=== PATIENT | female | born 1940 | race Caucasian/White ===

== ENCOUNTER → 2020-02-07 11:57 | Outpatient (CLI) | payer MEDICARE, OTHER, SELFPAY ==
--- NOTE | ~2020-02-07 | DEXA_ITS ---
Bone Density Report Name: Stephanie Diop Age: 79 Sex: Female Ethnicity: White Date of : 1940 Indication: postmenopausal; screening for osteoporosis; parental hip fracture; height loss; hysterectomy; Referring Provider: Janelle, Missy Study: Bone densitometry was performed. Exam Date: February 07, 2020 Accession number: [id number] There is hypertrophic degenerative change of the lumbar spine, which results in higher than expected spine bone mineral density measurements. These spine BMD and T score and Z score measurements are not reflective of the patient's true general bone mineral density. Bone Density: Region BMD T-score Z-score Classification AP Spine (L1-L4) 1.154 1.0 3.7 Normal Femoral Neck (Left) 0.797 -0.5 1.9 Normal Total Hip (Left) 0.837 -0.9 1.2 Normal Femoral Neck (Right) 0.763 -0.8 1.6 Normal Total Hip (Right) 0.819 -1.0 1.1 Normal Total Hip Mean 0.828 -1.0 1.2 Normal World Health Organization criteria for BMD impression classify patients as: Normal (T-score at or above -1.0), Osteopenia (T-score between -1.0 and -2.5), or Osteoporosis (T-score at or below -2.5). 10-year Fracture Risk: FRAX not reported because: All T-scores for Spine Total, Hip Total, Femoral Neck at or above -1.0 Clinical Information Provided by Patient: Parent has had a hip fracture Has used the following medications: Vitamin D, Calcium Has the following medical conditions: Hysterectomy, Levothyroxin Patient maximum height was 65.5 Menopause Age: 30 No regular weight bearing exercise Drinks caffeinated beverages Onset of menses at age 14 Number of children 4 Impression: The patient has normal bone mass. The patient has risk factors, including: parental hip fracture. There is hypertrophic degenerative change of the lumbar spine, which results in higher than expected spine bone mineral density measurements. These spine BMD and T score and Z score measurements are not reflective of the patient's true general bone mineral density. Discussion: BONE DENSITY IS ABOVE THE MINIMUM DESIRABLE LEVEL AT ALL SKELETAL SITES TESTED. This patient?s bone mineral density is above the minimum desirable level (T-score -1.0 or better) at all sites measured. The patient should follow a healthful lifestyle (good nutrition with adequate calcium and vitamin D, and appropriate weight-bearing exercise). Follow-Up: Consider repeating this study in 5 years or sooner if there is some new clinical indication. Reported by: MAYA on 02/07/2020 3:24:00 PM. Reviewed, dictated and finalized at location Demetrice ALBA
--- NOTE | ~2020-02-07 | MM_ITS ---
EXAMINATION: MM screening marisa BI w antoni HISTORY: Screening mammogram TECHNIQUE: Craniocaudal and mediolateral oblique 3-D tomosynthesis images were obtained and synthetic 2-D images were generated. CAD analysis was submitted and interpreted. COMPARISON: 12/16/2018, 11/30/2017, 10/30/2016 bilateral digital screening mammogram examinations BREAST PARENCHYMAL COMPOSITION: FINDINGS: There is some asymmetry on the left; diagnostic left mammogram is recommended, with ultraso und if required. Otherwise no suspicious mass or architectural distortion or malignant calcification, skin thickening or retraction is detected. There are bilateral occasional benign calcifications. IMPRESSION: 1. Left mammographic asymmetry 2. Diagnostic left mammogram is recommended, with ultrasound if required BI-RADS Category 0: Incomplete: Needs additional imaging evaluation. Reviewed, dictated and finalized at location A.
== END ==
PROVIDERS: PCP Internal Medicine; Visit Provider Internal Medicine
DX: Z12.31 Encounter for screening mammogram for malignant neoplasm of breast (principal); Z78.0 Asymptomatic menopausal state; R92.8 Other abnormal and inconclusive findings on diagnostic imaging of breast
CPT/HCPCS: 77063; 77067; 77080

== ENCOUNTER → 2020-02-28 09:45 | Outpatient (CLI) | payer MEDICARE, OTHER, SELFPAY ==
--- NOTE | ~2020-02-28 | MMUS_ITS ---
EXAMINATION: MM diagnostic mammo unilat LT, US breast LT limited HISTORY: Left breast asymmetries on screening mammogram TECHNIQUE: Additional 3-D tomosynthesis images of the left breast were performed and synthetic 2-D im ages were generated. CAD analysis was submitted and interpreted. High resolution limited left breast ultrasound was performed. COMPARISON: 02/07/2020, 12/16/2018, 11/30/2017, 10/30/2016 FINDINGS: MAMMOGRAPHIC FINDINGS: There is a return to baseline fibroglandular appearance with spot compression of the left breast. No persistent mass is identified. There is no suspicious calcification or architectural distortion. ULTRASOUND: There is no evidence of focal abnormal solid or cystic lesion in the vicinity of the mammographic fin ding in question. IMPRESSION: 1. No mammographic or sonographic evidence of malignancy. 2. Recommend annual screening mammography while the patient remains in good health. BI-RADS Category 1: Negative Reviewed, dictated and finalized at location A. UE CARVER IMPRESSION: 1. No mammographic or sonographic evidence of malignancy. 2. Recommend annual screening mammography while the patient remains in good hea lth. BI-RADS Category 1: Negative
== END ==
PROVIDERS: PCP Internal Medicine; Visit Provider Internal Medicine
DX: R92.8 Other abnormal and inconclusive findings on diagnostic imaging of breast (principal)
CPT/HCPCS: 76642; 77065

== ENCOUNTER → 2021-02-11 12:56 | Outpatient (CLI) | payer MEDICARE, SELFPAY ==
--- NOTE | ~2021-02-11 | MM_ITS ---
EXAMINATION: MM screening marisa BI w antoni HISTORY: Screening mammogram TECHNIQUE: Craniocaudal and mediolateral oblique 3-D tomosynthesis images were obtained and synthetic 2-D images were generated. CAD analysis was submitted and interpreted. COMPARISON: Serial mammogram examinations dating back to 06/2015 and 02/28/2020 limited left breast u ltrasound examination BREAST PARENCHYMAL COMPOSITION: There are scattered areas of fibroglandular density. FINDINGS: Stable fibroglandular asymmetry since 06/2015, without evidence of significant new or devel oping density. Scattered bilateral benign calcifications. There is no evidence of suspicious mass, ca lcification, or architectural distortion to suggest malignancy in either breast. There has been no zepeda spicious interval change. IMPRESSION: 1. No mammographic evidence of malignancy. 2. Recommend routine screening mammography in one year. BI-RADS Category 2: Benign finding(s). Reviewed, dictated and finalized at location A.
== END ==
PROVIDERS: PCP Internal Medicine; Visit Provider Obstetrics & Gynecology
DX: Z12.31 Encounter for screening mammogram for malignant neoplasm of breast (principal)
CPT/HCPCS: 77063; 77067

== ENCOUNTER 2021-06-02 12:22 | Outpatient (CLI) | payer MEDICARE, SELFPAY ==
--- NOTE | ~2021-06-02 | US_ITS ---
EXAMINATION: US thyroid DATE: 06/02/2021 13:17 INDICATION: Nontoxic single thyroid nodule. TECHNIQUE: Multiple ultrasound images of the thyroid were obtained. COMPARISON: None. FINDINGS: The right thyroid lobe measures 3.1 x 1.4 x 1.3 cm. The left thyroid lobe measures 2.6 x 1.3 x 0.8 c m. In the right thyroid lobe, there is a 9 mm solid, hypoechoic, jtjfy-fcll-wwbj nodule with macroca lcifications and ill-defined margin (TI-RADS TR4). In the right thyroid lobe, there is a 9 mm solid, hypoechoic, ykopr-zujn-ozdr nodule with punctate echogenic foci (TI-RADS TR5). In the left thyroid lo be, there is a 6 mm solid, hypoechoic, oliab-luxq-ergx nodule with punctate echogenic focus (TR5). IMPRESSION: 1. Small thyroid nodules. Thyroid ultrasound is recommended in one year. Reviewed, dictated and finalized at location A. L WRITING PROFESSOR
== END 2021-06-02 12:23 | disposition home or self-care (01) ==
LOC: ANHIMG 12:29
PROVIDERS: PCP Internal Medicine; Visit Provider Otolaryngology
DX: E04.1 Nontoxic single thyroid nodule (principal)
CPT/HCPCS: 76536

== ENCOUNTER 2022-01-31 23:10 | Inpatient (IN) | payer MEDICARE, SELFPAY ==
--- NOTE | ~2022-01-31 | XR_ITS ---
EXAMINATION: XR chest 1V portable DATE: 02/01/2022 00:55 INDICATION: COVID TECHNIQUE: frontal view of the chest was obtained. COMPARISON: Chest radiograph dated 12/01/2013 FINDINGS: The lungs remain clear with no focal airspace opacities, pulmonary edema, pleural effusion or pneumot horax. Heart size is normal. 50 degrees thoracic dextroscoliosis and 40 degrees cervicothoracic levos coliosis with moderate to severe spondylosis. IMPRESSION: 1. No acute cardiopulmonary disease. 2. Scoliosis. Reviewed, dictated and finalized at location A.
[2022-01-31 23:14] VITALS: BP 177/83; PULSE 69; RESP 17; TEMP 36.6; O2SAT 100
--- NOTE | 2022-01-31 23:55 | ED.HA ---
HPI - Headache General Chief Complaint: Headache Stated Complaint: COVID+, headache, high BP Time Seen by Provider: 01/31/22 23:37 History of Present Illness HPI Narrative: Patient is an 81-year-old female with a history of hypertension, hypothyroidism presenting with a headache. Patient states that she was diagnosed with COVID approximately 6 days ago. Her PCP placed her on antivirals which she has been taking all week. She states that she has had intermittent headache since Wednesday. States that today she developed a headache in the back of her head and it radiates to the top of her head. She took Tylenol which did not help. She checked her blood pressure and found it to be 200 systolic so she called her PCP who recommended she come to the ER. Patient states that she then took an Advil around 9 PM and currently her headache is much improved. She denies numbness or weakness, neck pain, fevers, vision changes, ataxia, speech changes. She denies chest pain, shortness of breath, cough, abdominal pain, vomiting, diarrhea, dysuria, leg swelling. States that she has been intermittently nauseated. Related Data Home Medications Medication Instructions Recorded Confirmed acetaminophen 500 mg tablet 650 mg PO Q6H PRN Pain (Scale 08/25/21 02/01/22 (Acetaminophen Extra Strength) Score 1-3) aspirin 81 mg tablet 81 mg PO DAILY 08/25/21 02/01/22 atorvastatin 20 mg tablet 20 mg PO QHS 08/25/21 02/01/22 levothyroxine 50 mcg capsule 50 mcg PO DAILY 08/25/21 02/01/22 lisinopril 10 mg tablet 10 mg PO DAILY 08/25/21 02/01/22 melatonin 3 mg capsule 3 mg PO QHS PRN Insomnia 08/25/21 02/01/22 polyethylene glycol 3350 17 17 g PO DAILY PRN Constipation 08/25/21 02/01/22 gram/dose oral powder (Miralax) Allergies Allergy/AdvReac Type Severity Reaction Status Date / Time MUSCLE RELAXANT Allergy Severe DIFFICULTY Uncoded 05/30/21 15:00 SWALLOWING Review of Systems Review of Systems: All systems reviewed & are unremarkable except as noted in HPI and below PMFSH Past Medical History Medical History Cancer of skin Cervical migraine syndrome GI bleed Heartburn High cholesterol Hyperlipidemia Hypertension Hypothyroidism Scoliosis of cervical spine Stomach ulcer Surgical History Surgical History H/O meniscectomy of right knee H/O vaginal hysterectomy S/P right rotator cuff repair Status post surgical removal of malignant neoplasm of skin Family History Family History (Updated 02/01/22 @ 07:05 by LARRY Bird) Sibling Diabetes mellitus Cancer Family hx-arthritis Heart disease Mother Family hx-arthritis Sibling Family hx-arthritis Cancer Grandparent Cancer Family hx-arthritis Grandparent Family history of malignant neoplasm of breast Father Heart disease Cardiovascular sclerosis with arteriosclerosis Social History Social History (Updated 02/01/22 @ 07:06 by LARRY Bird) Social History: Patient currently lives by herself. She had 4 children 1 of them is at this time. She denies having any pets and wishes to be a full code. Her daughter Elizabeth is her surrogate. Patient also stated she has living will. Smoking status: Never smoker Alcohol intake: never Alcohol use details: Had a Ziebel on [place] Substance use: never Living arrangements: alone Occupation/Education: retired Additional occupation/education comments: [employer] Gender identity (if verbalized by the patient): Female Sexual Orientation (if Verbalized by the Patient): Straight or Heterosexual Spiritual care concerns: No Agree to blood products: Yes Exam Narrative: GENERAL: Well-appearing, well-nourished, and in no acute distress. HEAD: Normocephalic, atraumatic. EYES: PERRLA and EOMI. ENT: Nares clear, no rhinorrhea or epistaxis. Mucous membranes moist. NECK:
[2022-02-01] VITALS (24 sets, daily range): BP systolic 123–192; BP diastolic 52–75; PULSE 51–68; RESP 16–28; TEMP 36.3–36.9; O2SAT 95–100; BMI 25.8
[2022-02-01] MEDS: ONDANSETRON INJ 4 MG/2 ML VIAL IV PUSH ×2 (00:02→12:49)
[2022-02-01 00:10] LABS: Eosinophils Percent Auto 0.6 % (0-4.4); Hematocrit 38.4 % (37.0-47.0); Hemoglobin 13.1 g/dL (12.0-15.0); Immature Granulocyte Absolute 0.01 K/mm3 (0.00-0.031); Immature Granulocyte Percent A 0.2 % (0-0.5); Lymphocytes Absolute Auto 1.61 K/mm3 (0.9-3.2); Mean Corpuscular HGB Conc 34.1 g/dl (32-36); Mean Corpuscular Hemoglobin 30.6 pg (26-34); Mean Corpuscular Volume 89.7 fl (80-100); Mean Platelet Volume 9.8 fl (7.4-10.4); Monocytes Absolute Auto 0.7 K/mm3 (0.1-0.6); Monocytes Percent Auto 12.7 % (2.6-8.5); Neutrophils Absolute Auto 2.9 K/mm3 (1.3-6.7); Neutrophils Percent Auto 55.5 % (45.5-73.1); Platelet Count Result 204 k/mm3 (150-375); Red Blood Count 4.28 M/mm3 (4.2-5.4); Red Cell Distribution Width 13.1 % (11.5-14.5); White Blood Count 5.2 K/mm3 (4.5-10.0)
[2022-02-01 00:19] LABS: Alanine Aminotransferase 30 U/L (6-35); Albumin Level 4.4 g/dL (3.5-5.1); Alkaline Phosphatase 91 U/L (38-126); Anion Gap 8 mmol/L (8-16); Aspartate Amino Transferase 36 U/L (14-36); Bilirubin,Total 0.6 mg/dL (0.2-1.3); Blood Urea Nitrogen 9 mg/dL (7-17); Calcium 8.9 mg/dL (8.4-10.2); Carbon Dioxide 26 mmol/L (22-30); Chloride 88 mmol/L (98-107); Estimated CRCL calculation 44 ml/min; Estimated Glomerular Filt Rate > 60; Glucose 129 mg/dL (65-110); Potassium 4.1 mmol/L (3.4-5.0); Sodium 122 mmol/L (137-145)
--- NOTE | 2022-02-01 00:59 | PC.NURSE ---
Called patients son Abilio upon patient request to inform him that she will be admitted to the hospital.
[2022-02-01 01:04] LABS: Add Urine Microscopic? YES; Appearance Urine Cloudy (Clear); Bacteria Urine Trace /hpf; Bilirubin Urine Negative (Negative); Blood Urine 2+ (Negative); Color Urine Yellow (Yellow); Glucose Urine UA Negative (Negative); Ketones Urine Negative (Negative); Leukocyte Esterase Ur 2+ LEU/UL (Negative); Mucus Urine Rare /lpf; Nitrate Urine Positive (Negative); Protein Urine Negative (Negative); Specific Grav Ur 1.006 (1.001-1.035); Squamous Epithelial Cell Urine Rare /hpf (Few); Urobilinogen Urine Negative mg/dL (<2.0); WBC Urine 51-75 /hpf
--- NOTE | 2022-02-01 01:16 | ECG_ITS ---
Measurements Intervals [place] Rate: 51 P: 65 AR: 219 QRS: -27 QRSD: 91 T: 69 QT: 458 QTc: 425 Interpretive Statements SINUS BRADYCARDIA WITH FIRST DEGREE AV BLOCK BORDERLINE ECG NO PREVIOUS ECG AVAILABLE FOR COMPARISON Electronically Signed On 02-01-2022 15:41:51 CDT by Conrad Vieira M.D.
[2022-02-01 01:32] LABS: Creatinine Urine 38.6 mg/dL
[2022-02-01] MEDS: hydrALAZINE HCL 20 MG/ML VIAL 10 MG IV PUSH (01:33)
[2022-02-01 02:09] LABS: Sodium Urine Random 23 meq/L
--- NOTE | 2022-02-01 06:03 | ADMGEN ---
This patient, Stephanie Diop, was admitted to [facility] Surg Room 327-01. Patient/family oriented to hospital policies and general routines including ID bracelet, bed and alarms, visiting hours, pain management, procedures, bathroom and other care routines, personal items, smoking policy, room service/diet, and visiting hours. Information on how to activate the Rapid Response Team has been discussed. Patient/Family are encouraged to report perceived risks to care and to ask questions if they do not understand what they are told or what they should do.
[2022-02-01 06:30] LABS: Hematocrit 37.4 % (37.0-47.0); Mean Corpuscular HGB Conc 34.8 g/dl (32-36); Mean Corpuscular Hemoglobin 30.7 pg (26-34); Mean Corpuscular Volume 88.2 fl (80-100); Mean Platelet Volume 9.6 fl (7.4-10.4); Platelet Count Result 202 k/mm3 (150-375); Red Blood Count 4.24 M/mm3 (4.2-5.4); Red Cell Distribution Width 12.9 % (11.5-14.5); White Blood Count 6.3 K/mm3 (4.5-10.0)
--- NOTE | 2022-02-01 06:30 | PM.IMHP ---
H&P: HPI History of Present Illness Date/Time: 02/01/22 06:30 Chief Complaint: Headache, elevated blood pressure Narrative: patient is an 81-year-old female with past medical history of hyperlipidemia, hypertension, GI bleed due to stomach ulcer, skin carcinoma who presented to the ED with complaints elevated blood pressure. Patient stated that last Wednesday she did in home test for COVID x3 which all came back positive. She called her physician on Wednesday and he prescribed her antivirals. Patient started her antivirals on Wednesday. She stated that her symptoms were noted to be weakness, feeling off, headache. Patient stated that she never really had a cough and that her temperature did get any higher than 99.3. She also stated that she was having some bouts of diarrhea that Wednesday or Wednesday. She also stated that since she started antiviral medications she has been lightheaded along with some nausea. The 1st couple days she was having sneezing fits however have resolved. Patient stated that she was doing okay however last night she was noted to have a systolic blood pressure of greater than 200. She she called her physician who told her to come to the ED. patient stated that time she started getting a pretty significant headache that started the back of her head and went all the way to the front. She stated that her headache got so severe that she felt like her head was going to pop off. Patient also stated that she does have a history of headaches and does go to a chiropractor weekly. Patient stated that most the time her headaches are resolved with a chiropractor due to the scoliosis of her neck. Patient also stated that when she got here and through the car ride she got nauseous and started vomiting. Her appetite has been lagging and she also stated that when she is lightheaded she does get short of breath as well. She denies any visual changes or hearing changes. She also denies any dizziness, chest pain, constipation. She does state when she gets short of breath that she just that she really has a hard time taking a deep breath. She also stated that as she came to the ED in her blood pressure was high she did get very lightheaded whenever her blood pressure came down after getting medications for her blood pressure. She denies any congestion, dizziness, wheezes, palpitations, abnormal swelling in her legs. Upon arrival to the ED it was noted that her sodium was 122. Patient did state that she has been drinking a lot a water and feels like she got very dehydrated. Currently her sodium was 124. Patient did state that she was also weaker than normal however she was able to walk back from the bathroom herself. Patient is being admitted to the hospitalist service under observation. Review of Systems Review of Systems: All systems reviewed & are unremarkable except as noted in HPI and below PMFSH Past Medical History Medical History Cancer of skin Cervical migraine syndrome GI bleed Heartburn High cholesterol Hyperlipidemia Hypertension Hypothyroidism Scoliosis of cervical spine Stomach ulcer Surgical History Surgical History H/O meniscectomy of right knee H/O vaginal hysterectomy S/P right rotator cuff repair Status post surgical removal of malignant neoplasm of skin Family History Family History (Updated 02/01/22 @ 07:05 by LARRY Bird) Sibling Diabetes mellitus Cancer Family hx-arthritis Heart disease Mother Family hx-arthritis Sibling Family hx-arthritis Cancer Grandparent Cancer Family hx-arthritis Grandparent Family history of malignant neoplasm of breast Father Heart disease Cardiovascular sclerosis with arteriosclerosis Social History Social History (Updated 02/01/22 @ 07:06 by LARRY Bird) Social History: Patient currently lives by herself. She
[2022-02-01] MEDS: LEVOTHYROXINE SODIUM 50 MCG TABLET PO (06:41)
[2022-02-01 06:44] LABS: Anion Gap 10 mmol/L (8-16); Blood Urea Nitrogen 8 mg/dL (7-17); Carbon Dioxide 24 mmol/L (22-30); Chloride 90 mmol/L (98-107); Estimated CRCL calculation 51 ml/min; Estimated Glomerular Filt Rate > 60; Glucose 116 mg/dL (65-110); Potassium 3.9 mmol/L (3.4-5.0); Sodium 124 mmol/L (137-145)
[2022-02-01] MEDS: SODIUM CHLORIDE 0.9% IV 1,000 ML 100 ML IV CONT ×2 (07:52→18:26)
[2022-02-01] MEDS: ACETAMINOPHEN 500 MG TABLET 1000 MG PO ×2 (07:53→21:16)
[2022-02-01] MEDS: ENOXAPARIN 40 MG/0.4 ML SYRINGE SUB-Q (07:59)
[2022-02-01] MEDS: lisinopriL 10 MG TABLET PO (07:59)
[2022-02-01] MEDS: ASPIRIN 81 MG ENTERIC TABLET PO (07:59)
[2022-02-01] MEDS: HYDROcodone/acetaminophen (*CRX) 5-325 MG TABLET 1 TAB PO (11:10)
[2022-02-01] MEDS: ATORVASTATIN 20 MG TABLET PO (21:05)
[2022-02-02] VITALS (9 sets, daily range): BP systolic 131–150; BP diastolic 51–68; PULSE 44–78; RESP 14–24; TEMP 36.6–36.8; O2SAT 97–100
[2022-02-02] MEDS: SODIUM CHLORIDE 0.9% IV 1,000 ML 100 ML IV CONT ×2 (03:15→08:33)
[2022-02-02 03:51] LABS: SARS-CoV-2 RNA PCR Negative
[2022-02-02] MEDS: LEVOTHYROXINE SODIUM 50 MCG TABLET PO (06:10)
[2022-02-02 06:41] LABS: Hematocrit 35.7 % (37.0-47.0); Hemoglobin 11.7 g/dL (12.0-15.0); Mean Corpuscular HGB Conc 32.8 g/dl (32-36); Mean Corpuscular Hemoglobin 30.7 pg (26-34); Mean Corpuscular Volume 93.7 fl (80-100); Platelet Count Result 199 k/mm3 (150-375); Red Blood Count 3.81 M/mm3 (4.2-5.4); Red Cell Distribution Width 13.4 % (11.5-14.5); White Blood Count 4.8 K/mm3 (4.5-10.0)
[2022-02-02 06:50] LABS: Alanine Aminotransferase 27 U/L (6-35); Albumin Level 3.5 g/dL (3.5-5.1); Alkaline Phosphatase 66 U/L (38-126); Anion Gap 6 mmol/L (8-16); Aspartate Amino Transferase 30 U/L (14-36); Bilirubin,Total 0.4 mg/dL (0.2-1.3); Blood Urea Nitrogen 7 mg/dL (7-17); CRP < 0.5 mg/dL (<1.0); Calcium 8.4 mg/dL (8.4-10.2); Carbon Dioxide 23 mmol/L (22-30); Chloride 104 mmol/L (98-107); Estimated CRCL calculation 44 ml/min; Estimated Glomerular Filt Rate > 60; Glucose 94 mg/dL (65-110); Lactate Dehydrogenase 117 U/L (120-246); Magnesium 1.9 mg/dL (1.6-2.3); Potassium 3.9 mmol/L (3.4-5.0); Sodium 133 mmol/L (137-145)
[2022-02-02] MEDS: ENOXAPARIN 40 MG/0.4 ML SYRINGE SUB-Q (08:33)
[2022-02-02] MEDS: lisinopriL 10 MG TABLET PO (08:34)
[2022-02-02] MEDS: ASPIRIN 81 MG ENTERIC TABLET PO (08:34)
--- NOTE | 2022-02-02 10:00 | P.PNIM_ITS ---
Progress Note: A&P Assessment and Plan (1) Hyponatremia: Code(s): E87.1 - Hypo-osmolality and hyponatremia Status: Acute Assessment and Plan: * ?sodium 122 upon arrival * ?current sodium 133, to high as it dipika 9 in 24 hours * Nephrology consulted * DDAVP and D5 ordered per nephrology * ?urine sodium 23, urine creatinine 38.6 * ?FENa score 0.3% indicating prerenal hypovolemia possible heart failure * ?patient did indicate that she has been drinking a lot a water * ?start normal saline at 100 mils per hour * ?trend sodium * ?consult nephrology if worsening * ?adjust therapy as indicated (2) Hypertension: Code(s): I10 - Essential (primary) hypertension Status: Acute Assessment and Plan: * ?blood pressure in the ED was noted to be 192/67 * ?10 mg IV hydralazine given 1 time in the ED * ?current blood pressure 135/68 * ?continue home? lisinopril 10 mg * ?trend blood pressure * ?adjust therapy as indicated (3) COVID-19: Code(s): U07.1 - COVID-19 Status: Acute Assessment and Plan: * patient tested positive on Wednesday * ?patient just finished a 5 day course of paxlovid * ?no notable shortness of breath, cough, COVID symptoms * ?stable at this time. * ?chest x-ray appears to be normal * ?Trend respiratory status * ?supplemental oxygen if indicated (4) Abnormal urinalysis: Code(s): R82.90 - Unspecified abnormal findings in urine Status: Acute Assessment and Plan: * ?UA indicates infection with positive nitrates, trace bacteria, elevated white blood cells * ?WBC 7.5 * ?no urinary complaints * ?hold on antibiotics for now * ?urine culture in process (5) Headache: Code(s): R51.9 - Headache, unspecified Status: Acute Assessment and Plan: * notable headache upon arrival * ?probably related to her hypertension * ?blood pressure was noted to be elevated upon arrival * ?Tylenol on board * ?continue Trend blood pressure * ?sodium was also low which could be contributing * ?trend labs * ?adjust therapy as indicated (6) Hyperlipidemia: Code(s): E78.5 - Hyperlipidemia, unspecified Status: Acute Assessment and Plan: * Continue home atorvastatin 20 mg p.o. at night (7) Hypothyroidism: Code(s): E03.9 - Hypothyroidism, unspecified Status: Acute Assessment and Plan: * ?continue home levothyroxine 50 mcg p.o. daily * ?check a TSH 1.110 Time Spent With Patient Time with patient: Greater than 35 minutes Subjective Date/time seen: 02/02/22 10:00 Interval history: 02/02/22 1000 Patient is doing ok today. She stated that the headache was gone. She also stated that she is feeling a lot better today. She did state that she wanted to take a shower, and see how she feels doing it on her own. Currently she denies any chest pain,shortness of breath, nausea, vomiting, diarrhea or constipation. 02/01/22? 06:30 ?patient is an 81-year-old female with past medical history of hyperlipidemia, hypertension, GI bleed due to stomach ulcer, skin carcinoma who presented to the ED with complaints elevated blood pressure.? Patient stated that last Wednesday she did in home test for COVID x3 which all came back positive.? She called her physician on Wednesday and he prescribed her antivirals.? Patient started her antivirals on
--- NOTE | 2022-02-02 10:00 | PM.IMPN ---
Progress Note: A&P Assessment and Plan (1) Hyponatremia: Code(s): E87.1 - Hypo-osmolality and hyponatremia Status: Acute Assessment and Plan: ?sodium 122 upon arrival ?current sodium 133, to high as it dipika 9 in 24 hours Nephrology consulted DDAVP and D5 ordered per nephrology ?urine sodium 23, urine creatinine 38.6 ?FENa score 0.3% indicating prerenal hypovolemia possible heart failure ?patient did indicate that she has been drinking a lot a water ?start normal saline at 100 mils per hour ?trend sodium ?consult nephrology if worsening ?adjust therapy as indicated (2) Hypertension: Code(s): I10 - Essential (primary) hypertension Status: Acute Assessment and Plan: ?blood pressure in the ED was noted to be 192/67 ?10 mg IV hydralazine given 1 time in the ED ?current blood pressure 135/68 ?continue home? lisinopril 10 mg ?trend blood pressure ?adjust therapy as indicated (3) COVID-19: Code(s): U07.1 - COVID-19 Status: Acute Assessment and Plan: patient tested positive on Wednesday ?patient just finished a 5 day course of paxlovid ?no notable shortness of breath, cough, COVID symptoms ?stable at this time. ?chest x-ray appears to be normal ?Trend respiratory status ?supplemental oxygen if indicated (4) Abnormal urinalysis: Code(s): R82.90 - Unspecified abnormal findings in urine Status: Acute Assessment and Plan: ?UA indicates infection with positive nitrates, trace bacteria, elevated white blood cells ?WBC 7.5 ?no urinary complaints ?hold on antibiotics for now ?urine culture in process (5) Headache: Code(s): R51.9 - Headache, unspecified Status: Acute Assessment and Plan: notable headache upon arrival ?probably related to her hypertension ?blood pressure was noted to be elevated upon arrival ?Tylenol on board ?continue Trend blood pressure ?sodium was also low which could be contributing ?trend labs ?adjust therapy as indicated (6) Hyperlipidemia: Code(s): E78.5 - Hyperlipidemia, unspecified Status: Acute Assessment and Plan: Continue home atorvastatin 20 mg p.o. at night (7) Hypothyroidism: Code(s): E03.9 - Hypothyroidism, unspecified Status: Acute Assessment and Plan: ?continue home levothyroxine 50 mcg p.o. daily ?check a TSH 1.110 Time Spent With Patient Time with patient: Greater than 35 minutes Subjective Date/time seen: 02/02/22 10:00 Interval history: 02/02/22 1000 Patient is doing ok today. She stated that the headache was gone. She also stated that she is feeling a lot better today. She did state that she wanted to take a shower, and see how she feels doing it on her own. Currently she denies any chest pain,shortness of breath, nausea, vomiting, diarrhea or constipation. 02/01/22? 06:30 ?patient is an 81-year-old female with past medical history of hyperlipidemia, hypertension, GI bleed due to stomach ulcer, skin carcinoma who presented to the ED with complaints elevated blood pressure.? Patient stated that last Wednesday she did in home test for COVID x3 which all came back positive.? She called her physician on Wednesday and he prescribed her antivirals.? Patient started her antivirals on Wednesday.? She stated that her symptoms were noted to be weakness, feeling off, headache.? Patient stated that she never really had a cough and that her temperature did get any higher than 99.3.? She also stated that she was having some bouts of diarrhea that Wednesday or Wednesday.? She also stated that since she started antiviral medications she has been lightheaded along with some nausea.? The 1st couple days she was having sneezing fits however have resolved.? Patient stated that she was doing okay however last night she was noted to have a? systolic blood pressure of g
--- NOTE | 2022-02-02 10:40 | PCPTNOTE ---
Per overnight caregiver, Eval no longer required. DC of PT order this date.
--- NOTE | 2022-02-02 11:42 | PM.CNNEP ---
Assessment and Plan Assessment and plan (1) Hyponatremia: Code(s): E87.1 - Hypo-osmolality and hyponatremia Status: Acute Assessment and Plan: The patient has low sodium. We have no labs available from the past to know whether on not this has a chronic component. She has never been told about this before. The patient had the COVID and was feeling poorly and not eating. Yet she was drinking lots of water. 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 The specific gravity of 1.006 And also the repidity with which she corrected her sodium is consistent with this. Other causes include cancer but there is no active disease right now. Pulmonary disease. There is no evidence of this. MANAGER STATISTICS issues. We should get a CT of the brain since she had a headache. Hypothyroidism and adrenal insufficiency as well as medications. because the sodium probably dropped gradually over the week I think we have to assume that this is chronic hyponatremia. So her sodium needs to be brought back down to about 130. So I will order D5W 3 mils per kg per hour for 2 hours and also Desmopressin 2 mcg IV. We will repeat the sodium an hour after the D5W is in and reassess. Will check a TSH, cortisol, serum and urine osmolality. (2) Hypertension: Code(s): I10 - Essential (primary) hypertension Status: Acute Assessment and Plan: Blood pressure is under good control. She is on lisinopril (3) Hypothyroidism: Code(s): E03.9 - Hypothyroidism, unspecified Status: Acute Assessment and Plan: we can check a TSH (4) Hyperlipidemia: Code(s): E78.5 - Hyperlipidemia, unspecified Status: Acute Assessment and Plan: she is on atorvastatin (5) Headache: Code(s): R51.9 - Headache, unspecified Status: Acute Assessment and Plan: will check a CT. Possibly this was due to the COVID (6) Abnormal urinalysis: Code(s): R82.90 - Unspecified abnormal findings in urine Status: Acute Assessment and Plan: she has pyuria. Culture shows gram-negative bacilli. Will add augmentin History of Present Illness Reason for Consult Consult date: 02/02/22 Chief Complaint Chief complaint: hyponatremia History of Present Illness Narrative: Stephanie is a very pleasant 81-year-old lady who lives at home. She started having upper respiratory symptoms last week and tested herself for COVID 1 week ago today. This was positive. She isolated in place. She did not have much of an appetite and so was hardly eating anything. However she was drinking lots of fluid. She developed a severe headache and so came to the emergency room yesterday.She was seen and evaluated. Because she had a positive home COVID test she was isolated. her sodium was only 122. The patient received some medication for her headaches and some IV fluids in the form of normal saline. Today her headache is gone and she feels better. Her sodium dipika to 133 this morning. Renal consultation was requested. The patient does not take diuretics, antidepressants, nonsteroidals, PPIs, or narcotics. The patient does not have a history of cancer. She has no pulmonary disease or symptomatic MANAGER STATISTICS disease. She was not eating very much this whole week and she was drinking a lot of fluid. Review of Systems Constitutional: Constitutional: Reports no additional constitutional complaints Eyes: Eyes: Reports no additional eye complaints ENT: Reports system reviewed and no additional complaints, except as documented Cardiovascular: Cardiovascular: Reports no additional cardiovascular complaints Respiratory: Respiratory: Reports no additional respiratory complaints Gastrointestinal: Gastrointestinal: Reports no additional gastrointestina
[2022-02-02] MEDS: DESMOPRESSIN ACETATE 4 MCG/ML AMP 2 MCG IV PUSH (13:23)
--- NOTE | 2022-02-02 13:33 | PM.DS ---
DS: Admitting Diagnosis Discharge Date 02/02/22 1000 DS: Summary Time Spent with Patient Time attestation: Total time spent providing and/or coordinating discharge services: DS: Data Data Completed and Pending Labs on day of discharge: Labs from last 24 hours 02/02/22 02/02/22 02/02/22 13:23 05:53 05:53 WBC RBC Hgb Hct MCV MCH MCHC RDW Plt Count MPV Sodium Pending 133 L Potassium 3.9 Chloride 104 Carbon Dioxide 23 Anion Gap 6 L BUN 7 Creatinine 0.70 Estim Creat Clear Calc 44 Estimated GFR > 60 Glucose 94 Calcium 8.4 Magnesium 1.9 Ferritin 80.50 Total Bilirubin 0.4 AST 30 ALT 27 Alkaline Phosphatase 66 Lactate Dehydrogenase 117 L C-Reactive Protein < 0.5 Total Protein 6.0 L Albumin 3.5 TSH (Reflex) 1.110 SARS-CoV-2 RNA (RT-PCR) 02/02/22 02/02/22 05:53 03:02 WBC 4.8 RBC 3.81 L Hgb 11.7 L Hct 35.7 L MCV 93.7 D MCH 30.7 MCHC 32.8 RDW 13.4 Plt Count 199 MPV 10.0 Sodium Potassium Chloride Carbon Dioxide Anion Gap BUN Creatinine Estim Creat Clear Calc Estimated GFR Glucose Calcium Magnesium Ferritin Total Bilirubin AST ALT Alkaline Phosphatase Lactate Dehydrogenase C-Reactive Protein Total Protein Albumin TSH (Reflex) SARS-CoV-2 RNA (RT-PCR) Negative Preliminary micro results at discharge 02/01/22 00:50 Urine Culture - Preliminary Urine Clean Catch Gram negative bacilli isolated Discharge Plan Discharge Patient Instructions: How to Stop Smoking (DC), Hyponatremia (GEN), COVID-19 (Coronavirus Disease 2019) (GEN) Discharge Medications: No Action lisinopril 10 mg tablet 10 mg PO DAILY atorvastatin 20 mg tablet 20 mg PO QHS levothyroxine 50 mcg capsule 50 mcg PO DAILY aspirin 81 mg tablet 81 mg PO DAILY acetaminophen [Acetaminophen Extra Strength] 500 mg tablet 650 mg PO Q6H PRN (Reason: Pain (Scale Score 1-3)) polyethylene glycol 3350 [Miralax] 17 gram/dose powder 17 g PO DAILY PRN (Reason: Constipation) melatonin 3 mg capsule 3 mg PO QHS PRN (Reason: Insomnia) Date of admission: 02/01/22 01:25 Primary Care Provider: Janelle,Missy Admitting Provider: Kirsten Patel Attending physician on admission: Kirsten Patel Condition: Stable
[2022-02-02 13:38] LABS: Sodium 132 mmol/L (137-145)
[2022-02-02] MEDS: AMOXICILLIN/CLAVULANATE K 250-125 MG TAB 1 TABLET PO ×2 (14:39→21:22)
[2022-02-02 16:58] LABS: Cortisol Random 6.47 ug/dL
[2022-02-02 18:23] LABS: Sodium 131 mmol/L (137-145)
--- NOTE | 2022-02-03 | ECHO_ITS ---
Patient Info Name: Stephanie Diop Age: 81 years : 1940 Gender: Female Ht: 63 in Wt: 145 lbs BSA: 1.72 m2 HR: 52 bpm BP: 161 / 58 mmHg Heart Rhythm: Bradycardia Technical Quality: Fair Exam Date: 02/03/2022 2:55 PM Exam Location: [facility] Patient Status: Inpatient Admit Date: 02/02/2022 Staff Ordering Physician: Bashir Vega Video Game Developer: Aye Germain RDCS Attending Provider: Kirsten Patel DO Referring Physician: Gary DONNELLY; Exam Type: CA echo doppler color flow Study Info Indications R00.1 - Bradycardia, unspecified Complete two-dimensional, color flow and Doppler transthoracic echocardiogram is performed. Summary 1. Complete two-dimensional, color flow and Doppler transthoracic echocardiogram is performed. 2. Left ventricular chamber dimension is normal. 3. Left ventricular systolic function is normal, estimated at 55-60%. 4. There is mildly increased left ventricular wall thickness. 5. The left ventricular diastolic function is grade I diastolic dysfunction. 6. Left atrial chamber dimension is mildly enlarged. 7. There is mild aortic valve regurgitation. 8. The mitral valve has thickened leaflets. 9. There is mild mitral valve regurgitation. 10. There is mild tricuspid valve regurgitation. 11. There is mild pulmonic regurgitation. Left Ventricle Left ventricular chamber dimension is normal. Left ventricular systolic function is normal, estimated at 55-60%. There is mildly increased left ventricular wall thickness. The left ventricular diastolic function is grade I diastolic dysfunction. Right Ventricle Right ventricular chamber dimension is normal. Right ventricular systolic function is normal. Left Atria Left atrial chamber dimension is mildly enlarged. Right Atria Right atrial chamber dimension is normal. Atrial Septum Intact interatrial septum visualized by color flow imaging. Aortic Valve The aortic valve is trileaflet. There is mild aortic valve sclerosis. There is no aortic valve stenosis. There is mild aortic valve regurgitation. Pulmonic Valve The pulmonic valve is normal. There is no pulmonic valve stenosis. There is mild pulmonic regurgitation. Mitral Valve The mitral valve has thickened leaflets. There is no mitral valve stenosis. There is mild mitral valve regurgitation. Tricuspid Valve The tricuspid valve leaflets are normal. There is no significant tricuspid valve stenosis. There is mild tricuspid valve regurgitation. No pulmonary hypertension, estimated pulmonary arterial systolic pressure is 32 mmHg. Pericardium/Pleural The pericardium appears normal. There is no pericardial effusion. Inferior Vena Cava Normal inferior vena cava with >50% collapse upon inspiration consistent with normal right atrial pressure, 5 mmHg. Aorta The aortic root size at the sinus of Valsalva is normal. Left Ventricular Outflow Tract Name Value Normal LVOT 2D LVOT Diameter 2.0 cm LVOT Doppler LVOT Peak Gradient 5 mmHg LVOT Mean Gradient 2 mmHg LVOT
[2022-02-03 03:00] VITALS: BP 162/55; PULSE 49; RESP 20; TEMP 36.3; O2SAT 98
[2022-02-03] MEDS: LEVOTHYROXINE SODIUM 50 MCG TABLET PO (05:33)
[2022-02-03] MEDS: AMOXICILLIN/CLAVULANATE K 250-125 MG TAB 1 TABLET PO ×3 (05:33→21:38)
[2022-02-03 06:23] LABS: Basophils Percent Auto 0.4 % (0.2-1.2); Eosinophils Absolute Auto 0.1 K/mm3 (0-0.3); Eosinophils Percent Auto 2.1 % (0-4.4); Hematocrit 33.8 % (37.0-47.0); Hemoglobin 11.3 g/dL (12.0-15.0); Immature Granulocyte Absolute 0.01 K/mm3 (0.00-0.031); Immature Granulocyte Percent A 0.2 % (0-0.5); Lymphocytes Absolute Auto 1.87 K/mm3 (0.9-3.2); Lymphocytes Percent Auto 39.4 % (18.3-44.2); Mean Corpuscular HGB Conc 33.4 g/dl (32-36); Mean Corpuscular Hemoglobin 31.1 pg (26-34); Mean Corpuscular Volume 93.1 fl (80-100); Mean Platelet Volume 9.9 fl (7.4-10.4); Monocytes Absolute Auto 0.6 K/mm3 (0.1-0.6); Monocytes Percent Auto 12.4 % (2.6-8.5); Neutrophils Absolute Auto 2.2 K/mm3 (1.3-6.7); Neutrophils Percent Auto 45.5 % (45.5-73.1); Platelet Count Result 188 k/mm3 (150-375); Red Blood Count 3.63 M/mm3 (4.2-5.4); Red Cell Distribution Width 13.1 % (11.5-14.5); White Blood Count 4.8 K/mm3 (4.5-10.0)
[2022-02-03 06:38] LABS: Alanine Aminotransferase 32 U/L (6-35); Albumin Level 3.5 g/dL (3.5-5.1); Alkaline Phosphatase 63 U/L (38-126); Anion Gap 5 mmol/L (8-16); Aspartate Amino Transferase 36 U/L (14-36); Bilirubin,Total 0.4 mg/dL (0.2-1.3); Blood Urea Nitrogen 12 mg/dL (7-17); Calcium 8.4 mg/dL (8.4-10.2); Carbon Dioxide 26 mmol/L (22-30); Chloride 96 mmol/L (98-107); Estimated CRCL calculation 44 ml/min; Estimated Glomerular Filt Rate > 60; Glucose 95 mg/dL (65-110); Magnesium 1.8 mg/dL (1.6-2.3); Phosphorus 2.6 mg/dL (2.5-4.5); Potassium 4.1 mmol/L (3.4-5.0); Sodium 127 mmol/L (137-145)
[2022-02-03 08:00] VITALS: BP 151/60; PULSE 50; RESP 16; TEMP 36.8; O2SAT 97
[2022-02-03] MEDS: lisinopriL 10 MG TABLET PO (08:20)
[2022-02-03] MEDS: ENOXAPARIN 40 MG/0.4 ML SYRINGE SUB-Q (08:20)
[2022-02-03] MEDS: ASPIRIN 81 MG ENTERIC TABLET PO (08:20)
--- NOTE | 2022-02-03 09:15 | P.PNIM_ITS ---
Progress Note: A&P Assessment and Plan (1) Hyponatremia: Code(s): E87.1 - Hypo-osmolality and hyponatremia Status: Acute Assessment and Plan: * ?sodium 122 upon arrival * ?current sodium 127 * Nephrology consulted thank you for your help * DDAVP and D5 ordered per nephrology * ?urine sodium 23, urine creatinine 38.6 * ?FENa score 0.3% indicating prerenal hypovolemia possible heart failure * ?patient did indicate that she has been drinking a lot a water * ?Nephrology to manage * Increase by 4-6 per 24 hour period * ?trend sodium * ?adjust therapy as indicated (2) UTI (urinary tract infection): Code(s): N39.0 - Urinary tract infection, site not specified Status: Acute Assessment and Plan: * UA indicates infection with positive nitrates, trace bacteria, elevated white blood cells * ?WBC 4.8 * ?no urinary complaints * Continue amoxicillin * ?urine culture gram negative bacilli * Asjut antibiotics to sensitivities (3) Hypertension: Code(s): I10 - Essential (primary) hypertension Status: Acute Assessment and Plan: * ?blood pressure in the ED was noted to be 192/67 * ?10 mg IV hydralazine given 1 time in the ED * ?current blood pressure 162/55 * ?continue home? lisinopril 10 mg * ?trend blood pressure * ?adjust therapy as indicated (4) COVID-19: Code(s): U07.1 - COVID-19 Status: Acute Assessment and Plan: * patient tested positive on Wednesday * ?patient just finished a 5 day course of paxlovid * ?no notable shortness of breath, cough, COVID symptoms * ?stable at this time. * ?chest x-ray appears to be normal * ?Trend respiratory status * ?supplemental oxygen if indicated (5) Headache: Code(s): R51.9 - Headache, unspecified Status: Acute Assessment and Plan: * notable headache upon arrival * ?probably related to her hypertension * ?blood pressure was noted to be elevated upon arrival * ?Tylenol on board * ?continue Trend blood pressure * ?sodium was also low which could be contributing * ?trend labs * ?adjust therapy as indicated (6) Hyperlipidemia: Code(s): E78.5 - Hyperlipidemia, unspecified Status: Acute Assessment and Plan: * Continue home atorvastatin 20 mg p.o. at night (7) Hypothyroidism: Code(s): E03.9 - Hypothyroidism, unspecified Status: Acute Assessment and Plan: * ?continue home levothyroxine 50 mcg p.o. daily * ?check a TSH 1.110 (8) Bradycardia: Code(s): R00.1 - Bradycardia, unspecified Status: Acute Assessment and Plan: * Heart rate gets into the 40s * echo ordered * EKG seems to be unchanged since 2019 * Does not complain of any chest pain, shortness of breath, or any other cardiac symptoms * Trend heart rate * Could be her baseline * Apnea-link tonight, to ensure she does not have RUTHY Time Spent With Patient Time with patient: Greater than 35 minutes Subjective Date/time seen: 02/03/22 09:15 Interval history: 02/03/22914 Patient seems to be doing well today. She stated that she did not have any headache. She also stated that she was able to get up and move around on the room. She denies any chest pain, shortness of breath, weakness, fatigue, nausea, vomiting. She also s
--- NOTE | 2022-02-03 09:15 | PM.IMPN ---
Progress Note: A&P Assessment and Plan (1) Hyponatremia: Code(s): E87.1 - Hypo-osmolality and hyponatremia Status: Acute Assessment and Plan: ?sodium 122 upon arrival ?current sodium 127 Nephrology consulted thank you for your help DDAVP and D5 ordered per nephrology ?urine sodium 23, urine creatinine 38.6 ?FENa score 0.3% indicating prerenal hypovolemia possible heart failure ?patient did indicate that she has been drinking a lot a water ?Nephrology to manage Increase by 4-6 per 24 hour period ?trend sodium ?adjust therapy as indicated (2) UTI (urinary tract infection): Code(s): N39.0 - Urinary tract infection, site not specified Status: Acute Assessment and Plan: UA indicates infection with positive nitrates, trace bacteria, elevated white blood cells ?WBC 4.8 ?no urinary complaints Continue amoxicillin ?urine culture gram negative bacilli Asjut antibiotics to sensitivities (3) Hypertension: Code(s): I10 - Essential (primary) hypertension Status: Acute Assessment and Plan: ?blood pressure in the ED was noted to be 192/67 ?10 mg IV hydralazine given 1 time in the ED ?current blood pressure 162/55 ?continue home? lisinopril 10 mg ?trend blood pressure ?adjust therapy as indicated (4) COVID-19: Code(s): U07.1 - COVID-19 Status: Acute Assessment and Plan: patient tested positive on Wednesday ?patient just finished a 5 day course of paxlovid ?no notable shortness of breath, cough, COVID symptoms ?stable at this time. ?chest x-ray appears to be normal ?Trend respiratory status ?supplemental oxygen if indicated (5) Headache: Code(s): R51.9 - Headache, unspecified Status: Acute Assessment and Plan: notable headache upon arrival ?probably related to her hypertension ?blood pressure was noted to be elevated upon arrival ?Tylenol on board ?continue Trend blood pressure ?sodium was also low which could be contributing ?trend labs ?adjust therapy as indicated (6) Hyperlipidemia: Code(s): E78.5 - Hyperlipidemia, unspecified Status: Acute Assessment and Plan: Continue home atorvastatin 20 mg p.o. at night (7) Hypothyroidism: Code(s): E03.9 - Hypothyroidism, unspecified Status: Acute Assessment and Plan: ?continue home levothyroxine 50 mcg p.o. daily ?check a TSH 1.110 (8) Bradycardia: Code(s): R00.1 - Bradycardia, unspecified Status: Acute Assessment and Plan: Heart rate gets into the 40s echo ordered EKG seems to be unchanged since 2019 Does not complain of any chest pain, shortness of breath, or any other cardiac symptoms Trend heart rate Could be her baseline Apnea-link tonight, to ensure she does not have RUTHY Time Spent With Patient Time with patient: Greater than 35 minutes Subjective Date/time seen: 02/03/22 09:15 Interval history: 02/03/2215 Patient seems to be doing well today. She stated that she did not have any headache. She also stated that she was able to get up and move around on the room. She denies any chest pain, shortness of breath, weakness, fatigue, nausea, vomiting. She also stated that she is usually in the 50s with her heart rate, but stated that she is not usually in the 40s. However, I think this is mostly when she sleeps she would be unaware. Stable at this point. 02/02/22 1000 Patient is doing ok today. She stated that the headache was gone. She also stated that she is feeling a lot better today. She did state that she wanted to take a shower, and see how she feels doing it on her own. Currently she denies any chest pain,shortness of breath, nausea, vomiting, diarrhea or constipation. 02/01/22? 06:30 ?patient is an 81-year-old female with past medical history of hyperlipidemia, hy
[2022-02-03] MEDS: MAGNESIUM SULF 2 GM/WATER 50ML 2 GM/50 ML BAG IVPB (09:30)
[2022-02-03 12:00] VITALS: BP 161/58; PULSE 52; RESP 16; TEMP 36.6; O2SAT 96
[2022-02-03 16:00] VITALS: BP 148/77; PULSE 63; RESP 16; TEMP 36.8; O2SAT 99
[2022-02-03 21:45] VITALS: BP 181/67; PULSE 54; RESP 21; TEMP 36.4; O2SAT 96
[2022-02-03 22:30] VITALS: BP 150/58
[2022-02-04] VITALS: BP 165/50; PULSE 49; RESP 21; TEMP 36.4; O2SAT 97
[2022-02-04 04:00] VITALS: BP 177/76; PULSE 53; RESP 20; TEMP 36.5; O2SAT 98
[2022-02-04] MEDS: AMOXICILLIN/CLAVULANATE K 250-125 MG TAB 1 TABLET PO ×2 (05:57→13:01)
[2022-02-04] MEDS: LEVOTHYROXINE SODIUM 50 MCG TABLET PO (05:57)
[2022-02-04 06:40] LABS: Basophils Percent Auto 0.3 % (0.2-1.2); Eosinophils Absolute Auto 0.1 K/mm3 (0-0.3); Eosinophils Percent Auto 1.9 % (0-4.4); Hematocrit 37.9 % (37.0-47.0); Hemoglobin 12.8 g/dL (12.0-15.0); Immature Granulocyte Absolute 0.02 K/mm3 (0.00-0.031); Immature Granulocyte Percent A 0.3 % (0-0.5); Lymphocytes Absolute Auto 1.86 K/mm3 (0.9-3.2); Lymphocytes Percent Auto 31.8 % (18.3-44.2); Mean Corpuscular HGB Conc 33.8 g/dl (32-36); Mean Corpuscular Hemoglobin 31.2 pg (26-34); Mean Corpuscular Volume 92.4 fl (80-100); Mean Platelet Volume 9.8 fl (7.4-10.4); Monocytes Absolute Auto 0.7 K/mm3 (0.1-0.6); Monocytes Percent Auto 11.8 % (2.6-8.5); Neutrophils Absolute Auto 3.2 K/mm3 (1.3-6.7); Neutrophils Percent Auto 53.9 % (45.5-73.1); Platelet Count Result 215 k/mm3 (150-375); White Blood Count 5.9 K/mm3 (4.5-10.0)
[2022-02-04 06:49] LABS: Alanine Aminotransferase 47 U/L (6-35); Alkaline Phosphatase 73 U/L (38-126); Anion Gap 8 mmol/L (8-16); Aspartate Amino Transferase 57 U/L (14-36); Bilirubin,Total 0.5 mg/dL (0.2-1.3); Blood Urea Nitrogen 12 mg/dL (7-17); Calcium 8.8 mg/dL (8.4-10.2); Carbon Dioxide 27 mmol/L (22-30); Chloride 97 mmol/L (98-107); Estimated CRCL calculation 44 ml/min; Estimated Glomerular Filt Rate > 60; Glucose 104 mg/dL (65-110); Magnesium 2.1 mg/dL (1.6-2.3); Potassium 4.2 mmol/L (3.4-5.0); Sodium 132 mmol/L (137-145)
--- NOTE | 2022-02-04 06:56 | PM.PNNEP ---
Progress Note: A&P Assessment and Plan (1) Hyponatremia: Code(s): E87.1 - Hypo-osmolality and hyponatremia Status: Acute Assessment and Plan: The patient has low sodium. We have no labs available from the past to know whether on not this has a chronic component. She has never been told about this before. UA showed specific gravity 1.006. Urine electrolytes are non pre renal. Osmolality are pending. TSH is okay. Cortisol was 6.47. She auto corrected rapidly and so she was slow down with D5W and desmopressin. This successfully brought the sodium down to an appropriate level. Since then she is corrected more slowly. I think she is okay to go home. She should follow up in my office at some point. (2) Hypertension: Code(s): I10 - Essential (primary) hypertension Status: Acute Assessment and Plan: Blood pressure is under good control. She is on lisinopril (3) Hypothyroidism: Code(s): E03.9 - Hypothyroidism, unspecified Status: Acute Assessment and Plan: we can check a TSH (4) Hyperlipidemia: Code(s): E78.5 - Hyperlipidemia, unspecified Status: Acute Assessment and Plan: she is on atorvastatin (5) Headache: Code(s): R51.9 - Headache, unspecified Status: Acute Assessment and Plan: will check a CT. Possibly this was due to the COVID (6) Abnormal urinalysis: Code(s): R82.90 - Unspecified abnormal findings in urine Status: Acute Assessment and Plan: she has pyuria. Culture shows gram-negative bacilli. Will add augmentin Subjective Date/time seen: 02/04/22 06:56 Interval history: The patient was not on my list yesterday and so I thought she had been discharged. Stephanie is feeling better. No shortness of breath. No fevers or chills Review of Systems Cardiovascular: Cardiovascular: Reports no additional cardiovascular complaints Respiratory: Respiratory: Reports no additional respiratory complaints Gastrointestinal: Gastrointestinal: Reports no additional gastrointestinal complaints Genitourinary: Genitourinary: Reports no additional female genitourinary complaints Exam Narrative: WDWN in NAD skin no rash head ncat lungs clear cor reg no rub abd BS+ nontender and soft ext no edema. Objective Data Vital Signs Vital Signs: Vital Signs - 24 hr 02/03/22 08:00 02/03/22 08:20 02/03/22 12:00 Temperature 36.8 C 36.6 C Pulse Rate 50 L 52 L Respiratory Rate 16 16 Blood Pressure 151/60 H 161/58 H Pulse Oximetry 97 96 Oxygen Delivery Room Air 02/03/22 16:00 02/03/22 20:00 02/03/22 21:45 Temperature 36.8 C 36.4 C L Pulse Rate 63 54 L Respiratory Rate 16 21 H Blood Pressure 148/77 H 181/67 H Pulse Oximetry 99 96 Oxygen Delivery Room Air 02/03/22 22:30 02/04/22 00:00 02/04/22 04:00 Temperature 36.4 C L 36.5 C Pulse Rate 49 L 53 L Respiratory Rate 21 H 20 Blood Pressure 150/58 H 165/50 H 177/76 H Pulse Oximetry 97 98 Oxygen Delivery Intake/Output Intake/Output: Intake & Output 02/01/22 02/02/22 02/03/22 02/04/22 23:59 23:59 23:59 23:59 Intake Total 1720 5130 1010 250 Output Total 450 900 200 Balance 1270 4230 810 250 Meds/Results Medications: Active Medications Generic Name Dose Route Start Last Admin Trade Name Freq PRN Reason Stop Dose Admin Acetaminophen 1,000 mg 02/01/22 07:16 02/01/22 21:16 Acetaminophen 500 Mg Tablet PO 1,000 mg Q6H PRN Administration Pain (Scale Score 1-3) Hydrocodone Bitart/Acetaminophen 1 tab 02/01/22 07:14 02/01/22 11:10 Hydrocodone/Acetaminophen (*Crx) 5-325 Mg Tablet PO 1 tab Q4H PRN Administration Moderate Pain (4-10) Amoxicillin/Clavulanate Potassium 1 tablet 02/02/22 14:00 02/04/22 05:57 Amoxicillin/Clavulanate K 250-125 Mg Tab PO 1 tablet Q8HR MEDHAT Administration Aspirin 81 mg 02/01/22 09:00 02/03/22 08:20 Aspi
[2022-02-04 08:00] VITALS: BP 133/58; PULSE 58; RESP 20; TEMP 36.6; O2SAT 99
[2022-02-04] MEDS: ENOXAPARIN 40 MG/0.4 ML SYRINGE SUB-Q (08:21)
[2022-02-04] MEDS: ASPIRIN 81 MG ENTERIC TABLET PO (08:21)
[2022-02-04] MEDS: lisinopriL 10 MG TABLET PO (08:22)
--- NOTE | 2022-02-04 10:30 | P.DS_ITS ---
DS: Admitting Diagnosis Discharge Date 02/04/22 1030 Admitting Diagnosis COVID 19, uncontrolled hypertension, Hyponatremia DS: Discharge Diagnosis Discharge Diagnosis (1) Hyponatremia: Code(s): E87.1 - Hypo-osmolality and hyponatremia Status: Acute Assessment and Plan: * ?sodium 122 upon arrival * ?current sodium 132 * Nephrology consulted thank you for your help * DDAVP and D5 ordered per nephrology * ?urine sodium 23, urine creatinine 38.6 * ?FENa score 0.3% indicating prerenal hypovolemia possible heart failure * ?patient did indicate that she has been drinking a lot a water * ?Nephrology to manage * Increase by 4-6 per 24 hour period * ?trend sodium * ?adjust therapy as indicated (2) UTI (urinary tract infection): Code(s): N39.0 - Urinary tract infection, site not specified Status: Acute Assessment and Plan: * UA indicates infection with positive nitrates, trace bacteria, elevated white blood cells * ?WBC 5.9 * ?no urinary complaints * Continue amoxicillin * ?urine culture gram negative bacilli * Asjut antibiotics to sensitivities (3) Hypertension: Code(s): I10 - Essential (primary) hypertension Status: Acute Assessment and Plan: * ?blood pressure in the ED was noted to be 103/65 * ?10 mg IV hydralazine given 1 time in the ED * ?current blood pressure 162/55 * ?continue home? lisinopril 10 mg * ?trend blood pressure * ?adjust therapy as indicated (4) COVID-19: Code(s): U07.1 - COVID-19 Status: Acute Assessment and Plan: * patient tested positive on Wednesday * ?patient just finished a 5 day course of paxlovid * ?no notable shortness of breath, cough, COVID symptoms * ?stable at this time. * ?chest x-ray appears to be normal * ?Trend respiratory status * ?supplemental oxygen if indicated (5) Headache: Code(s): R51.9 - Headache, unspecified Status: Acute Assessment and Plan: * notable headache upon arrival * ?probably related to her hypertension * ?blood pressure was noted to be elevated upon arrival * ?Tylenol on board * ?continue Trend blood pressure * ?sodium was also low which could be contributing * ?trend labs * ?adjust therapy as indicated (6) Hyperlipidemia: Code(s): E78.5 - Hyperlipidemia, unspecified Status: Acute Assessment and Plan: * Continue home atorvastatin 20 mg p.o. at night (7) Hypothyroidism: Code(s): E03.9 - Hypothyroidism, unspecified Status: Acute Assessment and Plan: * ?continue home levothyroxine 50 mcg p.o. daily * ?check a TSH 1.110 (8) Bradycardia: Code(s): R00.1 - Bradycardia, unspecified Status: Acute Assessment and Plan: * Heart rate gets into the 40s * echo EF of 50-55% with grade 1 diastolic dysfunction no other changes noted * EKG seems to be unchanged since 2019 * Does not complain of any chest pain, shortness of breath, or any other cardiac symptoms * Trend heart rate * Could be her baseline * Apnea-link tonight, to ensure she does not have RUTHY DS: Summary Hospital Course Hospital Course: Patient is an 81-year-old female with a past medical history of hyperlipidemia, hypertension, GI bleed, skin carcinoma who presented the ED with complaints elevated blood
--- NOTE | 2022-02-04 10:30 | PM.DS ---
DS: Admitting Diagnosis Discharge Date 02/04/22 1030 Admitting Diagnosis COVID 19, uncontrolled hypertension, Hyponatremia DS: Discharge Diagnosis Discharge Diagnosis (1) Hyponatremia: Code(s): E87.1 - Hypo-osmolality and hyponatremia Status: Acute Assessment and Plan: ?sodium 122 upon arrival ?current sodium 132 Nephrology consulted thank you for your help DDAVP and D5 ordered per nephrology ?urine sodium 23, urine creatinine 38.6 ?FENa score 0.3% indicating prerenal hypovolemia possible heart failure ?patient did indicate that she has been drinking a lot a water ?Nephrology to manage Increase by 4-6 per 24 hour period ?trend sodium ?adjust therapy as indicated (2) UTI (urinary tract infection): Code(s): N39.0 - Urinary tract infection, site not specified Status: Acute Assessment and Plan: UA indicates infection with positive nitrates, trace bacteria, elevated white blood cells ?WBC 5.9 ?no urinary complaints Continue amoxicillin ?urine culture gram negative bacilli Asjut antibiotics to sensitivities (3) Hypertension: Code(s): I10 - Essential (primary) hypertension Status: Acute Assessment and Plan: ?blood pressure in the ED was noted to be 103/65 ?10 mg IV hydralazine given 1 time in the ED ?current blood pressure 162/55 ?continue home? lisinopril 10 mg ?trend blood pressure ?adjust therapy as indicated (4) COVID-19: Code(s): U07.1 - COVID-19 Status: Acute Assessment and Plan: patient tested positive on Wednesday ?patient just finished a 5 day course of paxlovid ?no notable shortness of breath, cough, COVID symptoms ?stable at this time. ?chest x-ray appears to be normal ?Trend respiratory status ?supplemental oxygen if indicated (5) Headache: Code(s): R51.9 - Headache, unspecified Status: Acute Assessment and Plan: notable headache upon arrival ?probably related to her hypertension ?blood pressure was noted to be elevated upon arrival ?Tylenol on board ?continue Trend blood pressure ?sodium was also low which could be contributing ?trend labs ?adjust therapy as indicated (6) Hyperlipidemia: Code(s): E78.5 - Hyperlipidemia, unspecified Status: Acute Assessment and Plan: Continue home atorvastatin 20 mg p.o. at night (7) Hypothyroidism: Code(s): E03.9 - Hypothyroidism, unspecified Status: Acute Assessment and Plan: ?continue home levothyroxine 50 mcg p.o. daily ?check a TSH 1.110 (8) Bradycardia: Code(s): R00.1 - Bradycardia, unspecified Status: Acute Assessment and Plan: Heart rate gets into the 40s echo EF of 50-55% with grade 1 diastolic dysfunction no other changes noted EKG seems to be unchanged since 2019 Does not complain of any chest pain, shortness of breath, or any other cardiac symptoms Trend heart rate Could be her baseline Apnea-link tonight, to ensure she does not have RUTHY DS: Summary Hospital Course Hospital Course: Patient is an 81-year-old female with a past medical history of hyperlipidemia, hypertension, GI bleed, skin carcinoma who presented the ED with complaints elevated blood pressure, patient stated that about a week ago for Wednesday she tested positive for COVID. Patient called her primary care office and had been started on Paxlovid which in turn has made her quite ill. Upon arrival patient was noted to have a fever, severe headache, and elevated blood pressure. Sodium was noted to be 122. Patient was given IV fluids. Sodium had came up to 133 which was too fast. Headache at that time had been resolved. Patient was also noted to be on tele and would have moments of heart rates in the 40s. Echo was performed which did show an EF of 50-55% with grade 1 diastolic dysfunction. Nephrology was co
[2022-02-04 12:00] VITALS: BP 103/65; PULSE 79; RESP 20; TEMP 36.6; O2SAT 98
[2022-02-05 17:06] LABS: Osmolality, Urine 510 mOsm/kg (50-1200)
== END 2022-02-04 17:00 | disposition home or self-care (01) | DRG 178 ==
LOC: ANHED 02-01 00:07 → ANH3MEDSUR 02-01 02:42
PROVIDERS: Internal Medicine Nephrology; Admitting Provider Internal Medicine; Emergency Provider Emergency Medicine; PCP Internal Medicine; Visit Provider Nurse Practitioner
DX: U07.1 COVID-19 (principal); E87.1 Hypo-osmolality and hyponatremia; N39.0 Urinary tract infection, site not specified; B96.89 Other specified bacterial agents as the cause of diseases classified elsewhere; I10 Essential (primary) hypertension; E78.5 Hyperlipidemia, unspecified; E03.9 Hypothyroidism, unspecified; G44.89 Other headache syndrome; R00.1 Bradycardia, unspecified; Z85.828 Personal history of other malignant neoplasm of skin; Z79.82 Long term (current) use of aspirin; Z90.710 Acquired absence of both cervix and uterus; Z28.21 Immunization not carried out because of patient refusal
CPT/HCPCS: 36415; 71045; 80048; 80053; 81001; 82533; 82570; 82728; 83615; 83735; 83930; 83935; 84100; 84295; 84300; 84443; 85025; 85027; 86140; 87077; 87086; 87186; 93005; 93306; 96361; 96365; 96367; 96372; 96375; 96376; 99285; A9270; C9803; G0378; J0131; J0360; J1650; J2405; J2597; J3475; J7030; J7060; U0003; U0005

== ENCOUNTER → 2022-05-29 12:38 | Outpatient (CLI) | payer MEDICARE, SELFPAY ==
--- NOTE | ~2022-05-29 | US_ITS ---
EXAMINATION: US thyroid DATE: 05/29/2022 12:58 INDICATION: Single thyroid nodule. TECHNIQUE: Multiple ultrasound images of the thyroid were obtained. COMPARISON: Ultrasound 06/02/2021 FINDINGS: The right thyroid lobe measures 3.3 x 1.6 x 1.5 cm. The left thyroid lobe measures 3.0 x 1.0 x 1.2 c m. In the right thyroid lobe, there is an 8 mm solid, hypoechoic, taller than wide nodule with macro calcification (TI-RADS TR5), stable from 06/02/21. In the right thyroid lobe, there is a 10 mm, solid, hypoechoic, wider than tall nodule with ill-defined margin without echogenic foci (TR4), stable from 06/02/21. In the left thyroid lobe, there is an 8 mm solid, hypoechoic, wider than tall nodule with s mooth margin and macrocalcification (TR4), increased from 6 mm. IMPRESSION: 1. Small thyroid nodules. Thyroid ultrasound is recommended in one year. Reviewed, dictated and finalized at location A. ILE KEEPER
== END ==
PROVIDERS: PCP Internal Medicine; Visit Provider Internal Medicine
DX: E04.2 Nontoxic multinodular goiter (principal)
CPT/HCPCS: 76536

== ENCOUNTER → 2022-06-05 12:18 | Outpatient (CLI) | payer MEDICARE, SELFPAY ==
--- NOTE | ~2022-06-05 | MM_ITS ---
EXAMINATION: MM screening marisa BI w antoni HISTORY: Screening mammogram TECHNIQUE: Craniocaudal and mediolateral oblique 3-D tomosynthesis images were obtained and synthetic 2-D images were generated. CAD analysis was submitted and interpreted. COMPARISON: 02/11/2021 bilateral screening mammogram 02/28/2020 diagnostic left mammogram and limited left breast ultrasound 02/07/2020, 12/16/2018 bilateral screening mammogram examinations BREAST PARENCHYMAL COMPOSITION: There are scattered areas of fibroglandular density. FINDINGS: Scattered bilateral benign calcifications. There is no evidence of suspicious mass, calcifi cation, or architectural distortion to suggest malignancy in either breast. There has been no suspici ous interval change. IMPRESSION: 1. No mammographic evidence of malignancy. 2. Recommend routine screening mammography in one year. BI-RADS Category 2: Benign finding(s). Reviewed, dictated and finalized at location A. 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
== END ==
PROVIDERS: PCP Internal Medicine; Visit Provider Obstetrics & Gynecology
DX: Z12.31 Encounter for screening mammogram for malignant neoplasm of breast (principal)
CPT/HCPCS: 77063; 77067

== ENCOUNTER → 2022-06-09 07:22 | Outpatient (CLI) | payer MEDICARE, SELFPAY ==
--- NOTE | ~2022-06-09 | MR_ITS ---
MRI of the right shoulder Technique: Axial proton-density fat-sat images, coronal proton density fat-sat and T2 fat-sat images, and sagittal T1-weighted and T2 fat-sat images were acquired. Clinical History: Pain Findings: Examination to sidhu by motion artifact on all pulse sequences. There is probable mild degen erative change at the AC joint. Ligaments about the AC joint are poorly evaluated due to motion artif act. Suspected full-thickness tear at the midportion of the supraspinatus tendon, with fluid-filled gap me asuring approximately 1.5 x 1.3 cm in extent. Subscapularis tendon is grossly intact. Integrity of th e proximal biceps tendon cannot be confirmed. Complete rupture with retraction may be present. No definite labral tear identified. Inferior glenohumeral ligament is intact. There is mild degenerative change of the glenohumeral joint . Small volume of joint effusion present with small amount of fluid passing through the probable rota tor cuff defect into the subacromial/subdeltoid bursa. No definite muscle atrophy or edema. Impression: Limited exam due to significant motion artifact. Suspected full-thickness tear of the midportion of the supraspinatus tendon, with fluid-filled gap me asuring 1.5 x 1.3 cm. Possible complete rupture of the proximal biceps tendon. Reviewed, dictated and finalized at location . 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 Suspected full-thickness tear of the midportion of the supraspinatus tendon, wi th fluid-filled gap measuring 1.5 x 1.3 cm. Possible complete rupture of the proximal biceps tendon.
--- NOTE | ~2022-06-09 | MR_ITS ---
MRI of the left shoulder Technique: Axial proton-density fat-sat images, coronal proton density fat-sat and T2 fat-sat images, and sagittal T1-weighted and T2 fat-sat images were acquired. Clinical History: Pain Findings: There is [id number] AC joint degenerative change, with small subacromial spur. Coraco clavicular, coracoacromial, and coracohumeral ligaments appear intact. There is full-thickness tear involving the majority of the supraspinatus tendon, possibly sparing the posterior most fibers. Fluid-filled gap measures approximately 3.1 x 2.7 cm in extent. Infraspinatus tendon is intact, without partial or full-thickness tear. There is moderate tendinosis of the distal supraspinatus tendon. Subscapularis tendon is intact. Tendon of the long head of the biceps appears to be intact. No definite labral tear identified. There is mild chondromalacia glenohumeral joint. Minimal glenohumeral joint effusion present. Inferio r glenohumeral ligament is intact. Questionable minimal loss of bulk of the supraspinatus muscle jacobson y. Impression: Full-thickness tear involving the majority of the supraspinatus tendon, as detailed above. [id number] AC joint degenerative change. No labral tear evident. Reviewed, dictated and finalized at [facility]. 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 Qfrb-ka-mikkgeaa AC joint degenerative change. No labral tear evident.
== END ==
PROVIDERS: PCP Internal Medicine; Visit Provider Orthopaedic Surgery
DX: S46.812A Strain of other muscles, fascia and tendons at shoulder and upper arm level, left arm, initial encounter (principal); S46.811A Strain of other muscles, fascia and tendons at shoulder and upper arm level, right arm, initial encounter; M25.512 Pain in left shoulder; M25.511 Pain in right shoulder
CPT/HCPCS: 73221

== ENCOUNTER 2022-10-06 00:12 | Day surgery (SDC) | payer MEDICARE, SELFPAY ==
[2022-09-23 15:25] VITALS: BMI 25.7
--- NOTE | 2022-09-23 15:51 | PC.NURSE ---
Report to the Outpatient Waiting Room, entrance under the green pavilion located off [facility], at time __6:00AM on date __10/06/22 . Planned Procedure Time: __7:30AM . Time changes happen often and if your time is changed the preop area will call you the afternoon before. - You and your visitor will be asked to self-screen and do not enter if you have any COVID symptoms. - A mask is optional within the hospital at this time. Patients may have clear liquids (water, carbonated beverages, clear teas, apple juice) until 3 hours prior to surgery with a maximum of 20 ounces. - No food from midnight until time of surgery Take the following medications with a SIP of water the morning of surgery: __LEVOTHYROXINE DO NOT STOP ANY OF YOUR OTHER PRESCRIPTION MEDICATIONS PRIOR TO SURGERY ?EXCEPT THE FOLLOWING Medications to discontinue per physician _HOLD ALL VITAMINS/SUPPLEMENTS 3 DAYS PRE-OP Date to take last dose___10/02/22 Please no make-up, nail st helenian, hairspray, perfume, deodorant, or body powder the day of surgery. No jewelry (including any body piercings) or valuables the day of surgery, leave them at home. Please take a shower or bath the night before, or the morning of, surgery with an antibacterial soap. Wear comfortable, loose fitting clothing. Children are encouraged to wear pajamas. - Jewelry must be removed prior to entering the operating room. Rings and piercings that are not removed may be cut off. - The hospital will not accept responsibility for valuables. - Please leave all valuables, including medications, at home the day of surgery. If you are going home after surgery, a licensed tow car driver must drive you home. - NO public transportation without another adult if you receive anesthesia. - We recommend that an adult stay with you for 24 hours following discharge. - We also recommend that you do not drive, make important decision, drink alcoholic beverages, or take any drugs that were not prescribed by your health care provider for at least 24 hours after your discharge time. Follow any additional instructions given to you from your surgeon. If you or anyone in your household have experienced Covid symptoms in the past week, please notify your surgeon or the nurse liaison at the phone number below for possible testing. Telephone instructions given to __PATIENT and asked if any additional questions and then verbalized understanding. Patient advised to call surgeon office or pre surgery nurse liaison [phone] if any additional questions.
--- NOTE | 2022-10-05 13:13 | WPDANESEPPF ---
Anes - Initial Pre Proc Eval Procedure: Operation Date: 10/06/22 07:30 Proposed Procedures p Right Shoulder Arthroscopy with Debridement - Maciej Peterson MD Date/Time: 10/05/22 13:13 Surgeon: Maciej Peterson MD Pre Op Diagnosis: right shoulder pain Patient Data Age: 82 Gender: F Height: 1.6 m Weight: 66 kg Allergies Allergy/AdvReac Type Severity Reaction Status Date / Time No Known Allergies Allergy Verified 10/06/22 06:27 Home Medications Medication Instructions Recorded Confirmed Type aspirin 81 mg tablet 81 mg PO DAILY 08/25/21 10/06/22 History atorvastatin 20 mg tablet 20 mg PO QHS 08/25/21 09/29/22 History levothyroxine 50 mcg capsule 50 mcg PO QAM 08/25/21 10/06/22 History lisinopril 10 mg tablet 10 mg PO QAM 08/25/21 09/29/22 History melatonin 3 mg capsule 3 mg PO QHS PRN Insomnia 08/25/21 09/29/22 History polyethylene glycol 3350 17 17 g PO DAILY PRN Constipation 08/25/21 09/29/22 History gram/dose oral powder (Miralax) calcium carbonate 600 mg calcium 600 mg PO DAILY 03/17/22 10/06/22 History (1,500 mg) tablet (Calcium) carboxymethylcellulose sodium 0.5 1 drp EACH EYE BID 03/17/22 09/29/22 History % eye drops (Refresh Tears) cholecalciferol (vitamin D3) 25 25 mcg PO DAILY 03/17/22 10/06/22 History mcg (1,000 unit) capsule simethicone 125 mg chewable tablet 125 mg PO TID PRN BLOATING 03/17/22 09/29/22 History (Mylanta Gas) vitamins A,C,B-dzqp-qievdo 4,296 1 cap PO BID 03/17/22 10/06/22 History mcg-226 mg-90 mg capsule (PreserVision AREDS) coenzyme Q10 75 mg capsule (Ultra 75 mg PO DAILY 06/11/22 10/06/22 History CoQ10) mecobalamin (vitamin B12) 1,000 1,000 mcg PO DAILY 06/11/22 10/06/22 History mcg chewable tablet acetaminophen 650 mg 650 mg PO Q12H PRN Pain 09/23/22 09/29/22 History tablet,extended release multivitamin,min-ferrous fumarate 1 tablet PO BID 09/23/22 10/06/22 History 3.3 mg-folic 25 mcg-herb tablet (Hair, Skin and Nails Advanced) Patient hx anesthesia problems: none Family hx anesthesia problems: none Results Review: All pre-operative results and documents have been reviewed as part of the pre-operative evaluation. 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 Scoliosis of cervical spine Stomach ulcer Surgical History Surgical History H/O meniscectomy of right knee 2011 H/O vaginal hysterectomy S/P right rotator cuff repair 2013 Status post surgical removal of malignant neoplasm of skin Family History Family History Sibling Diabetes mellitus Cancer Family hx-arthritis Heart disease Mother Family hx-arthritis Sibling Family hx-arthritis Cancer Grandparent Cancer Family hx-arthritis Grandparent Family history of malignant neoplasm of breast Father Heart disease Cardiovascular sclerosis with arteriosclerosis Social History Social History Social History: Patient currently lives by herself. She had 4 children 1 of them is at this time. She denies having any pets and wishes to be a full code. Her daughter Elizabeth is her surrogate. Patient also stated she has living will. Smoking status: Never smoker Alcohol intake: never Alcohol use details: [facility] Substance use: never Lack of Transportation: No Lack of Food: Never True Current Housing: I Have Housing Concerned About Future Housing: No Difficulty Paying Gas/Electric Bills: No Difficulty Paying for Meds: No Currently Unemployed: No Education: High School Diploma/GED Di
[2022-10-06] VITALS (16 sets, daily range): BP systolic 145–181; BP diastolic 55–79; PULSE 51–99; RESP 12–20; TEMP 36.3–36.8; O2SAT 92–100; BMI 25.7
[2022-10-06] MEDS: LACTATED RINGERS 1,000 ML 30 ML IV CONT ×2 (06:43→08:49)
[2022-10-06] MEDS: KETOROLAC 15 MG/ML VIAL (*BKC) IV PUSH (06:49)
[2022-10-06] MEDS: ACETAMINOPHEN 500 MG TABLET 1000 MG PO (06:49)
--- NOTE | 2022-10-06 07:12 | WPDHPUPDATE1 ---
History and Physical Update Update Date/Time: 10/06/22 07:12 History and Physical has been reviewed, including an updated exam of the patient. There are NO changes in the patient's condition. Risks, benefits, and alternatives have been discussed and questions answered. Patient agrees to proceed with procedure.
--- NOTE | 2022-10-06 07:18 | WPDANESPNB ---
Anes - Peripheral Nerve Block Date/Time: 10/06/22 07:18 I have discussed with the patient/family/POA the placement of a peripheral nerve block for post-operative pain management, including associated risks, benefits, complications, and side effects. Alternative methods of post-operative analgesia were detailed. Questions were solicited and answers provided to the satisfaction of the patient/family/POA. Time-Out: A pre-procedural Time-Out was completed immediately before starting the procedure and confirmed: Patient Identification, Site, Procedure, Patient Position and the Availability of Requisite Equipment. Clinical Indications: Acute post-operative pain management requested by the operative surgeon. Nerve Block Insertion Note Anes-nerve block: interscalene right Patient position: supine Skin prep: chlorhexidine Needle: 22 gauge, stimulating, insulated echogenic needle. Needle length: 50 mm Technique: ultrasound Injectate: bupivacaine 0.5% with epi 5 mcg/ml (30cc- no epi) Observations: tolerated well Complications: none Procedure start time:: 714 Procedure end time:: 717
[2022-10-06] MEDS: ceFAZolin 2 GM/D5W 50 ML 2 GM/50 ML BAG IVPB (07:27)
[2022-10-06] MEDS: BUPIVACAINE/EPINEPHRINE 0.5% 50 ML VIAL INFILTRATE (08:04)
[2022-10-06] MEDS: EPINEPHrine HCL INJ 1 MG/ML AMPUL IRRIGATION (08:04)
--- NOTE | 2022-10-06 08:50 | P.OP_ITS ---
Procedure Note - Detailed Date of Procedure 10/06/22 Pre-op Diagnosis right shoulder pain - chronic deficiency of the rotator cuff Post-op Diagnosis Same Procedure Performed right shoulder arthroscopy with debridement Surgeon Maciej Peterson MD Crusher Screen Repairer Cameron Baldwin Anesthesia General and Regional Description of Procedure The patient was identified and proper site identified. In the preop holding area the anesthesia team performed a right upper extremity block. She was then taken to the operating, transferred to the OR table and after general anesthetic induction and intubation placed into the semi beach chair position in the usual manner for a right shoulder procedure. Her head was secured taking care to neither rotate or extend the head neck. The right upper extremity was prepped and draped free in the usual sterile fashion. 30 cc of 1:100,000 epinephrine and saline solution was injected into the subacromial space. 10 cc of 0.25% Marcaine and epinephrine solution was injected in the area of the portals. Posterior portal was established and under direct visualization anterior outflow was created. there was quite a bit of degenerative change in the shoulder joint itself. The loose fibrillated tissue was debrided with the shaver. There was marked thinning of the rotator cuff without obvious tear the scope could be passed in the subacromial space. Scope and outflow were then placed into the subacromial space and a lateral working portal created. Extens sergio debridement was carried out in the subacromial space. Hemostasis was carried out with ArthroCare device. The entire surgical area was irrigated with saline solution and the equipment was removed. Portals were closed with three 0 nylon suture and sterile dressings applied. She tolerated the procedure well, was awakened, extubated and taken to recovery area in stable condition. There were no known intraoperative complications. Estimated blood loss was negligible. She received perioperative antibiotics. Estimated Blood Loss 5 Drains No Packing No Pathology None sent Complications No immediate complications Condition Stable Disposition PACU [facility] Billing Surgery - Charge Forward: Surgery Billing ([id number])
--- NOTE | 2022-10-06 11:06 | ADMGEN ---
This patient, Stephanie Diop, was admitted to [facility] Surg Room 327-01. Patient/family oriented to hospital policies and general routines including ID bracelet, bed and alarms, visiting hours, pain management, procedures, bathroom and other care routines, personal items, smoking policy, room service/diet, and visiting hours. Information on how to activate the Rapid Response Team has been discussed. Patient/Family are encouraged to report perceived risks to care and to ask questions if they do not understand what they are told or what they should do.
[2022-10-06] MEDS: SODIUM CHLORIDE 0.9% IV 1,000 ML 125 ML IV CONT (11:17)
[2022-10-06] MEDS: ASPIRIN 325 MG ENTERIC TABLET PO (11:37)
[2022-10-06] MEDS: lisinopriL 10 MG TABLET PO (11:37)
[2022-10-06] MEDS: ONDANSETRON INJ 4 MG/2 ML VIAL IV PUSH (12:03)
[2022-10-06] MEDS: ceFAZolin 1 GM/NS 50 ML 1 GM/50 ML BAG IVPB ×2 (14:09→22:31)
[2022-10-06] MEDS: MULTIVITAMINS /C LUTEIN (CENTRUM SILVER) TABLET *BKC 1 TAB PO (16:36)
[2022-10-06] MEDS: SENNA/DOCUSATE SODIUM TABLET 2 TAB PO (16:36)
[2022-10-06] MEDS: ACETAMINOPHEN 325 MG TABLET 650 MG PO (16:42)
[2022-10-06] MEDS: ATORVASTATIN 20 MG TABLET PO (20:51)
[2022-10-07 00:27] VITALS: BP 149/65; PULSE 54; RESP 18; TEMP 36.7; O2SAT 97
[2022-10-07 04:07] VITALS: BP 145/59; PULSE 55; RESP 18; TEMP 36.7; O2SAT 98
[2022-10-07] MEDS: LEVOTHYROXINE SODIUM 50 MCG TABLET PO (05:59)
[2022-10-07] MEDS: HYDROcodone/acetaminophen (*CRX) 5-325 MG TABLET 1 TAB PO (06:01)
[2022-10-07 08:27] VITALS: BP 181/56; PULSE 83; RESP 14; TEMP 36.7; O2SAT 98
[2022-10-07] MEDS: lisinopriL 10 MG TABLET PO (09:38)
[2022-10-07] MEDS: SENNA/DOCUSATE SODIUM TABLET 2 TAB PO (09:38)
[2022-10-07] MEDS: MULTIVITAMINS /C LUTEIN (CENTRUM SILVER) TABLET *BKC 1 TAB PO (09:38)
[2022-10-07] MEDS: ASPIRIN 325 MG ENTERIC TABLET PO (09:39)
--- NOTE | 2022-10-07 11:24 | PM.DS ---
DS: Admitting Diagnosis Discharge Date 10/07/22 Admitting Diagnosis Right shoulder pain -? chronic deficiency of the rotator cuff DS: Discharge Diagnosis Discharge Diagnosis (1) History of arthroscopy of right shoulder: Code(s): Z98.890 - Other specified postprocedural states Status: Chronic Plan 82 year old female POD 1 after right shoulder arthroscopy with debridement.Overall doing well. She was admitted for observation due to troubles with anesthesia in the past. She has been able to tolerate PO intake and has been ambulating without difficulty. She would like to be discharged home. Postoperative wound care was reviewed. She has f/u in our office scheduled in 2 weeks for wound check. DS: Summary Hospital Course Reason for hospitalization: Observation after outpatient procedure Hospital Course: 82 year old female admitted for observation after right shoulder arthroscopy with debridement due to troubles with waking from anesthesia in the past. She is doing very well during exam this morning and having no issues. Pain is well controlled with current pain medication. No lingering side effects to anesthesia. Status at Discharge Functional status at discharge: independent ambulation Overall status at discharge: patient is progressing back to baseline Time Spent with Patient Time attestation: Total time spent providing and/or coordinating discharge services: Time spent: Less than 30 minutes Exam Const: General: cooperative, comfortable and no acute distress; No confusion Orientation/consciousness: No confusion HENMT: Head: normal to inspection Ears: hearing grossly normal bilaterally Mouth: Yes moist mucous membranes Eyes: General: appearance normal, both eyes and all related structures Resp: Effort & Inspection: normal respiratory effort and able to speak in complete sentences GI: Inspection: normal to inspection Skin: General skin exam: normal color, no ecchymosis and no erythema Neuro: General: No confusion Cranial nerves: Yes Normal hearing present Speech: normal speech Sensory Exam: normal sensation Extrem: Other: Exam of the right shoulder shows that she is in a sling. Surgical dressing is clean and dry. Neurovascular status right upper extremity is intact. Psych: Mental Status: mental status grossly normal Discharge Plan Discharge Patient Disposition: Home, Self-Care Discharge Instructions: POST OPERATIVE DISCHARGE INSTRUCTIONS FOLLOWING SHOULDER ARTHROSCOPIC SURGERY Following your procedure, it is important that you read, understand, and carry out the following instructions. Ice the shoulder frequently for the first 3 days. The wounds should be kept clean and dry until they have sealed over. Two days following your surgery, you can remove the dressing and cover the wounds. Do not get the wounds wet. Change the dressings every day. Extremity/shoulder exercises as instructed per Physical Therapy. These include Active Assistive Range of Motion-hand, wrist, elbow and cane exercises twice a day. Diet as tolerated. Wear sling only when up and around. May remove at night. Discontinue when comfortable enough to do so. Continue home medications as prescribed. Take non-steroidal anti-inflammatory medication, such as Advil or Aleve, for the first month following surgery. Take according to label instructions. If the pain medicine does not provide adequate relief, please call the office. Do not drive until out of the sling and off the prescription pain medication Your follow-up appointment is in 2 weeks. Please call office to confirm. For problems during office hours call the above office number. When the office is closed, call the office and an emergency number will be given to you. While you are taking the narcotic pain medication, take Senokot S -two tablets twice daily, as well as use MiraLax d
== END 2022-10-07 13:10 | disposition home or self-care (01) ==
LOC: ANHSURGERY 08:49 → ANH3MEDSUR 10:59
PROVIDERS: PCP Internal Medicine; Visit Provider Orthopaedic Surgery
PROC: (CPT 29805; principal; 2022-10-06 07:30)
DX: M75.81 Other shoulder lesions, right shoulder (principal); M25.511 Pain in right shoulder; M19.011 Primary osteoarthritis, right shoulder; G89.18 Other acute postprocedural pain; Z79.82 Long term (current) use of aspirin; I10 Essential (primary) hypertension; E03.9 Hypothyroidism, unspecified; E78.00 Pure hypercholesterolemia, unspecified; I44.0 Atrioventricular block, first degree
CPT/HCPCS: 29822; 64415; A4565; A9270; J0171; J0330; J0690; J1100; J1885; J2250; J2405; J2704; J3010; J7030; J7120

== ENCOUNTER → 2023-06-01 13:04 | Outpatient (CLI) | payer MEDICARE, SELFPAY ==
--- NOTE | ~2023-06-01 | US_ITS ---
EXAMINATION: US thyroid DATE: 06/01/2023 13:23 INDICATION: Hypothyroidism, unspecified. TECHNIQUE: Multiple ultrasound images of the thyroid were obtained. COMPARISON: Thyroid ultrasound 05/29/2022, 06/02/2021 FINDINGS: The right thyroid lobe measures 3.4 x 1.2 x 1.2 cm. The left thyroid lobe measures 2.8 x 1.0 x 1.1 c m. In the left thyroid lobe, there is an 8 mm solid, hypoechoic, wider than tall nodule with lobulat ed margin and macrocalcification (TI-RADS TR5). In the right thyroid lobe, there is an 8 mm solid, hy poechoic, wider than tall nodule with lobulated margin and macrocalcifications (TR5). In the right th yroid lobe, there is a 9 mm, solid, hypoechoic, wider than tall nodule with irregular margin without echogenic foci (TR4). IMPRESSION: 1. Small thyroid nodules. Thyroid ultrasound is recommended in one year. Reviewed, dictated and finalized at location A. T MECHANIC
== END ==
PROVIDERS: PCP Otolaryngology; Visit Provider Internal Medicine
DX: E04.2 Nontoxic multinodular goiter (principal); E03.9 Hypothyroidism, unspecified
CPT/HCPCS: 76536

== ENCOUNTER → 2023-06-11 14:41 | Outpatient (CLI) | payer MEDICARE, SELFPAY ==
--- NOTE | ~2023-06-11 | MM_ITS ---
EXAMINATION: MM screening marisa BI w antoni HISTORY: Screening TECHNIQUE: Craniocaudal and mediolateral oblique 3-D tomosynthesis images were obtained and synthetic 2-D images were generated. CAD analysis was submitted and interpreted. COMPARISON: Comparison to multiple prior studies sequentially, with oldest reviewed study dated 11/30. BREAST PARENCHYMAL COMPOSITION: Not dense: There are scattered areas of fibroglandular density. FINDINGS: There is no evidence of suspicious mass, calcification, or architectural distortion to sugg est malignancy in either breast. There has been no suspicious interval change. IMPRESSION: 1. No mammographic evidence of malignancy. 2. Recommend routine screening mammography in one year. BI-RADS Category 1: Negative Reviewed, dictated and finalized at location A. STOCK FEEDER
== END ==
PROVIDERS: PCP Internal Medicine; Visit Provider Obstetrics & Gynecology
DX: Z12.31 Encounter for screening mammogram for malignant neoplasm of breast (principal)
CPT/HCPCS: 77063; 77067

== ENCOUNTER 2024-04-04 10:34 | Outpatient (CLI) | payer MEDICARE, SELFPAY ==
--- NOTE | ~2024-04-04 | US_ITS ---
US abdomen limited INDICATION: Elevated liver enzymes PROCEDURE: Realtime right upper abdominal ultrasound. COMPARISON: No prior studies for comparison. FINDINGS: The pancreas is normal without focal mass or pancreatic ductal dilation. Liver surface is nodular, compatible with cirrhosis. No discrete mass. There is normal directional flow in the portal vein. The gallbladder is normal without stones, gallbladder wall thickening or pericholecystic fluid. Comm on bile duct measures 4 mm. No sonographic Villalobos's sign. IMPRESSION: 1: Cirrhosis of the liver. Reviewed, dictated and finalized at location B. CLERK IMPRESSION: 1: Cirrhosis of the liver.
--- NOTE | ~2024-04-04 | MR_ITS ---
MRI of the brain Clinical History: Headache Technique: Axial and sagittal T1-weighted images were acquired. These were followed by axial T2-weigh emily, diffusion weighted, gradient, and FLAIR images. Findings: There is no acute infarct, intracranial hemorrhage or mass lesion. There is moderate chroni c microvascular seen change in the periventricular white matter bilaterally. Ventricles and subarachnoid spaces are unremarkable. Orbits are unremarkable. Paranasal sinuses and m astoid air cells are clear. Major intracranial flow voids are intact. Sagittal midline structures are intact. IMPRESSION: No acute infarct, intracranial hemorrhage, or mass lesion. Moderate chronic microvascular ischemic change. Reviewed, dictated and finalized at location . Y WORKER
== END 2024-04-04 10:35 | disposition home or self-care (01) ==
LOC: GOSHIMG 10:36
PROVIDERS: PCP Internal Medicine Cardiovascular Disease; Visit Provider Internal Medicine
DX: I99.8 Other disorder of circulatory system (principal); G89.29 Other chronic pain; R74.01 Elevation of levels of liver transaminase levels; R51.9 Headache, unspecified
CPT/HCPCS: 70551; 76705

== ENCOUNTER 2024-05-04 10:06 | Emergency (ER) | payer MEDICARE, SELFPAY ==
--- NOTE | ~2024-05-04 | CT_ITS ---
CT cervical spine wo con Ordering provider: Samara Lawson APRN History: . neck pain, radiates to head . Comparison: None. Technique: CT of the cervical spine was performed without contrast. Sagittal and coronal reformatted images were also obtained and reviewed. Automated exposure control and iterative reconstruction shawna hnique were employed. The dose-length product was 212.96 mGy-cm. FINDINGS: VERTEBRAE: No subluxation or acute fracture. The occipital condyles are intact. Kyphosis at the leve l of C4-C5. DISC SPACES: Narrowing of the disc C4-C5, C5-C6 and C6-C7. Multilevel facet joint disease. Multilevel uncovertebral joint osteoarthritic changes. Narrowing of the foramina at the level of C4-C5, and C6-C7. PARASPINOUS SOFT TISSUES: Bilateral carotid atherosclerotic changes. IMPRESSION: No acute osseous abnormality cervical spine. Multilevel degenerative disc disease. Multilevel intervertebral foraminal narrowing. Reviewed, dictated and finalized at location A. EY INTERVIEWER
--- NOTE | ~2024-05-04 | CT_ITS ---
CT brain wo con Ordering provider: Samara Lawson APRN History: 83 years Female with . headache . Comparison: None. Technique: CT of the head without contrast. Radiation reduction technique utilized. The dose-length product was 605.33 mGy-cm FINDINGS: BRAIN PARENCHYMA AND CSF SPACES: Mild leukoaraiosis and diffuse cortical atrophy. Mild atheromatous d isease. No midline shift, mass effect or hemorrhage. The brain parenchyma and CSF spaces are otherwi se normal. VISUALIZED PARANASAL SINUSES: Well aerated. MASTOIDS: Well aerated. BONES: The bones appear intact. SOFT TISSUES: Visualized nasopharynx is normal. Superficial soft tissues are normal. IMPRESSION: No acute intracranial findings. Reviewed, dictated and finalized at location A. EY DRIVER
[2024-05-04 10:14] VITALS: BP 219/95; PULSE 87; RESP 16; TEMP 36.9; O2SAT 100
--- NOTE | 2024-05-04 11:10 | ED_ITS ---
HPI - Headache General Chief Complaint: Recheck/Abnormal Lab/Rx Stated Complaint: HTN Time Seen by Provider: 05/04/24 10:16 History of Present Illness HPI Narrative: Patient is an 83-year-old female who presents to the ER with complaints of a headache and elevated blood pressure. She reports she has a history of high blood pressure and takes 50 mg of lisinopril every day. Patient reports she had an MRI of her brain within the last month and it showed constriction headaches. She reports she has had an intermittent headache since before . 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 She reports her headache starts in her neck and radiates up to the top of her head. Patient reports her headache was unbearable last night but has subsided a little at this time. 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 Patient reports in the last year she has had an echo, kidney ultrasound and liver ultrasound, all were within normal limits. Related Data Home Medications ?Medication ?Instructions ?Recorded ?Confirmed ?Last Taken ?Type aspirin 81 mg tablet 81 mg PO DAILY 08/25/21 05/04/24 05/04/24 History atorvastatin 20 mg tablet 20 mg PO QHS 08/25/21 05/04/24 05/03/24 History levothyroxine 50 mcg capsule 50 mcg PO QAM 08/25/21 05/04/24 10/06/22 05:00 History lisinopril 10 mg tablet 10 mg PO BID 08/25/21 05/04/24 05/04/24 History melatonin 3 mg capsule 3 mg PO QHS PRN Insomnia 08/25/21 05/04/24 Unknown History polyethylene glycol 3350 17 17 g PO DAILY PRN Constipation 08/25/21 05/04/24 Unknown History gram/dose oral powder (Miralax) calcium carbonate (Calcium 600) 600 mg PO DAILY 03/17/22 05/04/24 10/02/22 History carboxymethylcellulose sodium 0.5 1 drp EACH EYE BID 03/17/22 05/04/24 05/03/24 History % eye drops (Refresh Tears) cholecalciferol (vitamin D3) 25 25 mcg PO DAILY 03/17/22 05/04/24 10/02/22 History mcg (1,000 unit) capsule vitamins A,C,Z-isve-drpdvk 4,296 1 cap PO BID 03/17/22 05/04/24 10/02/22 History mcg-226 mg-90 mg capsule (PreserVision AREDS) coenzyme Q10 75 mg capsule (Ultra 100 mg PO DAILY 06/11/22 05/04/24 10/02/22 History CoQ10) acetaminophen 650 mg 650 mg PO Q12H PRN Pain 09/23/22 05/04/24 05/03/24 History tablet,extended release multivitamin,min-ferrous fumarate 1 tablet PO BID 09/23/22 05/04/24 10/02/22 History 3.3 mg-folic 25 mcg-herb tablet (Hair, Skin and Nails Advanced) byiqwuwm-kue-cjznx ac 400 1 tablet PO DAILY 12/16/22 05/04/24 Unknown History mcg-calcium carb 500 mg-vit K1 20 mcg tablet (Women's 50 Plus Multivitamin) Allergies Allergy/AdvReac Type Severity Reaction Status Date / Time No Known Allergies Allergy Verified 05/04/24 10:27 Review of Systems 2 Review of Systems: All systems reviewed & are unremarkable except as noted in HPI and below PMFSH Past Medical History Medical History First degree AV block 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 Hyperlipidemia Hypothyroidism Scoliosis of cervical spine GI bleed Cervical migraine syndrome Stomach ulcer High cholesterol Heartburn Hypertension Cancer of skin Surgical History Surgical History History of arthroscopy of right shoulder right shoulder scope debridement October 06, 2022 Status post surgical removal of malignant neoplasm of skin S/P right rotator cuff repair 2013 H/O meniscectomy of right knee 2011 H/O vaginal hysterectomy Family History Family History Sibling Diabetes mellitus Cancer Family hx-arthritis Heart disease Mother Family hx-arthritis Sibling Family hx-arthritis Cancer Grandparent Cancer Family hx-arthritis Grandparent Family history of malignant neoplasm of breast Father Heart disease Cardiovascular sclerosis with arteriosclerosis Social History Social History Social History: Patient currently lives by herself. She had 4 children 1 of them is at this time. She denies having any pets and wishes to be a full code. Her daughter Elizabeth is her surrogate. Patient also stated she has living will. 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 Gender identity (if verbalized by the patient): Female Sexual Orientation (if Verbalized by the Patient): Straight or Heterosexual Spiritual care concerns: No Agree to blood products: Yes Course Vital Signs Vital signs: Vital Signs Temperature 36.9 C 05/04/24 10:14 Pulse Rate 87 05/04/24 10:14 Respiratory Rate 16 05/04/24 10:14 Blood Pressure 219/95 H 05/04/24 10:14 Pulse Oximetry 100 05/04/24 10:14 Oxygen Delivery Room Air 05/04/24 10:14 Temperature 36.6 C 05/04/24 15:54 Pulse Rate 88 05/04/24 15:54 Respiratory Rate 18 05/04/24 15:54 Blood Pressure 120/71 05/04/24 15:54 Pulse Oximetry 96 05/04/24 15:54 Oxygen Delivery Room Air 05/04/24 10:14 MDM - Headache MDM Narrative Medical decision making narrative: Patient is an 83-year-old female who presents to the ER with complaints of a headache and elevated blood pressure. She reports she has a history of high blood pressure and takes 50 mg of lisinopril every day. Patient reports she had an MRI of her brain within the last month and it showed constriction headaches. She reports she has had an intermittent headache since before . 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 She reports her headache starts in her neck and radiates up to the top of her head. Patient reports her headache was unbearable last night but has subsided a little at this time. 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 Patient reports in the last year she has had an echo, kidney ultrasound and liver ultrasound, all were within normal limits. Labs Ordered: None necessary Imaging Ordered: CT head, CT cervical spine Results: Patient's head CT scan and cervical spine CT scan were both negative for any acute abnormalities. Diagnosis: Migraine headache, uncontrolled hypertension Consults: None necessary Patient Education/Shared MDM: 1315-results shared with patient. Patient reports mildly decreased symptoms but reports her headache is still present and is requesting more pain medication. Will provide patient with a dose of Toradol, now that her head CT scan is clear. Patient will also receive a small dose of morphine and another dose of hydralazine. 1500-patient reports her headache was relieved for the most part by morphine and Toradol. She reports she was unable to get into her primary care provider until May 15. Will try to call her primary care provider and see if he would like patient started on another blood pressure medication prior to her appointment. 1540-Spoke with patient's primary care provider who requested a CMP be drawn to check pt's kidney function and amlodipine be prescribed upon discharge. She should continue to take her lisinopril in addition to the amlodipine. Pt's PCP will follow up with patient as previously scheduled on May 15. Patient's primary care provider request she keep a blood pressure log until then. Disposition/Plan: 1630-Pt's kidney function was fine. Her CMP indicates she is mildly dehydrated, but pt was given 1L NC IV bolus. Patient endorses significant pain relief after 2nd dose of morphine. Education provided to patient regarding her new blood pressure medication. She verbalizes understanding and is in agreement with plan. All questions answered. Vital signs stable at time of discharge. Differential Diagnosis Differential diagnosis: Likely migraine, tension headache, subarachnoid hemorrhage and headache Lab Data 05/04/24 15:50 Labs: Lab Results 05/04/24 Range/Units 15:50 Sodium 134 L (137-145) mmol/L Potassium 3.9 (3.4-5.0) mmol/L Chloride 103 (98-107) mmol/L Carbon Dioxide 25 (22-30) mmol/L Anion Gap 6 (4-12) mmol/L BUN 13 (7-17) mg/dL Creatinine 0.46 L (0.7-1.0) mg/dL Estim Creat Clear Calc 62 ml/min Estimated GFR > 60 (59 - ) Glucose 134 H (65-110) mg/dL Calcium 9.2 (8.4-10.2) mg/dL Total Bilirubin 0.8 (0.2-1.3) mg/dL AST 28 (14-36) U/L ALT 23 (6-35) U/L Alkaline Phosphatase 109 (38-126) U/L Total Protein 7.0 (6.3-8.2) g/dL Albumin 4.1 (3.5-5.1) g/dL Discharge Plan Discharge Clinical Impression: Hypertension, uncontrolled, Headache Patient Disposition: Home, Self-Care Condition: Stable Instructions: Antibiotic Form, Chronic Hypertension (ED), General Headache (ED) Additional Instructions: Please return to the ER with an worsening symptoms. Follow-up with primary care provider in the next 2-3 days. Take all medications as prescribed. Patient Language: Macedonian Prescriptions: New amlodipine [Norvasc] 10 mg tablet 10 mg PO DAILY Qty: 30 0RF No Action carboxymethylcellulose sodium [Refresh Tears] 0.5 % drops 1 drp EACH EYE BID PreserVision AREDS 14,320-226-200 vjwc-he-gros capsule 1 cap PO BID cholecalciferol (vitamin D3) 25 mcg (1,000 unit) capsule 25 mcg PO DAILY calcium carbonate [Calcium 600] 600 mg calcium (1,500 mg) tablet 600 mg PO DAILY Ultra CoQ10 75 mg capsule 100 mg PO DAILY Women's 50 Plus Multivitamin 400 mcg-500 mg calcium-20 mcg tablet 1 tablet PO DAILY lisinopril 10 mg tablet 10 mg PO BID atorvastatin 20 mg tablet 20 mg PO QHS levothyroxine 50 mcg capsule 50 mcg PO QAM aspirin 81 mg tablet 81 mg PO DAILY polyethylene glycol 3350 [Miralax] 17 gram/dose powder 17 g PO DAILY PRN (Reason: Constipation) melatonin 3 mg capsule 3 mg PO QHS PRN (Reason: Insomnia) acetaminophen 650 mg Tablet Extended Release 650 mg PO Q12H PRN (Reason: Pain) Hair, Skin and Nails Advanced 3.3 mg iron-25 mcg Tablet 1 tablet PO BID Follow-up/Referrals: Eusebio Mendez MD [Primary Care Provider] -
[2024-05-04] MEDS: hydrALAZINE HCL 20 MG/ML VIAL 10 MG IV PUSH (11:14)
[2024-05-04] MEDS: dexAMETHasone SOD PHOS INJ 10 MG/ML 1 ML VIAL IV PUSH (11:16)
[2024-05-04] MEDS: diphenhydrAMINE HCl INJ 50 MG/ML VIAL 25 MG IV PUSH (11:16)
[2024-05-04] MEDS: METOCLOPRAMIDE HCL INJ 10 MG/2 ML VIAL IV PUSH (11:16)
[2024-05-04] MEDS: SODIUM CHLORIDE 0.9% IV 1,000 ML 999 ML IV CONT (11:16)
[2024-05-04] MEDS: KETOROLAC 15 MG/ML VIAL (*BKC) IV PUSH (14:35)
[2024-05-04] MEDS: MORPHINE SULFATE (*CRX) 2 MG/ML INJ IV PUSH ×2 (14:35→16:10)
[2024-05-04 15:54] VITALS: BP 120/71; PULSE 88; RESP 18; TEMP 36.6; O2SAT 96
[2024-05-04 16:08] LABS: Alanine Aminotransferase 23 U/L (6-35); Albumin Level 4.1 g/dL (3.5-5.1); Alkaline Phosphatase 109 U/L (38-126); Anion Gap 6 mmol/L (4-12); Aspartate Amino Transferase 28 U/L (14-36); Bilirubin,Total 0.8 mg/dL (0.2-1.3); Blood Urea Nitrogen 13 mg/dL (7-17); Calcium 9.2 mg/dL (8.4-10.2); Carbon Dioxide 25 mmol/L (22-30); Chloride 103 mmol/L (98-107); Estimated CRCL calculation 62 ml/min; Estimated Glomerular Filt Rate > 60; Glucose 134 mg/dL (65-110); Potassium 3.9 mmol/L (3.4-5.0); Sodium 134 mmol/L (137-145)
[2024-05-04 17:20] VITALS: BP 100/52; PULSE 86; RESP 16; TEMP 36.4; O2SAT 95
== END 2024-05-04 17:34 | disposition home or self-care (01) ==
PROVIDERS: Emergency Provider Registered Nurse; PCP Internal Medicine Cardiovascular Disease
DX: R51.9 Headache, unspecified (principal); I10 Essential (primary) hypertension; E03.9 Hypothyroidism, unspecified; E78.00 Pure hypercholesterolemia, unspecified; Z85.828 Personal history of other malignant neoplasm of skin; M19.011 Primary osteoarthritis, right shoulder; M41.9 Scoliosis, unspecified; Z90.710 Acquired absence of both cervix and uterus; Z79.82 Long term (current) use of aspirin; Z79.899 Other long term (current) drug therapy
CPT/HCPCS: 36415; 70450; 72125; 80053; 96361; 96374; 96375; 96376; 99284; J0360; J1100; J1200; J1885; J2270; J2765; J7030

== ENCOUNTER 2024-05-30 10:54 | Outpatient (CLI) | payer MEDICARE, SELFPAY ==
--- NOTE | ~2024-05-30 | US_ITS ---
EXAMINATION: US thyroid DATE: 05/30/2024 11:48 INDICATION: Hypothyroidism. TECHNIQUE: Multiple ultrasound images of the thyroid were obtained. COMPARISON: Ultrasound 06/01/2023, 06/02/2021 FINDINGS: The right thyroid lobe measures 3.5 x 1.7 x 1.9 cm. The left thyroid lobe measures 3.3 x 1.4 x 1.1 c m. In the right thyroid lobe, there is an 8 mm solid, hypoechoic, wider than tall nodule with lobula r margin and macrocalcifications (TI-RADS TR5). In the right thyroid lobe, there is a 4 mm nodule. In the left thyroid lobe, there is an 8 mm solid, very hypoechoic, wider than tall nodule with smooth m argin without echogenic foci (TR4). IMPRESSION: 1. Small thyroid nodules. Thyroid ultrasound is recommended in one year. Reviewed, dictated and finalized at location A. ER PACKER
== END 2024-05-30 10:55 | disposition home or self-care (01) ==
LOC: MICIMG 10:56
PROVIDERS: PCP Otolaryngology; Visit Provider Internal Medicine
DX: E04.2 Nontoxic multinodular goiter (principal); E03.9 Hypothyroidism, unspecified
CPT/HCPCS: 76536

== ENCOUNTER 2024-06-20 14:19 | Inpatient (IN) | payer MEDICARE, SELFPAY ==
[2024-06-20] VITALS (7 sets, daily range): BP systolic 130–148; BP diastolic 59–88; PULSE 67–92; RESP 13–20; TEMP 36.7–37; O2SAT 94–100; BMI 25.0
--- NOTE | ~2024-06-20 | XR_ITS ---
Exam: Abdomen 1V HISTORY: NG placement COMPARISON: Reference is made to a CT examination of the abdomen and pelvis, performed on the same da y. TECHNIQUE: Upright images of the lower chest and upper abdomen FINDINGS: Nasogastric tube extends into the left upper quadrant, presumably within the stomach. Redemonstration of a dilated air-fluid level within the left upper quadrant, immediately beneath the left hemidiaphragm, presumably within the lateralmost portion of the patient's dilated stomach. IMPRESSION: Nasogastric tube in good position and ready for immediate use. Reviewed, dictated and finalized at location A. ICAL LAB SPECIALIST
--- NOTE | ~2024-06-20 | CT_ITS ---
EXAMINATION: CT abdomen pelvis w con DATE: 06/20/2024 16:38 INDICATION: Nausea and vomiting. Epigastric abdominal pain. TECHNIQUE: Computed tomography (CT) of the abdomen and pelvis was performed with 100 mL Omnipaque 350 intravenous contrast. Automated exposure control and iterative reconstruction technique were employe d. The dose-length product was 425.46 mGy-cm. COMPARISON: None. FINDINGS: The visualized portions of lung bases demonstrate mild atelectasis. No pleural effusion. Th e heart size is normal. No pericardial effusion. There is a 5 mm cyst in the liver. The gallbladder a nd spleen are normal. There are 2 cystic lesions in the pancreas measuring up to 15 mm, likely benign . The adrenal glands are normal. There are cysts in the kidneys measuring up to 5 mm on the left. The re is diverticulosis of the colon without evidence of diverticulitis. The appendix is normal. There a re dilated loops of small bowel with transition point in the inferior peritoneum. The distal small [place] wel is decompressed. There are no pathologically enlarged lymph nodes. There is no free intraperitone al fluid. There is thoracolumbar levoscoliosis and severe spondylosis. IMPRESSION: 1. Small bowel obstruction with transition point in the inferior peritoneum. Reviewed, dictated and finalized at location A. RONMENTAL QUALITY ANALYST
--- NOTE | ~2024-06-20 | XR_ITS ---
EXAMINATION: XR abdomen/kub 1V DATE: 06/21/2024 13:57 INDICATION: Small bowel obstruction. TECHNIQUE: A supine view of the abdomen was obtained. COMPARISON: CT abdomen and pelvis 06/20/2024 FINDINGS: There are no dilated loops of bowel. The nasogastric tube tip is in the stomach. There is c ontrast in the bladder. IMPRESSION: 1. Nonobstructive bowel gas pattern. Reviewed, dictated and finalized at location A. TANKER TRUCK DRIVER
--- NOTE | ~2024-06-20 | XR_ITS ---
EXAMINATION: XR sm bowel follow through WS DATE: 06/22/2024 10:16 INDICATION: Small bowel obstruction TECHNIQUE: Food Service Helper radiograph(s) of the abdomen was/were obtained. Water-soluble oral contrast was admi nistered, and sequential radiographs of the abdomen were obtained until oral contrast was noted to be in the proximal colon. COMPARISON: CT dated 06/20/2024 FINDINGS: Nasogastric tube tip in proximal side port in the body the stomach on the answerer image. Transit time f rom the stomach to proximal colon was approximately 30 minutes. There is normal caliber and mucosal f old pattern throughout the small bowel. IMPRESSION: 1. Normal small bowel follow-through with resolution of prior obstruction. Reviewed, dictated and finalized at location L. J2EE SOFTWARE ENGINEER
[2024-06-20 14:37] LABS: Basophils Percent Auto 0.2 % (0.2-1.2); Eosinophils Percent Auto 0.3 % (0-4.4); Hematocrit 41.7 % (37.0-47.0); Hemoglobin 14.1 g/dL (12.0-15.0); Immature Granulocyte Absolute 0.04 K/mm3 (0.00-0.031); Immature Granulocyte Percent A 0.3 % (0-0.5); Lymphocytes Absolute Auto 1.34 K/mm3 (0.9-3.2); Lymphocytes Percent Auto 10.1 % (18.3-44.2); Mean Corpuscular HGB Conc 33.8 g/dl (32-36); Mean Corpuscular Hemoglobin 31.1 pg (26-34); Mean Corpuscular Volume 91.9 fl (80-100); Monocytes Absolute Auto 1.5 K/mm3 (0.1-0.6); Monocytes Percent Auto 11.1 % (2.6-8.5); Neutrophils Absolute Auto 10.4 K/mm3 (1.3-6.7); Platelet Count Result 240 k/mm3 (150-375); Red Blood Count 4.54 M/mm3 (4.2-5.4); Red Cell Distribution Width 13.1 % (11.5-14.5); White Blood Count 13.3 K/mm3 (4.5-10.0)
[2024-06-20 14:48] LABS: Alanine Aminotransferase 27 U/L (6-35); Albumin Level 4.8 g/dL (3.5-5.1); Alkaline Phosphatase 109 U/L (38-126); Anion Gap 12 mmol/L (4-12); Aspartate Amino Transferase 35 U/L (14-36); Bilirubin,Total 1.3 mg/dL (0.2-1.3); Blood Urea Nitrogen 20 mg/dL (7-17); Calcium 10.1 mg/dL (8.4-10.2); Carbon Dioxide 29 mmol/L (22-30); Chloride 92 mmol/L (98-107); Estimated CRCL calculation 42 ml/min; Estimated Glomerular Filt Rate > 60; Glucose 131 mg/dL (65-110); Lipase 97 U/L (23-300); Potassium 3.8 mmol/L (3.4-5.0); Sodium 133 mmol/L (137-145)
--- NOTE | 2024-06-20 15:04 | PC.NURSE ---
this RN wheeled pt to restroom and was unable to go
[2024-06-20] MEDS: ONDANSETRON INJ 4 MG/2 ML VIAL IV PUSH (15:08)
[2024-06-20] MEDS: PANTOPRAZOLE SODIUM IV 40 MG VIAL IV PUSH (15:08)
--- NOTE | 2024-06-20 15:39 | ECG_ITS ---
Test Date: 2024-06-20 15:51:39 Measurements Intervals Walker Rate: 59 P: 73 [place]: 217 QRS: -38 QRSD: 90 T: 82 QT: 429 QTc: 427 Interpretive Statements SINUS BRADYCARDIA WITH FIRST DEGREE AV BLOCK POSSIBLE LEFT ATRIAL ENLARGEMENT [-0.1mV P WAVE IN V1/V2] MARKED LEFT AXIS DEVIATION [QRS AXIS < -30] POSSIBLE RIGHT VENTRICULAR CONDUCTION DELAY [RSR (QR) IN V1/V2] NONSPECIFIC T-WAVE ABNORMALITY No previous ECG available for comparison Electronically Signed On 06-21-2024 13:09:35 INTERIOR DECORATOR by Guicho Florence M.D.
--- NOTE | 2024-06-20 16:04 | ED.NAVMDI ---
HPI - Nausea/Vomiting/Diarrhea General Chief complaint: Nausea/Vomiting/Diarrhea Stated complaint: abd pain, n/v Time Seen by Provider: 06/20/24 14:29 History of Present Illness HPI Narrative: Patient with nausea, vomiting, epigastric abdominal pain since last night, finally stopped throwing up this morning but still some nausea. Some of her vomit has looked dark. Related Data Home Medications ?Medication ?Instructions ?Recorded ?Confirmed ?Last Taken ?Type aspirin 81 mg tablet 81 mg PO DAILY 08/25/21 05/04/24 05/04/24 History atorvastatin 20 mg tablet 20 mg PO QHS 08/25/21 05/04/24 05/03/24 History levothyroxine 50 mcg capsule 50 mcg PO QAM 08/25/21 05/04/24 10/06/22 05:00 History lisinopril 10 mg tablet 10 mg PO BID 08/25/21 05/04/24 05/04/24 History melatonin 3 mg capsule 3 mg PO QHS PRN Insomnia 08/25/21 05/04/24 Unknown History polyethylene glycol 3350 17 17 g PO DAILY PRN Constipation 08/25/21 05/04/24 Unknown History gram/dose oral powder (Miralax) calcium carbonate (Calcium 600) 600 mg PO DAILY 03/17/22 05/04/24 10/02/22 History carboxymethylcellulose sodium 0.5 1 drp EACH EYE BID 03/17/22 05/04/24 05/03/24 History % eye drops (Refresh Tears) cholecalciferol (vitamin D3) 25 25 mcg PO DAILY 03/17/22 05/04/24 10/02/22 History mcg (1,000 unit) capsule vitamins A,C,N-eklt-ieumzv 4,296 1 cap PO BID 03/17/22 05/04/24 10/02/22 History mcg-226 mg-90 mg capsule (PreserVision AREDS) coenzyme Q10 75 mg capsule (Ultra 100 mg PO DAILY 06/11/22 05/04/24 10/02/22 History CoQ10) acetaminophen 650 mg 650 mg PO Q12H PRN Pain 09/23/22 05/04/24 05/03/24 History tablet,extended release multivitamin,min-ferrous fumarate 1 tablet PO BID 09/23/22 05/04/24 10/02/22 History 3.3 mg-folic 25 mcg-herb tablet (Hair, Skin and Nails Advanced) wbiqkbzm-pue-rlzji ac 400 1 tablet PO DAILY 12/16/22 05/04/24 Unknown History mcg-calcium carb 500 mg-vit K1 20 mcg tablet (Women's 50 Plus Multivitamin) Allergies Allergy/AdvReac Type Severity Reaction Status Date / Time No Known Allergies Allergy Verified 06/20/24 14:26 Review of Systems Review of Systems: All systems reviewed & are unremarkable except as noted in HPI and below [facility] Past Medical History Medical History First degree AV block 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 Hyperlipidemia Hypothyroidism Scoliosis of cervical spine GI bleed Cervical migraine syndrome Stomach ulcer High cholesterol Heartburn Hypertension Cancer of skin Surgical History Surgical History History of arthroscopy of right shoulder right shoulder scope debridement October 06, 2022 Status post surgical removal of malignant neoplasm of skin S/P right rotator cuff repair 2013 H/O meniscectomy of right knee 2011 H/O vaginal hysterectomy Family History Family History Sibling Diabetes mellitus Cancer Family hx-arthritis Heart disease Mother Family hx-arthritis Sibling Family hx-arthritis Cancer Grandparent Cancer Family hx-arthritis Grandparent Family history of malignant neoplasm of breast Father Heart disease Cardiovascular sclerosis with arteriosclerosis Social History Social History Social History: Patient currently lives by herself. She had 4 children 1 of them is at this time. She denies having any pets and wishes to be a full code. Her daughter Elizabeth is her surrogate. Patient also stated she has living will. Smoking status: Never smoker Alcohol intake: never Alcohol use details: [facility] Substance use: never Lack of Transportation: No Lack of Food: Never True Current Housing: I Have Housing Concerned About Future Housing: No Difficulty Paying Gas/Electric Bills: No Difficulty Paying for Meds: No Currently Unemployed: No Education: High School Diploma/GED Difficulty w/ Childcare or Family Care: No Living arrangements: alone Occupation/Education: retired Additional occupation/education comments: [employer] Gender identity (if verbalized by the patient): Female Sexual Orientation (if Verbalized by the Patient): Straight or Heterosexual Spiritual care concerns: No Agree to blood products: Yes Exam Narrative: EXAMINATION OF ORGAN SYSTEMS/BODY AREAS: Constitutional: Vital signs per nursing GENERAL:[No acute distress, non-toxic appearing.] HEAD: Normal with no signs of head trauma. EYES: EOMI, conjunctiva normal ENT: Hearing grossly intact LUNGS: Nonlabored breathing. HEART: [Regular rate and rhythm] ABD: [Soft], [nontender to palpation] EXT: Normal range of motion SKIN: [No rashes or lesions.] NEURO: [Alert and oriented x 3. No gross focal sensory or strength deficits.] PSYCH: Normal affect Course Vital Signs Vital signs: Vital Signs Temperature 98.1 F 06/20/24 14:27 Pulse Rate 80 06/20/24 14:27 Respiratory Rate 20 06/20/24 14:27 Blood Pressure 145/80 H 06/20/24 14:27 Pulse Oximetry 98 06/20/24 14:27 Oxygen Delivery Room Air 06/20/24 14:27 Temperature 98.1 F 06/20/24 14:27 Pulse Rate 77 06/20/24 16:48 Respiratory Rate 16 06/20/24 16:48 Blood Pressure 148/62 H 06/20/24 16:48 Pulse Oximetry 99 06/20/24 16:48 Oxygen Delivery Room Air 06/20/24 14:27 MDM - Nausea/Vomiting/Diarrhea MDM Narrative Medical decision making narrative: Electronic medical record was reviewed. Patient presented to the ED with complaint of [abdominal pain and vomiting]. Vitals [were within acceptable limits]. Physical exam revealed soft abdomen without much tenderness. Based on the patient's history and physical exam, my differential includes but is not limited to [gastritis, gastroenteritis, cholecystitis, pancreatitis, appendicitis, SBO, UGIB]. [IV access was established by nursing staff. Patient was given zofran, Protonix]. CBC, BMP, lipase, LFTs, bilirubin and alk phos were obtained. Labs were pertinent for with WBC, UA with leuks and wbc's and bacteria. [Decision was made to obtain a CT-abdomen to evaluate for acute abdominal process. CT-abdomen per radiology interpretation shows small bowel obstruction with transition point.] On reevaluation, the patient states that they are feeling much better. There were no witnessed episodes of vomiting in the emergency department. They are not complaining of any new abdominal pain. Repeat examination did not show any significant guarding or rebound. No new tenderness. Case discussed with the general surgeon who requested NG tube placement, and he will consult, this is ordered, case discussed with hospitalist for admission. Discussed with patient and family member at bedside were agreeable to this plan. Lab Data 06/20/24 14:32 06/20/24 14:32 Labs: Lab Results 06/20/24 06/20/24 Range/Units 14:32 17:07 WBC 13.3 H (4.5-10.0) K/mm3 RBC 4.54 (4.2-5.4) M/mm3 Hgb 14.1 (12.0-15.0) g/dL Hct 41.7 (37.0-47.0) % MCV 91.9 (80-100) fl MCH 31.1 (26-34) pg MCHC 33.8 (32-36) g/dl RDW 13.1 (11.5-14.5) % Plt Count 240 (150-375) k/mm3 MPV 10.0 (7.4-10.4) fl Immature Gran % (Auto) 0.3 (0-0.5) % Neut % (Auto) 78.0 H (45.5-73.1) % Lymph % (Auto) 10.1 L (18.3-44.2) % [place] % (Auto) 11.1 H (2.6-8.5) % Eos % (Auto) 0.3 (0-4.4) % Baso % (Auto) 0.2 (0.2-1.2) % Lymph # (Auto) 1.34 (0.9-3.2) K/mm3 [place] # (Auto) 1.5 H (0.1-0.6) K/mm3 Eos # (Auto) 0.0 (0-0.3) K/mm3 Baso # (Auto) 0.0 (0.0-0.1) K/mm3 Abs Immat Gran (auto) 0.04 H (0.00-0.031) K/mm3 Absolute Neuts (auto) 10.4 H (1.3-6.7) K/mm3 Absolute Nucleated RBC 0.000 (0.0-0.012) K/mm3 Nucleated RBC % 0.0 (0.0-0.2) % Sodium 133 L (137-145) mmol/L Potassium 3.8 (3.4-5.0) mmol/L Chloride 92 L (98-107) mmol/L Carbon Dioxide 29 (22-30) mmol/L Anion Gap 12 (4-12) mmol/L BUN 20 H (7-17) mg/dL Creatinine 0.71 (0.7-1.0) mg/dL Estim Creat Clear Calc 42 ml/min Estimated GFR > 60 (59 - ) Glucose 131 H (65-110) mg/dL Calcium 10.1 (8.4-10.2) mg/dL Total Bilirubin 1.3 (0.2-1.3) mg/dL AST 35 (14-36) U/L ALT 27 (6-35) U/L Alkaline Phosphatase 109 (38-126) U/L Total Protein 8.0 (6.3-8.2) g/dL Albumin 4.8 (3.5-5.1) g/dL Lipase 97 (23-300) U/L Urine Color Yellow (Yellow) Urine Appearance Cloudy H (Clear) Urine pH 7.0 (5.0-9.0) Ur Specific [place] 1.016 (1.001-1.035) Urine Protein Trace (Negative) mg/dL Urine Glucose (UA) Negative (Negative) mg/dL Urine Ketones Negative (Negative) mg/dL Ur Blood (Man) 1+ H (Negative) Urine Nitrate Negative (Negative) Urine Bilirubin Negative (Negative) Urine Urobilinogen 0.2 (<2.0) mg/dL Add Ur Microanalysis Reviewed Leukocyte Esterase Rfl 3+ H (Negative) MYRANDA/UL Urine RBC 0-2 (0-2) /hpf Urine WBC >100 H (0-3) /hpf Ur Squamous Epith Cells None seen (Few) /hpf Urine Bacteria 4+ H /hpf Urine Casts 0-2 Discharge Plan Discharge Clinical Impression: SBO (small bowel obstruction), Nausea and vomiting Patient Disposition: Still a Patient Condition: Stable Patient Language: Colombian Prescriptions: No Action carboxymethylcellulose sodium [Refresh Tears] 0.5 % drops 1 drp EACH EYE BID PreserVision AREDS 14,320-226-200 ldbo-hg-kqsn capsule 1 cap PO BID cholecalciferol (vitamin D3) 25 mcg (1,000 unit) capsule 25 mcg PO DAILY calcium carbonate [Calcium 600] 600 mg calcium (1,500 mg) tablet 600 mg PO DAILY Ultra CoQ10 75 mg capsule 100 mg PO DAILY Women's 50 Plus Multivitamin 400 mcg-500 mg calcium-20 mcg tablet 1 tablet PO DAILY lisinopril 10 mg tablet 10 mg PO BID atorvastatin 20 mg tablet 20 mg PO QHS levothyroxine 50 mcg capsule 50 mcg PO QAM aspirin 81 mg tablet 81 mg PO DAILY polyethylene glycol 3350 [Miralax] 17 gram/dose powder 17 g PO DAILY PRN (Reason: Constipation) melatonin 3 mg capsule 3 mg PO QHS PRN (Reason: Insomnia) acetaminophen 650 mg Tablet Extended Release 650 mg PO Q12H PRN (Reason: Pain) Hair, Skin and Nails Advanced 3.3 mg iron-25 mcg Tablet 1 tablet PO BID amlodipine [Norvasc] 10 mg tablet 10 mg PO DAILY Qty: 30 0RF Follow-up/Referrals: Janelle,MD Missy [Primary Care Provider] -
--- OUTSIDE RECORDS SUMMARY | 2024-06-20 16:35 | XMS_ITS | Encounter Summary ---
Author Organization [facility] Address [address] [place] [address] Care Team Providers Care Signal Fitter Name Role Phone Unavailable Primary Care Provider Unavailabl e Encounter Details Date Type Department Care Team (Late st Contact Info) Description 03/24/2023 Lab Requisition [facility] - DermPath Lab [address] [place] [phone] Rosendo Yu MD [address] [place] [address] Social History Tobacco Use Types Packs/Day Years Used Date Smoking Tobacco: Never Assessed Sex and Gender Information Value Date Recorded Sex Assigned at Not on file Gender Identity Not on file Sexual Orientation Not on file documented as of this encounter Plan of Treatment Not on file documented as of this encounter Procedures Procedure Name Priority Date/Time Associated Diagnosis Comments DERMATOPATHOLOGY Routine 03/23/2023 12:0 0 AM STATE DIRECTOR documented in this encounter Results * DERMATOPATHOLOGY (03/23/2023 12:00 AM STATE DIRECTOR) Case Report Dermatopathology Report Case: [id number] Authorizing Provider: Rosendo Yu MD Collected: 03/23/2023 12:00 AM Ordering Location: [facility] DermPath Lab Received: 03/24/2023 02:19 PM Pathologist: Nicole Campos MD Specimen: Skin, left of midline above tip of tongue 3 4:12 PM STATE DIRECTOR DERMATOPATHOLOGY LABORATORY Final Diagnosis Specimen A. 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 The specimen consists of a shave biopsy measuring 6x4x1 mm. Jar 0. 3 4:12 PM [facility] DERMATOPATHOLOGY LABORATORY Microscopic Description Specimen A. SKIN, left of midline above tip of tongue: There is hyperkeratosis, papillomatosis, and acanthosis of the mucosa which surrounds fibrovascular cores. The keratinocytes are mature. Additional deeper sections were obtained and reviewed. COMMENT: These findings are consistent with an oral squamous papilloma/verruca vulgaris. Clinicopathologic correlation is recommended if this represents a partial sampling of a larger lesion. 3 4:12 PM [facility] DERMATOPATHOLOGY LABORATORY Disclaimer An external and internal positive and negative controls are appropriate for the histochemical, immunohistochemical and immunofluorescence stain(s) in this case (if any), except where stated explicitly. The performance characteristics of the stain(s) cited in this report were developed and its performance characteristic determined by the Dermatopathology Laboratory at [facility], directed by Dr. Justyn Ryan. These tests need not be, and therefore are not, approved by the [place] Food and Drug Administration. The tests are used for clinical purposes. Billing Codes Specimen Charges Stain Charges 55997 1 3 4:12 PM [facility] DERMATOPATHOLOGY LABORATORY Embedded Images 3 4:12 PM [facility] DERMATOPATHOLOGY LABORATORY Pathology/Cytolog y TISSUE SPECIMEN FROM SKIN / Unknown 03/23/2023 03/24/2023 2:19 PM STATE DIRECTOR Rosendo Yu MD LAB - PATHOLOGY/CYTO LOGY ORDERABLES DERMATOPATHOLOGY LABORATORY [facility] - Department of Dermatology [address], [address] [phone] documented in this encounter Visit Diagnoses Not on filedocumented in this encounter
--- OUTSIDE RECORDS SUMMARY | 2024-06-20 16:35 | XMS_ITS | Continuity of Care Document ---
Author Organization [facility] Address [address] [place] [address] Phone Care Team Providers Care Watchmaker Apprentice Name Role Phone [facility] Unavailable [...] Diagnoses Date Provider Providers Copied on Encounter [facility], [address] [place] [address] [address], [place], [place], [id number], [place] tel:[phone] [facility] [place] [facility] [place] No Information 0-201 0 [facility] . [address], [address], [place], [place], [id number], [place]. tel:[phone] Referring Provider: Yves Price, [address], [place], [address]. tel:[phone] hernandez Provider: Sheila Corbett, [address] [facility], [place], [address]. tel:[phone] [facility], [address] [place] [address] [address], [place], [place], [id number], [place] tel:[phone] [facility] [place] [facility] [place] No Information Sep-2 4-201 0 Nia Marinelli. [address] [place] [address] , [address], [place], [place], [facility], . tel:[phone] [facility], [address] [place] [address] [address], [place], [place], [id number], [place] tel:[phone] [facility] [place] [facility] [place] No Information Oct-0 5-200 9 [facility] . [address], [place], [place], [address], [place]. tel:[phone] Referring Provider: Yves Price, [address] [place] [address] [address], [place], [place], [facility]. tel:[phone] hernandez Provider: Girish Mcfarlane, [address] [place] [address], [place], [place], [facility]. tel:[phone] [facility], [address] [place] [address] [address], [place], [place], [id number], [place] tel:[phone] [facility] [place] [facility] [place] No Information Sep-1 8-200 9 Nia Marinelli. [address] [place] [address] , [address], [place], [place], [facility], . tel:[phone] [facility], [address] [place] [address] [address], [place], [place], [id number], [place] tel:[phone] [facility] [place] [facility] [place] No Information Mamadou-3 0-200 7 Nia Marinelli. [address] [place] [address] , [address], [place], [place], [facility], . tel:[phone] Family History Family Member Type Diagnosis Age At Onset No Information Payers Payer name Insurance type Covered democrat ID Authoriza tion(s) No Information Social History [...]
--- OUTSIDE RECORDS SUMMARY | 2024-06-20 16:35 | XMS_ITS | Encounter Summary ---
Author Organization [facility] Address [address] [place] [address] Care Team Providers Care Supervisor Roller Printing Name Role Phone Unavailable Primary Care Provider Unavailabl e Encounter Details Date Type Department Care Team (Late st Contact Info) Description 05/12/2023 Lab Requisition [facility] - DermPath Lab [address] [place] [phone] Rosendo Yu MD [address] [place] [address] Social History Tobacco Use Types [...] Priority Date/Time Associated Diagnosis Comments DERMATOPATHOLOGY Routine 05/11/2023 12:0 0 AM TRUCK LOADER AND UNLOADER documented in this encounter Results * DERMATOPATHOLOGY (05/11/2023 12:00 AM TRUCK LOADER AND UNLOADER) Case Report Dermatopathology Report Case: [id number] Authorizing Provider: Rosendo Yu MD Collected: 05/11/2023 12:00 AM Ordering Location: [facility] DermPath Lab Received: 05/13/2023 06:26 AM Pathologist: Nicole Campos MD Specimen: Skin, right lower lateral leg 4 5:36 PM TRUCK LOADER AND UNLOADER DERMATOPATHOLOGY LABORATORY Final Diagnosis Specimen A. 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 The specimen consists of a shave biopsy measuring 9x6x1 mm. Jar 0. 4 5:36 PM [facility]MAT[facility] Microscopic Description Specimen A. SKIN, right lower lateral leg: Sections reveal parakeratosis, acanthosis and keratinocyte dysmaturation which is most prominent in the lower epidermis. Focal nests are present in the dermis, which also contains a sparse, perivascular lymphocytic infiltrate surrounding dilated, thick-walled vessels, which are increased in number. 4 5:36 PM [facility] Disclaimer An external and internal positive and negative controls are appropriate for the histochemical, immunohistochemical and immunofluorescence stain(s) in this case (if any), except where stated explicitly. The performance characteristics of the stain(s) cited in this report were developed and its performance characteristic determined by the Dermatopathology Laboratory at [facility], directed by Dr. Justyn Ryan. These tests need not be, and therefore are not, approved by the [place] Food and Drug Administration. The tests are used for clinical purposes. Billing Codes Specimen Charges Stain Charges 68043 1 4 5:36 PM [facility] Embedded Images 4 5:36 PM [facility] Pathology/Cytolog y TISSUE SPECIMEN FROM SKIN / Unknown 05/11/2023 05/13/2023 6:26 AM [facility] Rosendo Yu MD LAB - PATHOLOGY/CYTO LOGY ORDERABLES DERMATOPATHOLOGY LABORATORY [facility] - Department of Dermatology [address] [phone] documented in this encounter Visit Diagnoses Not on filedocumented in this encounter
--- OUTSIDE RECORDS SUMMARY | 2024-06-20 16:35 | XMS_ITS | Encounter Summary ---
Author Organization [facility] Address [address] [facility] [place] [address] Care Team Providers Care String Laster Name Role Phone Unavailable Primary Care Provider Unavailabl e Encounter Details Date Type Department Care Team (Late st Contact Info) Description 05/26/2023 Lab Requisition [facility] - DermPath Lab [address] [place] [phone] Rosendo Yu MD [address] [place] [address] Social History Tobacco Use Types [...] Priority Date/Time Associated Diagnosis Comments DERMATOPATHOLOGY Routine 05/25/2023 3:33 AM INVENTORY ASSISTANT documented in this encounter Results * DERMATOPATHOLOGY (05/25/2023 3:33 AM INVENTORY ASSISTANT) Case Report Dermatopathology Report Case: [id number] Authorizing Provider: Rosendo Yu MD Collected: 05/25/2023 03:33 AM Ordering Location: [facility] - Received: 05/26/2023 04:37 PM DermPath Lab Pathologist: Nicole Campos MD Specimen: Skin, right lower lat leg 4 5:08 PM CDT DERMATOPATHOLOGY LABORATORY Amended Report Correction of Gross Description from shave to curettage and desiccation 4 5:08 PM CDT DERMATOPATHOLOGY LABORATORY Final Diagnosis Specimen A. SKIN, right lower lat leg: BIOPSY SITE CHANGES RESIDUAL SQUAMOUS CELL CARCINOMA NOT IDENTIFIED (L90.5) 4 5:08 PM CDT DERMATOPATHOLOGY LABORATORY Amendment electronically signed by Nicole Campos MD on 06/28/2023 at 5:08 PM Clinical History 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 [id number]. 4 5:08 PM T DERMATOPATHOLOGY LABORATORY Gross Description Specimen A: Received is one formalin filled container labeled with the patient's name and designated right lower lat leg. The specimen consists of a curettage and desiccation biopsy measuring [id number]. Jar 0. 4 5:08 PM T DERMATOPATHOLOGY LABORATORY Microscopic Description Specimen A. SKIN, right lower lat leg: There is a zone of fibrosing granulation tissue due to a previous biopsy. The adjacent epidermis does not contain a residuum of the squamous cell carcinoma in situ seen in the prior specimen. 4 5:08 PM T DERMATOPATHOLOGY LABORATORY Disclaimer An external and internal positive and negative controls are appropriate for the histochemical, immunohistochemical and immunofluorescence stain(s) in this case (if any), except where stated explicitly. The performance characteristics of the stain(s) cited in this report were developed and its performance characteristic determined by the Dermatopathology Laboratory at [facility], directed by Dr. Justyn Ryan. These tests need not be, and therefore are not, approved by the [place] Food and Drug Administration. The tests are used for clinical purposes. Billing Codes Specimen Charges Stain Charges 26514 1 4 5:08 PM CDT DERMATOPATHOLOGY LABORATORY Embedded Images 4 5:08 PM T DERMATOPATHOLOGY LABORATORY Pathology/Cytolo gy TISSUE SPECIMEN FROM SKIN / Unknown 05/25/2023 3:33 AM INVENTORY ASSISTANT 05/26/2023 4:37 PM INVENTORY ASSISTANT Rosendo Yu MD LAB - PATHOLOGY/CYTO LOGY ORDERABLES DERMATOPATHOLOGY LABORATORY [facility] - Department of Dermatology [address] [phone] documented in this encounter Visit Diagnoses Not on filedocumented in this encounter
--- OUTSIDE RECORDS SUMMARY | 2024-06-20 16:35 | XMS_ITS | Patient Health Summary ---
Author Organization [facility] Address [address] [place] [address] Care Team Providers Care Auriculotherapist Name Role Phone Unavailable Primary Care Provider Unavailabl e Note from [facility],non-owned Affiliates and Associated Physician Practices is amultiple site organization consisting of ambulatory clinics and hospital sitesin [place], [place], [place]. This disclosure is being madepursuant to the Care Everywhere program and may not contain all information available regarding this patient. Last updated 18.[facility] Social History Tobacco Use Types Packs/Day Years Used Date Smoking Tobacco: Never Assessed Sex and Gender Information Value Date Recorded Sex Assigned at Not on file Gender Identity Not on file Sexual Orientation Not on file Procedures * DERMATOPATHOLOGY(Performed 09/22/2023) * DERMATOPATHOLOGY(Performed 05/25/2023) * DERMATOPATHOLOGY(Performed 05/11/2023) * DERMATOPATHOLOGY(Performed 03/23/2023) * DERMATOPATHOLOGY(Performed 05/04/2017) * DERMATOPATHOLOGY(Performed 01/19/2017) * DERMATOPATHOLOGY(Performed 01/12/2017) * DERMATOPATHOLOGY(Performed 04/26/2014) * DERMATOPATHOLOGY(Performed 04/05/2014) * DERMATOPATHOLOGY(Performed 10/04/2012) * DERMATOPATHOLOGY(Performed 08/18/2012) Results * DERMATOPATHOLOGY (09/22/2023 3:33 AM CDT) Only the most recent of11 resultswithin the time period is included. Case Report Dermatopathology Report Case: [id number] Authorizing Provider: Rosendo Yu MD Collected: 09/22/2023 03:33 AM Ordering Location: [facility] - Received: 09/27/2023 07:31 AM DermPath Lab Pathologist: Mary Cmapos MD Specimen: Skin, right superior pretibia 12:56 PM CDT DERMATOPATHOLOGY LABORATORY Final Diagnosis Specimen A. SKIN, right superior pretibia: HYPERPLASTIC (HYPERTROPHIC) ACTINIC KERATOSIS, LICHENOID (L57.0) (see microscopic description) 12:56 PM [facility] DERMATOPATHOLOGY LABORATORY Clinical History R/o ISK vs trauma vs AK vs BCC 12:56 PM T DERMATOPATHOLOGY LABORATORY Gross Description Specimen A: Received is one formalin filled container labeled with the patient's name and designated right superior pretibia. The specimen consists of a shave biopsy measuring [id number] mm. Jar 0. 12:56 PM [facility] DERMATOPATHOLOGY LABORATORY Microscopic Description Specimen A. SKIN, right superior pretibia: There is hyperkeratosis alternating with parakeratosis. There is epidermal hyperplasia with disorderly maturation of keratinocytes with nuclear pleomorphism confined to the lower half of the epidermis. The dermis shows a band-like, chronic inflammatory infiltrate with occasional apoptotic keratinocytes and some basal vacuolar alteration. 12:56 PM T DERMATOPATHOLOGY LABORATORY Disclaimer An external and internal positive and negative controls are appropriate for the histochemical, immunohistochemical and immunofluorescence stain(s) in this case (if any), except where stated explicitly. The performance characteristics of the stain(s) cited in this report were developed and its performance characteristic determined by the Dermatopathology Laboratory at [facility], directed by Dr. Justyn Ryan. These tests need not be, and therefore are not, approved by the [place] Food and Drug Administration. The tests are used for clinical purposes. Billing Codes Specimen Charges Stain Charges 50776 1 4 12:56 PM CDT DERMATOPATHOLOGY LABORATORY Embedded Images 12:56 PM CDT DERMATOPATHOLOGY LABORATORY Pathology/Cytolo gy TISSUE SPECIMEN FROM SKIN / Unknown 09/22/2023 3:33 AM CDT 09/27/2023 7:31 AM CDT Rosendo Yu MD LAB - PATHOLOGY/CYTO LOGY ORDERABLES DERMATOPATHOLOGY LABORATORY [facility] - Department of Dermatology [address] [place] [address], [facility] [phone]
--- OUTSIDE RECORDS SUMMARY | 2024-06-20 16:35 | XMS_ITS | Encounter Summary ---
Author Organization [facility] Address [address] [place] [address] Care Team Providers Care Print Production Coordinator Name Role Phone Unavailable Primary Care Provider Unavailabl e Encounter Details Date Type Department Care Team (Late st Contact Info) Description 09/24/2023 Lab Requisition [facility] - DermPath Lab [address] [place] [id number] Rosendo Yu MD [address] [place] [address] Social History Tobacco Use Types [...] Priority Date/Time Associated Diagnosis Comments DERMATOPATHOLOGY Routine 09/22/2023 3:33 AM CDT documented in this encounter Results * DERMATOPATHOLOGY (09/22/2023 3:33 AM CDT) Case Report Dermatopathology Report Case: [id number] Authorizing Provider: Rosendo Yu MD Collected: 09/22/2023 03:33 AM Ordering Location: [facility] - Received: 09/27/2023 07:31 AM DermPath Lab Pathologist: Mary Campos MD Specimen: Skin, right superior pretibia 12:56 PM CDT DERMATOPATHOLOGY LABORATORY Final Diagnosis Specimen A. SKIN, right superior pretibia: HYPERPLASTIC (HYPERTROPHIC) ACTINIC KERATOSIS, LICHENOID (L57.0) (see microscopic description) 12:56 PM CDT DERMATOPATHOLOGY LABORATORY Clinical History R/o ISK vs trauma vs AK vs BCC 4 12:56 PM CDT DERMATOPATHOLOGY LABORATORY Gross Description Specimen A: Received is one formalin filled container labeled with the patient's name and designated right superior pretibia. The specimen consists of a shave biopsy measuring [id number] mm. Jar 0. 4 12:56 PM CDT DERMATOPATHOLOGY LABORATORY Microscopic Description Specimen A. SKIN, right superior pretibia: There is hyperkeratosis alternating with parakeratosis. There is epidermal hyperplasia with disorderly maturation of keratinocytes with nuclear pleomorphism confined to the lower half of the epidermis. The dermis shows a band-like, chronic inflammatory infiltrate with occasional apoptotic keratinocytes and some basal vacuolar alteration. 4 12:56 PM CDT DERMATOPATHOLOGY LABORATORY Disclaimer An external and internal positive and negative controls are appropriate for the histochemical, immunohistochemical and immunofluorescence stain(s) in this case (if any), except where stated explicitly. The performance characteristics of the stain(s) cited in this report were developed and its performance characteristic determined by the Dermatopathology Laboratory at [facility], directed by Dr. Justyn Ryan. These tests need not be, and therefore are not, approved by the [place] Food and Drug Administration. The tests are used for clinical purposes. Billing Codes Specimen Charges Stain Charges 41253 1 4 12:56 PM CDT DERMATOPATHOLOGY LABORATORY Embedded Images 4 12:56 PM CDT DERMATOPATHOLOGY LABORATORY Pathology/Cytolo gy TISSUE SPECIMEN FROM SKIN / Unknown 09/22/2023 3:33 AM CDT 09/27/2023 7:31 AM CDT Rosendo Yu MD LAB - PATHOLOGY/CYTO LOGY ORDERABLES DERMATOPATHOLOGY LABORATORY [facility] - Department of Dermatology [address] [phone] documented in this encounter Visit Diagnoses Not on filedocumented in this encounter
--- OUTSIDE RECORDS SUMMARY | 2024-06-20 16:35 | XMS_ITS | Continuity of Care Document ---
Author Organization [facility] Address [address] [place] [address] Phone Care Team Providers Care Studio Producer Name Role Phone House Neris JAMIL Unavailable Unavailable Allergies, Adverse Reactions, Alerts Substance Reaction Status Criticality No Known Allergies Active No Inform ation Medications Medication Instructions Dosage Effective Dates (start - stop) Status Comments vitamin B12 500 mcg-folic acid 400 mcg tablet - Active Vitamin D3 10 mcg (400 unit) capsule - Active coenzyme Q10 (ubiquinol) 100 mg capsule - Active magnesium 250 mg tablet - Active Metamucil 3.4 gram/5.4 gram oral powder - Active lisinopril 2.5 mg tablet take 1 tablet by oral route 2 times every day 2.5 MG - Active atorvastatin 10 mg tablet take 1 tablet by oral route every day 10 MG - Active levothyroxine 25 mcg tablet take 1 tablet by oral route every day 25 MCG - Active Aspirin Low Dose 81 mg tablet,delayed release take 1 tablet by oral route every day 81 MG - Active PreserVision AREDS 14,320 unit-226 mg-200 unit capsule - Active multivitamin tablet - Active Calcium 500 500 mg calcium (1,250 mg) tablet - Active Refresh Tears 0.5 % eye drops - Active hydrocodone 5 mg-acetaminophen 325 mg tablet take 1-2 tablets by oral route every 6 hours as needed for pain - On Hold Surgery Celebrex 200 mg capsule take 1 capsule by oral route every day for 14 days (May substitute Meloxicam 15mg) - Mar-23-2025 On Hold hydroxyzine HCl 25 mg tablet take 1 tablet by oral route every 6 hours as needed for nausea, vomiting, itching and pain adjunct - On Hold oxycodone 5 mg tablet take 1 tablet by o ral route every 6 hours as needed for breakthrough pain staggered with/in addition to [place] - On Hold Surgery Procedures Procedure Date BMI Documented Above Normal Limit F/U Pl an Doc Office/outpatient visit,est, mod 2024 BMI Documented Above Normal Limit F/U Pl an Doc X-ray exam shoulder complete, minimum 2 views Office/outpatient visit,est, mod 2023 X-ray exam shoulder complete, minimum 2 views Depo Medrol Methylprednisolone 40 MG inj Asp/inject major joint or bursa w/o US g uidance Office/outpatient visit,[facility], [facility] [place] [place] Advance Directives Directive Yes / No Effective Date File Name No Information Encounters Encounter Description Practice Location Reason(s) For Visit Diagnoses Date Provider Providers Copied on Encounter [facility], [address] [place] [address], [id number], [place] tel:[phone] [facility] No Information 0 5 Brennon Neris . [address] [place] [address], [id number] , [place]. tel: [phone] [place] [facility] [place] [facility], [address] [place] [address], [id number], [place] tel:[phone] 10-20 Media right shoulder pain (chief complaint) Complete rotatr-cuff tear/ruptr of r shoulder, not traumaOther specified arthritis, right shoulderBicipital tendinitis, right shoulder 5 Loni Eisenberg. [address] [place] [address], [id number] , [place]. tel: [phone] [facility], [address], [id number], tel:[phone] [facility] Pain in right shoulder 4 Loni Eisenberg. [address] [address], [place], [place], [id number] , [place]. tel:[phone] Office/[place]pa [place]ient visit,[facility], [facility] [place] [facility], [address], [id number], tel:[phone] [facility] right shoulder pain (chief complaint) Pain in right shoulderComplete rotatr-cuff tear/ruptr of r shoulder, not traumaOther specified arthritis, right shoulder 4 Loni Eisenberg. [address] [address], [place], [place], [id number] , [place]. tel:[phone] Referring Provider: Elgin Lizarraga, [address] [place] [address], [place], [address] . tel:[phone] Office/outpa tient visit,[facility], [address], [id number], [place] tel:[phone] [facility] right shoulder pain (chief complaint) Pain in right shoulderComplete rotatr-cuff tear/ruptr of r shoulder, not traumaArthropathy , unspecified 3 Aime Bundy. [address] [place] [address], [id number] , [place]. tel:[phone] Referring Provider: Niharika Price, [address] [address], [place], [address] . tel:[phone] Family History Family Member Type Diagnosis Age At Onset Brother Problem (finding) Heart Disease Brother Problem (finding) Cancer, unknown Brother Problem (finding) Kidney Disease Sister Problem (finding) Diabetes Sister Problem (finding) Heart Disease Sister Problem (finding) Cancer, unknown Brother Problem (finding) Diabetes Sister Problem (finding) Osteoarthritis Brother Problem (finding) Osteoarthritis Sister Problem (finding) Hypertension Sister Problem (finding) Gout Immunizations Vaccine Date Status Comments influenza, injectable, quadr ivalent, (3 years or older) administered Source: Other Provid er Pneumo (2 yrs or older)(PPV) administered Source: Other Provider Payers Payer name Insurance type Covered constitution party ID Authoriza tion(s) [place] Part B MB [id number] A[employer] Senior Supplemental Insurance [place] [id number] Social History Type Description Quantity Date Captured Comments Sex Female Smoking Status No Information Chief Complaint And Reason For Visit No Information Reason For Referral Reason For Referral No Information Plan Of Treatment Date Type Action Status Referral Ordered: CT scan Upper Extrem W/o Contrast RT shoulder ordered Referral Ordered: X-ray exam shoulder complete, minimum 2 views RT shoulder ordered Referral Ordered: X-ray exam shoulder complete, minimum 2 views RT ordered Appointment Stephanie Diop BOOKED Medication hydrocodone 5 mg -acetaminophen 325 mg tablet:take 1-2 tablets by oral route every 6 hours as needed for pain On Hold Medication Celebrex 200 mg capsule:take 1 capsule by oral route every day for 14 days (May substitute Meloxicam 15mg) On Hold Medication hydroxyzine HCl 25 mg tablet:take 1 tablet by oral route every 6 hours as needed for nausea, vomiting, itching and pain adjunct On Hold Medication oxycodone 5 mg t ablet:take 1 tablet by oral route every 6 hours as needed for breakthrough pain staggered with/in addition to [place] On Hold History Of Present Illness Encounter Date Complaint History Of Prese nt Illness right shoulder pain Stephanie Diop is a 83 year old female. The patient has known glenohumeral osteoarthritis and returns now in anticipation of planned shoulder arthroplasty having failed all reasonable non-operative treatments. In addition to the history today I have reviewed lab tests including: CBC, CMP, PT/INR. These results are compatible with proceeding to shoulder arthroplasty. She presents with pain, weakness and decreased range of motion on the right side. She states that the symptoms have been chronic non-traumatic. The symptoms occur constantly with intermittent worsening. The problem is worse. Currently the patient states that the symptoms are incapacitating. The pain is described as aching and sharp. The symptoms are aggravated by daily activities, reaching or use of the arm, moving the arm suddenly and sleeping in any position. In addition to right shoulder pain the patient is also experiencing decreased mobility and nocturnal awakening. Pertinent negatives include fever, radicular symptoms, numbness and weakness. The patient has had a previous x-ray. Prior treatments have included icing, medications, rest/activity cessation, prior injections all without adequate resolution. The patient has now failed greater than 6 months of non-operative treatment, had symptoms for greater than one year, and has daily pain limiting ADLs including sleep, self care. They are indicated for shoulder arthroplasty. right shoulder pain Stephanie Diop is a 83 year old female. She presents with pain, weakness and decreased range of motion on the right side. She states that the symptoms have been chronic non-traumatic. The symptoms occur constantly with intermittent worsening. The problem is worse. Currently the patient states that the symptoms are incapacitating. The pain radiates to the upper arm on the right side. The symptoms are aggravated by daily activities, lifting away from the body, moving the arm suddenly, reaching behind, reaching overhead and sleeping in any position. In addition to right shoulder pain the patient is also experiencing nocturnal awakening. Pertinent negatives include tingling in the arms. The patient has had a previous x-ray and MRI. She has had rest, ice/heat, OTC meds, prior PT, prior injections, prior arthroscopic debridement. She reports her last injection was in December and provided little relief, nothing sustained. Has now failed reasonable nonoperative treatment, presents with daily symptoms and dysfunction which interfere with her desired activities, and is indicated for shoulder arthroplasty should she so choose. right shoulder pain Ms Diop is a 82 year old female who complains of right shoulder pain. She presents with pain, stiffness, decreased range of motion and weakness on the right side. She states that the symptoms have been chronic non-traumatic. The symptoms occur constantly. The problem is unchanged. Currently the patient states that the symptoms are moderate-severe. The pain is described as aching and sharp. The symptoms occur continuously. The patient is experiencing pain in the following locations: anterior shoulder and upper arm on the right side. She rates her current pain as 7/10. The pain radiates from the shoulder on the right side then to the upper arm on the right side. The symptoms are aggravated by lifting and pushing. Stephanie states that the symptoms are relieved by ice, otc medicines and stretching. In addition to right shoulder pain the patient is also experiencing decreased mobility, difficulty initiating sleep, joint tenderness, tingling in the arms and giving way, night pain, popping, stiffness. Prior pain medications include Tylenol. Patient has had previous therapy. She attended physical therapy. Patient has had arthroscopic surgery. She had a RCR about 10 years ago and shoulder arthroscopy with debridement on 10/06/[address] Peterson. This was followed by six weeks of PT and a cortisone injection in early November, all without benefit. There were previous episodes. She experienced no previous injury. Functional Status Date Functional Assessmen t No Information Instructions Date Instruction Additional Infor gloria The patient has been cleared for shoulder arthroplasty. The patient has elected to proceed with right reverse total shoulder arthroplasty and open tenodesis. We discussed possible conversion to reverse or hemiarthroplasty. Discussed risks, benefits, and alternatives, restrictions, rehabilitation, expected outcomes, and possible complications including but not limited to: , medical complication, DVT/PE, infection, loosening, instability, injury to nerves, blood vessels, and surrounding soft tissues, possible continued pain, perceived subjective failure, and possible need for future surgical intervention. The patient expressed understanding and would like to proceed. The patient plans to go home after discharge from the hospital. We discussed surgery will be at [facility] and the anticipated length of stay would likely be 1 night. We discussed the importance of post-operative physical therapy and home exercises in the rehabilitation process. Questions answered, verbalized understanding. Related to Bicipital tendinitis, right shoulder Given the patient's failure of a reasonable trial of non-operative treatment options and progression of symptoms to a level which preclude desired activities, we discussed they would be a candidate for right reverse total shoulder arthroplasty. We discussed in detail the risks, benefits, and alternatives of total shoulder arthroplasty, and the patient would like to proceed. We will make arrangements to have preoperative clearance obtained with assistance of the patient's primary care provider and any medical subspecialists as appropriate. We will coordinate appropriate dental clearance and pre-operative risk evaluation (appropriate BMI evaluation, diabetes control, skin preparation, etc) prior to surgery. I would like to see the patient back once this is all arranged to review in detail and make a final decision on operative intervention. We will obtain calibrated lateral, true AP views as well as pre-op 3D CT scan to template pre-operatively. Questions answered, verbalized understanding. Related to Other specified arthritis, right shoulder Assessments Type Assessment Date No Information Patient Care Teams Name Effective Dates (start - stop) Status Members No Information
--- OUTSIDE RECORDS SUMMARY | 2024-06-20 16:35 | XMS_ITS | Referral Summary ---
Author Organization [facility] Address [address] [place] [address] Care Team Providers Care Sports Commentator Name Role Phone Unavailable Primary Care Provider Unavailabl e Source Comments [facility],non-owned Affiliates and Associated Physician Practices is amultiple site organization consisting of ambulatory clinics and hospital sitesin [place], [place], [place] and [place]. This disclosure is being madepursuant to the Care Everywhere program and may not contain all information available regarding this patient. Last updated 18.[facility] Social History Tobacco Use Types Packs/Day Years Used Date Smoking Tobacco: Never Assessed Sex and Gender Information Value Date Recorded Sex Assigned at Not on file Gender Identity Not on file Sexual Orientation Not on file Plan of Treatment Not on file Stephanie Diop Personal/Family Self 1940 [address] [place] [address]
--- OUTSIDE RECORDS SUMMARY | 2024-06-20 16:35 | XMS_ITS | Clinical Summary ---
Author Organization [facility] Address [address] [place] [address] Care Team Providers Care Geomorphology Teacher Name Role Phone Unavailable Primary Care Provider Unavailabl e Source Comments [facility],non-owned Affiliates and Associated Physician Practices is amultiple site organization consisting of ambulatory clinics and hospital sitesin [place], [place], [place] and [place]. This disclosure is being madepursuant to the Care Everywhere program and may not contain all information available regarding this patient. Last updated 18.[facility] [place] Social History Tobacco Use Types Packs/Day Years Used Date Smoking Tobacco: Never Assessed Sex and Gender Information Value Date Recorded Sex Assigned at Not on file Gender Identity Not on file Sexual Orientation Not on file Plan of Treatment Health Maintenance Due Date Last Done Comments BONE DENSITY TESTING 1940 MEDICARE AWV 12 MONTHS 1940 DTAP/TDAP/TD VACCINES (1 - Tdap) 07/30/1958 PNEUMOCOCCAL VACCINE 50+ (1 of 1 - PCV) 07/30/1989 ZOSTER VACCINE (1 of 2) 07/30/1989 Respiratory Syncytial Virus (RSV) Vaccine Pt: or over 60 yrs (1 - 1-dose 75+ series) 07/30/2014 COVID-19 VACCINE ( season) 2023 08/13/2021, 02/20/2021 INFLUENZA VACCINE (#1) 2023 , 01/14/2019, 01/20/2018, Additional history exists DEPRESSION SCREENING 04/19/2024 HEPATITIS B VACCINE Aged Out No longe r eligible based on patient's age to complete this topic HIB VACCINE Aged Out No longer eligi ble based on patient's age to complete this topic HPV VACCINE Aged Out No longer eligi ble based on patient's age to complete this topic MENINGOCOCCAL (Group B) VACCINE Aged Out No longer eligible based on patient's age to complete this topic MENINGOCOCCAL VACCINE Aged Out No tito ruthy eligible based on patient's age to complete this topic Stephanie Diop Personal/Family Self 1940 [address] [place] [address]
--- OUTSIDE RECORDS SUMMARY | 2024-06-20 16:35 | XMS_ITS | Clinical Summary ---
Author Organization [facility] Address [address] [place] [phone] Care Team Providers Care Senior Sql Server Database Developer Name Role Phone Kerrie Luis MD Primary Care Provide r Eusebio Mendez MD Unavailable Allergies No known active allergies Medications atorvastatin (LIPITOR) 20 mg tablet Take 1 tablet (20 mg total) by mouth daily after lunch 3 9 Active lisinopril (PRINIVIL,ZESTR IL) 10 mg tablet Take 1 tablet (10 mg total) by mouth every morning 5 9 Active Unithroid 50 mcg tablet Take 1 tablet (50 mcg total) by mouth hatchery man before breakfast 4 Active amLODIPine (NORVASC) 10 mg tablet Take 1 tablet (10 mg total) by mouth every evening Active aspirin 81 mg enteric coated tablet Take 1 tablet (81 mg total) by mouth every morning Active acetaminophen ER (TYLENOL) 650 mg 8 hr tablet Take 1 tablet (650 mg total) by mouth every 8 (eight) hours as needed for pain Active acetaminophen-a spirin-caffeine (EXCEDRIN MIGRAINE) 250-250-65 mg per tablet Take 1 tablet by mouth every 6 (six) hours as needed Active polyvinyl alcohol-povidon e (REFRESH CLASSIC) 1.4-0.6 % dropperette Administer 2 drops into both eyes 2 (two) times a day Active vit A/vit C/vit E/zinc/copper (PRESERVISION AREDS ORAL) Take 1 tablet by mouth 2 (two) times a day Active calcium-magnesi um-zinc 333-133-5 mg tablet Take 1 tablet by mouth daily after lunch Active cholecalciferol 25 mcg (1,000 unit) tablet Take 1 tablet (1,000 Units total) by mouth daily after lunch Active cyanocobalamin (Vitamin B-12) 1,000 mcg tabletIndicatio ns:Prevention of Vitamin B12 Deficiency Take 1 tablet (1,000 mcg total) by mouth daily after lunch Active coenzyme Q10 100 mg capsule Take 1 capsule (100 mg total) by mouth every evening Active psyllium 0.52 gram capsule Take 1 capsule (0.52 g total) by mouth daily Active ergocalciferol (VITAMIN D) 50,000 unit capsule Take 1 capsule (50,000 Units total) by mouth once a week 0 9 06/08/19 25 Discontin ued(Error ) HYDROcodone-jf taminophen (NORCO) 5-325 mg per tablet Take 1-2 tablets by mouth every 6 (six) hours as needed 0 9 06/08/19 25 Discontin ued(Error ) naproxen-diphen hydramine 220-25 mg tablet Take by mouth 06/08/19 25 Discontin ued(Error ) Active Problems Problem Noted Date Diagnosed Date Nontraumatic complete tear of right rotator cuff 03/24/2024 Allergic arthritis of shoulder region, right 09/2023 Primary osteoarthritis of right shoulder 023 Encounters Date Type Department Care Team Description 06/14/2024 Orders Only [facility] Pre Anesthesia Testing [address] [place] [phone] Eusebio Mendez MD 06/13/2024 Telephone [facility] Pre Anesthesia Testing [address] [place] [phone] Rosanna Guido RN 06/08/2024 11:45 AM GRINDING WHEEL FACER Pre-Admission Testing [facility] Pre Anesthesia Testing [address] [place] [phone] Pre-op evaluation (Primary Dx) 05/29/2024 Telephone [facility] Pre Anesthesia Testing [address] [place] [address] Mandy Rodas 05/24/2024 Orders Only [facility] Gastroenterology at [facility] [address] [facility] [address] [place] [address] Provider, MD Taylor 05/08/2024 11:01 AM GRINDING WHEEL FACER - 05/08/2024 11:59 PM GRINDING WHEEL FACER Hospital Encounter [facility] - Imaging [address] [place] [address] Right shoulder pain, unspecified chronicity Discharge Disposition: Discharge to home or self care from Last 3 Months Medical History Medical History Date Comments Anxiety Arthritis Cancer (CMS/HCC) (HCC) Gastric reflux Heart murmur Hiatal hernia Hypercholesteremia Hypertension Headache Migraines Peptic ulceration Urinary tract infection Family History Medical History Relation Name Comments Arthritis Mother Relation Name Status Comments Mother Social History Tobacco Use Types Packs/Day Years Used Date Smoking Tobacco: Never Smokeless Tobacco: Never Alcohol Use Standard Drinks/Week Comments Yes 0 (1 standard drink = 0.6 oz pur e alcohol) AUDIT-C Answer Date Recorded Q1: How often do you have a drink containing alcohol? Never 06/08/2024 Q2: How many drinks containi ng alcohol do you have on a typical day when you are drinking? Patient does not drink Q3: How often do you have si x or more drinks on one occasion? Never 06/08/2024 Comments Unknown Sex and Gender Information Value Date Recorded Sex Assigned at Not on file Legal Sex Female 11:34 AM CDT Gender Identity Not on file Sexual Orientation Not on file Obstetrics History Last Filed Vital Signs Vital Sign Reading Time Taken Comments Blood Pressure 157/62 06/08/2024 11:47 AM GRINDING WHEEL FACER Pulse 75 06/08/2024 11:47 AM GRINDING WHEEL FACER Temperature - - Respiratory Rate - - Oxygen Saturation 99% 06/08/2024 11:47 AM GRINDING WHEEL FACER Inhaled Oxygen Concentration - - Weight 66.7 kg (147 lb) 06/08/2024 11:47 AM GRINDING WHEEL FACER Height 160 cm (5' 3 ) 06/08/2024 11:47 AM GRINDING WHEEL FACER Body Mass Index 26.04 06/08/2024 11:47 AM GRINDING WHEEL FACER Plan of Treatment Upcoming Encounters Date Type Department Care Team (Latest Contact Info) Description 06/26/2024 2:45 PM CDT Hospital Encounter [facility] Operating Room [address] [place] [phone] Elgin Ivey MD [address] [phone] 06/26/2024 2:45 PM CDT Anesthesia Event [facility] Operating Room [address] [place] [phone] Lisa Hicks [facility] [address] [place] [phone] 06/26/2024 2:45 PM CDT - 06/26/2024 5:30 PM CDT Surgery [facility] Operating Room [address] [place] [phone] Elgin Ivey MD [address] [phone] Right Reverse Total Shoulder Arthroplasty, Capsular Release, Tenodesis Scheduled Procedures Name Priority Associated Diagnoses Date/Ti me ARTHROPLASTY SHOULDER - REVERSE TOTAL 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, right 06/26/2024 2:45 PM CDT Health Maintenance Due Date Last Done Comments Depression Screening 1940 Osteoporosis Screening-Bone Density Scan 1940 Hepatitis B Screening 07/30/1958 Well Visit 65+ 07/30/2004 Covid-19 Vaccine (2023-2 5 season) 2024 05/24/2024, 02/19/2023, 05/04/2022, Additional history exists Fall Risk Assessment 06/08/2025 06/08/2024 DTaP/Tdap/Td Vaccine (3 - Td or Tdap) 05/12/2033 05/12/2023, 02/18/2012 Pneumococcal vaccine 65+ Completed 01/21/2015, 080 04/2011 Zoster Vaccine Completed 04/24/2022, 11/17, 01/18/2012 Influenza Vaccine Completed 02/14/2024, , 02/12/2023, Additional history exists Procedures Procedure Name Priority Date/Time Associated Diagnosis Comments EGFR Routine 06/08/2024 1:10 PM GRINDING WHEEL FACER Pre-op evaluation DIFFERENTIAL AUTO Routine 06/08/2024 1:1 0 PM GRINDING WHEEL FACER Pre-op evaluation COMPREHENSIVE METABOLIC PANEL Routine 06/08/2024 1:10 PM GRINDING WHEEL FACER Pre-op evaluation CBC WITH AUTO DIFFERENTIAL Routine 06/08/2024 1:10 PM GRINDING WHEEL FACER Pre-op evaluation HEMOGLOBIN A1C Routine 06/08/2024 1:10 PM GRINDING WHEEL FACER Pre-op evaluation ECG 12-LEAD Routine 05/22/2024 8:[address] SHOULDER RIGHT WO CONTRAST Schedule Routine, Read Routine (OP Routine) 05/08/2024 11:53 AM GRINDING WHEEL FACER Right shoulder pain, unspecified chronicity MISCELLANEOUS LAB TEST Routine 03/22/2024 8:07 AM GRINDING WHEEL FACER from Last 3 Months Results * eGFR (06/08/2024 1:10 PM GRINDING WHEEL FACER) eGFR 82 >=60 mL/min/1. 73 m2 Comment: Interpretive Data Reference Interval Normal >/= 90 mL/min/1.73m2 Mildly decreased* 60 - 89 mL/min/1.73m2 Mildly to moderately decreased 45 - 59 mL/min/1.73m2 Moderately to severely decreased 30 - 44 mL/min/1.73m2 Severely decreased 15 - 29 mL/min/1.73m2 Kidney Failure < 15 mL/min/1.73m2 *Relative to young adult level Estimated glomerular filtration rate is determined by the 2020 CKD-EPI equation recommended by the National Kidney Foundation (A Unifying Approach to GFR Estimation: Recommendations of the NKF-ASK Task Force on Reassessing the Inclusion of Race in Diagnosing Kidney Disease, CAMRON 2020). The CKD-EPI equation should not be used for patients with unstable renal function and has not been validated in children and those over 70. Current interpretive data was last reviewed 2021. Blood 06/08/2024 1:10 PM GRINDING WHEEL FACER 06/08/2024 1:10 PM GRINDING WHEEL FACER us Rasheeda ELIZABETH LAB BLOOD ORDERABLES Layne l Result [facility] [address] Department [place] [address] * (ABNORMAL) Differential, auto (06/08/2024 1:10 PM GRINDING WHEEL FACER) Neutrophil abs 6.7(H) 1.5 - 6.5 K/cumm Imm gran abs 0.0 0.0 - 0.1 K/cumm [facility] Lymphocyte abs 1.6 0.8 - 3.3 K/cumm [facility] Monocyte abs 1.2(H) 0.2 - 0.8 K/cumm [facility] Eosinophil abs 0.1 0.0 - 0.5 K/cumm [facility] Basophil abs 0.0 0.0 - 0.1 K/cumm [facility] Neutrophil pct 69.8 % [facility] Comment: Interpretive Data Percent cell count reference ranges are not reported, since discordance with absolute values may lead to misinterpretation of CBC data. Current Interpretive Data was last revised on 2017. Imm gran pct 0.2 % [facility] Comment: Interpretive Data Percent cell count reference ranges are not reported, since discordance with absolute values may lead to misinterpretation of CBC data. Current Interpretive Data was last revised on 2017. Lymphocyte pct 17.0 % [facility] Comment: Interpretive Data Percent cell count reference ranges are not reported, since discordance with absolute values may lead to misinterpretation of CBC data. Current Interpretive Data was last revised on 2017. Monocyte pct 12.1 % [facility] Comment: Interpretive Data Percent cell count reference ranges are not reported, since discordance with absolute values may lead to misinterpretation of CBC data. Current Interpretive Data was last revised on 2017. Eosinophil pct 0.6 % [facility] Comment: Interpretive Data Percent cell count reference ranges are not reported, since discordance with absolute values may lead to misinterpretation of CBC data. Current Interpretive Data was last revised on 2017. Basophil pct 0.3 % [facility] Comment: Interpretive Data Percent cell count reference ranges are not reported, since discordance with absolute values may lead to misinterpretation of CBC data. Current Interpretive Data was last revised on 2017. Blood 06/08/2024 1:10 PM GRINDING WHEEL FACER 06/08/2024 1:10 PM GRINDING WHEEL FACER us Rasheeda ELIZABETH LAB BLOOD ORDERABLES Layne olivera Result [facility] [address] Department [place] [address] * CBC with auto differential (06/08/2024 1:10 PM GRINDING WHEEL FACER) WBC 9.6 3.8 - 9.9 K/cumm Hgb 13.5 11.9 - 15.5 g/dL [facility] Hct 41.1 35.6 - 45.5 % [facility] Plt 222 150 - 400 K/cumm [facility] MPV 10.5 9.1 - 12.3 fL [facility] RBC 4.38 3.90 - 5.20 M/cumm [facility] MCV 93.8 81.3 - 96.4 fL [facility] MCH 30.8 27.1 - 33.3 pg [facility] MCHC 32.8 32.3 - 35.7 g/dL [facility] RDW CV 13.2 11.1 - 14.9 % [facility] RDW SD 45.4 35.7 - 48.1 fL [facility] NRBC abs 0.00 0.00 - 0.01 K/cumm [facility] Blood 06/08/2024 1:10 PM GRINDING WHEEL FACER 06/08/2024 1:10 PM GRINDING WHEEL FACER Rasheeda Rayo ID LAB BLOOD ORDERABLES Layne l Result Performing Organization Address [facility] de Phone Number [facility] [address] [facility] [place] [place] [address] * (ABNORMAL) Hemoglobin A1c (06/08/2024 1:10 PM GRINDING WHEEL FACER) Pathologist [facility] Hgb A1C 5.8(H) 4.0 - 5.6 % Estimated Average Glucose 120 mg/dL [facility] Comment: The ADA recommends reporting an estimated Average Glucose (eAG) with all Hemoglobin A1c results using the equation derived from a study of 507 normal and diabetic adults. Minority populations were underrepresented and children were not included. (Diabetes Care 31:7589-3469, 2008). The eAG is not equivalent to a fasting glucose. Blood 06/08/2024 1:10 PM GRINDING WHEEL FACER 06/08/2024 1:10 PM GRINDING WHEEL FACER Rasheeda Bairdpaul ID LAB BLOOD ORDERABLES Layne l Result Performing Organization Address [facility] de Phone Number [facility] [address] [facility] [place] [place] [address] * Comprehensive metabolic panel (06/08/2024 1:10 PM GRINDING WHEEL FACER) [facility] Sodium 139 135 - 145 mmol/L Potassium, pl 4.4 3.3 - 4.9 mmol/L [facility] Chloride 101 97 - 110 mmol/L [facility] CO2 26 22 - 32 mmol/L [facility] Anion gap 12 2 - 15 mmol/L [facility] BUN 19 6 - 25 mg/dL [facility] Creatinine 0.72 0.60 - 1.10 mg/dL [facility] Glucose 97 70 - 199 mg/dL [facility] Comment: Interpretive Data Fasting glucose >/= 126 mg/dl is diagnostic for diabetes. Fasting is defined as no caloric intake for at least 8 hours. Fasting glucose between 100 mg/dl to 125 mg/dl is diagnostic of prediabetes. In a patient with classic symptoms of hyperglycemia or hyperglycemic crisis, a random glucose >/= 200 mg/dl is diagnostic for diabetes. In the absence of unequivocal hyperglycemia, results should be confirmed by repeat testing. The classification and Diagnosis of Diabetes Diabetes Care 2021; 46: S19-S40. Current interpretive data was last revised 2022. Calcium 10.1 8.5 - 10.3 mg/dL [facility] Bilirubin, total 0.5 0.1 - 1.2 mg/dL [facility] Protein, pl 7.3 6.5 - 8.5 g/dL [facility] Albumin 4.6 3.5 - 5.0 g/dL [facility] Alk phos 111 40 - 130 Units/L [facility] ALT 30 7 - 45 Units/L [facility] AST 30 10 - 45 Units/L [facility] Blood 06/08/2024 1:10 PM GRINDING WHEEL FACER 06/08/2024 1:10 PM GRINDING WHEEL FACER Rasheeda ELIZABETH LAB BLOOD ORDERABLES Layne l Result [facility] [address] Department [place] [address] * ECG 12 lead (05/22/2024 8:27 AM GRINDING WHEEL FACER) Eusebio Mendez MD ECG ORDERABLES Final Result * CT Shoulder Right WO Contrast (05/08/2024 11:53 AM GRINDING WHEEL FACER) Anatomical Region Laterality Modality Upper Extremities Right Computed Tomog promise 05/08/2024 12:0 5 PM GRINDING WHEEL FACER Impressions 05/08/2024 12:05 PM GRINDING WHEEL FACER Degenerative changes as discussed above. Electronically signed by: Steve Saul M.D. Narrative 05/08/2024 12:05 PM GRINDING WHEEL FACER EXAM: CT SHOULDER RIGHT WO CONTRAST CLINICAL HISTORY: Right shoulder pain. TECHNIQUE: Standard CT imaging of the right shoulder was performed. Sagittal and coronal reconstructions were performed. COMPARISON: None available. FINDINGS: There is superior subluxation of the humeral head with relation to the glenoid. There is [id number] appearance of the acromiohumeral articulation with remodeling of the undersurface of the acromion. There is moderate to severe glenohumeral arthritic change. There is a 10 x 6 x 4 mm joint body lateral to the greater tuberosity. There is an 8 x 7 x 2 mm joint body over the anterior aspect of the glenohumeral joint. There is an adjacent tiny joint body. There is a full-thickness rotator cuff tear involving the supraspinatus tendon. There is mild atrophy of the subscapularis and supraspinatus. There is a small glenohumeral joint effusion with extension of fluid in the subacromial/subdeltoid bursa. Procedure Note Steve Saul MD - 05/08/2024 EXAM: CT SHOULDER RIGHT WO CONTRAST CLINICAL HISTORY: Right shoulder pain. TECHNIQUE: Standard CT imaging of the right shoulder was performed. Sagittal and coronal reconstructions were performed. COMPARISON: None available. FINDINGS: There is superior subluxation of the humeral head with relation to the glenoid. There is jtek-[id number]-foop appearance of the acromiohumeral articulation with remodeling of the undersurface of the acromion. There is moderate to severe glenohumeral arthritic change. There is a 10 x 6 x 4 mm joint body lateral to the greater tuberosity. There is an 8 x 7 x 2 mm joint body over the anterior aspect of the glenohumeral joint. There is an adjacent tiny joint body. There is a full-thickness rotator cuff tear involving the supraspinatus tendon. There is mild atrophy of the subscapularis and supraspinatus. There is a small glenohumeral joint effusion with extension of fluid in the subacromial/subdeltoid bursa. IMPRESSION: Degenerative changes as discussed above. Electronically signed by: Steve Saul M.D. Elgin Ivey MD IM CT PROCEDURES Final Res ult * - Miscellaneous Test (03/22/2024 8:07 AM GRINDING WHEEL FACER) Miscellaneous us Historical Provider LAB BLOOD ORDERABLES Layne l Result from Last 3 Months Insurance MEDICARE [facility] MEDICARE [employer] SENIOR SUPPLEMENT MEDICARE [employer] SENIOR SUPPLEMENT Care Teams Senior Sql Server Database Developer Relationship Specialty Start Date End Date Kerrie Luis MD PCP - General Internal Medicine 07/21/18 Eusebio Mendez MD [address] [place] [address] Consulting Physician Cardiology 06/13/24
--- OUTSIDE RECORDS SUMMARY | 2024-06-20 16:35 | XMS_ITS | Referral Summary ---
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 Name Role Phone Kerrie Luis MD Primary Care Provide r Eusebio Mendez MD Unavailable Encounters Date Type Department Care Team Description 06/14/2024 Orders Only [facility] Pre Anesthesia Testing [address] [place] [phone] Eusebio Mendez MD 06/13/2024 Telephone [facility] Pre Anesthesia Testing [address] [place] [phone] Rosanna Guido RN 06/08/2024 11:45 AM PONY EDGER Pre-Admission Testing [facility] Pre Anesthesia Testing [address] [place] [phone] Pre-op evaluation (Primary Dx) 05/29/2024 Telephone [facility] Pre Anesthesia Testing [address] [place] [phone] Mandy Rodas 05/24/2024 Orders Only [facility] Gastroenterology at [facility] [address] [facility] [address], [place] [address] ProviderTaylor MD 05/08/2024 11:01 AM PONY EDGER - 05/08/2024 11:59 PM PONY EDGER Hospital Encounter [facility] - Imaging [address] [place] [address] Right shoulder pain, unspecified chronicity Discharge Disposition: Discharge to home or self care from Last 3 Months Allergies No known active allergies Medications atorvastatin (LIPITOR) 20 mg tablet Take 1 tablet (20 mg total) by mouth daily after lunch 3 9 Active lisinopril (PRINIVIL,ZESTR IL) 10 mg tablet Take 1 tablet (10 mg total) by mouth every morning 5 9 Active Unithroid 50 mcg tablet Take 1 tablet (50 mcg total) by 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 before breakfast 4 Active amLODIPine (NORVASC) 10 [...] 09/2023 Primary osteoarthritis of right shoulder 023 Social History Tobacco Use Types Packs/Day Years [...] on file Sexual Orientation Not on file Last Filed Vital Signs Vital Sign Reading Time Taken Comments Blood Pressure 157/62 06/08/2024 11:47 AM PONY EDGER Pulse 75 06/08/2024 11:47 AM PONY EDGER Temperature - - Respiratory Rate - - Oxygen Saturation 99% 06/08/2024 11:47 AM PONY EDGER Inhaled Oxygen Concentration - - Weight 66.7 kg (147 lb) 06/08/2024 11:47 AM PONY EDGER Height 160 cm (5' 3 ) 06/08/2024 11:47 AM PONY EDGER Body Mass Index 26.04 06/08/2024 11:47 AM PONY EDGER Plan of Treatment Upcoming Encounters Date Type Department Care Team (Latest Contact Info) Description 06/26/2024 2:45 PM CDT Hospital Encounter [facility] Operating Room [address] [place] [phone] Elgin Ivey MD [address] [facility] [address] [place] [address] 06/26/2024 2:45 PM CDT Anesthesia Event [facility] Operating Room [address] [place] [phone] Lisa Hicks PA [facility] [address] [place] [phone] 06/26/2024 2:45 PM CDT - 06/26/2024 5:30 PM CDT Surgery [facility] Operating Room [address] [place] [phone] Elgin Ivey MD [address] [facility] [address] [place], [place] [phone] Right Reverse Total Shoulder Arthroplasty, Capsular Release, Tenodesis Scheduled Procedures Name Priority Associated Diagnoses Date/Ti me ARTHROPLASTY SHOULDER - REVERSE TOTAL 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, right 06/26/2024 2:45 PM CDT Procedures Procedure Name Priority Date/Time Associated Diagnosis Comments EGFR Routine 06/08/2024 1:10 PM PONY EDGER Pre-op evaluation DIFFERENTIAL AUTO Routine 06/08/2024 1:1 0 PM PONY EDGER Pre-op evaluation COMPREHENSIVE METABOLIC PANEL Routine 06/08/2024 1:10 PM PONY EDGER Pre-op evaluation CBC WITH AUTO DIFFERENTIAL Routine 06/08/2024 1:10 PM PONY EDGER Pre-op evaluation HEMOGLOBIN A1C Routine 06/08/2024 1:10 PM PONY EDGER Pre-op evaluation ECG 12-LEAD Routine 05/22/2024 8:[address] SHOULDER RIGHT WO CONTRAST Schedule Routine, Read Routine (OP Routine) 05/08/2024 11:53 AM PONY EDGER Right shoulder pain, unspecified chronicity MISCELLANEOUS LAB TEST Routine 03/22/2024 8:07 AM PONY EDGER from Last 3 Months Results * eGFR (06/08/2024 1:10 PM PONY EDGER) eGFR 82 >=60 mL/min/1. 73 m2 Comment: [...] Inclusion of Race in Diagnosing Kidney Disease, JASN 2020). The CKD-EPI equation should not be used for patients with unstable renal function and has not been validated in children and those over 70. Current interpretive data was last reviewed 2021. Blood 06/08/2024 1:10 PM PONY EDGER 06/08/2024 1:10 PM PONY EDGER us Rasheeda ELIZABETH LAB BLOOD ORDERABLES Layne l Result [facility] [address] Department [place] [address] * (ABNORMAL) Differential, auto (06/08/2024 1:10 PM PONY EDGER) Neutrophil abs 6.7(H) 1.5 - 6.5 K/cumm Imm gran abs 0.0 0.0 - 0.1 K/cumm [facility] Lymphocyte abs 1.6 0.8 - 3.3 K/cumm [facility] Monocyte abs 1.2(H) 0.2 - 0.8 K/cumm [facility] Eosinophil abs 0.1 0.0 - 0.5 K/cumm [facility] Basophil abs 0.0 0.0 - 0.1 K/cumm [facility] Neutrophil pct 69.8 % [facility] Comment: Interpretive Data Percent cell count reference ranges are not reported, since discordance with absolute values may lead to misinterpretation of CBC data. Current Interpretive Data was last revised on 2017. Imm gran pct 0.2 % [facility] Comment: Interpretive Data Percent cell count reference ranges are not reported, since discordance with absolute values may lead to misinterpretation of CBC data. Current Interpretive Data was last revised on 2017. Lymphocyte pct 17.0 % [facility] Comment: Interpretive Data Percent cell count reference ranges are not reported, since discordance with absolute values may lead to misinterpretation of CBC data. Current Interpretive Data was last revised on 2017. Monocyte pct 12.1 % [facility] Comment: Interpretive Data Percent cell count reference ranges are not reported, since discordance with absolute values may lead to misinterpretation of CBC data. Current Interpretive Data was last revised on 2017. Eosinophil pct 0.6 % [facility] Comment: Interpretive Data Percent cell count reference ranges are not reported, since discordance with absolute values may lead to misinterpretation of CBC data. Current Interpretive Data was last revised on 2017. Basophil pct 0.3 % [facility] Comment: Interpretive Data Percent cell count reference ranges are not reported, since discordance with absolute values may lead to misinterpretation of CBC data. Current Interpretive Data was last revised on 2017. Blood 06/08/2024 1:10 PM PONY EDGER 06/08/2024 1:10 PM PONY EDGER us Rasheeda ELIZABETH LAB BLOOD ORDERABLES Layne olivera Result [facility] [address] Department [place] [address] * CBC with auto differential (06/08/2024 1:10 PM PONY EDGER) WBC 9.6 3.8 - 9.9 K/cumm Hgb 13.5 11.9 - 15.5 g/dL [facility] Hct 41.1 35.6 - 45.5 % [facility] Plt 222 150 - 400 K/cumm [facility] MPV 10.5 9.1 - 12.3 fL [facility] RBC 4.38 3.90 - 5.20 M/cumm [facility] MCV 93.8 81.3 - 96.4 fL [facility] MCH 30.8 27.1 - 33.3 pg [facility] MCHC 32.8 32.3 - 35.7 g/dL [facility] RDW CV 13.2 11.1 - 14.9 % [facility] RDW SD 45.4 35.7 - 48.1 fL [facility] NRBC abs 0.00 0.00 - 0.01 K/cumm [facility] Blood 06/08/2024 1:10 PM PONY EDGER 06/08/2024 1:10 PM PONY EDGER Rasheeda ELIZABETH LAB BLOOD ORDERABLES Layne l Result Performing Organization Address City/[facility] [place] Phone Number [facility] [address] Department of Laboratories [place], [place] [phone] * (ABNORMAL) Hemoglobin A1c (06/08/2024 1:10 PM PONY EDGER) [facility] Hgb A1C 5.8(H) 4.0 - 5.6 % Estimated Average Glucose 120 mg/dL [facility] Comment: The ADA recommends reporting an estimated Average Glucose (eAG) with all Hemoglobin A1c results using the equation derived from a study of 507 normal and diabetic adults. Minority populations were underrepresented and children were not included. (Diabetes Care 31:1245-6421, 2008). The eAG is not equivalent to a fasting glucose. Blood 06/08/2024 1:10 PM PONY EDGER 06/08/2024 1:10 PM PONY EDGER Rasheeda ELIZABETH LAB BLOOD ORDERABLES Layne l Result Performing Organization Address City/State/[facility] Co de Phone Number [facility] [address] Department [place] [address] * Comprehensive metabolic panel (06/08/2024 1:10 PM PONY EDGER) Sodium 139 135 - 145 mmol/L Potassium, pl 4.4 3.3 - 4.9 mmol/L [facility] Chloride 101 97 - 110 mmol/L [facility] CO2 26 22 - 32 mmol/L [facility] Anion gap 12 2 - 15 mmol/L [facility] BUN 19 6 - 25 mg/dL [facility] Creatinine 0.72 0.60 - 1.10 mg/dL [facility] Glucose 97 70 - 199 mg/dL [facility] Comment: Interpretive Data Fasting glucose >/= 126 [...] classification and Diagnosis of Diabetes Diabetes Care 202; 46: S19-S40. Current interpretive data was last revised 2022. Calcium 10.1 8.5 - 10.3 mg/dL [facility] Bilirubin, total 0.5 0.1 - 1.2 mg/dL [facility] Protein, pl 7.3 6.5 - 8.5 g/dL [facility] Albumin 4.6 3.5 - 5.0 g/dL [facility] Alk phos 111 40 - 130 Units/L [facility] ALT 30 7 - 45 Units/L [facility] AST 30 10 - 45 Units/L [facility] Blood 06/08/2024 1:10 PM PONY EDGER 06/08/2024 1:10 PM PONY EDGER Rasheeda ELIZABETH LAB BLOOD ORDERABLES Layne olivera Result Performing Organization Address [facility]/ZIP Co de Phone Number [facility] [address] [place] [address] * ECG 12 lead (05/22/2024 8:27 AM PONY EDGER) Eusebio Mendez MD ECG ORDERABLES Final Result * CT Shoulder Right WO Contrast (05/08/2024 11:53 AM PONY EDGER) Anatomical Region Laterality Modality Upper Extremities Right Computed Tomog promise 05/08/2024 12:0 5 PM PONY EDGER Impressions 05/08/2024 12:05 PM PONY EDGER Degenerative changes as discussed above. Electronically signed by: Steve Saul M.D. Narrative 05/08/2024 12:05 PM PONY EDGER EXAM: CT SHOULDER RIGHT WO CONTRAST CLINICAL HISTORY: Right shoulder pain. TECHNIQUE: Standard CT imaging of the right shoulder was performed. Sagittal and coronal reconstructions were performed. COMPARISON: None available. FINDINGS: There is superior subluxation of the humeral head with relation to the glenoid. There is [id number] appearance of the acromiohumeral articulation with remodeling [...] with relation to the glenoid. There is ieel-gq-avab appearance of the acromiohumeral articulation with remodeling [...] by: Steve Saul M.D. Elgin Ivey MD IMG CT PROCEDURES Final Res ult * - Miscellaneous Test (03/22/2024 8:07 AM PONY EDGER) Miscellaneous Historical Provider LAB BLOOD ORDERABLES Layne l Result from Last 3 Months Insurance MEDICARE [facility] [place] [place] [address] MEDICARE T SENIOR SUPPLEMENT MEDICARE [employer] [place] [address] Care Teams Customs House Broker Relationship Specialty Start Date End Date Kerrie Luis MD PCP - General Internal Medicine 07/21/18 Eusebio Mendez MD [address] [place] [address] Consulting Physician Cardiology 06/13/24
--- OUTSIDE RECORDS SUMMARY | 2024-06-20 16:55 | XMS_ITS | Continuity of Care Document ---
Author Organization [facility] Address [address] [place] [address] Phone Care Team Providers Care Diabetes Trainer Name Role Phone House Neris JAMIL Unavailable [...] for breakthrough pain staggered with/in addition to Gamaliel - On Hold Surgery Procedures Procedure Date BMI Documented Above Normal Limit F/U Pl an Doc Office/outpatient visit,est, mod 2024 BMI Documented Above Normal Limit F/U Pl an Doc X-ray exam shoulder complete, minimum 2 views Office/outpatient visit,est, mod 2023 X-ray exam shoulder complete, minimum 2 views Depo Medrol Methylprednisolone 40 MG inj Asp/inject major joint or bursa w/o US g uidance Office/outpatient visit,[facility], [facility] [place] Advance Directives Directive Yes / No Effective Date File Name No Information Encounters Encounter Description Practice Location Reason(s) For Visit Diagnoses Date Provider Providers Copied on Encounter [facility], [address] [place] [address], [id number], [place] tel:[phone] [facility] No Information 0 5 Brennon Neris . [address] [place] [address], [id number] , [place]. tel: [phone] Office/outpa [place]ient visit,est, [facility], [address] [place] [address], [id number], [place] tel:[phone] [facility] right shoulder pain (chief complaint) Complete rotatr-cuff tear/ruptr of r shoulder, not traumaOther specified arthritis, right shoulderBicipital tendinitis, right shoulder 5 Loni Eisenberg. [address] [place] [address], [id number] , [place]. tel: [phone] [facility], [address], [id number], tel:[phone] [facility] Pain in right shoulder 4 Loni Eisenberg. [address] [address], [place], [place], [id number] , [place]. tel:[phone] Office/outpa tient visit,[facility], [facility], [address], [id number], tel:[phone] [facility] right shoulder pain (chief complaint) Pain in right shoulderComplete rotatr-cuff tear/ruptr of r shoulder, not traumaOther specified arthritis, right shoulder 4 Loni Eisenberg. [address] [address], [place], [place], [id number] , [place]. tel:[phone] Referring Provider: Elgin Lizarraga, [address] [place] [address], [place], [address] . tel:[phone] Office/outpa tient visit,[facility], [address], [id number], [place] tel:[phone] [facility] right shoulder pain (chief complaint) Pain in right shoulderComplete rotatr-cuff tear/ruptr of r shoulder, not traumaArthropathy , unspecified 3 Aime Bundy. [address] [place] [address], [id number] , [place]. tel:[phone] Referring Provider: Niharika Price, [address] [address], [place], [address] . tel:[phone] Family History Family Member Type Diagnosis Age [...] Provider Payers Payer name Insurance type Covered democrat ID Authoriza tion(s) [place] Part [place] [id number] [employer] Senior Supplemental Insurance [place] [id number] Social History Type Description Quantity Date Captured [...] for breakthrough pain staggered with/in addition to Gamaliel On Hold History Of Present Illness Encounter [...] hospital. We discussed surgery will be at [facility] and the anticipated length of stay would [...]
--- OUTSIDE RECORDS SUMMARY | 2024-06-20 16:55 | XMS_ITS | CONTINUITY OF CARE DOCUMENT ---
Author Name gina fuentes Address Unknown Organization [facility] Address [address] [address] [place] [address] Phone [phone] Care Team Providers Care Executive Sales Assistant Name Role Phone Eusebio Mendez MD Unavailable [phone] REINIER PINTO MD Unavailable REINIER PINTO MD Unavailable [phone] PROBLEMS Condition Status Date Provider Notes Hyperlipidemia active Byron Ferguson Leg pain, bilateral active Eusebio Mendez MD Cardiology examination active Timur Padgett ach Edema active Eusebio Mendez MD Varicose veins active Eusebio Mendez MD Preoperative cardiovascular examination active Byron Ferguson Hypertension active Byron Ferguson ENCOUNTERS Date Type Provider Location Encounter Diag nosis - In-person encounter Office Visit [facility] Cardiology examination - In-person encounter Office Visit Eusebio Mendez MD [facility] - In-person encounter Office Visit Eusebio Mendez MD [facility] Varicose veinsEdemaLeg pain, bilateral - In-person encounter Office Visit Eusebio Mendez MD [facility] - In-person encounter Office Visit Eusebio Mendez MD [facility] - In-person encounter Office Visit Eusebio Mendez MD [facility] HypertensionPreoperative cardiovascular examinationHyperlipidemia VITAL SIGNS Date Observation Value Provider Body Mass Index (Ratio) 25.86 kg/m2 Darius Venegas blood pressure, diastolic 56 mm[Hg] Janis nkLogic blood pressure, systolic 128 mm[Hg] April kLogic blood pressure, diastolic 56 mm[Hg] Br katrin Hall blood pressure, systolic 128 mm[Hg] Elza Hall blood pressure, cuff size regular Br katrin Hall pulse rate 75 /min Christiane Dang s oxygen saturation, oximetry 98 % Christiane Hall weight E&M 146 [lb_av] Christiane Dang s height E&M 63 [in_i] Christiane Sandovalhen s Body Mass Index (Ratio) 25.33 kg/m2 Darius cisco Theo blood pressure, cuff size regular [facility], diastolic 85 mm[Hg] Ka yla Ruple blood pressure, systolic 158 mm[Hg] Miracle la Ruple oxygen saturation, oximetry 97 % Deb Ruple pulse rate 85 /min Deb Ruple weight E&M 143 [lb_av] Deb Ruple height E&M 63 [in_i] Deb Ruple Body Mass Index (Ratio) 25.68 kg/m2 Darius cisco Jhenbach blood pressure, diastolic 83 mm[Hg] Ka yla Ruple blood pressure, systolic 154 mm[Hg] Miracle la Ruple blood pressure, cuff size regular Tray yla Ruple oxygen saturation, oximetry 91 % Deb Ruple pulse rate 98 /min Deb [facility] weight E&M 145 [lb_av] Deb [facility] height E&M 63 [in_i] Deb [facility] Body Mass Index (Ratio) 25.90 kg/m2 Carlitos hummel Nacht blood pressure, diastolic 84 mm[Hg] Am calixto Ventimiglia [facility] blood pressure, systolic 180 mm[Hg] Grove nda Ventimiglia [facility] pulse rate, standing 73 /min Nadya Ventimiglia [facility] oxygen saturation, oximetry 95 % Nadya Ventimiglia [facility] respiratory rate E&M 14 /min Nadya Ventimiglia [facility] weight E&M 146.2 [lb_av] Nadya Ventimi glia [facility] Body Mass Index (Ratio) 25.51 kg/m2 Darius Venegas blood pressure, cuff size regular Ta [facility] blood pressure, diastolic 88 mm[Hg] Ta [facility] blood pressure, systolic 128 mm[Hg] Tab [facility] pulse rate 45 /min [facility] saturation, oximetry 95 % [facility] respiratory rate E&M 12 /min [facility] weight E&M 144 [lb_av] [facility] height E&M 63 [in_i] [facility] Body Mass Index (Ratio) 25.68 kg/m2 Steven Ferguson blood pressure, cuff size regular [facility] blood pressure, diastolic 92 mm[Hg] [facility] blood pressure, systolic 176 mm[Hg] [facility] pulse rate 81 /min [facility] oxygen saturation, oximetry 98 % [facility] respiratory rate E&M 16 /min Tamar M iller weight E&M 145 [lb_av] Tamar Kaplan height E&M 63 [in_i] Tamar Kaplan HISTORY OF MEDICATION USE Medication Status Instructions Dates Provider Indications Com mentmireya amlodipine 10 mg tablet active Eusebio Mendez MD aspirin 81 mg tablet,delayed release (DR/EC) active TAKE ONE TABLET BY MOUTH DAILY Nadya Barksdalemiglia [employer] levothyroxine 50 mcg tablet active Tamar Kaplan lisinopril 10 mg tablet active TAKE 1 TABLET BY MOUTH TWICE DAILY Nadyacalixto Barksdalemiglia [employer] atorvastatin 20 mg tablet active Tamar Kaplan SOCIAL HISTORY Date Observation Value Provider personal history of marijuana use no Eusebio Mendez MD drug use no Eusebio Mendez MD alcohol use no Eusebio Mendez MD smoking status Never smoker Eusebio Pan personal history of marijuana use no Nadya Ventimiglia [employer] drug use no Nadya Ventimig tirso [employer] alcohol use no Nadya Ventimig tirso [employer] smoking status Never smoker Nadya Ventim iglia [employer] personal history of marijuana use no Eusebio Mendez MD drug use no Eusebio Mendez MD alcohol use no Eusebio Mendez MD smoking status Never smoker Eusebio Pan personal history of marijuana use no Nadya Ventimiglia [employer] drug use no Nadya Ventimig tirso [employer] alcohol use no Nadya Ventimig tirso [employer] smoking status Never smoker Nadya Ventim iglia [employer] smoking status Never smoker Eusebio Pan smoking status Never smoker Tamar Kalpan INSURANCE PROVIDERS Payer name Policy type / Coverage type [place] [employer] party ID [employer] MEDICARE SUPPLEMENT Commercial insurance c griffin [id number] [place] Medicare [id number] ADVANCE DIRECTIVES Name Date DISCUSSED - NO DECISION MADE TREATMENT PLAN Date Name Performer Cardiology: H er updated medication list for this problem includes: Atorvastatin 20 Mg Tablet (Atorvastatin) Eusebio Mendez MD Cardiology: S he is wearing support stockings Eusebio Mendez MD Cardiology: P t had recent hospitalization due to a random episode of BP in the 220s range. BP is stable today. Recommended she double her lisinopril dosage in the future if her BP increases like this again. B P today: 128/56 P rior BP: 158/85 (04/17/2024) Her updated medication list for this problem includes: Amlodipine 10 Mg Tablet (Amlodipine) Lisinopril 10 Mg Tablet (Lisinopril) ..... Take 1 tablet by mouth twice daily Aspirin 81 Mg Tablet,delayed Release (dr/ec) (Aspirin) ..... Take one tablet by mouth daily Eusebio Mendez MD Cardiology: S he is cleared for shoulder surgery from a cardiovascular standpoint Eusebio Mendez MD Cardiology: BP is st ill elevated in office. Review of her BP diary shows markedly elevated BP's peaking in 190s systolic. Advised to take lisinopril 10 bid instead of daily. Will start RPM B P today: 158/85 P rior BP: 154/83 (02/02/2024) Her updated medication list for this problem includes: Lisinopril 10 Mg Tablet (Lisinopril) ..... Take 1 tablet by mouth twice daily Aspirin 81 Mg Tablet,delayed Release (dr/ec) (Aspirin) ..... Take one tablet by mouth daily Timur Venegas Cardiology:reports f ewer leg cramps since last visit. some swelling in the right leg. Venous doppler revealed signficant venous insufficiency in the right GSV. Recommended to treat with support stockings. Timur Venegas Cardiology: H er updated medication list for this problem includes: Atorvastatin 20 Mg Tablet (Atorvastatin) This visit has been a part of the consistent, comprehensive, and ongoing management of the chronic medical condition(s) listed above for the patient. Timur Venegas Cardiology:arterial duplex 03-02-24 conclusions 1. Mild atherosclerosis with normal arterial flow noted in the lower extremities bilaterally above the level of the knee. 2 . 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 Timur Venegas Cardiology:c/o ankle swelling and cramping and varicose veins, worse on the left. We will obtain arterial and venous duplex. Eusebio Mendez MD Cardiology: H er updated medication list for this problem includes: Atorvastatin 20 Mg Tablet (Atorvastatin) This visit has been a part of the consistent, comprehensive, and ongoing management of the chronic medical condition(s) listed above for the patient. Eusebio Mendez MD Cardiology:We will o btain arterial/venous duplex. not currently on diuretic Eusebio Mendez MD Cardiology:BP is sti ll elevated up to 154 systolic in office today. RPM still shows 124/66 average. BP today: 154/83 P rior BP: 180/84 (01/03/2024) Her updated medication list for this problem includes: Aspirin 81 Mg Tablet,delayed Release (dr/ec) (Aspirin) ..... Take one tablet by mouth daily Lisinopril 10 Mg Tablet (Lisinopril) This visit has been a part of the consistent, comprehensive, and ongoing management of the chronic medical condition(s) listed above for the patient. Eusebio Mendez MD Cardiology:She had e cho that showed normal EF with mild MR and AR s he is an acceptable candidate for shoulder surgery H er updated medication list for this problem includes: Aspirin 81 Mg Tablet,delayed Release (dr/ec) (Aspirin) ..... Take one tablet by mouth daily Lisinopril 10 Mg Tablet (Lisinopril) Boyle Shamirmiglterry [facility] Cardiology: H er updated medication list for this problem includes: Atorvastatin 20 Mg Tablet (Atorvastatin) [facility] Cardiology:BP elevat ed in office, but well controlled on home RPM W ill continue present meds H er updated medication list for this problem includes: Aspirin 81 Mg Tablet,delayed Release (dr/ec) (Aspirin) ..... Take one tablet by mouth daily Lisinopril 10 Mg Tablet (Lisinopril) [facility] Cardiology: H er updated medication list for this problem includes: Atorvastatin 20 Mg Tablet (Atorvastatin) Timur Venegas Cardiology:Pt was se nt for further evaluation due to labile BP. She did not do any testing due to surgery of her skin cancer. Apparently BP is high up to 180, alternating with systolic down to 90. She has been on lisinopril 10 mg daily for a long period of time. In view of labile BP, we will not increase lisinopril dose, but we will obtain renal artery dupplex echo and RPM. Discussion of benefits for remote patient monitoring took place. Patient gives consent for remote monitoring of physiologic parameters including, but not limited to, weight, blood pressure, pulse oximetry, respiratory flow rate. Her updated medication list for this problem includes: Lisinopril 10 Mg Tablet (Lisinopril) Timur Venegas Cardiology: H er updated medication list for this problem includes: Atorvastatin 20 Mg Tablet (Atorvastatin) Byron Bazaninari Cardiology:start RPM B P today: 176/92 Her updated medication list for this problem includes: Lisinopril 10 Mg Tablet (Lisinopril) Byron Bazaninari Cardiology: The barbara ent comes in today for CAD EVALUATION. She denies chest pain at rest, chest pain with exertion, chest pain at night, shortness of breath at rest, dyspnea on exertion, palpitations, PND, orthopnea, edema, claudication, syncope, near-syncope, dizziness and fatigue . Evaluation to date includes echocardiogram. There is no prior history of cardiomyopathy, valvular heart disease, CHF, PR, PTCA, PTCA w/stent, angiographic proven CAD, CABG, CABG redo, positive stress test, pacemaker insertion, ICD insertion, Bi-V pacer insertion, ventricular tachycardia, cardiac arrest, aneurysm repair, AV replacement, MV replacement and MV repair. Significant associated history and risk factors include hypertension and hyperlipidemia. Pt cannot walk on treadmill due to knee pain Byron Hindsri Date Name RPM (remote patient monitoring) Venous Doppler Bilat eral LE - Reflux Arterial Duplex Bi-L ower EX Complete Echo RPM (remote patient monitoring) Renal Artery Duplex RPM (remote patient monitoring) Stress Regadenoson Complete Echo HISTORY OF PROCEDURES Procedure Date Procedure Name Provider Procedure Notes S tatus Complex e/m visit add on Eusebio Mendez MD completed EKG Eusebio Mendez MD completed Complex e/m visit add on Eusebio Mendez MD completed Complex e/m visit add on Eusebio Mendez MD completed
--- OUTSIDE RECORDS SUMMARY | 2024-06-20 16:55 | XMS_ITS | Continuity of Care Document ---
Author Organization [facility] [place] [address] [place] [address] Phone Care Team Providers Care Production Finisher Name Role Phone [facility] Unavailable [...] Diagnoses Date Provider Providers Copied on Encounter [facility], [address] [place] [address] [address], [place], [place], [id number], [place] tel:[phone] [facility] No Information 0-201 0 [facility] . [address], [address], [place], [place], [id number], [place]. tel:[phone] Referring Provider: Yves Price, [address], [place], [address]. tel:[phone] hernandez Provider: Sheila Corbett, [address], [place], [address]. tel:[phone] [facility], [address] [place] [address] [address], [place], [place], [id number], [place] tel:[phone] [facility] No Information Sep-2 4-201 0 Nia Marinelli. [address] [place] [address] , [address], [place], [place], [facility], . tel:[phone] [facility], [address] [place] [address] [address], [place], [place], [id number], [place] tel:[phone] [facility] No Information Oct-0 5-200 9 [facility] . [address], [address], [place], [place], [id number], [place]. tel:[phone] Referring Provider: Yves Price, [address] [place] [address] [address], [place], [place], [facility]. tel:[phone] hernandez Provider: Girish Mcfarlane, [address] [place] [address], [place], [place], [facility]. tel:[phone] 2144 [facility], [address] [place] [address] [address], [place], [place], [id number], [place] tel:[phone] [facility] No Information Sep-1 8-200 9 Nia Marinelli. [address] [place] [address] , [address], [place], [place], [facility], . tel:[phone] [facility], [address] [place] [address] [address], [place], [place], [id number], [place] tel:[phone] [facility] No Information Mamadou-3 0-200 7 Nia Marinelli. [address] [place] [address] , [address], [place], [place], [facility], . tel:[phone] Family History Family Member Type Diagnosis Age At Onset No Information Payers Payer name Insurance type Covered alliance party ID Authoriza tion(s) No Information Social [...]
[2024-06-20 17:29] LABS: Add Urine Microscopic? YES; Appearance Urine Cloudy (Clear); Bacteria Urine 4+ /hpf; Bilirubin Urine Negative (Negative); Blood Urine 1+ (Negative); Color Urine Yellow (Yellow); Glucose Urine UA Negative (Negative); Ketones Urine Negative (Negative); Leukocyte Esterase Ur 3+ LEU/UL (Negative); Need Manual Microscopic Reviewed; Nitrate Urine Negative (Negative); Non Pathogenic Casts 0-2; Protein Urine Trace mg/dL (Negative); RBC Urine 0-2 /hpf (0-2); Specific Grav Ur 1.016 (1.001-1.035); Squamous Epithelial Cell Urine None Seen /hpf (Few); Urobilinogen Urine 0.2 mg/dL (<2.0); WBC Urine >100 /hpf (0-3)
--- NOTE | 2024-06-20 18:00 | P.HP_ITS ---
H&P: HPI History of Present Illness Date/Time: 06/20/24 18:00 Chief Complaint: nausea and vomiting Narrative: This is an 83-year-old female with a significant past medical history of skin cancer, GERD, high cholesterol, stomach ulcer, scoliosis, hypothyroidism, hyperlipidemia who presented to the hospital for evaluation of nausea and vomiting and epigastric abdominal pain that started yesterday. patient states that she took some Metamucil earlier yesterday and then started having some abdominal pain afterwards. she struggles with constipation on a regular basis however Metamucil has been helping keep her more regular. This time she started in with some nausea and vomiting that persisted through the night. Since she was unable to keep anything down she presented for further evaluation. She reports that her last bowel movement was is yesterday morning which was small in size and consistency was hard. she states he only abdominal surgery that she has had was when she had her tubes tied and they went in through the umbilicus however that was years ago. She has never had a small-bowel obstruction in the past. She denies any fever, chills, diarrhea, chest pain, shortness a breath. Workup in the hospital included abdomen/pelvis CT which shown a small bowel obstruction with transition point in the inferior peritoneum. Initial labs showed a white blood cell count of 13.3, sodium 133, chloride 92, blood sugar 131. UA was obtained and showed cloudy urine appearance, 1+ urine blood, 3+ leukocyte, greater than 100 urine WBC, 4+ urine bacteria. Urine culture was obtained and pending. EKG showed sinus bradycardia with first-degree AV block, marked left axis deviation, rate of 59, QTC 427. Patient was given a dose of Protonix, Zofran, and started on Rocephin while in the ED. general surgery was consulted and ordered an NG tube to be placed to low intermittent suction. 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 Hyperlipidemia Hypothyroidism Scoliosis of cervical spine GI bleed Cervical migraine syndrome Stomach ulcer High cholesterol Heartburn Hypertension Cancer of skin Surgical History Surgical History History of arthroscopy of right shoulder right shoulder scope debridement October 06, 2022 Status post surgical removal of malignant neoplasm of skin S/P right rotator cuff repair 2013 H/O meniscectomy of right knee 2011 H/O vaginal hysterectomy Family History Family History Sibling Diabetes mellitus Cancer Family hx-arthritis Heart disease Mother Family hx-arthritis Sibling Family hx-arthritis Cancer Grandparent Cancer Family hx-arthritis Grandparent Family history of malignant neoplasm of breast Father Heart disease Cardiovascular sclerosis with arteriosclerosis Social History Social History Social History: Patient currently lives by herself. She had 4 children 1 of them is at this time. She denies having any pets and wishes to be a full code. Her daughter Elizabeth is her surrogate. Patient also stated she has living will. Smoking status: Never smoker Second hand tobacco smoke exposure: No Alcohol intake: never Alcohol use details: Had a [facility] on [place] Substance use: never Substance use type: does not use Do You Feel Safe in your Home?: Yes Lack of Transportation: No Lack of Food: Never True Current Housing: I Have Housing Concerned About Future Housing: No Difficulty Paying Gas/Electric Bills: No Difficulty Paying for Meds: No Currently Unemployed: No Education: High School Diploma/GED Difficulty w/ Childcare or Family Care: No Living arrangements: alone Occupation/Education: retired Additional occupation/education comments: [employer] Gender identity (if verbalized by the patient): Female Sexual Orientation (if Verbalized by the Patient): Straight or Heterosexual Spiritual care concerns: No Agree to blood products: Yes Meds Home Medications and Allergies Home Medications ?Medication ?Instructions ?Recorded ?Confirmed ?Type aspirin 81 mg tablet 81 mg PO DAILY 08/25/21 06/20/24 History atorvastatin 20 mg tablet 20 mg PO QHS 08/25/21 06/20/24 History levothyroxine 50 mcg capsule 50 mcg PO QAM 08/25/21 06/20/24 History lisinopril 10 mg tablet 10 mg PO BID 08/25/21 06/20/24 History melatonin 3 mg capsule 3 mg PO QHS PRN Insomnia 08/25/21 05/04/24 History polyethylene glycol 3350 17 17 g PO DAILY PRN Constipation 08/25/21 05/04/24 History gram/dose oral powder (Miralax) calcium carbonate (Calcium 600) 600 mg PO DAILY 03/17/22 05/04/24 History carboxymethylcellulose sodium 0.5 1 drp EACH EYE BID 03/17/22 06/20/24 History % eye drops (Refresh Tears) cholecalciferol (vitamin D3) 25 25 mcg PO DAILY 03/17/22 06/20/24 History mcg (1,000 unit) capsule vitamins A,C,I-xmgx-tlkjbq 4,296 1 cap PO BID 03/17/22 06/20/24 History mcg-226 mg-90 mg capsule (PreserVision AREDS) coenzyme Q10 75 mg capsule (Ultra 100 mg PO DAILY 06/11/22 06/20/24 History CoQ10) acetaminophen 650 mg 650 mg PO Q12H PRN Pain 09/23/22 06/20/24 History tablet,extended release multivitamin,min-ferrous fumarate 1 tablet PO BID 09/23/22 05/04/24 History 3.3 mg-folic 25 mcg-herb tablet (Hair, Skin and Nails Advanced) dvktenci-son-psxyl ac 400 1 tablet PO DAILY 12/16/22 06/20/24 History mcg-calcium carb 500 mg-vit K1 20 mcg tablet (Women's 50 Plus Multivitamin) amlodipine 10 mg tablet (Norvasc) 10 mg PO DAILY #30 tabs 05/04/24 06/20/24 Rx b12 1,000 mcg PO DAILY 06/20/24 06/20/24 History eylwtia-vhhkitfmy-bwjh 333 mg-133 1 tablet PO DAILY 06/20/24 06/20/24 History mg-5 mg tablet magnesium 250 mg tablet 250 mg PO BID 06/20/24 06/20/24 History psyllium husk 3.4 gram/5.4 gram 1 tbsp PO DAILY 06/20/24 06/20/24 History oral powder (Metamucil) Allergies Allergy/AdvReac Type Severity Reaction Status Date / Time No Known Allergies Allergy Verified 06/20/24 14:26 Vital Signs Vital Signs - 24 hr 06/20/24 14:27 06/20/24 14:27 06/20/24 16:48 Temperature 98.1 F Pulse Rate 80 92 77 Respiratory Rate 20 19 16 Blood Pressure 145/80 H 135/79 148/62 H Pulse Oximetry 98 97 99 Oxygen Delivery Room Air Exam Narrative: General: In no acute distress, well nourished Head: atraumatic, no encephalopathy Eyes: PERRLA, sclera clear ENT: moist mucous membranes, nasal passages clear Neck: supple, no JVD, no adenopathy, trachea midline Cardiac: Normal S1 and S2. No murmur, gallops or friction rubs, peripheral pulses intact. Respiratory: Lungs clear to auscultation, no adventitious lung sounds , currently on room air Gastrointestinal: soft, non-distended, non-tender, hypoactive bowel sounds. NG tube to low intermittent suction with bilious drainage, she is not passing gas rectally however is burping : voiding without difficulty. Extremities: moves all extremities well, no edema Skin: clean, dry, intact. No wounds or lesions. Neuro: Alert and oriented x4, cranial nerves intact, no neuro deficits. Psych: normal mood, normal affect, interactive H&P: Results Labs Labs: Short CBC 06/20/24 Range/Units 14:32 WBC 13.3 H (4.5-10.0) K/mm3 Hgb 14.1 (12.0-15.0) g/dL Hct 41.7 (37.0-47.0) % Plt Count 240 (150-375) k/mm3 BMP 06/20/24 14:32 Sodium 133 L Potassium 3.8 Chloride 92 L Carbon Dioxide 29 BUN 20 H Creatinine 0.71 Glucose 131 H Calcium 10.1 Liver Function 06/20/24 Range/Units 14:32 Total Bilirubin 1.3 (0.2-1.3) mg/dL AST 35 (14-36) U/L ALT 27 (6-35) U/L Alkaline Phosphatase 109 (38-126) U/L Albumin 4.8 (3.5-5.1) g/dL Urine 06/20/24 Range/Units 17:07 Urine Color Yellow (Yellow) Urine Appearance Cloudy H (Clear) Urine pH 7.0 (5.0-9.0) Ur Specific [place] 1.016 (1.001-1.035) Urine Protein Trace (Negative) mg/dL Urine Glucose (UA) Negative (Negative) mg/dL Imaging CT of the abdomen pelvis: Radiologist's impression: EXAMINATION: CT abdomen pelvis w con DATE: 06/20/2024 16:38 INDICATION: Nausea and vomiting. Epigastric abdominal pain. TECHNIQUE: Computed tomography (CT) of the abdomen and pelvis was performed with 100 mL Omnipaque 350 intravenous contrast. Automated exposure control and iterative reconstruction technique were employed. The dose-length product was 425.46 mGy-cm. COMPARISON: None. FINDINGS: The visualized portions of lung bases demonstrate mild atelectasis. No pleural effusion. The heart size is normal. No pericardial effusion. There is a 5 mm cyst in the liver. The gallbladder and spleen are normal. There are 2 cystic lesions in the pancreas measuring up to 15 mm, likely benign. The adrenal glands are normal. There are cysts in the kidneys measuring up to 5 mm on the left. There is diverticulosis of the colon without evidence of diverticulitis. The appendix is normal. There are dilated loops of small bowel with transition point in the inferior peritoneum. The distal small bowel is decompressed. There are no pathologically enlarged lymph nodes. There is no free intraperitoneal fluid. There is thoracolumbar levoscoliosis and severe spondylosis. IMPRESSION: 1. Small bowel obstruction with transition point in the inferior peritoneum. Reviewed, dictated and finalized at location A. ETO REPAIRER Assessment and Plan Assessment and plan (1) SBO (small bowel obstruction): Code(s): K56.609 - Unspecified intestinal obstruction, unspecified as to partial versus complete obstruction Status: Acute Assessment and Plan: * CT of the abdomen and pelvis shows small bowel obstruction with transition point in the inferior peritoneum, incidental finding a 5 mm cyst on the left kidney, two cystic lesions on the pancreas measuring to 15 mm * NG tube placed to low intermittent suction * general surgery consulted * NPO status, ice chips are okay * continue antiemetics as needed (2) Nausea and vomiting: Code(s): R11.2 - Nausea with vomiting, unspecified Status: Acute Assessment and Plan: secondary to small-bowel obstruction * continue antiemetics (3) UTI (urinary tract infection): Code(s): N39.0 - Urinary tract infection, site not specified Status: Acute Assessment and Plan: * UA showing cloudy urine appearance, 1+ urine blood, 3+ leukocyte, greater than 100 urine WBC, 4+ urine bacteria * urine culture obtained and pending * continue Rocephin (4) Hyponatremia: Code(s): E87.1 - Hypo-osmolality and hyponatremia Status: Acute Assessment and Plan: * sodium 133 * appears to be chronic (5) Hypertension: Code(s): I10 - Essential (primary) hypertension Status: Acute Assessment and Plan: * blood pressure ranging 100/52 to 145/80 * continue amlodipine and lisinopril (6) Hyperlipidemia: Code(s): E78.5 - Hyperlipidemia, unspecified Status: Acute Assessment and Plan: * continue atorvastatin and aspirin (7) Hypothyroidism: Code(s): E03.9 - Hypothyroidism, unspecified Status: Acute Assessment and Plan: * continue Synthroid Quality VTE Prophylaxis VTE prophylaxis: mechanical ordered Hospitalist MIPS Advance Care Plan I have confirmed that the patient's Advanced Care Plan is present, code status is documented, or surrogate decision maker is listed in patient medical record.: Yes Medication Reconciliation I have utilized all available resources to obtain, update and review the patients current medications (includes all prescriptions, OTC, herbals, cannabis, and nutritional supplements).: Yes
[2024-06-20] MEDS: BENZOCAINE/TETRACAINE SPRAY (*SP) 56 ML AEROSOL 1 SPRAY MUCOUS MEM (19:00)
--- NOTE | 2024-06-20 19:55 | ADMGEN ---
This patient, Stephanie Diop, was admitted to [address] [place] [address] Room 305-02. Patient/family oriented to hospital policies and general routines including ID bracelet, bed and alarms, visiting hours, pain management, procedures, bathroom and other care routines, personal items, smoking policy, room service/diet, and visiting hours. Information on how to activate the Rapid Response Team has been discussed. Patient/Family are encouraged to report perceived risks to care and to ask questions if they do not understand what they are told or what they should do.
[2024-06-21] MEDS: DEXTROSE 5%/0.9% SOD CHL 1,000 ML 100 ML IV CONT ×3 (03:44→20:21)
[2024-06-21 06:00] VITALS: BP 143/55; PULSE 73; RESP 12; TEMP 36.7; O2SAT 97
[2024-06-21 06:26] LABS: Basophils Percent Auto 0.2 % (0.2-1.2); Eosinophils Absolute Auto 0.1 K/mm3 (0-0.3); Eosinophils Percent Auto 0.7 % (0-4.4); Hematocrit 39.1 % (37.0-47.0); Hemoglobin 12.8 g/dL (12.0-15.0); Immature Granulocyte Absolute 0.02 K/mm3 (0.00-0.031); Immature Granulocyte Percent A 0.2 % (0-0.5); Lymphocytes Absolute Auto 1.28 K/mm3 (0.9-3.2); Lymphocytes Percent Auto 14.2 % (18.3-44.2); Mean Corpuscular HGB Conc 32.7 g/dl (32-36); Mean Corpuscular Hemoglobin 31.1 pg (26-34); Mean Corpuscular Volume 94.9 fl (80-100); Mean Platelet Volume 10.7 fl (7.4-10.4); Monocytes Absolute Auto 1.1 K/mm3 (0.1-0.6); Neutrophils Absolute Auto 6.5 K/mm3 (1.3-6.7); Neutrophils Percent Auto 72.7 % (45.5-73.1); Platelet Count Result 196 k/mm3 (150-375); Red Blood Count 4.12 M/mm3 (4.2-5.4); Red Cell Distribution Width 13.5 % (11.5-14.5)
[2024-06-21 06:37] LABS: Alanine Aminotransferase 22 U/L (6-35); Albumin Level 3.9 g/dL (3.5-5.1); Alkaline Phosphatase 97 U/L (38-126); Anion Gap 7 mmol/L (4-12); Aspartate Amino Transferase 30 U/L (14-36); Blood Urea Nitrogen 15 mg/dL (7-17); Calcium 9.3 mg/dL (8.4-10.2); Carbon Dioxide 29 mmol/L (22-30); Chloride 101 mmol/L (98-107); Estimated CRCL calculation 42 ml/min; Estimated Glomerular Filt Rate > 60; Glucose 132 mg/dL (65-110); Magnesium 1.9 mg/dL (1.6-2.3); Potassium 3.6 mmol/L (3.4-5.0); Sodium 137 mmol/L (137-145)
[2024-06-21] MEDS: PHENOL/SOD PHENO SPRAY CHERRY (*BKC) 1 SPRAY MUCOUS MEM (09:20)
--- NOTE | 2024-06-21 12:16 | PM.CNGS ---
Assessment and Plan Assessment and plan (1) SBO (small bowel obstruction): Code(s): K56.609 - Unspecified intestinal obstruction, unspecified as to partial versus complete obstruction Status: Acute Assessment and Plan: CT scan showed evidence of a small bowel obstruction. Her only previous abdominal surgery is a laparoscopic bilateral salpingo-oophorectomy years ago. Her abdominal pain and vomiting had actually resolved prior to coming into the ED. She is still not having any abdominal pain and her nausea has improved. No bowel function since admission. Her abdominal exam is benign. No indication for urgent surgical management. Will order a KUB for today. Continue NG tube decompression, bowel rest, and IV fluids. Will monitor with serial abdominal exams and imaging. Discussed with the patient that surgery is reserved for signs of perforation, peritonitis, or a high-grade obstruction that does not improve with conservative management. (2) UTI (urinary tract infection): Code(s): N39.0 - Urinary tract infection, site not specified Status: Acute Assessment and Plan: UA suggestive of UTI. IV Ceftriaxone given in ER. Management per Hospitalist. (3) Coffee ground emesis: Code(s): K92.0 - Hematemesis Status: Acute Assessment and Plan: Patient reports coffee-ground emesis x 1 day and has similar appearance of output coming from her NG tube. Her NG tube was on high suction, which was turned down to low intermittent. Will start IV Protonix. Hemoglobin is stable. May need GI evaluation if this persists. (4) Hypertension: Code(s): I10 - Essential (primary) hypertension Status: Acute Plan I have discussed the patient's case and plan of care with Dr. Garcia. History of Present Illness Consult details Consult date: 06/21/24 Reason for consult: other (Small bowel obstruction) Requesting physician: Elza Ward MD Narrative: This is an 83-year-old woman with PMH of HTN, hyperlipidemia, hypothyroidism, and history of stomach ulcer, who we have been asked to see the patient in surgical consultation for a small bowel obstruction. She reports an onset of upper abdominal pain about 2 hours after eating her breakfast and taking Metamucil. She is scheduled for shoulder surgery next Wednesday and started taking Metamucil to keep her bowels moving regularly. Her abdominal pain progressed as the day went on and she eventually developed nausea and vomiting in the afternoon. She reports large quantities of coffee-ground emesis. She has a history of a stomach ulcer years ago. She denies having any recent EGDs. Denies melena or hematochezia. She does report having a GI bleed from diverticulitis 3 years ago that required a hospitalization at an outlying facility. Her vomiting persisted into the next morning and she decided to call her PCP. Her abdominal pain actually had resolved before they called her back, but they instructed her to go to the ED for evaluation. She then presented to the ED and states she was no longer having any abdominal pain at that time and had not vomited since yesterday morning around 9:00 am. She denies recent diarrhea, and actually has been constipated recently. Her last BM was 2 days ago and was normal for her. In the ED, vital signs were stable. Workup showed CT evidence of a small bowel obstruction. Hemoglobin was normal. UA suggestive of UTI. She was given IV ceftriaxone. NG tube was placed and she was admitted. She denies any flatus this morning. Denies abdominal pain or nausea. Previous surgeries include a vaginal partial hysterectomy and then years later she underwent laparoscopic bilateral salpingo-oophorectomy. No previous bowel obstructions. 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 Hyperlipidemia Hypothyroidism Scoliosis of cervical spine GI bleed from diverticulitis around 2021 Cervical migraine syndrome Stomach ulcer High cholesterol Heartburn Hypertension Cancer of skin Surgical History Surgical History History of bilateral salpingo-oophorectomy Laparoscopic History of arthroscopy of right shoulder right shoulder scope debridement October 06, 2022 Status post surgical removal of malignant neoplasm of skin S/P right rotator cuff repair 2013 H/O meniscectomy of right knee 2011 H/O vaginal hysterectomy Family History Family History Sibling Diabetes mellitus Cancer Family hx-arthritis Heart disease Mother Family hx-arthritis Sibling Family hx-arthritis Cancer Grandparent Cancer Family hx-arthritis Grandparent Family history of malignant neoplasm of breast Father Heart disease Cardiovascular sclerosis with arteriosclerosis Social History Social History Social History: Patient currently lives by herself. She had 4 children 1 of them is at this time. She denies having any pets and wishes to be a full code. Her daughter Elizabeth is her surrogate. Patient also stated she has living will. Smoking status: Never smoker Second hand tobacco smoke exposure: No Alcohol intake: never Alcohol use details: Had a bourbon slushy on [place] Substance use: never Substance use type: does not use Do You Feel Safe in your Home?: Yes Lack of Transportation: No Lack of Food: Never True Current Housing: I Have Housing Concerned About Future Housing: No Difficulty Paying Gas/Electric Bills: No Difficulty Paying for Meds: No Currently Unemployed: No Education: High School Diploma/GED Difficulty w/ Childcare or Family Care: No Living arrangements: alone Occupation/Education: retired Additional occupation/education comments: [employer] Gender identity (if verbalized by the patient): Female Sexual Orientation (if Verbalized by the Patient): Straight or Heterosexual Spiritual care concerns: No Agree to blood products: Yes Meds Home Medications and Allergies Home Medications ?Medication ?Instructions ?Recorded ?Confirmed ?Type aspirin 81 mg tablet 81 mg PO DAILY 08/25/21 06/20/24 History atorvastatin 20 mg tablet 20 mg PO QHS 08/25/21 06/20/24 History levothyroxine 50 mcg capsule 50 mcg PO QAM 08/25/21 06/20/24 History lisinopril 10 mg tablet 10 mg PO BID 08/25/21 06/20/24 History melatonin 3 mg capsule 3 mg PO QHS PRN Insomnia 08/25/21 05/04/24 History polyethylene glycol 3350 17 17 g PO DAILY PRN Constipation 08/25/21 05/04/24 History gram/dose oral powder (Miralax) calcium carbonate (Calcium 600) 600 mg PO DAILY 03/17/22 05/04/24 History carboxymethylcellulose sodium 0.5 1 drp EACH EYE BID 03/17/22 06/20/24 History % eye drops (Refresh Tears) cholecalciferol (vitamin D3) 25 25 mcg PO DAILY 03/17/22 06/20/24 History mcg (1,000 unit) capsule vitamins A,C,L-dkav-guzjbv 4,296 1 cap PO BID 03/17/22 06/20/24 History mcg-226 mg-90 mg capsule (PreserVision AREDS) coenzyme Q10 75 mg capsule (Ultra 100 mg PO DAILY 06/11/22 06/20/24 History CoQ10) acetaminophen 650 mg 650 mg PO Q12H PRN Pain 09/23/22 06/20/24 History tablet,extended release multivitamin,min-ferrous fumarate 1 tablet PO BID 09/23/22 05/04/24 History 3.3 mg-folic 25 mcg-herb tablet (Hair, Skin and Nails Advanced) jrdrgleu-uql-bmnzl ac 400 1 tablet PO DAILY 12/16/22 06/20/24 History mcg-calcium carb 500 mg-vit K1 20 mcg tablet (Women's 50 Plus Multivitamin) amlodipine 10 mg tablet (Norvasc) 10 mg PO DAILY #30 tabs 05/04/24 06/20/24 Rx b12 1,000 mcg PO DAILY 06/20/24 06/20/24 History ebsmujl-xwajplqch-srqg 333 mg-133 1 tablet PO DAILY 06/20/24 06/20/24 History mg-5 mg tablet magnesium 250 mg tablet 250 mg PO BID 06/20/24 06/20/24 History psyllium husk 3.4 gram/5.4 gram 1 tbsp PO DAILY 06/20/24 06/20/24 History oral powder (Metamucil) Allergies Allergy/AdvReac Type Severity Reaction Status Date / Time No Known Allergies Allergy Verified 06/20/24 14:26 Vital Signs Vital Signs - 24 hr 06/20/24 14:27 06/20/24 14:27 06/20/24 16:48 Temperature 98.1 F Pulse Rate 80 92 77 Respiratory Rate 20 19 16 Blood Pressure 145/80 H 135/79 148/62 H Pulse Oximetry 98 97 99 Oxygen Delivery Room Air 06/20/24 17:16 06/20/24 18:01 06/20/24 18:31 Temperature Pulse Rate 84 70 67 Respiratory Rate 18 16 16 Blood Pressure 133/88 130/59 L 142/61 H Pulse Oximetry 100 95 94 Oxygen Delivery 06/20/24 19:39 06/20/24 21:55 06/21/24 06:00 Temperature 98.6 F 98.1 F Pulse Rate 67 82 73 Respiratory Rate 16 13 12 Blood Pressure 135/68 143/55 H Pulse Oximetry 94 97 97 Oxygen Delivery Room Air Exam Const: General: comfortable and no acute distress Nutritional Appearance: average body habitus Orientation/consciousness: patient oriented x3 HENMT: Head: normocephalic and atraumatic Ears: hearing grossly normal bilaterally Mouth: Yes moist mucous membranes Eyes: General: appearance normal, both eyes and all related structures Pupils: Equal, round and reactive pupils present Neck: Neck: normal visual inspection and full ROM Resp: Effort & Inspection: no respiratory distress Auscultation: clear to auscultation bilaterally Cardio: Rate: regular rate Rhythm: regular rhythm Peripheral pulses: Peripheral pulses 2+ throughout GI: Inspection: other (mildly distended) GI Palp: Yes Soft to palpation, No Tenderness to palpation present (GI), No Guarding due to palpation present (GI) and No Rebound tenderness present Auscultation: Hypoactive bowel sounds present Other: NG tube with dark brown/black output in the canister Skin: General skin exam: normal color Neuro: General: moves all extremities and no focal motor deficits Speech: normal speech Motor exam (neuro): 5/5 motor strength present throughout Extrem: General: normal to inspection and no edema Psych: Mental Status: mental status grossly normal Attitude: cooperative Insight: Good insight present (Psych) Judgement: Good judgement present (Psych) Results Labs 06/21/24 05:32 06/21/24 05:32 Labs: Abnormal lab results 06/20/24 06/20/24 06/21/24 Range/Units 14:32 17:07 05:32 WBC 13.3 H (4.5-10.0) K/mm3 RBC 4.12 L (4.2-5.4) M/mm3 MPV 10.7 H (7.4-10.4) fl Neut % (Auto) 78.0 H (45.5-73.1) % Lymph % (Auto) 10.1 L 14.2 L (18.3-44.2) % [place] % (Auto) 11.1 H 12.0 H (2.6-8.5) % [place] # (Auto) 1.5 H 1.1 H (0.1-0.6) K/mm3 Abs Immat Gran (auto) 0.04 H (0.00-0.031) K/mm3 Absolute Neuts (auto) 10.4 H (1.3-6.7) K/mm3 Sodium 133 L (137-145) mmol/L Chloride 92 L (98-107) mmol/L BUN 20 H (7-17) mg/dL Glucose 131 H 132 H (65-110) mg/dL Urine Appearance Cloudy H (Clear) Ur Blood (Man) 1+ H (Negative) Leukocyte Esterase Rfl 3+ H (Negative) MYRANDA/UL Urine WBC >100 H (0-3) /hpf Urine Bacteria 4+ H /hpf Diabetes panel 06/20/24 06/21/24 Range/Units 14:32 05:32 Sodium 133 L 137 (137-145) mmol/L Potassium 3.8 3.6 (3.4-5.0) mmol/L Chloride 92 L 101 (98-107) mmol/L Carbon Dioxide 29 29 (22-30) mmol/L BUN 20 H 15 D (7-17) mg/dL Creatinine 0.71 0.71 (0.7-1.0) mg/dL Glucose 131 H 132 H (65-110) mg/dL Calcium 10.1 9.3 (8.4-10.2) mg/dL AST 35 30 (14-36) U/L ALT 27 22 (6-35) U/L Alkaline Phosphatase 109 97 (38-126) U/L Total Protein 8.0 7.0 (6.3-8.2) g/dL Albumin 4.8 3.9 (3.5-5.1) g/dL Calcium panel 06/20/24 06/21/24 Range/Units 14:32 05:32 Calcium 10.1 9.3 (8.4-10.2) mg/dL Albumin 4.8 3.9 (3.5-5.1) g/dL Pituitary panel 06/20/24 06/21/24 Range/Units 14:32 05:32 Sodium 133 L 137 (137-145) mmol/L Potassium 3.8 3.6 (3.4-5.0) mmol/L Chloride 92 L 101 (98-107) mmol/L Carbon Dioxide 29 29 (22-30) mmol/L BUN 20 H 15 D (7-17) mg/dL Creatinine 0.71 0.71 (0.7-1.0) mg/dL Glucose 131 H 132 H (65-110) mg/dL Calcium 10.1 9.3 (8.4-10.2) mg/dL Adrenal panel 06/20/24 06/21/24 Range/Units 14:32 05:32 Sodium 133 L 137 (137-145) mmol/L Potassium 3.8 3.6 (3.4-5.0) mmol/L Chloride 92 L 101 (98-107) mmol/L Carbon Dioxide 29 29 (22-30) mmol/L BUN 20 H 15 D (7-17) mg/dL Creatinine 0.71 0.71 (0.7-1.0) mg/dL Glucose 131 H 132 H (65-110) mg/dL Calcium 10.1 9.3 (8.4-10.2) mg/dL Total Bilirubin 1.3 1.0 (0.2-1.3) mg/dL AST 35 30 (14-36) U/L ALT 27 22 (6-35) U/L Alkaline Phosphatase 109 97 (38-126) U/L Total Protein 8.0 7.0 (6.3-8.2) g/dL Albumin 4.8 3.9 (3.5-5.1) g/dL All other labs normal. Imaging Additional studies: ITS Impressions Abdomen/Pelvis CT 06/20/24 16:41 IMPRESSION: 1. Small bowel obstruction with transition point in the inferior peritoneum. Abdomen X-Ray 06/20/24 19:21 IMPRESSION: Nasogastric tube in good position and ready for immediate use.
--- NOTE | 2024-06-21 12:29 | P.PNIM_ITS ---
Progress Note: A&P Assessment and Plan (1) SBO (small bowel obstruction): Code(s): K56.609 - Unspecified intestinal obstruction, unspecified as to partial versus complete obstruction Status: Acute Assessment and Plan: * CT of the abdomen and pelvis shows small bowel obstruction with transition point in the inferior peritoneum, incidental finding a 5 mm cyst on the left kidney, two cystic lesions on the pancreas measuring to 15 mm * NG tube placed to low intermittent suction * general surgery consulted * NPO status, ice chips are okay * continue antiemetics as needed 3/5 * Continue NG tube to lower intermittent suction * Continue NPO status * Continue IV fluids (2) Nausea and vomiting: Code(s): R11.2 - Nausea with vomiting, unspecified Status: Acute Assessment and Plan: secondary to small-bowel obstruction * continue antiemetics 3/5 * No change to current treatment plan (3) UTI (urinary tract infection): Code(s): N39.0 - Urinary tract infection, site not specified Status: Acute Assessment and Plan: * UA showing cloudy urine appearance, 1+ urine blood, 3+ leukocyte, greater than 100 urine WBC, 4+ urine bacteria * urine culture obtained and pending * continue Rocephin 3/5 * Urine culture still pending * Continue Rocephin (4) Hyponatremia: Code(s): E87.1 - Hypo-osmolality and hyponatremia Status: Acute Assessment and Plan: * sodium 133 * appears to be chronic 3/5 * Sodium 137 today with just IV fluids * Continue to trend (5) Hypertension: Code(s): I10 - Essential (primary) hypertension Status: Acute Assessment and Plan: * blood pressure ranging 100/52 to 145/80 * continue amlodipine and lisinopril 3/5 * No change to current treatment plan (6) Hyperlipidemia: Code(s): E78.5 - Hyperlipidemia, unspecified Status: Acute Assessment and Plan: * continue atorvastatin and aspirin 3/5 * No change to current treatment plan (7) Hypothyroidism: Code(s): E03.9 - Hypothyroidism, unspecified Status: Acute Assessment and Plan: * continue Synthroid 3/5 * No change to current treatment plan Time Spent With Patient Time with patient: 25 - 35 minutes Subjective Date/time seen: 06/21/24 12:29 Interval history: Interval History: This is an 83-year-old female with a significant past medical history of skin cancer, GERD, high cholesterol, stomach ulcer, scoliosis, hypothyroidism, hyperlipidemia who presented to the hospital for evaluation of nausea and vomiting and epigastric abdominal pain that started yesterday. patient states that she took some Metamucil earlier yesterday and then started having some abdominal pain afterwards. she struggles with constipation on a regular basis however Metamucil has been helping keep her more regular. This time she started in with some nausea and vomiting that persisted through the night. Since she was unable to keep anything down she presented for further evaluation. She reports that her last bowel movement was is yesterday morning which was small in size and consistency was hard. she states he only abdominal surgery that she has had was when she had her tubes tied and they went in through the umbilicus however that was years ago. She has never had a small-bowel obstruction in the past. She denies any fever, chills, diarrhea, chest pain, shortness a breath. Workup in the hospital included abdomen/pelvis CT which shown a small bowel obstruction with transition point in the inferior peritoneum. Initial labs showed a white blood cell count of 13.3, sodium 133, chloride 92, blood sugar 131. UA was obtained and showed cloudy urine appearance, 1+ urine blood, 3+ leukocyte, greater than 100 urine WBC, 4+ urine bacteria. Urine culture was obtained and pending. EKG showed sinus bradycardia with first-degree AV block, marked left axis deviation, rate of 59, QTC 427. Patient was given a dose of Protonix, Zofran, and started on Rocephin while in the ED. general surgery was consulted and ordered an NG tube to be placed to low intermittent suction. Subjective: Patient denies any nausea, vomiting, abdominal pain. She is passing some gas today. She still has NG tube in place to LIS. General surgery following Review of Systems Review of Systems: All systems reviewed & are unremarkable except as noted in HPI and below Exam Narrative: General: In no acute distress, well nourished Cardiac: Normal S1 and S2. No murmur, gallops or friction rubs, peripheral pulses intact. Respiratory: Lungs clear to auscultation, no adventitious lung sounds , currently on room air Gastrointestinal: soft, non-distended, non-tender, hypoactive bowel sounds. NG tube to low intermittent suction with bilious drainage, she passed gas once today, more burping than anything : voiding without difficulty. Neuro: Alert and oriented x4 Objective Data Vital Signs Vital Signs: Vital Signs - 24 hr 06/20/24 14:27 06/20/24 14:27 06/20/24 16:48 Temperature 98.1 F Pulse Rate 80 92 77 Respiratory Rate 20 19 16 Blood Pressure 145/80 H 135/79 148/62 H Pulse Oximetry 98 97 99 Oxygen Delivery Room Air 06/20/24 17:16 06/20/24 18:01 06/20/24 18:31 Temperature Pulse Rate 84 70 67 Respiratory Rate 18 16 16 Blood Pressure 133/88 130/59 L 142/61 H Pulse Oximetry 100 95 94 Oxygen Delivery 06/20/24 19:39 06/20/24 21:55 06/21/24 06:00 Temperature 98.6 F 98.1 F Pulse Rate 67 82 73 Respiratory Rate 16 13 12 Blood Pressure 135/68 143/55 H Pulse Oximetry 94 97 97 Oxygen Delivery Room Air Intake/Output Intake/Output: Intake & Output 06/18/24 06/19/24 06/20/24 06/21/24 23:59 23:59 23:59 23:59 Intake Total 50 0 Output Total 1200 Balance 50 -1200 Meds/Results Medications: Active Medications Generic Name Dose Route Start Last Admin Trade Name Freq PRN Reason Stop Dose Admin Dextrose/Sodium Chloride 1,000 mls @ 100 mls/hr 06/20/24 23:45 06/21/24 03:44 Dextrose 5% Sodium Chloride 0.9% IV CONT 100 mls/hr .Q10H MEDHAT Administration Ondansetron HCl 4 mg 06/20/24 23:57 Ondansetron Inj 4 Mg/2 Ml Vial IV PUSH Q6H PRN Nausea And Vomiting Pantoprazole Sodium 40 mg 06/21/24 12:20 Pantoprazole Sodium Iv 40 Mg Vial IV PUSH Q12HR MEDHAT Phenol 1 spray 06/20/24 22:09 06/21/24 09:20 Phenol/Sod Pheno [place] (*Bkc) MUCOUS MEM 1 spray PRN PRN Administration Sore Throat Radiology Results: ITS Impressions Abdomen/Pelvis CT 06/20/24 16:41 IMPRESSION: 1. Small bowel obstruction with transition point in the inferior peritoneum. Abdomen X-Ray 06/20/24 19:21 IMPRESSION: Nasogastric tube in good position and ready for immediate use. Labs Labs: Laboratory Results - last 24 hr 06/20/24 06/20/24 06/21/24 14:32 17:07 05:32 WBC 13.3 H 9.0 RBC 4.54 4.12 L Hgb 14.1 12.8 Hct 41.7 39.1 MCV 91.9 94.9 MCH 31.1 31.1 MCHC 33.8 32.7 RDW 13.1 13.5 Plt Count 240 196 MPV 10.0 10.7 H Immature Gran % (Auto) 0.3 0.2 Neut % (Auto) 78.0 H 72.7 Lymph % (Auto) 10.1 L 14.2 L [place] % (Auto) 11.1 H 12.0 H Eos % (Auto) 0.3 0.7 Baso % (Auto) 0.2 0.2 Lymph # (Auto) 1.34 1.28 [place] # (Auto) 1.5 H 1.1 H Eos # (Auto) 0.0 0.1 Baso # (Auto) 0.0 0.0 Abs Immat Gran (auto) 0.04 H 0.02 Absolute Neuts (auto) 10.4 H 6.5 Absolute Nucleated RBC 0.000 0.000 Nucleated RBC % 0.0 0.0 Sodium 133 L 137 Potassium 3.8 3.6 Chloride 92 L 101 Carbon Dioxide 29 29 Anion Gap 12 7 BUN 20 H 15 D Creatinine 0.71 0.71 Estim Creat Clear Calc 42 42 Estimated GFR > 60 > 60 Glucose 131 H 132 H Calcium 10.1 9.3 Magnesium 1.9 Total Bilirubin 1.3 1.0 AST 35 30 ALT 27 22 Alkaline Phosphatase 109 97 Total Protein 8.0 7.0 Albumin 4.8 3.9 Lipase 97 Urine Color Yellow Urine Appearance Cloudy H Urine pH 7.0 Ur Specific [place] 1.016 Urine Protein Trace Urine Glucose (UA) Negative Urine Ketones Negative Ur Blood (Man) 1+ H Urine Nitrate Negative Urine Bilirubin Negative Urine Urobilinogen 0.2 Add Ur Microanalysis Reviewed Leukocyte Esterase Rfl 3+ H Urine RBC 0-2 Urine WBC >100 H Ur Squamous Epith Cells None seen Urine Bacteria 4+ H Urine Casts 0-2 Quality VTE Prophylaxis VTE prophylaxis: mechanical ordered
[2024-06-21] MEDS: PANTOPRAZOLE SODIUM IV 40 MG VIAL IV PUSH ×2 (13:43→21:40)
[2024-06-21 14:00] VITALS: BP 151/71; PULSE 78; RESP 16; TEMP 36.7; O2SAT 95
[2024-06-21 21:31] VITALS: BP 169/57; PULSE 66; RESP 16; TEMP 36.9; O2SAT 97
[2024-06-21] MEDS: hydrALAZINE HCL 20 MG/ML VIAL 10 MG IV PUSH (21:47)
[2024-06-21 22:52] LABS: Glucose Point of Care 145 mg/dl (65-105)
[2024-06-21 23:00] VITALS: BP 138/55; PULSE 80; RESP 13; TEMP 36.7; O2SAT 99
[2024-06-22] MEDS: DEXTROSE 5%/0.9% SOD CHL 1,000 ML 100 ML IV CONT (05:47)
[2024-06-22 06:00] VITALS: BP 160/59; PULSE 71; RESP 12; TEMP 36.6; O2SAT 97
[2024-06-22 06:43] LABS: Basophils Percent Auto 0.2 % (0.2-1.2); Eosinophils Absolute Auto 0.1 K/mm3 (0-0.3); Eosinophils Percent Auto 0.9 % (0-4.4); Hematocrit 36.3 % (37.0-47.0); Hemoglobin 11.8 g/dL (12.0-15.0); Immature Granulocyte Absolute 0.02 K/mm3 (0.00-0.031); Immature Granulocyte Percent A 0.2 % (0-0.5); Lymphocytes Absolute Auto 1.02 K/mm3 (0.9-3.2); Lymphocytes Percent Auto 12.7 % (18.3-44.2); Mean Corpuscular HGB Conc 32.5 g/dl (32-36); Mean Corpuscular Hemoglobin 30.5 pg (26-34); Mean Corpuscular Volume 93.8 fl (80-100); Mean Platelet Volume 10.5 fl (7.4-10.4); Monocytes Absolute Auto 1.1 K/mm3 (0.1-0.6); Monocytes Percent Auto 13.9 % (2.6-8.5); Neutrophils Absolute Auto 5.8 K/mm3 (1.3-6.7); Neutrophils Percent Auto 72.1 % (45.5-73.1); Platelet Count Result 184 k/mm3 (150-375); Red Blood Count 3.87 M/mm3 (4.2-5.4); Red Cell Distribution Width 13.3 % (11.5-14.5); White Blood Count 8.1 K/mm3 (4.5-10.0)
[2024-06-22 06:48] LABS: Alanine Aminotransferase 19 U/L (6-35); Albumin Level 3.5 g/dL (3.5-5.1); Alkaline Phosphatase 81 U/L (38-126); Anion Gap 5 mmol/L (4-12); Aspartate Amino Transferase 26 U/L (14-36); Bilirubin,Total 0.7 mg/dL (0.2-1.3); Blood Urea Nitrogen 11 mg/dL (7-17); Calcium 8.7 mg/dL (8.4-10.2); Carbon Dioxide 29 mmol/L (22-30); Chloride 107 mmol/L (98-107); Estimated CRCL calculation 52 ml/min; Estimated Glomerular Filt Rate > 60; Glucose 132 mg/dL (65-110); Potassium 3.2 mmol/L (3.4-5.0); Sodium 141 mmol/L (137-145)
--- NOTE | 2024-06-22 11:28 | P.PNGS_ITS ---
Progress Note: A&P Assessment and Plan (1) SBO (small bowel obstruction): Code(s): K56.609 - Unspecified intestinal obstruction, unspecified as to partial versus complete obstruction Status: Acute Assessment and Plan: * Resolved. SBFT today normal. * Will remove NG tube and start full liquid diet Plan I have discussed the patient's case and plan of care with Dr. Garcia. Subjective Subjective Date/Time Seen: 06/22/24 11:28 Patient reports: no new complaints, feels better, flatus and bowel movement Interval history: Patient seen this morning after SBS. She is feeling much better today. No abdominal pain or nausea. She has had one BM since the contrast study. Exam Const: General: comfortable and no acute distress Orientation/consciousness: patient oriented x3 GI: Inspection: non-distended GI Palp: Yes Soft to palpation, No Tenderness to palpation present (GI), No Guarding due to palpation present (GI) and No Rebound tenderness present Auscultation: normal bowel sounds Objective Data Vital Signs Vital Signs: Vital Signs - 24 hr 06/21/24 14:00 06/21/24 21:31 06/21/24 23:00 Temperature 98.1 F 98.4 F 98.1 F Pulse Rate 78 66 80 Respiratory Rate 16 16 13 Blood Pressure 151/71 H 169/57 H 138/55 L Pulse Oximetry 95 97 99 06/22/24 06:00 Temperature 97.9 F Pulse Rate 71 Respiratory Rate 12 Blood Pressure 160/59 H Pulse Oximetry 97 Intake/Output Intake/Output: Intake & Output 06/19/24 06/20/24 06/21/24 06/22/24 23:59 23:59 23:59 23:59 Intake Total 50 1303.3 943.3 Output Total 1750 Balance 50 -446.7 943.3 Meds/Results Medications: Active Medications Generic Name Dose Route Start Last Admin Trade Name Freq PRN Reason Stop Dose Admin Hydralazine HCl 10 mg 06/21/24 21:38 06/21/24 21:47 Hydralazine Hcl 20 Mg/Ml Vial IV PUSH 10 mg Q8H PRN Administration BP greater than 180/90 Dextrose/Sodium Chloride 1,000 mls @ 100 mls/hr 06/20/24 23:45 06/22/24 05:47 Dextrose 5% Sodium Chloride 0.9% IV CONT 100 mls/hr .Q10H MEDHAT Administration Ceftriaxone Sodium 1 gm in 50 mls @ 100 mls/hr 06/21/24 17:00 06/21/24 18:16 Rocephin 1 Gm/Ns 50 Ml IVPB Infused Q24H MEDHAT Infusion Ondansetron HCl 4 mg 06/20/24 23:57 Ondansetron Inj 4 Mg/2 Ml Vial IV PUSH Q6H PRN Nausea And Vomiting Pantoprazole Sodium 40 mg 06/21/24 12:20 06/21/24 21:40 Pantoprazole Sodium Iv 40 Mg Vial IV PUSH 40 mg Q12HR MEDHAT Administration Phenol 1 spray 06/20/24 22:09 06/21/24 09:20 Phenol/Sod Pheno [place] (*Bkc) MUCOUS MEM 1 spray PRN PRN Administration Sore Throat Radiology Results: ITS Impressions Abdomen/Pelvis CT 06/20/24 16:41 IMPRESSION: 1. Small bowel obstruction with transition point in the inferior peritoneum. Abdomen X-Ray 06/21/24 14:02 IMPRESSION: 1. Nonobstructive bowel gas pattern. Small Bowel X-Ray 06/22/24 10:41 IMPRESSION: 1. Normal small bowel follow-through with resolution of prior obstruction. Labs Labs: Laboratory Results - last 24 hr 06/21/24 06/22/24 22:49 06:20 WBC 8.1 RBC 3.87 L Hgb 11.8 L Hct 36.3 L MCV 93.8 MCH 30.5 MCHC 32.5 RDW 13.3 Plt Count 184 MPV 10.5 H Immature Gran % (Auto) 0.2 Neut % (Auto) 72.1 Lymph % (Auto) 12.7 L [place] % (Auto) 13.9 H Eos % (Auto) 0.9 Baso % (Auto) 0.2 Lymph # (Auto) 1.02 [place] # (Auto) 1.1 H Eos # (Auto) 0.1 Baso # (Auto) 0.0 Abs Immat Gran (auto) 0.02 Absolute Neuts (auto) 5.8 Absolute Nucleated RBC 0.000 Nucleated RBC % 0.0 Sodium 141 Potassium 3.2 L Chloride 107 Carbon Dioxide 29 Anion Gap 5 BUN 11 Creatinine 0.56 L Estim Creat Clear Calc 52 Estimated GFR > 60 Glucose 132 H POC Capillary Glucose 145 H Calcium 8.7 Total Bilirubin 0.7 AST 26 ALT 19 Alkaline Phosphatase 81 Total Protein 6.0 L Albumin 3.5
--- NOTE | 2024-06-22 11:28 | P.PNIM_ITS ---
Progress Note: A&P Assessment and Plan (1) SBO (small bowel obstruction): Code(s): K56.609 - Unspecified intestinal obstruction, unspecified as to partial versus complete obstruction Status: Acute Assessment and Plan: * CT of the abdomen and pelvis shows small bowel obstruction with transition point in the inferior peritoneum, incidental finding a 5 mm cyst on the left kidney, two cystic lesions on the pancreas measuring to 15 mm * NG tube placed to low intermittent suction * general surgery consulted * NPO status, ice chips are okay * continue antiemetics as needed 3/5 * Continue NG tube to lower intermittent suction * Continue NPO status * Continue IV fluids 3/6 * DC NG tube * Start Full liquid diet * General surgery following * Will restart home medications (2) UTI (urinary tract infection): Code(s): N39.0 - Urinary tract infection, site not specified Status: Acute Assessment and Plan: * UA showing cloudy urine appearance, 1+ urine blood, 3+ leukocyte, greater than 100 urine WBC, 4+ urine bacteria * urine culture obtained and pending * continue Rocephin 3/ * Urine culture still pending * Continue Rocephin 3/ * Urine culture showing Morganella Morganii on final read * Change Rocephin to Levofloxacin (3) Hypertension: Code(s): I10 - Essential (primary) hypertension Status: Acute Assessment and Plan: * blood pressure ranging 100/52 to 145/80 * continue amlodipine and lisinopril 3/ * No change to current treatment plan / * Blood pressure ranging 138/55-160/59 * Restart amlodipine and lisinopril (4) Hyperlipidemia: Code(s): E78.5 - Hyperlipidemia, unspecified Status: Acute Assessment and Plan: * continue atorvastatin and aspirin when able 3/5 * No change to current treatment plan (5) Hypothyroidism: Code(s): E03.9 - Hypothyroidism, unspecified Status: Acute Assessment and Plan: * continue Synthroid when able 3/ * No change to current treatment plan Time Spent With Patient Time with patient: 25 - 35 minutes Subjective Date/time seen: 06/22/24 11:28 Interval history: Interval History: This is an 83-year-old female with a significant past medical history of skin cancer, GERD, high cholesterol, stomach ulcer, scoliosis, hypothyroidism, hyperlipidemia who presented to the hospital for evaluation of nausea and vomiting and epigastric abdominal pain that started yesterday. patient states that she took some Metamucil earlier yesterday and then started having some abdominal pain afterwards. she struggles with constipation on a regular basis however Metamucil has been helping keep her more regular. This time she started in with some nausea and vomiting that persisted through the night. Since she was unable to keep anything down she presented for further evaluation. She reports that her last bowel movement was is yesterday morning which was small in size and consistency was hard. she states he only abdominal surgery that she has had was when she had her tubes tied and they went in through the umbilicus however that was years ago. She has never had a small-bowel obstruction in the past. She denies any fever, chills, diarrhea, chest pain, shortness a breath. Workup in the hospital included abdomen/pelvis CT which shown a small bowel obstruction with transition point in the inferior peritoneum. Initial labs showed a white blood cell count of 13.3, sodium 133, chloride 92, blood sugar 131. UA was obtained and showed cloudy urine appearance, 1+ urine blood, 3+ leukocyte, greater than 100 urine WBC, 4+ urine bacteria. Urine culture was obtained and pending. EKG showed sinus bradycardia with first-degree AV block, marked left axis deviation, rate of 59, QTC 427. Patient was given a dose of Protonix, Zofran, and started on Rocephin while in the ED. general surgery was consulted and ordered an NG tube to be placed to low intermittent suction. Subjective: Patient denies any new complaints today. Labs reviewed. Review of Systems Review of Systems: All systems reviewed & are unremarkable except as noted in HPI and below Exam Narrative: General: In no acute distress, well nourished Cardiac: Normal S1 and S2. No murmur, gallops or friction rubs, peripheral pulses intact. Respiratory: Lungs clear to auscultation, no adventitious lung sounds , currently on room air Gastrointestinal: soft, non-distended, non-tender, hypoactive bowel sounds. NG tube clamped, she passed gas and has had multiple bowel movements\ : voiding without difficulty. Neuro: Alert and oriented x4 Objective Data Vital Signs Vital Signs: Vital Signs - 24 hr 06/21/24 14:00 06/21/24 21:31 06/21/24 23:00 Temperature 98.1 F 98.4 F 98.1 F Pulse Rate 78 66 80 Respiratory Rate 16 16 13 Blood Pressure 151/71 H 169/57 H 138/55 L Pulse Oximetry 95 97 99 06/22/24 06:00 Temperature 97.9 F Pulse Rate 71 Respiratory Rate 12 Blood Pressure 160/59 H Pulse Oximetry 97 Intake/Output Intake/Output: Intake & Output 06/19/24 06/20/24 06/21/24 06/22/24 23:59 23:59 23:59 23:59 Intake Total 50 1303.3 943.3 Output Total 1750 Balance 50 -446.7 943.3 Meds/Results Medications: Active Medications Generic Name Dose Route Start Last Admin Trade Name Freq PRN Reason Stop Dose Admin Hydralazine HCl 10 mg 06/21/24 21:38 06/21/24 21:47 Hydralazine Hcl 20 Mg/Ml Vial IV PUSH 10 mg Q8H PRN Administration BP greater than 180/90 Dextrose/Sodium Chloride 1,000 mls @ 100 mls/hr 06/20/24 23:45 06/22/24 05:47 Dextrose 5% Sodium Chloride 0.9% IV CONT 100 mls/hr .Q10H MEDHAT Administration Ceftriaxone Sodium 1 gm in 50 mls @ 100 mls/hr 06/21/24 17:00 06/21/24 18:16 Rocephin 1 Gm/Ns 50 Ml IVPB Infused Q24H MEDHAT Infusion Ondansetron HCl 4 mg 06/20/24 23:57 Ondansetron Inj 4 Mg/2 Ml Vial IV PUSH Q6H PRN Nausea And Vomiting Pantoprazole Sodium 40 mg 06/21/24 12:20 06/21/24 21:40 Pantoprazole Sodium Iv 40 Mg Vial IV PUSH 40 mg Q12HR MEDHAT Administration Phenol 1 spray 06/20/24 22:09 06/21/24 09:20 Phenol/Sod Pheno Nelson Martinez (*Bkc) MUCOUS MEM 1 spray PRN PRN Administration Sore Throat Radiology Results: ITS Impressions Abdomen/Pelvis CT 06/20/24 16:41 IMPRESSION: 1. Small bowel obstruction with transition point in the inferior peritoneum. Abdomen X-Ray 06/21/24 14:02 IMPRESSION: 1. Nonobstructive bowel gas pattern. Small Bowel X-Ray 06/22/24 10:41 IMPRESSION: 1. Normal small bowel follow-through with resolution of prior obstruction. Labs Labs: Laboratory Results - last 24 hr 06/21/24 06/22/24 22:49 06:20 WBC 8.1 RBC 3.87 L Hgb 11.8 L Hct 36.3 L MCV 93.8 MCH 30.5 MCHC 32.5 RDW 13.3 Plt Count 184 MPV 10.5 H Immature Gran % (Auto) 0.2 Neut % (Auto) 72.1 Lymph % (Auto) 12.7 L Isabella % (Auto) 13.9 H Eos % (Auto) 0.9 Baso % (Auto) 0.2 Lymph # (Auto) 1.02 Isabella # (Auto) 1.1 H Eos # (Auto) 0.1 Baso # (Auto) 0.0 Abs Immat Gran (auto) 0.02 Absolute Neuts (auto) 5.8 Absolute Nucleated RBC 0.000 Nucleated RBC % 0.0 Sodium 141 Potassium 3.2 L Chloride 107 Carbon Dioxide 29 Anion Gap 5 BUN 11 Creatinine 0.56 L Estim Creat Clear Calc 52 Estimated GFR > 60 Glucose 132 H POC Capillary Glucose 145 H Calcium 8.7 Total Bilirubin 0.7 AST 26 ALT 19 Alkaline Phosphatase 81 Total Protein 6.0 L Albumin 3.5 Quality VTE Prophylaxis VTE prophylaxis: mechanical ordered
[2024-06-22] MEDS: PANTOPRAZOLE SODIUM IV 40 MG VIAL IV PUSH ×2 (13:36→22:14)
[2024-06-22] MEDS: levoFLOXacin 750 MG/D5W 150 ML 750 MG/150 ML BAG 100 MG IVPB (13:36)
[2024-06-22 14:00] VITALS: BP 149/60; PULSE 77; RESP 18; TEMP 36.6; O2SAT 99
[2024-06-22] MEDS: lisinopriL 10 MG TABLET PO (17:14)
[2024-06-22] MEDS: amLODIPine BESYLATE 10 MG TABLET PO (17:14)
[2024-06-22 21:22] VITALS: O2SAT 97
[2024-06-22 21:25] VITALS: BP 135/59; PULSE 67; RESP 18; TEMP 36.7; O2SAT 97
[2024-06-22] MEDS: ATORVASTATIN 20 MG TABLET PO (22:13)
[2024-06-22] MEDS: ACETAMINOPHEN 325 MG TABLET 650 MG PO (22:15)
[2024-06-23 06:00] VITALS: BP 141/50; PULSE 58; RESP 16; TEMP 36.6; O2SAT 97
[2024-06-23 06:23] LABS: Basophils Percent Auto 0.4 % (0.2-1.2); Eosinophils Absolute Auto 0.1 K/mm3 (0-0.3); Hematocrit 34.1 % (37.0-47.0); Hemoglobin 11.2 g/dL (12.0-15.0); Immature Granulocyte Absolute 0.03 K/mm3 (0.00-0.031); Immature Granulocyte Percent A 0.4 % (0-0.5); Lymphocytes Absolute Auto 1.35 K/mm3 (0.9-3.2); Lymphocytes Percent Auto 18.9 % (18.3-44.2); Mean Corpuscular HGB Conc 32.8 g/dl (32-36); Mean Corpuscular Hemoglobin 31.1 pg (26-34); Mean Corpuscular Volume 94.7 fl (80-100); Mean Platelet Volume 10.6 fl (7.4-10.4); Monocytes Absolute Auto 0.9 K/mm3 (0.1-0.6); Neutrophils Absolute Auto 4.7 K/mm3 (1.3-6.7); Neutrophils Percent Auto 65.3 % (45.5-73.1); Platelet Count Result 162 k/mm3 (150-375); Red Cell Distribution Width 13.3 % (11.5-14.5); White Blood Count 7.1 K/mm3 (4.5-10.0)
[2024-06-23 06:35] LABS: Alanine Aminotransferase 18 U/L (6-35); Albumin Level 3.5 g/dL (3.5-5.1); Alkaline Phosphatase 73 U/L (38-126); Anion Gap 7 mmol/L (4-12); Aspartate Amino Transferase 26 U/L (14-36); Bilirubin,Total 1.3 mg/dL (0.2-1.3); Blood Urea Nitrogen 14 mg/dL (7-17); Carbon Dioxide 28 mmol/L (22-30); Chloride 106 mmol/L (98-107); Estimated CRCL calculation 45 ml/min; Estimated Glomerular Filt Rate > 60; Glucose 105 mg/dL (65-110); Potassium 3.2 mmol/L (3.4-5.0); Sodium 141 mmol/L (137-145)
[2024-06-23] MEDS: LEVOTHYROXINE SODIUM 50 MCG TABLET PO (06:39)
[2024-06-23] MEDS: PANTOPRAZOLE SODIUM IV 40 MG VIAL IV PUSH (09:26)
[2024-06-23] MEDS: lisinopriL 10 MG TABLET PO (09:26)
[2024-06-23] MEDS: levoFLOXacin 750 MG TABLET PO (09:26)
[2024-06-23] MEDS: ASPIRIN 81 MG CHEWABLE TABLET PO (09:26)
--- NOTE | 2024-06-23 11:43 | P.DS_ITS ---
DS: Admitting Diagnosis Discharge Date 06/23/24 Admitting Diagnosis small-bowel obstruction nausea and vomiting UTI hyponatremia hypertension hyperlipidemia hypothyroidism DS: Discharge Diagnosis Discharge Diagnosis (1) SBO (small bowel obstruction): Code(s): K56.609 - Unspecified intestinal obstruction, unspecified as to partial versus complete obstruction Status: Acute (2) UTI (urinary tract infection): Code(s): N39.0 - Urinary tract infection, site not specified Status: Acute (3) Hypertension: Code(s): I10 - Essential (primary) hypertension Status: Acute (4) Hyperlipidemia: Code(s): E78.5 - Hyperlipidemia, unspecified Status: Acute (5) Hypothyroidism: Code(s): E03.9 - Hypothyroidism, unspecified Status: Acute DS: Summary Hospital Course Reason for hospitalization: small-bowel obstruction nausea and vomiting UTI hyponatremia hypertension hyperlipidemia hypothyroidism Hospital Course: This is an 83-year-old female with a significant past medical history of skin cancer, GERD, high cholesterol, stomach ulcer, scoliosis, hypothyroidism, h yperlipidemia who presented to the hospital for evaluation of nausea and vomiting and epigastric abdominal pain that started yesterday. patient states that she took some Metamucil earlier yesterday and then started having some abdominal pain afterwards. she struggles with constipation on a regular basis however Metamucil has been helping keep her more regular. This time she started in with some nausea and vomiting that persisted through the night. Since she was unable to keep anything down she presented for further evaluation. She reports that her last bowel movement was is yesterday morning which was small in size and consistency was hard. she states he only abdominal surgery that she has had was when she had her tubes tied and they went in through the umbilicus however that was years ago. She has never had a small-bowel obstruction in the past. She denies any fever, chills, diarrhea, chest pain, shortness a breath. Workup in the hospital included abdomen/pelvis CT which shown a small bowel obstruction with transition point in the inferior peritoneum. Initial labs showed a white blood cell count of 13.3, sodium 133, chloride 92, blood sugar 131. UA was obtained and showed cloudy urine appearance, 1+ urine blood, 3+ leukocyte, greater than 100 urine WBC, 4+ urine bacteria. Urine culture was obtained and pending. EKG showed sinus bradycardia with first-degree AV block, marked left axis deviation, rate of 59, QTC 427. Patient was given a dose of Protonix, Zofran, and started on Rocephin while in the ED. general surgery was consulted and ordered an NG tube to be placed to low intermittent suction. Patient transitioned to Levaquin for her UTI. Urine culture showing Morganelli Morganii on final read. She is eating and drinking without difficulty. She denies any nausea, vomiting, or diarrhea. She is passing gas and having bowel movements. She is stable for discharge at this time. She will need to follow up with her primary care doctor in 1 week after finishing antibiotics. final diagnosis: acute UTI, small bowel obstruction Status at Discharge Cognitive/behavioral status at discharge: alert oriented x3 Functional status at discharge: independent ambulation Overall status at discharge: patient is progressing back to baseline Time Spent with Patient Time attestation: Total time spent providing and/or coordinating discharge services: Time spent: Greater than 30 minutes Exam Narrative: General: In no acute distress, well nourished Cardiac: Normal S1 and S2. No murmur, gallops or friction rubs, peripheral pulses intact. Respiratory: Lungs clear to auscultation, no adventitious lung sounds , currently on room air Gastrointestinal: soft, non-distended, non-tender, hypoactive bowel sounds. NG tube clamped, she passed gas and has had multiple bowel movements\ : voiding without difficulty. Neuro: Alert and oriented x4 DS: Data Data Completed and Pending Completed studies during hospitalization: small bowel x-ray abdomen x-ray x2 abdomen pelvis CT Pending studies at discharge: none Labs on day of discharge: Labs from last 24 hours 06/23/24 05:47 WBC 7.1 RBC 3.60 L Hgb 11.2 L Hct 34.1 L MCV 94.7 MCH 31.1 MCHC 32.8 RDW 13.3 Plt Count 162 MPV 10.6 H Immature Gran % (Auto) 0.4 Neut % (Auto) 65.3 Lymph % (Auto) 18.9 [place] % (Auto) 13.0 H Eos % (Auto) 2.0 Baso % (Auto) 0.4 Lymph # (Auto) 1.35 [place] # (Auto) 0.9 H Eos # (Auto) 0.1 Baso # (Auto) 0.0 Abs Immat Gran (auto) 0.03 Absolute Neuts (auto) 4.7 Absolute Nucleated RBC 0.000 Nucleated RBC % 0.0 Sodium 141 Potassium 3.2 L Chloride 106 Carbon Dioxide 28 Anion Gap 7 BUN 14 Creatinine 0.66 L Estim Creat Clear Calc 45 Estimated GFR > 60 Glucose 105 Calcium 9.0 Total Bilirubin 1.3 AST 26 ALT 18 Alkaline Phosphatase 73 Total Protein 6.0 L Albumin 3.5 Procedures/Treatments: none Discharge Plan Discharge Attending physician on discharge: Sander Bhatia Consulting providers: Mark Garcia Discharging Clinician: Liliane Morales Anticipated Discharge Date/Time: 06/23/24 11:39 Patient Disposition: Home, Self-Care Activity: as tolerated Diet: as tolerated and regular Discharge Instructions: * continue to advance diet as tolerated * finish all of antibiotic even if your feeling better. Take antibiotic with food. * follow-up with your primary care doctor in 1 week Patient Instructions: Antibiotic Form Patient Language: Thai Stand Alone Forms: General Discharge Information Follow-up/Referrals: Janelle,MD Missy [Primary Care Provider] - 1 Week Discharge Medications: New levofloxacin 750 mg tablet 750 mg PO DAILY Qty: 5 0RF amlodipine 10 mg Tablet 10 mg PO DAILY Qty: 30 0RF Continued carboxymethylcellulose sodium [Refresh Tears] 0.5 % drops 1 drp EACH EYE BID PreserVision AREDS [id number] valu-lb-ltmu capsule 1 cap PO BID cholecalciferol (vitamin D3) 25 mcg (1,000 unit) capsule 25 mcg PO DAILY calcium carbonate [Calcium 600] 600 mg calcium (1,500 mg) tablet 600 mg PO DAILY Ultra CoQ10 75 mg capsule 100 mg PO DAILY Women's 50 Plus Multivitamin 400 mcg-500 mg calcium-20 mcg tablet 1 tablet PO DAILY lisinopril 10 mg tablet 10 mg PO DAILY atorvastatin 20 mg tablet 20 mg PO QHS levothyroxine 50 mcg capsule 50 mcg PO QAM aspirin 81 mg tablet 81 mg PO DAILY melatonin 3 mg capsule 3 mg PO QHS PRN (Reason: Insomnia) acetaminophen 650 mg Tablet Extended Release 650 mg PO Q12H PRN (Reason: Pain) Hair, Skin and Nails Advanced 3.3 mg iron-25 mcg Tablet 1 tablet PO BID [id number] 333-133-5 mg tablet 1 tablet PO DAILY b12 1,000 mcg PO DAILY magnesium 250 mg tablet 250 mg PO BID Metamucil 3.4 gram/5.4 gram powder 1 tbsp PO DAILY Rx Instructions: mix into at least 8 oz of water or juice before administering amlodipine [Norvasc] 10 mg tablet 10 mg PO HS Date of admission: 06/20/24 18:10 Primary Care Provider: JanelleMissy Admitting Provider: Uziel Chaves Attending physician on admission: Uziel Chaves Condition: Improved Quality VTE Prophylaxis VTE prophylaxis: mechanical ordered Hospitalist MIPS Heart Failure (Exclusion) Patient has history of Heart Transplant or Left Ventricular Assistive Device?: No IF YES, STOP HERE Heart Failure (Qualifier) Patient has current or prior documentation of LVEF less than or equal to 40%, or mod/servere depressed LVSF?: No IF NO, STOP HERE
[2024-06-23 14:00] VITALS: BP 110/58; PULSE 64; RESP 20; TEMP 36.7; O2SAT 100
--- NOTE | 2024-06-23 15:18 | P.PNGS_ITS ---
Progress Note: A&P Assessment and Plan (1) SBO (small bowel obstruction): Code(s): K56.609 - Unspecified intestinal obstruction, unspecified as to partial versus complete obstruction Status: Acute Assessment and Plan: * OK to discharge from surgical standpoint. Return to ED for recurrent symptoms. Subjective Subjective Date/Time Seen: 06/23/24 15:18 Interval history: bowels moving and tolerating regular diet. no nausea/vomiting. Exam GI: Inspection: non-distended GI Palp: Yes Soft to palpation, No Tenderness to palpation present (GI) and No Guarding due to palpation present (GI) Percussion: Yes normal to percussion Auscultation: normal bowel sounds Objective Data Vital Signs Vital Signs: Vital Signs - 24 hr 06/22/24 21:22 06/22/24 21:25 06/23/24 06:00 Temperature 98.1 F 97.8 F Pulse Rate 67 58 L Respiratory Rate 18 16 Blood Pressure 135/59 L 141/50 H Pulse Oximetry 97 97 97 Oxygen Delivery Room Air Intake/Output Intake/Output: Intake & Output 06/20/24 06/21/24 06/22/24 06/23/24 23:59 23:59 23:59 23:59 Intake Total 50 1303.3 1179.3 990 Output Total 1750 Balance 50 -446.7 1179.3 990 Meds/Results Medications: Active Medications Generic Name Dose Route Start Last Admin Trade Name Freq PRN Reason Stop Dose Admin Acetaminophen 650 mg 06/22/24 22:00 06/22/24 22:15 Acetaminophen 325 Mg Tablet PO 650 mg Q4H PRN Administration Headache Amlodipine Besylate 10 mg 06/22/24 13:35 06/23/24 14:53 Amlodipine Besylate 10 Mg Tablet PO Not Given DAILY MEDHAT Aspirin 81 mg 06/23/24 08:00 06/23/24 09:26 Aspirin 81 Mg Chewable Tablet PO 81 mg DAILY@0800 [facility] Administration Atorvastatin Calcium 20 mg 06/22/24 21:00 06/22/24 22:13 Atorvastatin 20 Mg Tablet PO 20 mg QHS MEDHAT Administration Cyanocobalamin 1,000 mcg 06/23/24 09:00 06/23/24 14:53 Cyanocobalamin 1,000 Mcg Tablet PO Not Given QAM [facility] Hydralazine HCl 10 mg 06/21/24 21:38 06/21/24 21:47 Hydralazine Hcl 20 Mg/Ml Vial IV PUSH 10 mg Q8H PRN Administration BP greater than 180/90 Levofloxacin 750 mg 06/23/24 09:00 06/23/24 09:26 Levofloxacin 750 Mg Tablet PO 750 mg DAILY MEDHAT Administration Levothyroxine Sodium 50 mcg 06/23/24 06:30 06/23/24 06:39 Levothyroxine Sodium 50 Mcg Tablet PO 50 mcg DAILY@0630 MEDHAT Administration Lisinopril 10 mg 06/22/24 17:00 06/23/24 09:26 Lisinopril 10 Mg Tablet PO 10 mg BID MEDHAT Administration Melatonin 3 mg 06/22/24 13:32 Melatonin 3 Mg Tablet PO QHS PRN Insomnia Multivitamins/Minerals 1 tab 06/23/24 09:00 06/23/24 14:54 Multivitamins /C Lutein (Centrum Silver) Tablet *Bkc PO Not Given DAILY MEDHAT Ondansetron HCl 4 mg 06/20/24 23:57 Ondansetron Inj 4 Mg/2 Ml Vial IV PUSH Q6H PRN Nausea And Vomiting Pantoprazole Sodium 40 mg 06/21/24 12:20 06/23/24 09:26 Pantoprazole Sodium Iv 40 Mg Vial IV PUSH 40 mg Q12HR MEDHAT Administration Phenol 1 spray 06/20/24 22:09 06/21/24 09:20 Phenol/Sod Pheno Austin Martinez (*Bkc) MUCOUS MEM 1 spray PRN PRN Administration Sore Throat Vitamin D 1,000 units 06/23/24 09:00 06/23/24 14:53 Cholecalciferol 1,000 Units Tablet PO Not Given DAILY [facility] Witch Marta 1 pad 06/22/24 21:59 Witch Marta 40 Pads TOPICAL PRN PRN Perineal Discomfort Radiology Results: ITS Impressions Abdomen/Pelvis CT 06/20/24 16:41 IMPRESSION: 1. Small bowel obstruction with transition point in the inferior peritoneum. Abdomen X-Ray 06/21/24 14:02 IMPRESSION: 1. Nonobstructive bowel gas pattern. Small Bowel X-Ray 06/22/24 10:41 IMPRESSION: 1. Normal small bowel follow-through with resolution of prior obstruction. Labs Labs: Laboratory Results - last 24 hr 06/23/24 05:47 WBC 7.1 RBC 3.60 L Hgb 11.2 L Hct 34.1 L MCV 94.7 MCH 31.1 MCHC 32.8 RDW 13.3 Plt Count 162 MPV 10.6 H Immature Gran % (Auto) 0.4 Neut % (Auto) 65.3 Lymph % (Auto) 18.9 [place] % (Auto) 13.0 H Eos % (Auto) 2.0 Baso % (Auto) 0.4 Lymph # (Auto) 1.35 [place] # (Auto) 0.9 H Eos # (Auto) 0.1 Baso # (Auto) 0.0 Abs Immat Gran (auto) 0.03 Absolute Neuts (auto) 4.7 Absolute Nucleated RBC 0.000 Nucleated RBC % 0.0 Sodium 141 Potassium 3.2 L Chloride 106 Carbon Dioxide 28 Anion Gap 7 BUN 14 Creatinine 0.66 L Estim Creat Clear Calc 45 Estimated GFR > 60 Glucose 105 Calcium 9.0 Total Bilirubin 1.3 AST 26 ALT 18 Alkaline Phosphatase 73 Total Protein 6.0 L Albumin 3.5
== END 2024-06-23 17:30 | disposition home or self-care (01) | DRG 389 ==
LOC: ANHED 18:01 → ANH3MEDSUR 06-21 14:03
PROVIDERS: Emergency Medicine; Admitting Provider Internal Medicine; Emergency Provider Emergency Medicine; PCP Internal Medicine; Visit Provider Nurse Practitioner Acute Care
DX: K56.609 Unspecified intestinal obstruction, unspecified as to partial versus complete obstruction (principal); E87.1 Hypo-osmolality and hyponatremia; N39.0 Urinary tract infection, site not specified; K92.0 Hematemesis; K86.2 Cyst of pancreas; B96.89 Other specified bacterial agents as the cause of diseases classified elsewhere; I10 Essential (primary) hypertension; E78.5 Hyperlipidemia, unspecified; E03.9 Hypothyroidism, unspecified; M41.9 Scoliosis, unspecified; K21.9 Gastro-esophageal reflux disease without esophagitis; Z85.828 Personal history of other malignant neoplasm of skin; N28.1 Cyst of kidney, acquired
CPT/HCPCS: 36415; 74018; 74177; 74250; 80053; 81001; 82948; 83690; 83735; 85025; 87086; 87186; 93005; A9270; J0360; J0696; J1956; J2405; J2470; J7042; Q9967

== ENCOUNTER 2024-08-23 11:23 | Outpatient (CLI) | payer MEDICARE, SELFPAY ==
--- NOTE | ~2024-08-23 | MM_ITS ---
EXAMINATION: MM screening [facility] BI w [place]i HISTORY: Screening TECHNIQUE: Craniocaudal and mediolateral oblique 3-D tomosynthesis images were obtained and synthetic 2-D images were generated. CAD analysis was submitted and interpreted. COMPARISON: Comparison to multiple prior studies sequentially, with oldest reviewed study dated 12/16. BREAST PARENCHYMAL COMPOSITION: Not dense: There are scattered areas of fibroglandular density. FINDINGS: There is no evidence of suspicious mass, calcification, or architectural distortion to sugg est malignancy in either breast. There has been no suspicious interval change. IMPRESSION: 1. No mammographic evidence of malignancy. 2. Recommend routine screening mammography in one year. BI-RADS Category 1: Negative Reviewed, dictated and finalized at location A.
== END 2024-08-23 11:24 | disposition home or self-care (01) ==
LOC: MICIMG 11:24
PROVIDERS: PCP Obstetrics & Gynecology; Visit Provider Internal Medicine
DX: Z12.31 Encounter for screening mammogram for malignant neoplasm of breast (principal)
CPT/HCPCS: 77063; 77067

== ENCOUNTER 2025-02-12 14:49 | Outpatient (CLI) | payer MEDICARE, SELFPAY ==
--- NOTE | ~2025-02-12 | DEXA_ITS ---
Bone Density Report Name: CAILIN CALIX Age: 84 Sex: Female Ethnicity: White Date of : 1940 Indication: postmenopausal; screening for osteoporosis; parental hip fracture; height loss; hysterectomy; Referring Provider: Janelle, Missy Study: Bone densitometry was performed. Exam Date: February 12, 2025 Accession number: [id number] Bone Density: Region BMD T-score Z-score Classification AP Spine(L1, L2, L3) 1.012 -0.1 2.7 Normal Femoral Neck (Left) 0.699 -1.3 1.2 Osteopenia Total Hip (Left) 0.701 -2.0 0.4 Osteopenia Femoral Neck (Right) 0.641 -1.9 0.7 Osteopenia Total Hip (Right) 0.691 -2.1 0.3 Osteopenia Total Hip Mean 0.696 -2.1 0.4 Osteopenia World Health Organization criteria for BMD impression classify patients as: Normal (T-score at or above -1.0), Osteopenia (T-score between -1.0 and -2.5), or Osteoporosis (T-score at or below -2.5). 10-year Fracture Risk(1): Major Osteoporotic Fracture 28% Hip Fracture 18% Reported Risk Factors: [place] (), Neck BMD=0.641, BMI=24.7, parental fracture (1) FRAX(R) Version 3.08. Fracture probability calculated for an untreated patient. Fracture probability may be lower if the patient has received treatment. Previous Exams: -- Region Exam Age BMD T-score BMD Change BMD Change Date g/cm2 vs Baseline vs Previous -- AP Spine (L1-L3) 02/12/2025 84 1.012 -0.1 -10.2%* -10.2%* 02/07/2020 79 1.127 1.0 Total Hip(Left) 02/12/2025 84 0.701 -2.0 -16.3%* -16.3%* 02/07/2020 79 0.837 -0.9 Total Hip(Right) 02/12/2025 84 0.691 -2.1 -15.6%* -15.6%* 02/07/2020 79 0.819 -1.0 -- *Denotes significance at 95% confidence level, LSC for AP Spine = 0.022 g/cm2, LSC for Total Hip = 0.027 g/cm2 Clinical Information Provided by Patient: Parent has had a hip fracture Has used the following medications: Vitamin D, Calcium, CoQ10 Has the following medical conditions: Hysterectomy Patient maximum height was 65 Menopause Age: 30 No regular weight bearing exercise Drinks caffeinated beverages Onset of menses at age 14 Number of children 4 Impression: The patient has low bone mass, based on the Right Total Hip T-score. The patient has an estimated ten-year risk of hip fracture of 18% and an estimated ten-year risk of major fracture of 28%, based on the WHO FRAX algorithm. The patient has risk factors, including: parental hip fracture. The BMD for the AP Spine (L1-L3) decreased, changing by -10.2% since the last DXA exam. The BMD for the Total Hip(Left) decreased, changing by -16.3% since the last DXA exam. The BMD for the Total Hip(Right) decreased, changing by -15.6% since the last DXA exam. Discussion: BONE DENSITY IS LOW AT ONE OR MORE SKELETAL SITES. THE PATIENT'S BMD AND CLINICAL RISK FACTORS CONTRIBUTE TO THIS PATIENT'S HIGH RISK OF FRACTURE. This patient's lowest T-score is low at one or more skeletal sites. It meets the World Health Organization's (WHO) criteria for ?low bone mass? (T-score between -1.0 and -2.5). The patient's 10-year risk of hip fracture and 10 year risk of a major osteoporotic fracture as calculated by FRAX exceeds the threshold where pharmacological therapy is recommended by the National Osteoporosis Foundation (NOF). However, all treatment decisions require clinical judgment and consideration of individual patient factors, including patient preferences, comorbidities, previous drug use, risk factors not captured in the FRAX model (e.g., frailty, falls, vitamin D deficiency, increased bone turnover, interval significant decline in bone density) and possible under or overestimation of fracture risk by FRAX. The patient should follow a healthful lifestyle (good nutrition with adequate calcium and vitamin D, and appropriate weight-bearing exercise). Follow-Up: Consider a repeat BMD and Vertebral Fracture Assessment (VFA) exam in 2 years or sooner if medically necessary, to reassess this patient's status. Reported by: CINDY on 02/12/2025 3:12:00 PM. Reviewed, dictated and finalized at location A.
== END 2025-02-12 14:50 | disposition home or self-care (01) ==
LOC: MICIMG 14:50
PROVIDERS: PCP Obstetrics & Gynecology; Visit Provider Internal Medicine
DX: Z78.0 Asymptomatic menopausal state (principal); M85.89 Other specified disorders of bone density and structure, multiple sites
CPT/HCPCS: 77080

== ENCOUNTER 2025-02-26 00:19 | Day surgery (SDC) | payer MEDICARE, SELFPAY ==
--- OUTSIDE RECORDS SUMMARY | 2010-01-15 18:00 | XMS_ITS | Continuity of Care Document ---
Author Organization [facility] [place] Address [address] [place] [address] Phone Care Team Providers Care Administrative Judge Name Role Phone [facility] Unavailable Unavail able Sheila Corbett Unavailable Unavailable Procedures Procedure Date Vision Svcs Frames Purchases Progressive Lens, Hi Index Lens-Index 1.54-1.79 Glass Eye Exam & Treatment Refraction Progressive Lens, Plastic Tax - Medical Eye Exam & Treatment Refraction Eye Exam & Treatment Visual Functional Status Assessed Refraction Advance Directives Directive Yes / No Effective Date File Name No Information Encounters Encounter Description Practice Location Reason(s) For Visit Diagnoses Date Provider Providers Copied on Encounter [facility], [address] [place] [address] [address], [place], [place], [id number], [place] tel:[phone] [facility] No Information 0-201 0 [facility] . [address], [address], [place], [place], [id number], [place]. tel:[phone] Referring Provider: Yves Price, [address], [place], [address]. tel:[phone] hernandez Provider: Sheila Corbett, [address] [facility], [place], [address]. tel:[phone] [facility], [address] [place] [address] [address], [place], [place], [id number], [place] tel:[phone] [facility] No Information Sep-2 4-201 0 Nia Marinelli. [address] [place] [address] , [address], [place], [place], [facility], . tel:[phone] [facility], [address] [place] [address] [address], [place], [place], [id number], [place] tel:[phone] [facility] No Information Oct-0 5-200 9 [facility] . [address], [address], [place], [place], [id number], [place]. tel:[phone] Referring Provider: Yves Price, [address] [place] [address] [address], [place], [place], [facility]. tel:[phone] hernandez Provider: Girish Mcfarlane, [address] [place] [address], [place], [facility]. tel:[phone] 4919 [facility], [address] [place] [address] [address], [place], [place], [id number], [place] tel:[phone] [facility] No Information Sep-1 8-200 9 Nia Marinelli. [address] [place] [address] , [address], [place], [place], [facility], . tel:[phone] [facility], [address] [place] [address] [address], [place], [place], [id number], [place] tel:[phone] [facility] No Information Mamadou-3 0-200 7 Nia Marinelli. [address] [place] [address] , [address], [place], [place], [facility], . tel:[phone] Family History Family Member Type Diagnosis Age At Onset No Information Payers Payer name Insurance type Covered green party ID Authoriza tion(s) No Information Social History Type Description Quantity Date Captured Comments Sex Female Smoking Status No Information Chief Complaint And Reason For Visit No Information Reason For Referral Reason For Referral No Information History Of Present Illness Encounter Date Complaint History Of Prese nt Illness No Information Functional Status Date Functional Assessmen t No Information Instructions Date Instruction Additional Infor mation No Information Assessments Type Assessment Date No Information Patient Care Teams Name Effective Dates (start - stop) Status Members No Information
--- OUTSIDE RECORDS SUMMARY | 2025-02-10 17:59 | XMS_ITS | Continuity of Care Document ---
Author Organization [facility] Address [address] [place] [address] Phone Care Team Providers Care Hand Shaker Name Role Phone Vanessa PARKER, SHITAL, FSCAI, Eusebio Unavailable Unava ilable Vanessa PARKER, SHITAL, FSCAI, Eusebio Unavailable Unava ilable Allergies, Adverse Reactions, Alerts Substance Reaction Status Criticality No Known Allergies Active No Inform ation Medications Medication Instructions Dosage Effective Dates (start - stop) Status Comments Unithroid 50 mcg tablet - Ac tive ondansetron HCl 4 mg tablet - Active atorvastatin 20 mg tablet - Active lisinopril 10 mg tablet - Ac tive ciprofloxacin 500 mg tablet - Active celecoxib 200 mg capsule - A ctive levofloxacin 750 mg tablet - Active Procedures Procedure Date REM MNTR PHYSIOL RYAN DEV REM PHYSIOL MNTR 20 MIN MO REM MNTR PHYSIOL RYAN DEV REM PHYSIOL MNTR 20 MIN MO Complex e/m visit add on OFFICE/OUTPATIENT VISIT, EST REM MNTR PHYSIOL RYAN DEV REM PHYSIOL MNTR 20 MIN MO REM MNTR PHYSIOL RYAN DEV REM PHYSIOL MNTR 20 MIN MO REM MNTR PHYSIOL RYAN DEV REM PHYSIOL MNTR 20 MIN MO REMOTE 30 DAY ECG TECH SUPP REMOTE 30 DAY ECG REV/REPORT Advance Directives Directive Yes / No Effective Date File Name No Information Encounters Encounter Description Practice Location Reason(s) For Visit Diagnoses Date Provider Providers Copied on Encounter [facility], [address] [place] [address], [address] [place] [address] , tel: [phone] No Information 5 Vanessa Kaplan. [address] [facility], [address] [place] [address], [id number] , . tel: [phone] Referring Provider: Eusebio Girard, [address] [place] [address] [place] [address], [id number] . tel:[phone] sulting Provider: Eusebio Girard, [address] [place] [address] [place] [address], [address] . tel:[phone] REM MNTR PHYSIOL RYAN DEV [facility], [address] [place] [address], [id number] , tel: [phone] [facility] (primary) hypertension 5 Vanessa Kaplan. [id number] [place] [address], [address] [place] [address], [id number] , . tel: [phone] Referring Provider: Eusebio Girard, [address] [place] [address] [place] [address], [address] . tel:[phone] sulting Provider: Eusebio Girard, [id number] [place] [address] [place] [address], [address] . tel:[phone] REM MNTR PHYSIOL RYAN DEV [facility], [address] [place] [address], [id number] , tel: [phone] [facility] (primary) hypertension 5 Vanessa Kaplan. [address] [facility], [address] [place] [address], [id number] , . tel:[phone] Referring Provider: Eusebio Girard, [id number] [place] [address] [place] [address], [id number] . tel:[phone] sulting Provider: Eusebio Girard, [address] [facility] [address] [place] [address], [address] . tel:[phone] OFFICE/OUTPA TIENT VISIT, [facility], [address] [place] [address], [id number] , tel: [phone] [facility] Raymond PATIENT IS HERE FOR F/UP (chief complaint) Asymptomatic varicose veins of unspecified lower extremityHyperlipidem ia, unspecifiedHTNSinus bradycardia 5 Vanessa Kaplan. [address] [facility], [address] [place] [address], [id number] , [place]. tel: [phone] Referring Provider: Eusebio Girard, [address] [facility] [address] [place] [address], [address] . tel:[phone] [facility] , [address] [place] [address], [id number] , [place] tel: [phone] [facility] Raymond No Information 5 Vanessa Kaplan. [address] [facility], [address] [place] [address], [id number] , [place]. tel: [phone] REM MNTR PHYSIOL RYAN DEV [facility], [address] [place] [address], [id number] , [place] tel: [phone] [facility] (primary) hypertension 5 Vanessa Kaplan. [address] [facility], [address] [place] [address], [id number] , [place]. tel: [phone] Referring Provider: Eusebio Girard, [address] [facility] [address] [place] [address], [address] . tel:[phone] sulting Provider: Eusebio Girard, [address] [facility] [address] [place] [address], [address] . tel:[phone] REM MNTR PHYSIOL RYAN DEV [facility], [address] [place] [address], [id number] , tel: [phone] [facility] (primary) hypertension 5 Vanessa Kaplan. [address] [facility], [address] [place] [address], [id number] , . tel: [phone] Referring Provider: Eusebio Girard, [address] [place] [address], [address] . tel: [phone] sulting Provider: Eusebio Girard, [address] [facility] [address] [place] [address], [address] . tel:[phone] REM MNTR PHYSIOL RYAN DEV [facility], [address] [place] [address], [id number] , tel: [phone] [facility] (primary) hypertension 5 Vanessa Kaplan. [address] [facility], [address] [place] [address], [id number] , . tel: [phone] Referring Provider: Eusebio Girard, [id number] [place] [address] [place] [address], [address] . tel: [phone] sulting Provider: Eusebio Girard, [address] [facility] [address] [place] [address], [address] . tel:[phone] [facility], [address] [place] [address], [id number] , tel: [phone] [facility] [place] No Information 5 Vanessa Kaplan. [address] [facility], [address] [place] [address], [id number] , . tel: [phone] Referring Provider: Eusebio Girard, [address] [facility] [address] [place] [address], [address] . tel:[phone] [facility], [address] [place] [address], [id number] , tel: [phone] [facility] [place] Asymptomatic varicose veins of unspecified lower extremityHyperlipidem ia, unspecifiedEncounter for preprocedural cardiovascular examination 5 Vanessa Kaplan. [address] [facility], [address] [place] [address], [id number] , . tel: [phone] Family History Family Member Type Diagnosis Age At Onset No Information Payers Payer name Insurance type Covered green party ID Authoriza tielena(s) [place] [id number] [employer] [facility] CI [id number] Social History Type Description Quantity Date Captured Comments Sex Female Smoking Status No Information Chief Complaint And Reason For Visit No Information Reason For Referral Reason For Referral No Information History Of Present Illness Encounter Date Complaint History Of Prese nt Illness PATIENT IS HERE FOR F/UP Functional Status Date Functional Assessmen t No Information Instructions Date Instruction Additional Infor mation No Information Assessments Type Assessment Date No Information Patient Care Teams Name Effective Dates (start - stop) Status Members No Information
[2025-02-12 13:26] VITALS: BMI 24.2
--- OUTSIDE RECORDS SUMMARY | 2025-02-22 13:14 | XMS_ITS | Continuity of Care Document ---
Author Organization [facility] Address [address] [place] [address] Phone Care Team Providers Care Glue Spreader Name Role Phone No Information Unavailable Unavailable Allergies, Adverse Reactions, Alerts Substance Reaction Status Criticality No Known Allergies Active No Inform ation Medications Medication Instructions Dosage Effective Dates (start - stop) Status Comments amlodipine 2.5 mg tablet take 1 tablet by oral route every day 2.5 MG - Active Unithroid 25 mcg tablet take 1 tablet by oral route every day 25 MCG - Active vitamin B12 500 mcg-folic acid 400 mcg [...] route every day 10 MG - Active Aspirin Low Dose 81 mg tablet,delayed release take 1 tablet by oral route every day 81 MG - Active PreserVision AREDS 14,320 unit-226 mg-200 unit capsule - Active multivitamin tablet - Active Calcium 500 500 mg calcium (1,250 mg) tablet - Active Refresh Tears 0.5 % eye drops - Active Procedures Procedure Date X-ray exam shoulder complete, minimum 2 views Global/Postop followup visit Kenalog 10mg/mL Asp/Injection, Major Joint W/ Ultrasound X-ray exam shoulder complete, minimum 2 views Global/Postop followup visit Arc 2 0 Sling [place] Arm Sling X-ray exam shoulder complete, minimum 2 views Global/Postop followup visit Total Shoulder Replcmt Biceps Tenodesis Release shoulder joint Asp/Injection, Major Joint W/ Ultrasound Office/outpatient visit,est, mod 2024 Kenalog 40mg/mL X-ray exam shoulder complete, minimum 2 views Office/outpatient visit,est, mod 2024 BMI Documented Above Normal Limit F/U Pl an Doc BMI Documented Above Normal Limit F/U Pl an Doc X-ray exam shoulder complete, minimum 2 views Office/outpatient visit,est, mod 2023 X-ray exam shoulder complete, minimum 2 views Depo Medrol Methylprednisolone 40 MG inj Asp/inject major joint or bursa w/o US g uidance Office/outpatient visit,new, mod 2022 Advance Directives Directive Yes / No Effective Date File Name No Information Encounters Encounter Description Practice Location Reason(s) For Visit Diagnoses Date Provider Providers Copied on Encounter [facility], [address], [id number], [place] tel:[phone] No Information 5 No Information [facility], [address], [id number], [place] tel:[phone] [facility] right shoulder pain (chief complaint) left shoulder pain (chief complaint) Presence of right artificial shoulder jointComplete rotatr-cuff tear/ruptr of left shoulder, not traumaArthropa thy, unspecified Sep-1 5 Brennon Cordon. [address] [facility], [place], [place], [id number], [place]. tel:[phone] Referring Provider: Neris MITCHELLP E, [address] [facility] [address], [place], [address] . tel:[phone] [facility], [address] [facility] [address], [place], [place], [id number], [place] tel:[phone] [facility] shoulder (chief complaint) Presence of right artificial shoulder joint 5 House HR SPECIALIST Neris. [address] [facility], [address], [place], [place], [id number], [place]. tel:[phone] Referring Provider: Neris MITCHELLP E, [address] [facility] [address] [facility], [place], [address] . tel:[phone] [facility], [address] [address], [place], [place], [id number], [place] tel:[phone] [facility] Pain in right shoulder 5 Loni Eisenberg. [address] [facility], [facility] [address], [place], [place], [id number], [place]. tel:[phone] Referring Provider: Elgin Lizarraga, [address] [facility] [address], [place], [address] . tel:[phone] [facility], [address] [facility] [address], [place], [place], [id number], [place] tel:[phone] [facility] shoulder (chief complaint) Presence of right artificial shoulder joint 5 [place] [employer] SPECIALIST Neris. [address] [facility], [address], [place], [place], [id number], [place]. tel:[phone] Referring Provider: Nerisumm JAMIL E, [address] [facility] [address], [place], [address] . tel:[phone] [facility], [address] [facility] [address], [place], [place], [id number], [place] tel:[phone] [facility] No Information 5 Loni Eisenberg. [address] [facility], [address] [address], [place], [place], [id number], [place]. tel:[phone] Referring Provider: Elgin Ivey MD T, [address] [place] [address], [place], [address] . tel:[phone] Office/outpa tient visit,est, mod [facility], [address] [place] [address], [id number], [place] tel:[phone] [facility] right shoulder pain (chief complaint) left shoulder pain (chief complaint) Pain in left shoulderComple te rotatr-cuff tear/ruptr of left shoulder, not traumaComplete rotatr-cuff tear/ruptr of r shoulder, not traumaOther specified arthritis, right shoulderBicipi ronny tendinitis, right shoulder 5 Loni Eisenberg. [address], [id number], [place]. tel:[phone] Referring Provider: Elgin Lizarraga, [facility] [address], [place], [address] . tel:[phone] [facility], [address] [place] [address], [id number], [place] tel:[phone] [facility] Pain in right shoulder Jun-2 5 Loni Eisenberg. [address] [address], [place], [place], [id number], [place]. tel:[phone] Office/outpa tient visit,est, mod [facility], [address], [id number], [place] tel:[phone] [facility] right shoulder pain (chief complaint) Complete rotatr-cuff tear/ruptr of r shoulder, not traumaOther specified arthritis, right shoulderBicipi ronny tendinitis, right shoulder Feb- 5 Loni Eisenberg. [address] [facility], [address], [id number], [place]. tel:[phone] Referring Provider: Elgin Lizarraga, [address] [address], [place], [address] . tel:[phone] [facility], [address] [place] [address], [id number], [place] tel:[phone] [facility] Pain in right shoulder Mar- 4 Loni Eisenberg. [address] [place] [address], [place], [place], [id number], [place]. tel:[phone] Office/outpa tient visit,[facility], [facility], [address] [place] [address], [id number], [place] tel:[phone] [facility] right shoulder pain (chief complaint) Pain in right shoulderComple te rotatr-cuff tear/ruptr of r shoulder, not traumaOther specified arthritis, right shoulder Mar- 4 Loni Eisenberg. [address] [place] [address], [place], [place], [id number], [place]. tel:[phone] Referring Provider: Elgin Lizarraga, [address] [place] [address], [place], [address] . tel:[phone] Office/outpa tient visit,[facility], [facility], [address] [place] [address], [id number], [place] tel:[phone] [facility] right shoulder pain (chief complaint) Pain in right shoulderComple te rotatr-cuff tear/ruptr of r shoulder, not traumaArthropa thy, unspecified 3 Aime Bundy. [address] [place] [address], [place], [place], [id number], [place]. tel:[phone] Referring Provider: Niharika Price, [address] [place] [address], [place], [address] . tel:[phone] Family History Family Member Type Diagnosis Age [...] Provider Payers Payer name Insurance type Covered republican ID Authoriza tion(s) [place] Part [place] [id number] [employer] Senior Supplemental Insurance [place] [id number] Social History Type Description Quantity Date Captured Comments Sex Female Smoking Status No Information Gender Identity Female Chief Complaint And Reason For Visit No Information Reason For Referral Reason For Referral No Information Plan Of Treatment Date Type Action Status Referral Ordered: CT scan Upper Extrem W/o Contrast RT shoulder ordered Referral Ordered: X-ray exam shoulder complete, minimum 2 views LT shoulder ordered Referral Ordered: X-ray exam shoulder complete, minimum 2 views RT shoulder ordered Referral Ordered: X-ray exam shoulder complete, minimum 2 views RT ordered History Of Present Illness Encounter Date Complaint History Of Prese nt Illness right shoulder pain She presents with pain and rTSA on the right side. The patient returns 3 months from the above stated procedure. The patient has done well in the interim and notes no wound or skin problems, wound drainage, new neurological complaints. They have been compliant with the prescribed weight bearing status per the patient's report. They have progressed well with prescribed physical therapy and are overall happy with their progress. They have good gains in ROM and feel ready to proceed to the final phase of strengthening. No other complaints. 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 They report significant relief from their last injection but the pain has returned. The patient would like to repeat another injection and continue PT/home exercises. She presents with pain on the left side. shoulder The patient retu rns 6 weeks from the above procedure. The patient has done well in the interim and notes no wound/skin problems, wound drainage, new neurological complaints, or abnormal swelling/calf pain. The patient notes they have been compliant with physical therapy and sling use. They are progressing well. No other complaints noted. shoulder The patient retu rns 2 weeks from the above procedure. They note no fevers, chills, night sweats, abnormal swelling or calf pain. They have been compliant with physical therapy guided rehabilitation per their report. They note appropriate use of the sling as instructed. No other immediate post operative issues are noted. right shoulder pain Stephanie Diop is a 84 year old female. The patient has known glenohumeral osteoarthritis and returns now in anticipation of planned shoulder arthroplasty having failed all reasonable non-operative treatments. In addition to the history today I have reviewed lab tests dated including: CBC, CMP, PT/INR, A1C. These results are compatible with proceeding to shoulder arthroplasty. She presents with pain, crepitus and decreased range of motion on the [...] care. They are indicated for shoulder arthroplasty. left shoulder pain Ms Diop is a 84 year old female who complains of left shoulder pain. She presents with pain on the left side. She states that the symptoms have been chronic non-traumatic. The symptoms occur occasionally. The problem is unchanged. Currently the patient states that the symptoms are moderate. The pain is described as aching, stabbing and throbbing. The symptoms occur with activity. The symptoms are aggravated by daily activities, lifting away from the body, reaching behind, reaching overhead and sleeping in any position. Stephanie states that the symptoms are relieved by ice, otc medicines and rest. In addition to left shoulder pain the patient is also experiencing nocturnal awakening. Pertinent negatives include fever, joint instability and tingling in the arms. right shoulder pain Stephanie Diop is a [...] Information Instructions Date Instruction Additional Infor gloria Injection performed today as documented. Continue non-operative treatments as outlined previously. Follow up prn if symptoms return or worsen. Questions answered, verbalized understanding. 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 The will follow up at one year from surgery with repeat films. They will continue their home exercise plan for maintenance and gradual functional improvement. We discussed the role of joint prophylaxis with oral antibiotics prior to any dental or surgical procedures and to call at any time with questions, concerns, or other issues. Questions answered, verbalized understanding. Related to Presence of right artificial shoulder joint The details of the p rocedure performed and imaging studies were discussed in detail with the patient. The patient will progress to partial weightbearing (no lifting more than 2 pounds), and may progress out of the sling. The will follow up at 3 months from surgery with repeat films and will continue PT per protocol. We discussed the role of joint prophylaxis with oral antibiotics prior to any dental or surgical procedures and to call at any time with questions, concerns, or other issues. Questions answered, verbalized understanding. Related to Presence of right artificial shoulder joint The details of the p rocedure performed and appropriate arthroscopic photos and any intraoperative imaging were discussed in detail with the patient. The patient will continue to be non-weightbearing in the sling. They will continue PT guided rehab per protocol. They will continue to ice, use over the counter and/or prescription meds as appropriate. Follow up in 4 weeks for repeat evaluation, ROM check, and likely progression out of the sling and into the next phase of PT guided rehabilitation. Questions answered, verbalized understanding. Related to Presence of right artificial shoulder joint After discussing the risks, benefits, and alternatives to a minor procedure the patient would like to proceed with a subacromial injection and we will make arrangements for this with my UPFITTER Lyssa Willett who does these injections. We also discussed the need for an icing program, activity modifications, and a home strengthening program. We discussed the need for side effect monitoring and a prescription for an oral/topical NSAID was given/they declined and will utilize OTC medications with PCP approval.We discussed we could repeat an injection again in 12 weeks or more vs. more likely obtaining an MRI if not improved/symptoms return. The patient will follow up on an as needed basis and was instructed to call with any issues or concerns. Questions answered, verbalized understanding. 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 The patient has elected to proceed with right reverse total shoulder arthroplasty, capsular release to address motion deficits, and open tenodesis to address biceps pathology. We discussed possible conversion to reverse or [...] hospital. We discussed surgery will be at [facility] and the anticipated length of stay would likely be 1 night. We discussed the importance of post-operative physical therapy and home exercises in the rehabilitation process. We discussed the need for a first aid director and my nurse practitioner's role in the post op period. Questions answered, verbalized understanding. Related to Bicipital tendinitis, right shoulder The patient has been cleared for shoulder [...] hospital. We discussed surgery will be at [facility] and the anticipated length of stay would [...]
--- OUTSIDE RECORDS SUMMARY | 2025-02-26 00:22 | XMS_ITS | Encounter Summary ---
Author Organization [facility] Address [address] [place] [address] Care Team Providers Care Metaphysics Teacher Name Role Phone Unavailable Primary Care Provider Unavailabl e Encounter Details Date Type Department Care Team (Late st Contact Info) Description 05/26/2023 Lab Requisition [facility] Physician [facility] - DermPath Lab [address] [place] [id number] Rosendo Yu MD [address] [place] [address] Social History Tobacco Use Types Packs/Day Years Used Date Smoking Tobacco: Never Assessed Comments Unknown Sex and Gender Information Value Date Recorded Sex Assigned at Not on file Legal Sex Female 5:26 PM INTEGRATION LEAD Gender Identity Not on file Sexual Orientation Not on file documented as of this encounter Plan of Treatment Not on file documented as of this encounter Procedures Procedure Name Priority Date/Time Associated Diagnosis Comments DERMATOPATHOLOGY Routine 05/25/2023 3:33 AM INTEGRATION LEAD documented in this encounter Results * DERMATOPATHOLOGY (05/25/2023 3:33 AM INTEGRATION LEAD) Case Report Dermatopathology Report Case: [id number] Authorizing Provider: Rosendo Yu MD Collected: 05/25/2023 03:33 AM Ordering Location: [facility] Physician [facility] - Received: 05/26/2023 04:37 PM DermPath Lab [...] by Nicole Campos MD on 06/28/2023 at 1708 CDT at 1637 INTEGRATION LEAD Clinical History 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 [id number]. 4 5:08 PM CDT DERMATOPATHOLOGY LABORATORY Gross Description Specimen A: Received is one formalin filled container labeled with the patient's name and designated right lower lat leg. The specimen consists of a curettage and desiccation biopsy measuring [id number]. Jar 0. 4 5:08 PM CDT DERMATOPATHOLOGY LABORATORY Microscopic Description Specimen A. SKIN, right lower lat leg: There is a zone of fibrosing granulation tissue due to a previous biopsy. The adjacent epidermis does not contain a residuum of the squamous cell carcinoma in situ seen in the prior specimen. 4 5:08 PM CDT DERMATOPATHOLOGY LABORATORY Disclaimer An external and internal positive and negative controls are appropriate for the histochemical, immunohistochemical and immunofluorescence stain(s) in this case (if any), except where stated explicitly. The performance characteristics of the stain(s) cited in this report were developed and its performance characteristic determined by the Dermatopathology Laboratory at [facility], directed by Dr. Justyn Ryan. These tests need not be, and therefore are not, approved by the [place] Food and Drug Administration. The tests are used for clinical purposes. Billing Codes Specimen Charges Stain Charges 42409 1 4 5:08 PM CDT DERMATOPATHOLOGY LABORATORY Embedded Images 4 5:08 PM CDT DERMATOPATHOLOGY LABORATORY Pathology/Cytolo gy TISSUE SPECIMEN FROM SKIN / Unknown 05/25/2023 3:33 AM INTEGRATION LEAD 05/26/2023 4:37 PM INTEGRATION LEAD Rosendo Yu MD LAB - PATHOLOGY/CYTOLOGY ORD ERABLES Edited Result - Final DERMATOPATHOLOGY LABORATORY [facility] - Department of Dermatology [address], [address] [phone] documented in this encounter Visit Diagnoses Not on filedocumented in this encounter
--- OUTSIDE RECORDS SUMMARY | 2025-02-26 00:22 | XMS_ITS | Clinical Summary ---
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 Heater Operator Name Role Phone Kerrie Luis MD Primary Care Provide r Eusebio Mendez MD Unavailable Allergies Active Allergy Reactions Criticality Noted Date Comments Cfiqkonq-Vfnkjcllhr-Acpcmmsxl Unknown 2024 Bacitracin-Polymyxin B Unknown 09/15/2024 Medications atorvastatin (LIPITOR) 20 mg tablet Take 1 tablet (20 mg total) by mouth daily after lunch 3 9 Active lisinopril (PRINIVIL,ZESTRI L) 10 mg tablet Take 1 tablet (10 mg total) by mouth every morning 5 9 Active Unithroid 50 mcg tablet Take 1 tablet (50 mcg total) 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 before 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 4 Active aspirin 81 mg enteric coated tablet Take 1 tablet (81 mg total) by mouth every morning Active acetaminophen-as pirin-caffeine (EXCEDRIN MIGRAINE) 250-250-65 mg per tablet Take 1 tablet by mouth every 6 (six) hours as needed Active polyvinyl alcohol-povidone (REFRESH CLASSIC) 1.4-0.6 % dropperette Administer 2 drops into both eyes 2 (two) times a day Active vit A/vit C/vit E/zinc/copper (PRESERVISION AREDS ORAL) Take 1 tablet by mouth 2 (two) times a day Active calcium-magnesiu m-zinc 333-133-5 mg tablet Take 1 tablet by mouth daily after lunch Active cholecalciferol 25 mcg (1,000 unit) tablet Take 1 tablet (1,000 Units total) by mouth daily after lunch Active cyanocobalamin (Vitamin B-12) 1,000 mcg tablet Take 1 tablet (1,000 mcg total) by mouth daily after lunch Active coenzyme Q10 100 mg capsule Take 1 capsule (100 mg total) by mouth every evening Active celecoxib (CeleBREX) 200 mg capsuleIndicatio ns:Postoperative Acute Pain,Pain Take 1 capsule (200 mg total) by mouth daily for 14 days 5 Active HYDROcodone-acet aminophen (NORCO) 5-325 mg per tabletIndication s:Pain Take 1-2 tablets by mouth every 6 (six) hours as needed for pain 5 Active oxyCODONE (ROXICODONE) 5 mg immediate release tabletIndication s:Pain Take 1 tablet (5 mg total) by mouth every 6 (six) hours as needed for pain (Breakthrough pain only if needed in addition to/staggered with hydrocodone) 5 Active hydrOXYzine (VISTARIL) 25 mg capsule Take 1 capsule (25 mg total) by mouth every 6 (six) hours as needed for itching (nausea, vomiting,) 5 Active Active Problems Problem Noted Date Diagnosed Date S/P reverse total shoulder arthroplasty, right 0 09/25/2024 Bicipital tendinitis of right shoulder 5 Nontraumatic complete tear of right rotator cuff 03/24/2024 Allergic arthritis of shoulder region, right 09/2023 Primary osteoarthritis of right shoulder 023 Medical History Medical History Date Comments Anxiety Arthritis Cancer (HCC) Gastric reflux Heart murmur Hiatal hernia Hypercholesteremia Hypertension Headache Migraines Peptic ulceration Urinary tract infection Nontraumatic complete tear of right rotator cuff PONV (postoperative nausea and vomiting) Family History Medical History Relation Name Comments Arthritis Mother Relation Name Status Comments Mother Social History Tobacco Use Types Packs/Day Years Used Date Smoking Tobacco: Never Smokeless Tobacco: Never Alcohol Use Standard Drinks/Week Comments Yes 0 (1 standard drink = 0.6 oz pur e alcohol) AUDIT-C Answer Date Recorded Q1: How often do you have a drink containing alcohol? Never 09/15/2024 Q2: How many drinks containi ng alcohol do you have on a typical day when you are drinking? Patient does not drink Q3: How often do you have si x or more drinks on one occasion? Never 09/15/2024 Personal Safety Answer Date Recorded Have you ever been in or are you currently in a harmful physical or emotional relationship or is someone making you feel afraid or unsafe? Denies 09/25/2024 Comments No Sex and Gender Information Value Date Recorded Sex Assigned at Not on file Legal Sex Female 11:34 AM CDT Gender Identity Not on file Sexual Orientation Not on file Last Filed Vital Signs Vital Sign Reading Time Taken Comments Blood Pressure 143/56 09/27/2024 3:58 PM CDT Pulse 57 09/27/2024 3:58 PM CDT Temperature 37.1 C (98.7 F) 09/27/2024 3:58 PM CDT Respiratory Rate 18 09/27/2024 3:58 PM CDT Oxygen Saturation 95% 09/27/2024 3:58 PM CDT Inhaled Oxygen Concentration - - Weight 64 kg (141 lb) 09/25/2024 11:35 AM CDT Height 160 cm (5' 3) 09/25/2024 11:35 AM CDT Body Mass Index 24.98 09/25/2024 11:35 AM CDT Plan of Treatment Health Maintenance Due Date Last Done Comments Depression Screening 1940 Osteoporosis Screening-Bone Density Scan 1940 Hepatitis B Screening 07[birth year]30/1958 Well Visit 65+ 07/30/2004 Covid-19 Vaccine (2024-2 6 season) 2024 05/24/2024, 02/19/2023, 05/04/2022, Additional history exists Influenza Vaccine (#1) 2024 , 01/27/2024, 02/12/2023, Additional history exists Fall Risk Assessment 09/27/2025 09/27/2024 DTaP/Tdap/Td Vaccine (3 - Td or Tdap) 05/12/2033 05/12/2023, 02/18/2012 Pneumococcal vaccine 65+ Completed 01/21/2015, 0804/2011 Zoster Vaccine Completed 04/24/2022, 11/17, 01/18/2012 Medical Devices Implanted Type Area Manufacturer'S Service Representative Device Identifier Shelf Expiration Date Model / Serial / Lot [employer] Implant Pin Kit Glenoid Ar-9607s - [id number] Implanted:Qty: 1 on 09/25/2024 by Elgin Ivey MD at [facility] Right: Shoulder [employer] 11/16/2028 AR-9607S / / [id number] [employer] Insert Humeral Reverse Extra Small Univers Revers +3x33mm Poly [id number] - [id number] Implanted:Qty: 1 on 09/25/2024 by Elgin Ivey MD at [facility] Right: Shoulder [employer] 06/16/2028 AR-9503XS- 06 / / [id number] [employer] Univers Revers Arthrex 5mm Stem Humeral Sterile Ar-9501-05p - [id number] Implanted:Qty: 1 on 09/25/2024 by Elgin Ivey MD at [facility] Right: Shoulder [employer] 01/16/2029 AR-9501-05 P / / [id number] [employer] Arthrex 20mm Central Modular Screw Bone Sterile Ar-9561-20s - [id number] Implanted:Qty: 1 on 09/25/2024 by Elgin Ivey MD at [facility] Right: Shoulder [employer] 10/17/2027 AR-9561-20 S / / [id number] [employer] Arthrex 24mm Modular Shoulder +4mm Baseplate Glenoid Sterile [id number] - [id number] Implanted:Qty: 1 on 09/25/2024 by Elgin Ivey MD at [facility] Right: Shoulder [employer] 07/17/2029 AR-9560-24 -4 / / [id number] [employer] Component Glenosphere 24mm Baseplate Taper Univers Revers 33/24mm [id number] - [id number] Implanted:Qty: 1 on 09/25/2024 by Elgin Ivey MD at [facility] Right: Shoulder [employer] 04/18/2029 AR-9564-24 33 / / [id number] [employer] 5.5mm 16mm Lock Peripheral Screw Bone Sterile Ar-9563-16 - [id number] Implanted:Qty: 1 on 09/25/2024 by Elgin Ivey MD at [facility] Right: Shoulder [employer] 04/18/2029 AR-9563-16 / / [id number] [employer] Screw Glenoid Locking Reverse Univers Revers 5.5x20mm Titanium Ar-9563-20 - [id number] Implanted:Qty: 1 on 09/25/2024 by Elgin Ivey MD at [facility] Right: Shoulder [employer] 02/16/2029 AR-9563-20 / / [id number] [employer] Univers Revers 4.5mm 20mm Modular Glenoid Peripheral Screw Bone [id number] - [id number] Implanted:Qty: 1 on 09/25/2024 by Elgin Ivey MD at [facility] Right: Shoulder [employer] 02/16/2029 AR-9562-20 NL / / [id number] [employer] 4.5mm 28mm Peripheral Screw Bone Sterile [id number] - [id number] Implanted:Qty: 1 on 09/25/2024 by Elgin Ivey MD at [facility] Right: Shoulder [employer] 10/17/2027 AR-9562-28 NL / / [id number] [employer] Implant Suture Cup Humeral Reverse Neutral Univers Revers +0x33mm Titanium [id number] - [id number] Implanted:Qty: 1 on 09/25/2024 by Elgin Ivey MD at [facility] Right: Shoulder [employer] 05/19/2029 AR-9502F-3 3CPC / / [id number] Insurance MEDICARE [facility] MEDICARE [employer] SENIOR SUPPLEMENT MEDICARE [employer] SENIOR SUPPLEMENT Advance Directives For more information, please contact: [phone] Documents on File Type Date Recorded Patient Microfiche Camera Operator Expl anation ADVANCE DIRECTIVE 09/28/2024 10:40 PM WYATT R OF STICK PULLER-MEDICAL ADVANCE DIRECTIVE 09/25/2024 1:08 PM Power of Scallop Dredger-Medical * Full Code (Latest Code Status on File) Date Activated Date Inactivated Comments 09/25/2024 11:40 AM 09/27/2024 10:50 PM Care Teams Billet Heater Operator Relationship Specialty Start Date End Date Kerrie Luis MD PCP - General Internal Medicine 07/21/18 Eusebio Mendez MD [address] [place] [address] Consulting Physician Cardiology 06/13/24
--- OUTSIDE RECORDS SUMMARY | 2025-02-26 00:22 | XMS_ITS | Data Portability ---
Author Organization [facility], Main Office Address [address] [place] [address] Care Team Providers Care Wool Broker Name Role Phone REINIER LUIS Primary Care Provider REINIER LUIS Referring Provider [phone] JACOB HOYT Mixer And Scaler EUSEBIO MENDEZ Manager Customer EUSEBIO MENDEZ Vascular Surgeon Assessment Encounter Date Assessment Date Assessment LastModified by Organization Details LastModified Time 07/04/2024 07/04/2024 10/23/2022: A1C 5.6 Gluc 105 04/20/2023: TSH 0.328L, FT4 1.42 Gluc 106 08/17/2023: Gluc 103, AST 42 10/23/2022: A1C 5.6 Gluc 105 04/20/2023: TSH 0.328L, FT4 1.42 Gluc 106 08/17/2023: Gluc 103, AST 42 11/24/2023: A1C 5.6 TSH 0.458L, FT4: 1.82 Gluc 108 03/22/2024: A1C 5.6 Na 132, Gluc 108, BUN 23, AST 44 Urine micro alb 19.3 06/16/2024: A1C 6.0 Urine micro alb 19.6 Heri ER 06/20/2024: WBC 13.3 BUN 20 Gluc 131 [email or web address] Not available 07/04/2024 14:20:12 08/31/2024 08/31/2024 10/23/2022: A1C 5.6 Gluc 105 04/20/2023: TSH 0.328L, FT4 1.42 Gluc 106 08/17/2023: Gluc 103, AST 42 10/23/2022: A1C 5.6 Gluc 105 04/20/2023: TSH 0.328L, FT4 1.42 Gluc 106 08/17/2023: Gluc 103, AST 42 11/24/2023: A1C 5.6 TSH 0.458L, FT4: 1.82 Gluc 108 03/22/2024: A1C 5.6 Na 132, Gluc 108, BUN 23, AST 44 Urine micro alb 19.3 06/16/2024: A1C 6.0 Urine micro alb 19.6 Heri ER 06/20/2024: WBC 13.3 BUN 20 Gluc 131 08/02/2024: Urine micro alb 21.5 Na 133, Gluc 104 08/10/2024: Dr Lesia Whittington Na 132, Gluc 107, Alb 4.5, TP WNL [email or web address] Not available 08/31/2024 16:46:32 01/04/2025 01/04/2025 10/23/2022: A1C 5.6 Gluc 105 04/20/2023: TSH 0.328L, FT4 1.42 Gluc 106 08/17/2023: Gluc 103, AST 42 10/23/2022: A1C 5.6 Gluc 105 04/20/2023: TSH 0.328L, FT4 1.42 Gluc 106 08/17/2023: Gluc 103, AST 42 11/24/2023: A1C 5.6 TSH 0.458L, FT4: 1.82 Gluc 108 03/22/2024: A1C 5.6 Na 132, Gluc 108, BUN 23, AST 44 Urine micro alb 19.3 06/16/2024: A1C 6.0 Urine micro alb 19.6 Heri ER 06/20/2024: WBC 13.3 BUN 20 Gluc 131 08/02/2024: Urine micro alb 21.5 Na 133, Gluc 104 08/10/2024: Dr Lesia Whittington Na 132, Gluc 107, Alb 4.5, TP WNL 12/20/2024: A1C 5.7 HGB 12.8 CMP: Dr Pastor [email or web address] Not available 01/04/2025 14:06:50 Plan of Treatment Reminders Order Date Submit Date Provider Last Modified By Organization Details Last Modified Time Details Appointments Medicare Wellness 15 2025 01:30P Shaji jiménez MD Not available Not available Not available Follow Up 15 2025 01:15P Shaji Whittington MD Not available Not available Not available Lab glycohemo globin, total, blood 2024 025 [email or web address] [facility] (Lab), [address] [place], [address], 01/04/2025 15:01:25 microalbu min, urine 2024 025 [email or web address] [facility] (Lab), [address] [place], [address], 01/04/2025 15:01:25 lipid panel, serum 2024 025 [email or web address] [facility] (Lab), [address] [place], [address], 01/04/2025 15:01:24 CBC w/ auto diff 2024 025 [facility] (Lab), [address] [place], [address], 01/04/2025 15:01:24 CMP, serum or plasma 2024 025 [email or web address] [facility] (Lab), [address] [place], [address], 01/04/2025 15:01:24 TSH, serum or plasma 2024 025 [facility] (Lab), [address] [place], [address], 01/04/2025 15:01:25 CBC w/ auto diff 2024 025 [email or web address] [facility] (Lab), [address] [place], [address], 12/28/2024 14:33:26 CMP, serum or plasma 2024 025 [facility] (Lab), [address] [place], [address], 12/28/2024 14:33:26 prothromb in time [address] (Lab), [address] [place], [address], 01/25/2025 08:02:42 hepatitis A Ab, total, serum [address] (Lab), [address] [place], [address], 01/25/2025 08:02:42 hepatitis B surface Ab, qualitati ve, serum [address] (Lab), [address] [place], [address], 01/25/2025 08:02:42 afp (alpha-fe toprotein ) tumor marker, serum or plasma [address] (Lab), [address] [place], [address], 01/25/2025 08:02:42 glycohemo globin, total, blood 2024 025 [facility] (Lab), [address] [place], [address], 12/20/2024 20:06:42 microalbu min, urine 2024 025 [facility] (Lab), [address] [place], [address], 08/31/2024 16:56:54 lipid panel, serum 2024 025 [facility] (Lab), [address] [place], [address], 12/20/2024 17:48:27 CBC w/ auto diff 2024 025 [facility] (Lab), [address] [place], [address], 12/20/2024 17:58:51 CMP, serum or plasma 2024 025 [facility] (Lab), [address] [place], [address], 12/21/2024 07:54:31 TSH, serum or plasma 2024 025 [facility] (Lab), [address] [place], [address], 12/20/2024 18:18:05 CMP, serum or plasma [address] (Lab), [address] [place], [address], 08/14/2024 09:27:14 CBC w/ auto diff [address] (Lab), [address] [place], [address], 08/14/2024 09:27:02 THANH (antinucl ear antibodie s) screen, serum [address] (Lab), [address] [place], [address], 08/14/2024 09:28:22 smooth muscle Ab, serum [address] (Lab), [address] [place], [address], 08/14/2024 09:28:31 iron + TIBC + ferritin, serum [address] (Lab), [address] [place], [address], 08/14/2024 09:27:46 cerulopla smin, serum [address] (Lab), [address] [place], [address], 08/14/2024 09:28:37 liver fibrosis biomarker panel, serum [address] (Lab), [address] [place], [address], 08/15/2024 08:17:36 hepatitis panel (A+B+C), acute, serum [address] (Lab), [address] [place], [address], 08/14/2024 09:28:12 afp (alpha-fe toprotein ) tumor marker, serum or plasma [address] (Lab), [address] [place], [address], 08/14/2024 09:28:47 glycohemo globin, total, blood 2024 025 [facility] (Lab), [address] [place], [address], 08/02/2024 20:00:14 microalbu min, urine 2024 025 [facility] (Lab), [address] [place], [address], 08/02/2024 16:08:18 lipid panel, serum 2024 025 [facility] (Lab), [address] [place], [address], 08/02/2024 12:42:45 CBC w/ auto diff 2024 025 [facility] (Lab), [address] [place], [address], 08/02/2024 12:37:07 CMP, serum or plasma 2024 025 [facility] (Lab), [address] [facility] [place], [address], 08/02/2024 12:42:50 TSH, serum or plasma 2024 025 [facility] (Lab), [address] [place], [address], 08/02/2024 13:02:47 Referral vascular surgeon referral - Please call patient to schedule an appointme nt. Thank you. 2024 025 [place], [id number] Artur Brewer, [address], [address], 11/30/2024 08:42:35 vascular surgeon referral - Please call patient to schedule an appointme nt. Thank you. 2024 025 [place], [id number] Artur Brewer, [facility] [address], [place], [address], 10/02/2024 10:11:38 cardiolog ist referral - Please call patient to schedule an appointme nt. Thank you. 2024 025 [place], [id number] Artur Brewer, [facility] [address], [place], [address], 10/02/2024 10:11:37 gastroent erologist referral - Please call patient to schedule an appointme nt. Thank you. 2024 025 [email or web address] Wood Light MD, [address] [facility], [address], [place], [address], 10/02/2024 10:11:39 Procedures upper endoscopy procedure (EGD) (PROC) - Please call patient to schedule an appointme nt. Thank you. 2024 025 JENNIFER ferrell MD, [address], [address], [place], [address], 01/08/2025 14:20:38 Surgeries None recorded. Imaging DEXA, axial skeleton - Please call patient to schedule. 2024 025 [email or web address] [facility], [address], [address], [place], [address], 02/12/2025 14:37:42 Medication Orders None recorded. Patient TargetsNo targets recorded. Patient Instructions Encounter Date Encounter Id Patient Instructions Last Modified By Organization Details Last Modified Time 07/04/2024 [id number] diabetic eye exam* [email or web address] Not available 01/01/2025 08:19:48 08/10/2024 [id number] Overall patient is doing well from the GI perspective possibility of fatty liver disease leading to cirrhosis of the liver has been discussed with the patient patient does not appear to have signs of portal hypertension as patient's spleen is normal in size on the CT scan. I advised the patient that we will do the liver workup lab orders have been given to the patient I also discussed with her that we will schedule her for an upper endoscopy at this point patient wants to get the shoulder surgery 1st and then she will decide about the upper endoscopy. 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 At this point patient agrees to get the lab workup and we will follow up with after the shoulder surgery [email or web address] Not available 08/10/2024 16:03:44 12/28/2024 [id number] overall patient is clinically doing well without any active GI symptoms I advised the patient that we will proceed with the upper endoscopy to rule out any portal hypertension patient agrees for it I will also advise patient to follow up with us in 6 months 1 month before the visit she needs to do some basic blood work. Fatty liver/ cirrhosis have been discussed with the patient. Regarding the pancreatic cyst patient can do imaging CT in a year which will be next time we can schedule it for evaluation. Patient reports as to print out all the lab so that she can do it 1 month before coming [email or web address] Not available 12/28/2024 14:32:15 Reason for Referral Manager Customer Referral for Es sential hypertension Please call patient to schedule an appointment. Thank you. Referring Physician: Reinier Luis, Internal Medicine, Encounter Date: 07/04/2024 Vascular Surgeon Referral fo r Varicose veins of lower extremity Please call patient to schedule an appointment. Thank you. Referring Physician: Reinier Luis, Internal Medicine, Encounter Date: 07/04/2024 Metal Hanging Supervisor Referral for Liver enzymes level above reference range Please call patient to schedule an appointment. Thank you. Referring Physician: Reinier Luis, Internal Medicine, Encounter Date: 07/04/2024 Vascular Surgeon Referral fo r Varicose veins of lower extremity Please call patient to schedule an appointment. Thank you. Referring Physician: Reinier Luis, Internal Medicine, Encounter Date: 08/31/2024 Results Created Date Observation Date Name Description Value Unit Range Abnormal Flag Note LastModifiedBy Organization Detail LastModifiedTime 06/16/1906/16/2024 CBC/C OMPLE TE BLD COUNT W/DIF F white blood cells 6.6 x10'3 /uL 4.2-10 .8 Not Available [facility] (Lab) [address] [place], [address], 06/16/2024 14:38:02 06/16/19 25 06/16/2024 CBC/C OMPLE TE BLD COUNT W/DIF F red blood cells 4.19 x10'6 /uL 3.80-5 .20 Not Available [facility] (Lab) [address] [place], [address], 06/16/2024 14:38:02 06/16/19 25 06/16/2024 CBC/C OMPLE TE BLD COUNT W/DIF F hemoglobin 13.0 g/dL 12.0-1 5.6 Not Available [facility] (Lab) [address] [place], [address], 06/16/2024 14:38:02 06/16/19 25 06/16/2024 CBC/C OMPLE TE BLD COUNT W/DIF F hematocrit 40.0 % 35.7-4 5.7 Not Available [facility] (Lab) [address] [place], [address], 06/16/2024 14:38:02 06/16/19 25 06/16/2024 CBC/C OMPLE TE BLD COUNT W/DIF F mean red cell volume 95.5 fL 82.0-9 9.0 Not Available [facility] (Lab) [address] [place], [address], 06/16/2024 14:38:02 06/16/19 25 06/16/2024 CBC/C OMPLE TE BLD COUNT W/DIF F mean red cell hemoglobin 31.0 pg 27.0-3 3.0 Not Available [facility] (Lab) [address] [place], [address], 06/16/2024 14:38:02 06/16/19 25 06/16/2024 CBC/C OMPLE TE BLD COUNT W/DIF F mean RBC HGB concentratio n 32.5 g/dL 31.0-3 6.0 Not Available [facility] (Lab) [address] [place], [address], 06/16/2024 14:38:02 06/16/19 25 06/16/2024 CBC/C OMPLE TE BLD COUNT W/DIF F red cell distribution width 13.3 % 11.8-1 5.5 Not Available [facility] (Lab) [address] [place], [address], 06/16/2024 14:38:02 06/16/19 25 06/16/2024 CBC/C OMPLE TE BLD COUNT W/DIF F platelets 214 x10'3 /uL 150-40 0 Not Available [facility] (Lab) [address] [place], [address], 06/16/2024 14:38:02 06/16/19 25 06/16/2024 CBC/C OMPLE TE BLD COUNT W/DIF F mean platelet volume 11.5 fL 9.0-12 .4 Not Available [facility] (Lab) [address] [place], [address], 06/16/2024 14:38:02 06/16/19 25 06/16/2024 CBC/C OMPLE TE BLD COUNT W/DIF F neutrophils 62.6 % 39.0-7 2.0 Not Available [facility] (Lab) [address] [place], [address], 06/16/2024 14:38:02 06/16/19 25 06/16/2024 CBC/C OMPLE TE BLD COUNT W/DIF F lymphocytes 22.1 % 16.0-4 7.0 Not Available [facility] (Lab) [address] [place], [address], 06/16/2024 14:38:02 06/16/19 25 06/16/2024 CBC/C OMPLE TE BLD COUNT W/DIF F monocytes 12.8 % 5.0-12 .0 high Not Available [facility] (Lab) [address] [place], [address], 06/16/2024 14:38:02 06/16/19 25 06/16/2024 CBC/C OMPLE TE BLD COUNT W/DIF F eosinophils 1.4 % 1.0-7. 0 Not Available [facility] (Lab) [address] [place], [address], 06/16/2024 14:38:02 06/16/19 25 06/16/2024 CBC/C OMPLE TE BLD COUNT W/DIF F basophils 0.5 % 0.0-2. 0 Not Available [facility] (Lab) [address] [place], [address], 06/16/2024 14:38:02 06/16/19 25 06/16/2024 CBC/C OMPLE TE BLD COUNT W/DIF F immature granulocytes 0.6 % 0.00-0 .50 high Not Available [facility] (Lab) [address] [place], [address], 06/16/2024 14:38:02 06/16/19 25 06/16/2024 CBC/C OMPLE TE BLD COUNT W/DIF F neutrophils, absolute count 4.15 x10'3 /uL 1.5-8. 0 Not Available [facility] (Lab) [address] [place], [address], 06/16/2024 14:38:02 06/16/19 25 06/16/2024 CBC/C OMPLE TE BLD COUNT W/DIF F lymphocytes, absolute count 1.46 x10'3 /uL 1.07-3 .43 Not Available [facility] (Lab) [address] [place], [address], 06/16/2024 14:38:02 06/16/19 25 06/16/2024 CBC/C OMPLE TE BLD COUNT W/DIF F monocytes, absolute count 0.85 x10'3 /uL 0.29-0 .99 Not Available [facility] (Lab) [address] [place], [address], 06/16/2024 14:38:02 06/16/19 25 06/16/2024 CBC/C OMPLE TE BLD COUNT W/DIF F eosinophils, absolute count 0.09 x10'3 /uL 0.02-0 .53 Not Available [facility] (Lab) [address] [place], [address], 06/16/2024 14:38:02 06/16/19 25 06/16/2024 CBC/C OMPLE TE BLD COUNT W/DIF F basophils, absolute count 0.03 x10'3 /uL 0.01-0 .08 Not Available [facility] (Lab) [address] [place], [address], 06/16/2024 14:38:02 06/16/19 25 06/16/2024 CBC/C OMPLE TE BLD COUNT W/DIF F immature granulocytes ,absolute 0.04 x10'3 /uL 0.00-0 .05 Not Available [facility] (Lab) [address] [place], [address], 06/16/2024 14:38:02 06/16/19 25 06/16/2024 CBC/C OMPLE TE BLD COUNT W/DIF F nucleated red blood cells 0.0 % -0 Not Available [facility] (Lab) [address] [place], [address], 06/16/2024 14:38:02 06/16/19 25 06/16/2024 CBC/C OMPLE TE BLD COUNT W/DIF F NRBC# 0.00 x10'3 /uL Not Available [facility] (Lab) [address] [place], [address], 06/16/2024 14:38:02 06/16/19 25 06/16/2024 HEMOG LOBIN A1C HA1C 6.0 % 4.0-6. 0 Diabe elpidio Scree james Crite kaylen: <5.7% Consi stent with absen ce of diabe elpidio 5.7-6 .4% Consi stent with incre ased risk for diabe elpidio (pred iabet es) >OR=6 .5% Consi stent with diabe elpidio REFER ENCE: Diabe elpidio Care 2016, 39(Guardado ppl.1 ):s13 -s22 Not Available [facility] (Lab) [address] [place], [address], 06/16/2024 15:24:48 06/16/19 25 06/16/2024 LIPID PANEL cholesterol 154 mg/dL 140-19 9 NIH STEPHANIE NSUS RECOM MENDA TION FOR KINDRA STERO L: ADULT CHILD LOW RISK: <200 <170 BORDE RLINE : <200- 239 ----- HIGH RISK: >240 >200 Not Available [facility] (Lab) [address] [place], [address], 06/16/2024 17:20:11 06/16/19 25 06/16/2024 LIPID PANEL triglyceride s 117 mg/dL 0-150 NIH STEPHANIE NSUS REPOR T RECOM MENDA TION FOR TRIGL YCERI ALLAN: ADULT CHILD LOW RISK: <150 ----- BODER LINE: 150-1 99 ----- HIGH RISK: >200 ----- Not Available [facility] (Lab) [address] [place], [address], 06/16/2024 17:20:11 06/16/19 25 06/16/2024 LIPID PANEL HDL cholesterol 75 mg/dL 40- Not Available [facility] (Lab) [address] [place], [address], 06/16/2024 17:20:11 06/16/19 25 06/16/2024 LIPID PANEL LDL cholesterol, calculated 56 mg/dL 0-130 NIH STEPHANIE NSUS REPOR T RECOM MENDA TIONS FOR LDL: ADULT CHILD LOW RISK <130 <110 (OPTI MAL LDL) <100 ----- BORDE RLINE : 130-1 59 ----- HIGH RISK: >160 >130 A TRIGL YCERI DE RESUL T >400 INVAL IDATE S THE CALCU LATIO N FOR LDL FRACT IONAT ION - THE LDL RESUL T WILL NOT BE REPOR EMILY. Not Available [facility] (Lab) [address] [place], [address], 06/16/2024 17:20:11 06/16/19 25 06/16/2024 COMPR EHENS DIVINE METAB OLIC PANEL sodium 135 mmol/ L 137-14 5 low Not Available [facility] (Lab) [address] [place], [address], 06/16/2024 17:20:13 06/16/19 25 06/16/2024 COMPR EHENS DIVINE METAB OLIC PANEL potassium 4.2 mmol/ L 3.5-5. 1 Not Available [facility] (Lab) [address] [place], [address], 06/16/2024 17:20:13 06/16/19 25 06/16/2024 COMPR EHENS DIVINE METAB OLIC PANEL chloride 103 mmol/ L 98-107 Not Available [facility] (Lab) [address] [place], [address], 06/16/2024 17:20:13 06/16/19 25 06/16/2024 COMPR EHENS DIVINE METAB OLIC PANEL carbon dioxide 27 mmol/ L 22-30 Not Available [facility] (Lab) [address] [place], [address], 06/16/2024 17:20:13 06/16/19 25 06/16/2024 COMPR EHENS DIVINE METAB OLIC PANEL anion gap 9.2 mmol/ L 14-22 low Not Available [facility] (Lab) [address] [place], [address], 06/16/2024 17:20:13 06/16/19 25 06/16/2024 COMPR EHENS DIVINE METAB OLIC PANEL glucose 102 mg/dL 70-99 high Not Available [facility] (Lab) [address] [place], [address], 06/16/2024 17:20:13 06/16/19 25 06/16/2024 COMPR EHENS DIVINE METAB OLIC PANEL BUN 21 mg/dL 8-19 high Not Available [facility] (Lab) [address] [place], [address], 06/16/2024 17:20:13 06/16/19 25 06/16/2024 COMPR EHENS DIVINE METAB OLIC PANEL creatinine 0.68 mg/dL 0.66-1 .25 Not Available [facility] (Lab) [address] [place], [address], 06/16/2024 17:20:13 06/16/19 25 06/16/2024 COMPR EHENS DIVINE METAB OLIC PANEL GFR >60 Refer ence Range : [place] ge GFR Healt hy Adult : >60 mL/mi n/1.7 3 m2 Chron ic Kidne y Disea se: 15-60 mL/mi n/1.7 3 m2 Kidne y Failu re: <15/m L/min /1.73 m2 www.n iddk. nih.g ov The MDRD study equat ion has not been valid ated in child chris <18 years of age; pregn ant women ; the elder ly >85 years of age; or in some racia l or ethni c subgr oups, such as ia nics. Outsi de the valid ated nirali eters , estim ated GFR is less accur ate, requi ring clini shelby judgm ent on a case- by-ca se basis . Clini shelby inter preta tion for other races and ages must be made by the clini veronique. The MDRD study equat ion has not been valid ated for the evalu ation of serum creat inine relat ed to nutri marshall l statu s or medic ation usage . For perso ns <18 years of age, a pedia tric GFR calcu lator is avail able on the F websi te: https ://nestor w.mary rincon.o rg/pr ofess ional s/kdo qi/gf r_cal culat or Not Available [facility] (Lab) [address] [facility] [place], [address], 06/16/2024 17:20:13 06/16/19 25 06/16/2024 COMPR EHENS DIVINE METAB OLIC PANEL alkaline phosphatase 112 U/L 38-126 Not Available [facility] (Lab) [address] [place], [address], 06/16/2024 17:20:13 06/16/19 25 06/16/2024 COMPR EHENS DIVINE METAB OLIC PANEL alanine aminotransfe rase 27 U/L 0-35 Not Available [facility] (Lab) [address] [place], [address], 06/16/2024 17:20:13 06/16/19 25 06/16/2024 COMPR EHENS DIVINE METAB OLIC PANEL aspartate aminotransfe rase 34 U/L 15-37 Not Available [facility] (Lab) [address] [place], [address], 06/16/2024 17:20:13 06/16/19 25 06/16/2024 COMPR EHENS DIVINE METAB OLIC PANEL bilirubin, total 1.00 mg/dL 0.20-1 .30 Not Available [facility] (Lab) [address] [place], [address], 06/16/2024 17:20:13 06/16/19 25 06/16/2024 COMPR EHENS DIVINE METAB OLIC PANEL calcium 10.0 mg/dL 8.4-10 .2 Not Available [facility] (Lab) [address] [place], [address], 06/16/2024 17:20:13 06/16/19 25 06/16/2024 COMPR EHENS DIVINE METAB OLIC PANEL total protein 7.1 g/dL 6.3-8. 2 Not Available [facility] (Lab) [address] [place], [address], 06/16/2024 17:20:13 06/16/19 25 06/16/2024 COMPR EHENS DIVINE METAB OLIC PANEL albumin 4.6 g/dL 3.0-4. 4 high Not Available [facility] (Lab) [address] [place], [address], 06/16/2024 17:20:13 06/16/19 25 06/16/2024 COMPR EHENS DIVINE METAB OLIC PANEL globulin 2.5 g/dL 2.6-4. 2 low Not Available [facility] (Lab) [address] [place], [address], 06/16/2024 17:20:13 06/16/19 25 06/16/2024 COMPR EHENS DIVINE METAB OLIC PANEL A/G ratio 1.8 ratio 1.0-2. 0 Not Available [facility] (Lab) [address] [place], [address], 06/16/2024 17:20:13 06/16/19 25 06/16/2024 GGT/G -GLUT AMYL TRANS FERAS E gamma-glutam yl transferase 15 U/L 12-43 Not Available [facility] (Lab) [address] [place], [address], 06/16/2024 17:20:16 06/16/19 25 06/16/2024 MICRO ALBUM IN RANDO M URINE microalbumin , urine 19.6 mg/L 0.0-16 .6 high Not Available [facility] (Lab) [address] [place], [address], 06/16/2024 17:36:38 06/16/19 25 06/16/2024 TSH W/REF JOSE DAVID FT4 TSH with reflex free T4 0.578 uIU/m L 0.465- 4.680 Not Available [facility] (Lab) [address] [place], [address], 06/16/2024 17:57:14 06/16/19 25 06/16/2024 HEPAT ITIS ACUTE PANEL hepatitis A IgM antibody NON-RE ACTIVE non-re active For sampl es vilma emily as Borde rline React divine for HAV IgM, it is recom jigar d a new speci men be obtai naomi in 2 weeks and retluiz diaz. Not Available [facility] (Lab) [address] [place], [address], 06/16/2024 18:26:08 06/16/19 25 06/16/2024 HEPAT ITIS ACUTE PANEL hepatitis A virus signal/cutof 0.03 0.00-0 .79 Not Available [facility] (Lab) [address] [place], [address], 06/16/2024 18:26:08 06/16/19 25 06/16/2024 HEPAT ITIS ACUTE PANEL hepatitis B core IgM antibody NON-RE ACTIVE non-re active Not Available [facility] (Lab) [address] [place], [address], 06/16/2024 18:26:08 06/16/19 25 06/16/2024 HEPAT ITIS ACUTE PANEL HBV core IgM signal/cutof f 0.07 0.00-1 .10 Not Available [facility] (Lab) [address] [place], [address], 06/16/2024 18:26:08 06/16/19 25 06/16/2024 HEPAT ITIS ACUTE PANEL hepatitis B surface antigen NON-RE ACTIVE non-re active All speci mens react divine for Hepat itis B Surfa ce Antig en will refle x to refer [facility] confi rmato ry testi ng. Not Available [facility] (Lab) [address] [place], [address], 06/16/2024 18:26:08 06/16/19 25 06/16/2024 HEPAT ITIS ACUTE PANEL HBV surf.antigen signal/cutof f 0.12 0.00-0 .99 Not Available [facility] (Lab) [address] [place], [address], 06/16/2024 18:26:08 06/16/19 25 06/16/2024 HEPAT ITIS ACUTE PANEL hepatitis C antibody NON-RE ACTIVE non-re active All speci mens react divine for Hepat itis C Virus antib argenis will refle x to PCR confi rmato ry testi ng. Pleas e allow 48-72 hours for resul ts. Not Available [facility] (Lab) [address] [place], [address], 06/16/2024 18:26:08 06/16/19 25 06/16/2024 HEPAT ITIS ACUTE PANEL hepatitis C virus signal/cutof 0.01 0.00-0 .99 Not Available [facility] (Lab) [address] [place], [address], 06/16/2024 18:26:08 08/03/19 25 08/02/2024 MICRO ALBUM IN RANDO M URINE microalbumin , urine 21.5 mg/L 0.0-16 .6 high Not Available [facility] (Lab) [address] [place], [address], 08/02/2024 16:08:18 06/21/19 25 06/20/2024 CT, abdom en + pelvi s, w/ contr ast No observ ation record ed. [address], [address], 2024 12:18:11 06/21/19 25 06/20/2024 XR, abdom en No observ ation record ed. [address], [address], 2024 12:18:24 06/22/19 25 06/21/2024 XR, abdom en No observ ation record ed. [address], [address], 2024 12:20:13 06/23/19 25 06/22/2024 imagi ng/di agnos tic resul t No observ ation record ed. [address], [place], [address], 2024 12:21:34 08/24/19 25 08/23/2024 MAMMO , scree james, digit al, bilat eral No observ ation record ed. [facility] [facility] [address], [place], [address], 08/23/2024 14:15:59 02/14/20 25 02/12/2025 DEXA, axial skele ton No observ ation record ed. [facility] [address], [place], [address], 02/13/2025 14:24:46 Result Notes None recorded. Problems Name Problem SNOMED Code Status Onset Date Resolution Date Notes Provider Name and Address Organization Details Recorded Time Abdominal pain 93279180 Completed Not Available [facility] 3 02:53:19 Proteinur ia 02598453 Completed Reinier bland MD [address] [facility], [facility] [address], [place], [address] , [facility] 4 11:33:59 Osteoarth ritis 173958756 Active Not Available [employer] 3 02:53:20 Bradycard ia 68996303 Active Not Available [employer] 3 02:53:20 Essential hypertens ion 12201724 Active Not Available [facility] 3 02:53:20 Diverticu litis 238025547 Active 2016 Not Available [employer] 3 02:53:19 Multiple gastric ulcers 997000695 Active 2016 Not Available [employer] 3 02:53:20 Dysuria 35739508 Active 2016 Not Available [employer] 3 02:53:20 Disorder of thyroid gland 32192615 Active 2017 Not Available [facility] 3 02:53:19 Pain of right shoulder joint 95776647630 476293 Active 2017 Not Available [facility] 3 02:53:19 Hyperlipi demia 26989449 Active 2017 Not Available [facility] 3 02:53:20 Thyroid nodule 192150110 Active 2021 Not Available [facility] 3 02:53:19 COVID-19 681908909 Active 2021 Not Available [facility] 3 02:53:20 Gastroeso phageal reflux disease without esophagit is 307153219 Active 2022 Reinier bland MD [address], [place], [address] , [employer] 3 10:30:46 Urinary incontine nce 559617351 Active 2022 Reinier bland MD [address], [address], [place], [address] , [employer] 3 10:30:54 Hypothyro idism 06021540 Active 2022 Reinier bland MD [address], [address], [place], [address] , [employer] 3 10:35:24 Prediabet es 387975217 Active 2022 Reinier bland MD [address], [address], [place], [address] , [employer] 3 10:35:30 Low back pain 666148879 Active 2022 Reinier bland MD [address], [place], [address] , [employer] 3 10:35:35 Skin lesion 08373325 Active 2023 Reinier bland MD [address], [place], [address] , [facility] 4 14:26:10 Vitamin D deficienc y 99314352 Active 2023 Reinier bland MD [address], [place], [address] , [facility] 4 12:41:45 Hyperglyc emia 99181881 Active 2023 Reinier bland MD [address], [place], [address] , [facility] 4 15:13:55 Varicose veins of lower extremity 04374984 Active 2023 Reinier bland MD [address], [place], [address] , [facility] 4 11:09:03 Proteinur ia 62310197 Active 2023 Reinier bland MD [address], [place], [address] , [facility] 4 11:33:58 Liver enzymes level above reference range 521223857 Active 2023 Reinier bland MD [address], [place], [address] , [facility] 4 11:34:12 Headache 30770737 Active 2023 Reinier bland MD [address], [place], [address] , [facility] 4 15:45:27 Claustrop hobia 56135965 Active 2023 Reinier bland MD [address], [place], [address] , [facility] 4 19:06:48 Cirrhosis of liver 52466552 Active 2023 SIDNEY Hanson, [facility] 4 12:58:44 Small bowel obstructi on 256396011 Active 2024 Reinier bland MD [address] [facility], [place], [address] , [facility] 5 14:20:04 Disease of liver 108913992 Active 2024 Casimiro Whittington MD [address] [facility], [place], [address] , [facility] 5 16:01:03 Cyst of pancreas 54152845 Active 2024 Casimiro Whittington MD [address] [facility], [facility] [address], [place], [address] , [facility] 5 16:03:50 Acute urinary tract infection 351095346 Active 2024 AMINATA Bragg, [facility] 5 14:13:51 Nausea 313561834 Active 2024 AMINATA Bragg, [facility] 5 14:54:47 Cirrhosis - non-alcoh olic 523045391 Active 2024 Casimiro Whittington MD [address] [facility], [place], [address] , [facility] 5 14:32:55 Problem Notes None recorded. Procedures Surgical History Date Name Laterality Status Provider Name and Address Organization Details Recorded Time 024 Medicare Wellness CPT Code, subsequent completed Zach Betancourt LPN [facility] 08/24/2023 17:02:00 024 Date of Last Mammogram completed Mandy Rich MA [facility] 12/07/2023 15:13:51 023 [facility] 01/04/2025 14:40:57 022 Most Recent Bone Density [facility] 12/07/2023 15:14:17 020 viscosupplementation completed Not Available [facility] 06/17/2022 02:47:42 019 CUSHION SEWER Surgery completed Not Available [facility] 06/17/2022 02:47:42 017 Orthopedic Surgery completed Not Available [facility] 06/17/2022 02:47:42 017 Colonoscopy completed Not Available [facility] 06/17/2022 02:47:42 017 Endoscopy completed Not Available [facility] 06/17/2022 02:47:42 017 Date of Last Colonoscopy completed Mandy Rich MA [facility] 12/07/2023 15:14:48 014 Orthopedic Surgery completed Not Available [facility] 06/17/2022 02:47:42 CUSHION SEWER Surgery completed Not Available [facility] 06/17/2022 02:47:42 Breast Surgery completed Not Available [facility] 06/17/2022 02:47:42 viscosupplementation completed Not Available [facility] 06/17/2022 02:47:42 Orthopedic Surgery completed Not Available [facility] 06/17/2022 02:47:42 Orthopedic Surgery completed Not Available [facility] 06/17/2022 02:47:42 Breast Surgery completed Not Available [facility] 06/17/2022 02:47:42 other completed Not Available [facility] 06/17/2022 02:47:42 Cataract Surgery completed Not Available [facility] 06/17/2022 02:47:42 hysterectomy completed Mandy Rich MA [facility] 08/31/2024 16:27:31 Imaging Results None recorded. Procedure Notes None recorded. Medical Equipment None Reported. Allergies No known drug allergies Medications Name Sig Start Date Stop Date Status Note LastModified by Organization Details LastModified Time losartan 50 mg tablet TAKE 1 TABLET BY MOUTH EVERY DAY active Not Available Not Available No t Available carisoprodo l 350 mg tablet TAKE 1 TABLET AT BEDTIME active Not Available Not Available No t Available atorvastati n 20 mg tablet TAKE 1 TABLET BY MOUTH EVERY DAY active Not Available Not Available No t Available azithromyci n 250 mg tablet TAKE 2 TABLETS BY MOUTH TODAY, THEN TAKE 1 TABLET DAILY FOR 4 DAYS DIRECTED 08/23 completed Not Available Not Available Not Available ofloxacin 0.3 % eye drops INSTILL 1 DROP THREE TIMES A DAY INTO SURGICAL EYE BEGINNING 2 DAYS PRIOR TO SURGERY 02/26 completed Not Available Not Available Not Available tizanidine 4 mg tablet 11/26 completed Not Available Not Available Not Available metoprolol succinate ER 50 mg tablet,exte nded release 24 hr 1 od 11/30 completed Not Available Not Available Not Available valacyclovi r 1 gram tablet 07/06 completed Not Available Not Available Not Available hydrocodone 5 mg-acetamin ophen 325 mg tablet 05/17 completed Not Available Not Available Not Available ondansetron HCl 4 mg tablet TAKE 1 TABLET BY MOUTH TWICE A DAY NEEDED active Not Available Not Available No t Available Refresh Plus 0.5 % eye drops in a dropperette 1 drop in each eye as needed 2017 active Not Available Not Available Not Avai lable metronidazo le 500 mg tablet 07/08 completed Not Available Not Available Not Available melatonin 3 mg tablet Take 1 tablet by oral route as needed. 12/06 completed 3-5mg tab Not Available Not Available Not Available ciprofloxac in 500 mg tablet Take 1 tablet twice a day by oral route for 7 days. 12/11 completed Not Available Not Available Not Available tramadol 50 mg tablet active Not Available Not Available No t Available triamcinolo ne acetonide 0.1 % topical cream 11/22 completed Not Available Not Available Not Available ketorolac 0.5 % eye drops INSTILL 1 DROP THREE TIMES A DAY INTO SURGICAL EYE BEGINNING 2 DAYS PRIOR TO SURGERY 02/26 completed Not Available Not Available Not Available meloxicam 7.5 mg tablet take one tablet twice a day as needed with food active Not Available Not Available No t Available oxycodone-a cetaminophe n 5 mg-325 mg tablet active Not Available Not Available No t Available alprazolam 0.5 mg tablet Take 1 tablet by oral route as needed for 1 day. 05/15 completed Not Available Not Available Not Available hydrocortis one valerate 0.2 % topical ointment 04/02 completed Not Available Not Available Not Available dicyclomine 20 mg tablet 05/17 completed Not Available Not Available Not Available ciprofloxac in 0.3 % eye drops 04/02 completed Not Available Not Available Not Available amlodipine 10 mg tablet Take 1 tablet every day by oral route for 90 days. 08/31 completed Not Available Not Available Not Available hydrocodone 7.5 mg-acetamin ophen 325 mg tablet TAKE 1 TABLET BY MOUTH EVERY 6 HOURS NEEDED FOR PAIN 04/27 completed Not Available Not Available Not Available pantoprazol e 40 mg tablet,sil yed release TAKE 1 TABLET BY MOUTH EVERY DAY NEEDED 03/05 completed Not Available Not Available Not Available Unithroid 50 mcg tablet TAKE 1 TABLET BY MOUTH EVERY DAY active Not Available Not Available No t Available ranitidine 150 mg tablet Take 1 tablet every day by oral route for 90 days. 2012 active Not Available Not Available Not Avai lable lisinopril 10 mg tablet TAKE 1 TABLET BY MOUTH EVERY DAY active Not Available Not Available No t Available mupirocin 2 % topical ointment APPLY TWICE DAILY TO WOUND AFTER CLEANING AND DRYING AREA 03/28 completed Not Available Not Available Not Available metoprolol succinate ER 25 mg tablet,exte nded release 24 hr take 1 po qd active Not Available Not Available No t Available ergocalcife rol (vitamin D2) 1,250 mcg (50,000 unit) capsule TAKE 1 CAPSULE BY MOUTH ONE TIME PER WEEK 10/30 completed Not Available Not Available Not Available levofloxaci n 500 mg tablet 07/06 completed Not Available Not Available Not Available levofloxaci n 750 mg tablet TAKE 1 TABLET BY MOUTH EVERY DAY 07/04 completed Not Available Not Available Not Available Cipro 250 mg tablet Take 1 tablet every 12 hours by oral route for 5 days. 02/03 completed Not Available Not Available Not Available mometasone 0.1 % topical cream active Not Available Not Available Not Available amoxicillin 875 mg-potassiu m clavulanate 125 mg tablet 02/26 completed Not Available Not Available Not Available Tylenol Extra Strength 500 mg tablet Take 1 tablet every 6 hours by oral route as needed. 2017 active Not Available Not Available Not Avai lable Tylenol 650 mg tablet,exte nded release Take 1 tablet as needed by oral route. 07/09 completed Not Available Not Available Not Available Bactrim DS 800 mg-160 mg tablet Take 1 tablet every 12 hours by oral route. 12/12 completed Not Available Not Available Not Available Metamucil (sugar) oral powder Take 1 tbsp every day by oral route. 08/31 completed Not Available Not Available Not Available Benicar 20 mg tablet active Not Available Not Available No t Available Restasis 0.05 % eye drops in a dropperette 04/02 completed Not Available Not Available Not Available Oxytrol 3.9 mg/24 hr transdermal patch Apply 1 patch twice a week by transderm al route. 11/22 completed Not Available Not Available Not Available Melatonin (with B6) 5 mg-1 mg tablet Take by oral route. 03/05 completed Not Available Not Available Not Available nitrofurant oin monohydrate /macrocryst als 100 mg capsule TAKE 1 CAPSULE BY MOUTH TWICE A DAY FOR 5 DAYS 02/03 completed Not Available Not Available Not Available tizanidine 4 mg capsule Take 1 capsule every day by oral route at bedtime for 30 days. active Not Available Not Available No t Available Calcium 600 + D(3) 600 mg-5 mcg (200 unit) tablet Take by oral route. 08/20 completed Not Available Not Available Not Available magnesium QD 02/03 completed Not Available Not Available Not Available melatonin 5mg prn 08/31 completed Not Available Not Available Not Available Vitamin C 500mg daily 05/20 completed Not Available Not Available Not Available Aleve as needed 11/26 completed Not Available Not Available Not Available B Complex-Vit pablo B12 1,000mcg daily 06/28 completed Not Available Not Available Not Available biotin 1,000mcg 1T PO QD 05/29 completed Not Available Not Available Not Available Vitamin D3 active Not Available Not Av ailable Not Available Ocuvite 1 daily 2012 active Not Available Not Available Not Avai lable Mylanta PRN 08/31 completed Not Available Not Available Not Available Tylenol PM PRN active Not Available Not Av ailable Not Available Calcium 600 + D(3) 20mcg daily 11/28 completed Not Available Not Available Not Available PreserVisio n AREDS 1 tablet 2 times daily 2018 active Not Available Not Available Not Avai lable Fish Oil 1,000 mg capsule once daily 2012 active Not Available Not Available Not Avai lable CoQ-10 active Not Available Not Availa ble Not Available Flector 1.3 % transdermal 12 hour patch Apply 1 patch every day by transderm al route. active Not Available Not Available No t Available biotin (bulk) 5000mcg daily 06/28 completed Not Available Not Available Not Available Systane Balance daily 02/03 completed Not Available Not Available Not Available Bella Allergy 180 mg tablet Take 1 tablet every day by oral route for 6 days. 03/18 completed Not Available Not Available Not Available Vitamin D3 100 mcg (4,000 unit) capsule Take 1 capsule every day by oral route. 08/31 completed Not Available Not Available Not Available Oxytrol For Women 3.9 mg/24 hour transdermal patch APPLY 1 PATCH ONTO THE SKIN ONCE EVERY 7 DAYS 02/26 completed Not Available Not Available Not Available calcium 167 mg-magnesiu m 65 mg-chondr 50 mg-brom-her bal-mineral tablet Take 1 tablet every day by oral route. 11/22 completed Not Available Not Available Not Available Vitamin B12 1,000mcg daily 03/05 completed Not Available Not Available Not Available magnesium 400 mg (as magnesium aspartate,c itrate,oxid e) capsule Take 1 capsule every day by oral route. 08/31 completed Not Available Not Available Not Available Fluzone High-Dose 8392-9908 (PF) 180 mcg/0.5 mL intramuscul ar syringe TO BE ADMINISTE RED BY PHARMACIS T FOR IMMUNIZAT ION 02/03 completed Not Available Not Available Not Available Fluzone High-Dose 2019-20 (PF) 180 mcg/0.5 mL intramuscul ar syringe TO BE ADMINISTE RED BY PHARMACIS T FOR IMMUNIZAT ION 03/28 completed Not Available Not Available Not Available Fluad Quad 5561-8346(6 5yr up)(PF) 60 mcg (15 mcg x 4)/0.5mL IM syringe PHARMACY ADMINISTE RED 03/05 completed Not Available Not Available Not Available QuickVue At-Home COVID-19 Test kit REFER TO MANUFACTU RER INSTRUCTI ONS INCLUDED IN PACKAGING 02/26 completed Not Available Not Available Not Available aspirin 81 mg capsule Take 1 capsule every day by oral route. 2022 active Not Available Not Available Not Avai lable Paxlovid 300 mg (150 mg x 2)-100 mg tablets in a dose pack TAKE 2 NIRMATREL VIR AND 1 RITONAVIR TABLETS BY MOUTH TOGETHER TWICE DAILY FOR 5 DAYS 04/27 completed Not Available Not Available Not Available Vitals Date Recorded Body height Body mass index (BMI) Body weight Body temperature Heart rate Systolic And Diastolic Provider Name and Address Organization Details Last Updated DateTime 5 160.02 cm 25.3 kg/m2 97333.7 1 g 97.6 [degF] 78 /min 118/64 mm[Hg] AMINATA Bragg Greetz [facility] [employer] 5 14:17:30 Date Recorded Body height Body mass index (BMI) Body weight Heart rate Oxygen saturation Oxygen saturation in Arterial blood by Pulse oximetry Systolic And Diastolic Provider Name and Address Organization Details Last Updated DateTime 5 160.02 cm 25.3 kg/m2 94423.7 1 g 80 /min 99 % 99 % 120/62 mm[Hg] Jose Basilio Albert Greetz [facility] [employer] 5 15:20:02 Date Recorded Body height Body mass index (BMI) Body weight Body temperature Heart rate Oxygen saturation Oxygen saturation in Arterial blood by Pulse oximetry Pain severity - 0-10 verbal numeric rating [Score] - Reported Systolic And Diastolic Provider Name and Address Organization Details Last Updated DateTime 5 160.02 cm 25.5 kg/m2 10330.3 g 97.6 [degF] 75 /min 99 % 99 % 6 154/72 mm[Hg] Mandy Rich MA [employer] 5 16:28:50 Date Recorded Body height Body mass index (BMI) Body weight Heart rate Oxygen saturation Oxygen saturation in Arterial blood by Pulse oximetry Systolic And Diastolic Provider Name and Address Organization Details Last Updated DateTime 5 160.02 cm 24.4 kg/m2 92626.7 5 g 77 /min 96 % 96 % 146/80 mm[Hg] AMINATA Briseno [place] [employer] [facility] [employer] [facility] [employer] 5 13:54:35 Date Recorded Body height Body mass index (BMI) Body weight Body temperature Heart rate Oxygen saturation Oxygen saturation in Arterial blood by Pulse oximetry Pain severity - 0-10 verbal numeric rating [Score] - Reported Systolic And Diastolic Provider Name and Address Organization Details Last Updated DateTime 5 160.02 cm 23.9 kg/m2 16844.9 7 g 96.7 [degF] 57 /min 99 % 99 % 1 138/74 mm[Hg] Mandy Rich [place] [employer] [facility] [employer] [facility] [employer] 5 14:38:33 Social History Question Answer Notes LastModified by Organizat ion Details LastModified Time Tobacco Smoking Status Never Smoker Not Available [facility] 06/17/2022 02:39:58 Do You Have An Advance Directive? Yes MIGRATION. Information not available 06/17/2022 Are You Blind Or Do You Have Difficulty Seeing? No [id number] Information not available 06/17/2022 What Is Your Level Of Caffeine Consumption? Moderate MIGRATION. Information not available 06/17/2022 How Much Tobacco Do You Chew? None [id number] Information not available 06/17/2022 In The 14 Days Before Symptom Onset, Have You Had Close Contact With A Laboratory-confir med COVID-19 While That Case Was Ill? No [id number].[id number] [id number] Information not available 06/17/2022 In The 14 Days Before Symptom Onset, Have You Had Close Contact With A Person Who Is Under Investigation For COVID-19 While That Person Was Ill? No [id number].[id number] Information not available 06/17/2022 Are You Deaf Or Do You Have Serious Difficulty Hearing? No MIGRATION.[id number] Information not available 06/17/2022 What Type Of Diet Are You Following? REGULAR [id number].26240 [id number] Information not available 06/17/2022 Which Illicit Or Recreational Drugs Have You Used? None MIGRATION.04949 [id number] Information not available 06/17/2022 What Is The Highest Grade Or Level Of School You Have Completed Or The Highest Degree You Have Received? BO07028-1 MIGRATION.20246 [id number] Information not available 06/17/2022 Have There Been Any Changes To Your Family Or Social Situation? No [email or web address] Information no t available 08/24/2023 What Is The Fluoride Status Of Your Home? Unknown MIGRATION.06600 [id number] Information not available 06/17/2022 Are There Any Guns Present In Your Home? Yes MIGRATION.59279 [id number] Information not available 06/17/2022 Do You Use Insect Repellent Routinely? No Information not available 08/24/2023 Where Do You Live? SingleLevelHouse MIGRATION.67582 12737 Information not available 06/17/2022 Presence Of Domestic Violence No Information no t available 08/24/2023 Guns Present In The Home? No [email or web address] Information not available 08/24/2023 Are You Able To Care For Yourself? Yes [email or web address] Information not available 08/24/2023 Are You Blind Or Do Yo Have Difficulty Seeing? No Information not available 08/24/2023 Are You Deaf Or Do You Have Serious Difficulty Hearing? No [email or web address] Information not available 08/24/2023 General Stress Level? Moderate [email or web address] Information not available 08/24/2023 Live Alone Of With Others? Alone [email or web address] Information not available 08/24/2023 Do You Have A Medical Power Of Wash Tank Tender? Yes [id number].41283 13860 Information not available 06/17/2022 What Was The Date Of Your Most Recent Tobacco Screening? 01/04/2025 [email or web address] Information not available 01/04/2025 Do You Have Any Pets? No MIGRATION.39113 [id number] Information not available 06/17/2022 What Is Your Relationship Status? MIGRATION.61823 11365 Information not available 06/17/2022 Do You Use Your Seat Belt Or Car Seat Routinely? Yes MIGRATION.74539 19085 Information not available 06/17/2022 Do You Have Smoke And Carbon Monoxide Detectors In Your Home? Yes MIGRATION.38508 34802 Information not available 06/17/2022 Are You Passively Exposed To Smoke? No MIGRATION.20936 [id number] Information not available 06/17/2022 Are There Any Smokers In Your House? No MIGRATION.82951 40324 Information not available 06/17/2022 How Much Tobacco Do You Smoke? No MIGRATION.85629 76167 Information not available 06/17/2022 Do You Use Sunscreen Routinely? Yes MIGRATION.01105 26652 Information not available 06/17/2022 Has Tobacco Cessation Counseling Been Provided? No N/a Information not available 08/24/2023 How Many Years Have You Smoked Tobacco? 0 MIGRATION.47485 65977 Information not available 06/17/2022 Have You Recently Traveled Abroad? No MIGRATION.68555 34606 Information not available 06/17/2022 Do You Have Difficulty Walking Or Climbing Stairs? No MIGRATION.30894 14117 Information not available 06/17/2022 Do You Have Any Dietary Restrictions? No MIGRATION.14770 97108 Information not available 06/17/2022 Sex: Female Functional Status Question Answer Note LastModified by [employer] ion Details LastModified Time Do you or have you ever used smokeless tobacco? Never used smokeless tobacco MIGRATION.[id number] Information not available 06/17/2022 Are you currently employed? No [email or web address] Information not available 08/24/2023 Do you have transportation difficulties? No MIGRATION.188862 7468 Information not available 06/17/2022 Are you able to care for yourself independently? Yes MIGRATION.900729 8171 Information not available 06/17/2022 Do you have difficulty dressing, bathing, grooming, or toileting? No MIGRATION.229197 9477 Information not available 06/17/2022 Do you or have you ever used e-cigarettes or vape? Never used electronic cigarettes MIGRATION.260324 4073 Information not available 06/17/2022 What is your exercise level? Occasional MIGRATION.546230 4681 Information not available 06/17/2022 Do you use any illicit or recreational drugs? No MIGRATION.191440 2780 Information not available 06/17/2022 Do you or have you ever used any other forms of tobacco or nicotine? No MIGRATION.337002 6618 Information not available 06/17/2022 What is your level of alcohol consumption? None [id number] Information not available 06/17/2022 Are you able to walk independently without assistance or assistive devices? YESWOREST [id number] Information not available 06/17/2022 Do you have difficulty doing errands alone? No [id number] Information not available 06/17/2022 What is your occupation? retired [id number] Information not available 06/17/2022 Mental Status Question Answer Note LastModified by Organizat ion Details LastModified Time Do you feel stressed (tense, restless, nervous, or anxious, or unable to sleep at night)? [id number] Information not available 06/17/2022 Do you have difficulty concentrating, remembering or making decisions? No [id number] Information not available 06/17/2022 Family History Relationship Description Onset Age of this Age Resolved Age Notes LastModified by Organization Details LastModified Time Father Heart disease [id number] Not available 06/17/2022 02:47:45 Maternal Grandmother Malignant neoplasm of breast rmacios Not available 2024 15:11:05 Brother Malignant neoplasm of colon rmacios Not available 2024 15:11:05 Brother Diabetes mellitus [id number] Not available 06/17/2022 02:47:45 Sister Malignant neoplasm of thyroid gland rmacios Not available 2024 15:11:05 Medical History Condition Response ULCERS Y NO SIGNIFICANT PAST MEDICAL HISTORY N AIDS/HIV N DIABETES, TYPE Y ALLERGIES/HAYFEVER N HEARTBURN / REFLUX Y HYPERTENSION Y HIGH CHOLESTEROL / HYPERLIPIDEMIA Y Deficiency Y CANCER: SPECIFY Y BLOOD DISEASES N BLOOD TRANSFUSION N GERD/NAUSEA Y ANEMIA/BLOOD DISORDER N ANESTHESIA COMPLICATIONS N HISTORY WITH COMPLICATIONS WITH ANESTHES IA ? Y ANEURYSM N HYPOTHYROIDISM Y CATARACTS Y URINARY/BLADDER/KIDNEY PROBLEMS Y HAVE YOU BEEN HOSPITALIZED OR SEEN IN [facility] IN THE PAST YEAR ? N Gynecological History Statement/Question Response How many live births 4 Date of Last Mammogram 12/16/2018 Date of Last Colonoscopy 05/20/2016 Date of Last Mammogram 06/11/2023 Most Recent Bone Density 02/20/2022 Date of LMP Date of Last Pap Current Control Method Hysterectom y Obstetrics History GPAL:G 4 P 4 0 0 4 Type Value Multiple Births 0 Full Term 4 Induced 0 Spontaneous 0 Premature 0 Living 4 Ectopics 0 Total 4 Immunizations Vaccine Type Date Status Note Provider Nam e and Address Organization Details Recorded Time COVID-19, mRNA, LNP-S, PF, 30 mcg/0.3 mL dose 2 completed Jessica Bridges RMA null, [facility] 01/27/2024 10:44:07 COVID-19, mRNA, LNP-S, PF, 30 mcg/0.3 mL dose 1 completed Jessica Bridges RMA null, [facility] 01/27/2024 10:44:07 Influenza, high-dose, quadrivalent, PF 1 completed Jessica Bridges RMA null, [facility] 01/27/2024 10:44:07 SARS-COV-2 (COVID-19) vaccine, UNSPECIFIED 1 completed Jessica Bridges RMA null, [facility] 01/27/2024 10:44:07 SARS-COV-2 (COVID-19) vaccine, UNSPECIFIED 1 completed Jessica Bridges RMA null, [facility] 01/27/2024 10:44:07 Influenza, high-dose, trivalent, PF 9 completed Not Available [facility] 06/17/2022 03:00:04 Influenza, split virus, quadrivalent, preservative 7 completed Jessica Bridges RMA null, [facility] 01/27/2024 10:44:07 zoster, unspecified formulation 2 completed Not Available [facility] 06/17/2022 03:00:04 COVID-19, mRNA, LNP-S, bivalent, PF, 30 mcg/0.3 mL dose 3 completed Jessica Bridges RMA null, [facility] 01/27/2024 10:44:07 Influenza, high-dose, quadrivalent, PF 2 completed Not Available [facility] 06/17/2022 03:00:05 zoster recombinant 2 completed BENNY BraggA carlos, [facility] 01/27/2024 10:44:07 Influenza, high-dose, trivalent, PF 0 completed Not Available [facility] 06/17/2022 03:00:05 influenza, unspecified formulation 8 completed Not Available [facility] 06/17/2022 03:00:05 Pneumococcal conjugate PCV 13 5 completed BENNY BraggA carlos, [facility] 07/04/2024 14:14:19 Tdap 2 completed Not Available [facility] 06/17/2022 03:00:05 pneumococcal polysaccharide PPV23 2 completed Not Available [facility] 06/17/2022 03:00:05 zoster recombinant 3 completed Jessica Bridges RMA carlos, [facility] 01/27/2024 10:44:07 Influenza, high-dose, quadrivalent, PF 3 completed AMINATA Bragg, [facility] 03/28/2024 14:44:39 COVID-19, mRNA, LNP-S, PF, 30 mcg/0.3 mL dose, pooja-sucrose 3 completed Jessica Bridges RMA carlos, [facility] 03/28/2024 14:44:39 RSV, recombinant, protein subunit RSVpreF, adjuvant reconstituted, 0.5 mL, PF 4 completed Jessica Bridges RMA null, [facility] 03/28/2024 14:44:39 Influenza, high-dose, quadrivalent, PF 2 completed Jessica Bridges RMA null, [facility] 01/27/2024 10:44:07 COVID-19, mRNA, LNP-S, PF, 100 mcg/0.5mL dose or 50 mcg/0.25mL dose 1 completed Jessica Bridges RMA null, [facility] 01/27/2024 10:44:07 COVID-19, mRNA, LNP-S, PF, 100 mcg/0.5mL dose or 50 mcg/0.25mL dose 1 completed Jessica Bridges RMA null, [facility] 01/27/2024 10:44:07 COVID-19, mRNA, LNP-S, PF, 100 mcg/0.5mL dose or 50 mcg/0.25mL dose 2 completed Jessica Bridges RMA null, [facility] 01/27/2024 10:44:07 Influenza, high-dose, trivalent, PF 7 completed Jessica Bridges RMA null, [facility] 01/27/2024 10:44:07 Influenza, high-dose, trivalent, PF 6 completed Jessica Bridges RMA null, [facility] 01/27/2024 10:44:07 Influenza, high-dose, trivalent, PF 5 completed Jessica Bridges RMA null, [facility] 01/27/2024 10:44:07 Influenza, split virus, trivalent, preservative 3 completed Jessica Bridges RMA null, [facility] 01/27/2024 10:44:07 Hep A, adult 3 completed Jessica Bridges RMA null, [facility] 01/27/2024 10:44:07 COVID-19, mRNA, LNP-S, PF, pooja-sucrose, 30 mcg/0.3 mL 3 completed Jessica Bridges RMA null, [facility] 03/28/2024 14:44:39 COVID-19, mRNA, LNP-S, PF, pooja-sucrose, 30 mcg/0.3 mL 5 completed Jessica Bridges RMA null, [facility] 07/04/2024 14:14:19 Tdap 4 completed Jessica Bridges RMA null, [facility] 07/04/2024 14:14:19 Pneumococcal conjugate PCV 13 5 completed Jessica Bridges RMA null, [facility] 07/04/2024 14:14:19 Influenza, high-dose, trivalent, PF 4 completed Jessica Bridges RMAlbert null, [facility] 02/14/2024 14:29:28 Past Encounters Encounter ID Performer Location Encounter Start Date Encounter Closed Date Diagnosis/Indication Diagnosis SNOMED-CT Code Diagnosis ICD10 Code Diagnosis IMO Codes Diagnosis Note [id number] MD HANNAH Billingsley_[facility] Internal Med [facility] [address] [facility] [address] [place] [address] 07/16/2020 00:00:00 07/16/2020 15:35:27 [id number] Reinier bland MD S_[facility] Internal Med [place] [address] [facility] [address] [place] [address] 11/28/2020 00:00:00 11/28/2020 16:36:19 [id number] MD RICCARDO BillingsleyS_[facility] Internal Med [facility] [address] [facility] [address] [place] [address] 05/20/2021 00:00:00 05/20/2021 16:25:49 [id number] MD HANNAH Garcia_[facility] ENT [place] [address] [place] [address] 06/26/2021 00:00:00 06/26/2021 15:25:23 [id number] MD HANNAH Billingsley_[facility] Internal Med [facility] [address] [facility] [address] [place] [address] 12/04/2021 00:00:00 12/04/2021 11:18:05 [id number] MD HANNAH Billingsley_[facility] Internal Med [facility] [address] [facility] [address] [place] [address] 02/26/2022 00:00:00 02/26/2022 15:46:26 [id number] Reinier bland MD [facility] Internal Med [facility] [address] [facility] [address] [place] [address] 06/04/2022 00:00:00 06/04/2022 12:42:46 [id number] Reinier bland MD [facility] Internal Med [facility] [address] [facility] [address] [place] [address] 10/27/2022 11:56:18 10/27/2022 12:41:59 Screening - NAD [id number] Z13.9 C-scope: Dr Jaime 09/30/10, next in 5 years06/15: Dr Payne 03/04/18 Mammogram: 12/04, was negative, at [place] Xuupnev4602/2020: [id number]: Neg06/05/2022: Neg PAP: Did see Dr Onofre. s/p ovary removal, d/t the cyst, was in the [place] [facility] [place] 10/31/2019 DEXA: Dr Adolfo Cummins 12/24/17DE XA: 02/07/2020 : Normal, but hypertroph ic bone, recommend calcium and vitamin dDEXA: 02/20/2022 : Osteopenic , do calcium and vit d UTD on flu shotUTD on tdapUTD zosterUTD #13 and #23UTD COVID 19 vaccine last 07/10/2020 RTC in 6 monthsDo labsER if worseShe did verbalize her understand ing of the above Essential hypertension 64531026 I10 On lisinopril 10mg daily Does wellGet labs Hyperlipidemia 39919199 E78.5 On atorvastat in 20mg dailyGet labs Gastroesop hageal reflux disease without esophagitis 179829816 K21.[address] Jaime 03/04/18: Hiatal hernia with gastritis Not on any medsDoes well Can do TUMS Urinary incontinence 165 131339 R32 Not on oxytrol Keep apt with her OB Dr Onofre Hypothyroidism 26020632 E03.9 US thyroid, s/p biopsy 05/27/2020 , ordered 05/20/2021 On levothyrox ine 50mcgs daily Does wellUS thyroid 05/29/2022 : Neg next in one year Prediabetes 499138484 R7 3.03 Declines meds againDiet as she has been eating sweets Get labs Low back pain 891268614 M54.50 Xray L spine/hips : DJD 03/25/2021 Does well nowStates that she is seeing a chiropract or Pain of ri ght shoulder joint [id number] 9660587 M25.511 Dr Peterson 10/21/2022 : S/p arthroscop e done, does well now [id number] Reinier bland MD [facility] [place] [address] [facility], [place] [address] [place] [address] 04/27/2023 13:55:40 04/27/2023 14:34:04 Screening - NAD [id number] Z13.9 C-scope: Dr Jaime 09/30/10, next in 5 years06/15: Dr Payne 03/04/18 Mammogram: 12/04, was negative, at [place] Uoiehbr6702/2020: [id number]: Neg 023: Neg PAP: Did see Dr Onofre. s/p ovary removal, d/t the cyst, was in the hospital at [facility] [place], [place] 10/31/2019 DEXA: Dr Adolfo Cummins 12/24/17DE XA: 02/07/2020 : Normal, but hypertroph ic bone, recommend calcium and vitamin dDEXA: 02/20/2022 : Osteopenic , do calcium and vit d UTD on flu shotUTD on tdapUTD zosterUTD #13 and #23UTD COVID 19 vaccine last 07/10/2020 Can do RSV vaccine RTC in 6 monthsDo labsER if worseShe did verbalize her understand ing of the above Essential hypertension 79892672 I10 On lisinopril 10mg daily Does wellGet labsGet a referral to cardiology Hyperlipidemia 50877992 E78.5 On atorvastat in 20mg dailyGet labs Gastroesop hageal reflux disease without esophagitis 503919658 K21.[address] Jaime 03/04/18: Hiatal hernia with gastritis Not on any medsDoes well Can do TUMS Urinary incontinence 165 129568 R32 Not on oxytrol Keep apt with her OB Dr Onofre Hypothyroidism 26431749 E03.9 US thyroid, s/p biopsy 05/27/2020 , ordered 05/20/2021 On levothyrox ine 50mcgs daily Does wellUS thyroid 05/29/2022 : Neg next in one year Prediabetes 608333206 R7 3.03 Declines meds againDiet as she has been eating sweets Get labs Low back pain 406058200 M54.50 Xray L spine/hips : DJD 03/25/2021 Does well nowStates that she is seeing a chiropract or Pain of ri ght shoulder joint 1116636978 3624723 M25.511 Dr Peterson 10/21/2022 : S/p arthroscop e done, does well now OV 04/27/2023 : Is now to get R shoulder surgery with Dr Rodriguez in [facility] cardiac clearance Addendum: 05/04/2023 :Dr Rodriguez, 02/03/2023 , scheduled for surgery on 06/14/2023 Screening mammography 24 651848 Z12.31 Skin lesion 25750379 L98 .9 Flat red circular lesion noted on the R lower leg, referred to dermatolog y [id number] Reinier bland MD [facility] [place] [address] [facility], [place] [address] [place] [address] 08/24/2023 14:39:50 08/24/2023 15:50:02 Screening - NAD [id number] Z13.9 C-scope: Dr Jaime 09/30/10, next in 5 years06/15: Dr Payne 03/04/18 Mammogram: 12/04, was negative, at [facility]02/2020: [id number]: Neg 023: Neg 024: Neg PAP: Did see Dr Onofre. s/p ovary removal, d/t the cyst, was in the hospital at [facility] [place], [place] 10/31/2019 DEXA: Dr Adolfo Cummins 12/24/17DE XA: 02/07/2020 : Normal, but hypertroph ic bone, recommend calcium and vitamin dDEXA: 02/20/2022 : Osteopenic , do calcium and vit d UTD on flu shotUTD on tdapUTD zosterUTD #13 and #23UTD COVID 19 vaccine last 07/10/2020 Can do RSV vaccine RTC in 6 monthsDo labsER if worseShe did verbalize her understand ing of the above Essential hypertension 32661643 I10 On lisinopril 10mg daily Does wellGet labsGet a referral to cardiology 05/17/2023 : Dr Eusebio Mendez Skin lesion 47075516 L98 .9 Flat red circular lesion noted on the R lower leg, referred to dermatolog y Hyperlipidemia 60888552 E78.5 On atorvastat in 20mg dailyGet labs Gastroesop hageal reflux disease without esophagitis 022048830 K21.[address] Jaime 03/04/18: Hiatal hernia with gastritis Not on any medsDoes well Can do TUMS Urinary incontinence 165 587981 R32 Not on oxytrol Keep apt with her OB Dr Onofre Hypothyroidism 67148901 E03.9 US thyroid, s/p biopsy 05/27/2020 , ordered 05/20/2021 On levothyrox ine 50mcgs daily Does wellUS thyroid 05/29/2022 : Neg next in one year Prediabetes 660729780 R7 3.03 Declines meds againDiet as she has been eating sweets Get labs Low back pain 660915131 M54.50 Xray L spine/hips : DJD 03/25/2021 Does well nowStates that she is seeing a chiropract or Pain of ri t shoulder joint 7839731387 9095985 M25.511 Dr Peterson 10/21/2022 : S/p arthroscop e done, does well now OV 04/27/2023 : Is now to get R shoulder surgery with Dr Rodriguez in [facility] need cardiac clearance Addendum: 05/04/2023 :Dr Rodriguez, 02/03/2023 , scheduled for surgery on 06/14/2023 Screening mammography 24 781793 Z12.31 Hyperglycemia 29189571 R 73.9 Get labs Adult heal th examination 220226126 Z00.00 Screening for disorder 604564583 Z13.9 [id number] Reinier bland MD [facility] Internal Med [facility] [address] [facility], [facility] [address] [place] [address] 12/07/2023 14:54:44 12/07/2023 15:54:38 Screening - NAD [id number] Z13.9 C-scope: Dr Jaime 09/30/10, next in 5 years06/15: Dr Payne 03/04/18 Mammogram: 12/04, was negative, at [place] Kivewwf0502/2020: Kkrjjtlo55: Neg02/ 023: Neg 024: Neg PAP: Did see Dr Onofre. s/p ovary removal, d/t the cyst, was in the hospital at [facility] [place], [place] 10/31/2019 DEXA: Dr Adolfo Cummins 12/24/17DE XA: 02/07/2020 : Normal, but hypertroph ic bone, recommend calcium and vitamin dDEXA: 02/20/2022 : Osteopenic , do calcium and vit d UTD on flu shotUTD on tdapUTD zosterUTD #13 and #23UTD COVID 19 vaccine last 07/10/2020 Can do RSV vaccine RTC in 6 monthsDo labsER if worseShe did verbalize her understand ing of the above Essential hypertension 53360597 I10 ECHO 11/24/2023 : [facility] On lisinopril 10mg daily Does wellGet labsGet a referral to cardiology 05/17/2023 : Dr Eusebio Mendez Skin lesion 71425799 L98 .9 Flat red circular lesion noted on the R lower leg, referred to dermatolog y Hyperlipidemia 07676473 E78.5 On atorvastat in 20mg dailyGet labs Gastroesop hageal reflux disease without esophagitis 741951418 K21.[address] Jaime 03/04/18: Hiatal hernia with gastritis Not on any medsDoes well Can do TUMS Urinary incontinence 165 915436 R32 Not on oxytrol Keep apt with her OB Dr Onofre Hypothyroidism 38934003 E03.9 US thyroid, s/p biopsy 05/27/2020 , ordered 05/20/2021 On levothyrox ine 50mcgs daily Does wellUS thyroid 05/29/2022 : Neg next in one year Prediabetes 531736098 R7 3.03 Declines meds againDiet as she has been eating sweets Get labs Low back pain 979996103 M54.50 Xray L spine/hips : DJD 03/25/2021 Does well nowStates that she is seeing a chiropract or Pain of ri ght shoulder joint 7803471551 3673629 M25.511 Dr Peterson 10/21/2022 : S/p arthroscop e done, does well now OV 04/27/2023 : Is now to get R shoulder surgery with Dr Rodriguez in [facility] cardiac clearance Addendum: 05/04/2023 :Dr Rodriguez, 02/03/2023 , scheduled for surgery on 06/14/2023 OV 12/07/2023 : Get a referral to Dr Rodriguez Screening mammography 24 506226 Z12.31 Hyperglycemia 22915250 R 73.9 Get labs [id number] Reinier bland MD [facility] [place] [address] [facility], [place] [address] [place] [address] 01/27/2024 10:34:43 01/27/2024 11:16:04 Screening - NAD [id number] Z13.9 C-scope: Dr Jaime 09/30/10, next in 5 years06/15: Dr Payne 03/04/18 Mammogram: 12/04, was negative, at [place] Bbewijc6802/2020: [id number]: Neg 023: Neg 024: Neg PAP: Did see Dr Onofre. s/p ovary removal, d/t the cyst, was in the hospital at [facility] [place], [place] 10/31/2019 DEXA: Dr Adolfo Cummins 12/24/17DE XA: 02/07/2020 : Normal, but hypertroph ic bone, recommend calcium and vitamin dDEXA: 02/20/2022 : Osteopenic , do calcium and vit d UTD on flu shotUTD on tdapUTD zosterUTD #13 and #23UTD COVID 19 vaccine last 07/10/2020 Can do RSV vaccine RTC in 3 monthsDo labsER if worseShe did verbalize her understand ing of the above Essential hypertension 64463881 I10 ECHO 11/24/2023 : [facility] On lisinopril 10mg daily Does wellGet labsGet a referral to cardiology 05/17/2023 : Dr Eusebio Mendez Skin lesion 05795174 L98 .9 Flat red circular lesion noted on the R lower leg, referred to dermatolog y Hyperlipidemia 76096600 E78.5 On atorvastat in 20mg dailyGet labs Gastroesop hageal reflux disease without esophagitis 159724893 K21.[address] Jaime 03/04/18: Hiatal hernia with gastritis Not on any medsDoes well Can do TUMS Urinary incontinence 165 954192 R32 Not on oxytrol Keep apt with her OB Dr Onofre Hypothyroidism 25311896 E03.9 US thyroid, s/p biopsy 05/27/2020 , ordered 05/20/2021 On levothyrox ine 50mcgs daily, renewed 01/27/2024 Does wellUS thyroid 05/29/2022 : Neg next in one yearUS thyroid 06/01/2203 , next in one year Prediabetes 921661135 R7 3.03 Declines meds againDiet as she has been eating sweets Get labs Low back pain 817761120 M54.50 Xray L spine/hips : DJD 03/25/2021 Does well nowStates that she is seeing a chiropract or Pain of ri ght shoulder joint 8889561022 8522147 M25.511 Dr Peterson 10/21/2022 : S/p arthroscop e done, does well now OV 04/27/2023 : Is now to get R shoulder surgery with Dr Rodriguez in [facility] need cardiac clearance Addendum: 05/04/2023 :Dr Rodriguez, 02/03/2023 , scheduled for surgery on 06/14/2023 OV 12/07/2023 : Get a referral to Dr Rodriguez Hyperglycemia 98748306 R 73.9 Get labs Varicose v eins of lower extremity 82474526 I83.891 Venous stasis changes noted in the roberto feetNormal DPs bilaterall yLikely varicose venous changes, will refer to Dr Mendez, who will see next week on Wednesday at 10.00am Administra tion of influenza vaccine 07289378 Z23 [id number] Reinier bland MD S[facility] Internal Med [facility] [address] [facility], [place] [address] [place] [address] 03/28/2024 14:32:55 03/28/2024 15:57:39 Screening - NAD [id number] Z13.9 C-scope: Dr Jaime 09/30/10, next in 5 years06/15: Dr Panye 03/04/18 Mammogram: 12/04, was negative, at [place] Ghiezuw9302/2020: [id number]: Neg 023: Neg 024: Neg PAP: Did see Dr Onofre. s/p ovary removal, d/t the cyst, was in the hospital at [facility] [place], [place] 10/31/2019 DEXA: Dr Adolfo Cummins 12/24/17DE XA: 02/07/2020 : Normal, but hypertroph ic bone, recommend calcium and vitamin dDEXA: 02/20/2022 : Osteopenic , do calcium and vit d UTD on flu shotUTD on tdapUTD zosterUTD #13 and #23UTD COVID 19 vaccine last 07/10/2020 Can do RSV vaccine RTC in 3 monthsDo labsER if worseShe did verbalize her understand ing of the above Essential hypertension 79833247 I10 ECHO 11/24/2023 : [facility] On lisinopril 10mg daily Does wellGet labsGet a referral to cardiology 05/17/2023 : Dr Eusebio Mendez Skin lesion 30883807 L98 .9 Flat red circular lesion noted on the R lower leg, referred to dermatolog y OV 03/28/2024 : Sees dermatolog y, does well now Hyperlipidemia 84699786 E78.5 On atorvastat in 20mg dailyGet labs Gastroesop hageal reflux disease without esophagitis 425297768 K21.[address] Jaime 03/04/18: Hiatal hernia with gastritis Not on any medsDoes well Can do TUMS Urinary incontinence 165 604065 R32 Not on oxytrol Keep apt with her OB Dr Onofre Hypothyroidism 74171794 E03.9 US thyroid, s/p biopsy 05/27/2020 , ordered 05/20/2021 On levothyrox ine 50mcgs daily, renewed 01/27/2024 Does wellUS thyroid 05/29/2022 : Neg next in one yearUS thyroid 06/01/2203 , next in one year Prediabetes 439142162 R7 3.03 Declines meds againDiet as she has been eating sweets Get labs Low back pain 991237529 M54.50 Xray L spine/hips : DJD 03/25/2021 Does well nowStates that she is seeing a chiropract or Pain of located [facility] shoulder joint 8365920609 0495402 M25.511 Dr Peterson 10/21/2022 : S/p arthroscop e done, does well now OV 04/27/2023 : Is now to get R shoulder surgery with Dr Rodriguez in [facility] cardiac clearance Addendum: 05/04/2023 :Dr Rodriguez, 02/03/2023 , scheduled for surgery on 06/14/2023 OV 12/07/2023 : Get a referral to Dr Rodriguez Hyperglycemia 84662520 R 73.9 Get labs Varicose v eins of lower extremity 37964359 I83.891 Venous stasis changes noted in the roberto feetNormal DPs bilaterall yLikely varicose venous changes, will refer to Dr Mendez, who will see next week on Wednesday at 10.00am US roberto LE venous/art erial 03/02/[address] Mendez Proteinuria 41916708 R80 .9 Needs to see nephrology , she has declined 03/28/2024 Liver enzy mes level above reference range 441987567 R74.01 Get US liver and hep panel and GGT done Headache 15611965 R51.9 Get MRI brainMay need to see neurolgy [id number] Reinier bland MD [facility] [address] [facility] [address] [place] [address] 05/15/2024 14:59:59 05/15/2024 16:09:56 Screening - NAD 140301640 Z13.9 C-scope: Dr Jaime 09/30/10, next in 5 years06/15: Dr Payne 03/04/18 Mammogram: 12/04, was negative, at [place] Htfdxkb0202/2020: [id number]: Neg 023: Neg 024: Neg PAP: Did see Dr Onofre. s/p ovary removal, d/t the cyst, was in the hospital at [facility] [place], [place] 10/31/2019 DEXA: Dr Adolfo Cummins 12/24/17DE XA: 02/07/2020 : Normal, but hypertroph ic bone, recommend calcium and vitamin dDEXA: 02/20/2022 : Osteopenic , do calcium and vit d UTD on flu shotUTD on tdapUTD zosterUTD #13 and #23UTD COVID 19 vaccine last 07/10/2020 Can do RSV vaccine RTC in 2 monthsDo labsER if worseShe did verbalize her understand ing of the above Essential hypertension 96972585 I10 ECHO 11/24/2023 : [facility] On lisinopril 10mg dailyNow on amlodipine 10mg daily Does wellGet labsGet a referral to cardiology 05/17/2023 : Dr Eusebio Mendez Skin lesion 89701928 L98 .9 Flat red circular lesion noted on the R lower leg, referred to dermatolog y OV 03/28/2024 : Sees dermatolog y, does well now Hyperlipidemia 40675825 E78.5 On ASAOn atorvastat in 20mg dailyGet labs Gastroesop hageal reflux disease without esophagitis 555870661 K21.[address] Jaime 03/04/18: Hiatal hernia with gastritis Not on any medsDoes well Can do TUMS Urinary incontinence 165 032974 R32 Not on oxytrol Keep apt with her OB Dr Onofre Hypothyroidism 70552412 E03.9 US thyroid, s/p biopsy 05/27/2020 , ordered 05/20/2021 On levothyrox ine 50mcgs daily, renewed 01/27/2024 Does wellUS thyroid 05/29/2022 : Neg next in one yearUS thyroid 06/01/2203 , next in one year Low back pain 454542035 M54.50 Xray L spine/hips : DJD 03/25/2021 Does well nowStates that she is seeing a chiropract or Pain of ri t shoulder joint [id number] M25.511 Dr Peterson 10/21/2022 : S/p arthroscop e done, does well now OV 04/27/2023 : Is now to get R shoulder surgery with Dr Rodriguez in [facility] need cardiac clearance Addendum: 05/04/2023 :Dr Rodriguez, 02/03/2023 , scheduled for surgery on 06/14/2023 OV 12/07/2023 : Get a referral to Dr Rodriguez OV 05/15/2024 : Is now to get shoulder surgery, will see Dr Mendez for cardiac clearance Hyperglycemia 97324171 R 73.9 Declines meds againDiet as she has been eating sweetsGet labs Varicose v eins of lower extremity 51848971 I83.891 Venous stasis changes noted in the roberto feetNormal DPs bilaterall yLikely varicose venous changes, will refer to Dr Mendez, who will see next week on Wednesday at 10.00am US roberot LE venous/art erial 03/02/[address] Mendez Proteinuria 22509959 R80 .9 Needs to see nephrology , she has declined 03/28/2024 Liver enzy mes level above reference range 147312635 R74.01 US liver: 04/04/2024 : Cirrhosis of liverGet labs andReferre d to GI 04/13/2024 Headache 50393782 R51.9 MRI brain: 04/04/2024 Referred to neurology 04/13/2024 [id number] Reinier bland MD [facility] [address] [facility] [address] [place] [address] 05/29/2024 15:25:35 05/29/2024 15:57:23 [id number] Reinier bland MD [facility] [address] [facility] [place] [address] 07/04/2024 14:06:44 07/04/2024 14:40:14 Screening - NAD [id number] Z13.9 C-scope: Dr Jaime 09/30/10, next in 5 years06/15: Dr Payne 03/04/18 Mammogram: 12/04, was negative, at [place] Yklmkui8702/2020: Smckezon18: Neg 023: Neg 024: Neg PAP: Did see Dr Onofre. s/p ovary removal, d/t the cyst, was in the hospital at [facility] [place], [place] her self 10/31/2019 DEXA: Dr Adolfo Cummins 12/24/17DE XA: 02/07/2020 : Normal, but hypertroph ic bone, recommend calcium and vitamin dDEXA: 02/20/2022 : Osteopenic , do calcium and vit d UTD on flu shotUTD on tdapUTD zosterUTD #13 and #23UTD COVID 19 vaccine last 07/10/2020 Can do RSV vaccine RTC in 2 monthsDo labsER if worseShe did verbalize her understand ing of the above 45 minutes spent in the clinic with patient, her d/c note reviewed in detail, labs updated from the ER, referrals provided Essential hypertension 09887507 I10 ECHO 11/24/2023 : [facility] On lisinopril 10mg dailyOn amlodipine 10mg daily, d/c this d/t LE edema, RTC in 2 weeks from today 07/04/2024 for repeat BP check Does wellGet labsGet a referral to cardiology 05/17/2023 : Dr Eusebio Mendez Skin lesion 19685316 L98 .9 Flat red circular lesion noted on the R lower leg, referred to dermatolog y OV 03/28/2024 : Sees dermatolog y, does well now Hyperlipidemia 53266894 E78.5 On ASAOn atorvastat in 20mg dailyGet labs Gastroesop hageal reflux disease without esophagitis 543163393 K21.[address] Jaime 03/04/18: Hiatal hernia with gastritis Not on any medsDoes well Can do TUMS Urinary incontinence 165 331493 R32 Not on oxytrol Keep apt with her OB Dr Onofre Hypothyroidism 17753758 E03.9 US thyroid, s/p biopsy 05/27/2020 , ordered 05/20/2021 On levothyrox ine 50mcgs daily, renewed 01/27/2024 Does wellUS thyroid 05/29/2022 : Neg next in one yearUS thyroid 06/01/2203 , next in one yearUS thyroid 06/05/2024 : Next in one year Low back pain 406466909 M54.50 Xray L spine/hips : DJD 03/25/2021 Does well nowStates that she is seeing a chiropract or [facility] [id number] M25.511 Dr Peterson 10/21/2022 : S/p arthroscop e done, does well now OV 04/27/2023 : Is now to get R shoulder surgery with Dr Rodriguez in [facility] need cardiac clearance Addendum: 05/04/2023 :Dr Rodriguez, 02/03/2023 , scheduled for surgery on 06/14/2023 OV 12/07/2023 : Get a referral to Dr Rodriguez OV 05/15/2024 : Is now to get shoulder surgery, will see Dr Mendez for cardiac clearance OV 07/04/2024 : Cleared for surgery by Dr Mendez, she will remain a moderate risk Hyperglycemia 88952388 R 73.9 Declines meds againDiet as she has been eating sweetsGet labs Varicose v eins of lower extremity 15683345 I83.891 Venous stasis changes noted in the roberto feetNormal DPs bilaterall yLikely varicose venous changes, will refer to Dr Mendez, who will see next week on Wednesday at 10.00am US roberto LE venous/art erial 03/02/[address] Vanessa Mendez 05/22/2024 , cleared for shoulder surgery Proteinuria 54855457 R80 .9 Needs to see nephrology , she has declined 03/28/2024 Liver enzy mes level above reference range 541504389 R74.01 US liver: 04/04/2024 : Cirrhosis of liverHepat itis panel: NegReferrquita d to GI 04/13/2024 , 07/04/[address] Danielle as she does not want to drive to [place], [place] for Dr Lange Headache 18181478 R51.9 MRI brain: 04/04/2024 Referred to neurology 04/13/2024 Small eliana l obstruction 935435173 K56.609 S/p d/c from [facility] es well now [id number] Casimiro Whittington MD [facility] General Surgery [address] [place] [address] 08/10/2024 15:10:58 08/10/2024 16:06:59 Cirrhosis of liver 61865274 K74.60 Cyst of pancreas 7668768 0 K86.2 [id number] Reinier bland MD [facility] Internal Med [place] [address] [place] [address] 08/31/2024 16:18:37 08/31/2024 17:16:51 Screening - NAD [id number] Z13.9 C-scope: Dr Jaime 09/30/10, next in 5 years06/15: Dr Payne 03/04/18 Mammogram: 12/04, was negative, at [place] Hjnsxyy1402/2020: Pyhlxggk66: Neg02/2 023: Neg 024: Neg 025: Neg PAP: Did see Dr Onofre. s/p ovary removal, d/t the cyst, was in the hospital at [facility] [place], [place] her self 10/31/2019 DEXA: Dr Adolfo Cummins 12/24/17DE XA: 02/07/2020 : Normal, but hypertroph ic bone, recommend calcium and vitamin dDEXA: 02/20/2022 : Osteopenic , do calcium and vit d UTD on flu shotUTD on tdapUTD zosterUTD #13 and #23UTD COVID 19 vaccine last 07/10/2020 Can do RSV vaccine RTC in 3 monthsDo labsER if worseShe did verbalize her understand ing of the above Essential hypertension 07259261 I10 ECHO 11/24/2023 : [facility] On lisinopril 10mg dailyOn amlodipine 10mg daily, d/c this d/t LE edema, RTC in 2 weeks from today 07/04/2024 for repeat BP check Does wellGet labsGet a referral to cardiology 05/17/2023 : Dr Eusebio Mendez05/22: Dr Mendez f/u in 6 months Skin lesion 28518200 L98 .9 Flat red circular lesion noted on the R lower leg, referred to dermatolog y OV 03/28/2024 : Sees dermatolog y, does well now Hyperlipidemia 80180069 E78.5 On ASAOn atorvastat in 20mg dailyGet labs Gastroesop hageal reflux disease without esophagitis 227590632 K21.[address] Jaime 03/04/18: Hiatal hernia with gastritis Not on any medsDoes well Can do TUMS Urinary incontinence 165 295048 R32 Not on oxytrol Keep apt with her OB Dr Onofre Hypothyroidism 31737018 E03.9 US thyroid, s/p biopsy 05/27/2020 , ordered 05/20/2021 On levothyrox ine 50mcgs daily, renewed 01/27/2024 Does wellUS thyroid 05/29/2022 : Neg next in one yearUS thyroid 06/01/2203 , next in one yearUS thyroid 06/05/2024 : Next in one year Low back pain 484092249 M54.50 Xray L spine/hips : DJD 03/25/2021 Does well nowStates that she is seeing a chiropract or [facility] joint 7741800250 6756276 M25.511 Dr Peterson 10/21/2022 : S/p arthroscop e done, does well now OV 04/27/2023 : Is now to get R shoulder surgery with Dr Rodriguez in [facility] cardiac clearance Addendum: 05/04/2023 :Dr Rodriguez, 02/03/2023 , scheduled for surgery on 06/14/2023 OV 12/07/2023 : Get a referral to Dr Rodriguez OV 05/15/2024 : Is now to get shoulder surgery, will see Dr Mendez for cardiac clearance OV 07/04/2024 : Cleared for surgery by Dr Mendez, she will remain a moderate risk Hyperglycemia 93669922 R 73.9 Declines meds againDiet as she has been eating sweetsGet labs Varicose v eins of lower extremity 60258509 I83.891 Venous stasis changes noted in the roberto feetNormal DPs bilaterall yLikely varicose venous changes, will refer to Dr Mendez, who will see next week on Wednesday at 10.00am US roberto LE venous/art erial 03/02/[address] Vanessa Mendez 05/22/2024 , cleared for shoulder surgery Proteinuria 47358215 R80 .9 Needs to see nephrology , she has declined 03/28/2024 Liver enzy mes level above reference range 171553960 R74.01 US liver: 04/04/2024 : Cirrhosis of liverHepat itis panel: NegReferrquita d to GI 04/13/2024 , 07/04/[address] Danielle as she does not want to drive to [place], [place] for Dr Nazario Whittington GI 08/10/2024 , next apt 12/28/2024 Headache 94432117 R51.9 MRI brain: 04/04/2024 Referred to neurology 04/13/2024 Small eliana l obstruction 887685572 K56.609 S/p d/c from [facility] es well now [id number] Casimiro Whittington MD [facility] General Surgery [address] [place] [address] 12/28/2024 13:48:01 12/28/2024 14:34:32 Cirrhosis of liver 19306860 K74.60 Cyst of pancreas 3022449 0 K86.2 Cirrhosis - non-alcoholic 564439173 K75.81 K74.60 [id number] Reinier bland MD [facility] Internal Med [place] [address] [place] [address] 01/04/2025 14:21:16 01/04/2025 15:04:06 Screening - NAD 629268616 Z13.9 C-scope: Dr Jaime 09/30/10, next in 5 years06/15: Dr Payne 03/04/18 Mammogram: 12/04, was negative, at [place] Ilkzbtf2802/2020: Nmeawzyz32: Neg 023: Neg 024: Neg 025: Neg PAP: Did see Dr Onofre. s/p ovary removal, d/t the cyst, was in the hospital at [facility] [place], [place] self 10/31/2019 DEXA: Dr Adolfo Cummins 12/24/17DE XA: 02/07/2020 : Normal, but hypertroph ic bone, recommend calcium and vitamin dDEXA: 02/20/2022 : Osteopenic , do calcium and vit d UTD on flu shotUTD on tdapUTD zosterUTD #13 and #23UTD COVID 19 vaccine last 07/10/2020 Can do RSV vaccine RTC in 3 monthsDo labsER if worseShe did verbalize her understand ing of the above Essential hypertension 40940611 I10 ECHO 11/24/2023 : [facility] On lisinopril 10mg dailyOn amlodipine 10mg daily, d/c this d/t LE edema, RTC in 2 weeks from today 07/04/2024 for repeat BP check Does wellGet labsGet a referral to cardiology 05/17/2023 : Dr Eusebio Mendez05/22: Dr Mendez f/u in 6 months Skin lesion 53914698 L98 .9 Flat red circular lesion noted on the R lower leg, referred to dermatolog y OV 03/28/2024 : Sees dermatolog y, does well now Hyperlipidemia 40802699 E78.5 On ASAOn atorvastat in 20mg dailyGet labs Gastroesop hageal reflux disease without esophagitis 832217083 K21.[address] Jaime 03/04/18: Hiatal hernia with gastritis Not on any medsDoes well Can do TUMS Urinary incontinence 165 952755 R32 Not on oxytrol Keep apt with her OB Dr Onofre Hypothyroidism 49830834 E03.9 US thyroid, s/p biopsy 05/27/2020 , ordered 05/20/2021 On levothyrox ine 50mcgs daily, renewed 01/27/2024 Does wellUS thyroid 05/29/2022 : Neg next in one yearUS thyroid 06/01/2203 , next in one yearUS thyroid 06/05/2024 : Next in one year Low back pain 930518008 M54.50 Xray L spine/hips : DJD 03/25/2021 Does well nowStates that she is seeing a chiropract or Pain of ri ght shoulder joint [id number] 5604819 M25.511 Dr Peterson 10/21/2022 : S/p arthroscop e done, does well now OV 04/27/2023 : Is now to get R shoulder surgery with Dr Rodriguez in [facility] cardiac clearance Addendum: 05/04/2023 :Dr Rodriguez, 02/03/2023 , scheduled for surgery on 06/14/2023 OV 12/07/2023 : Get a referral to Dr Rodriguez OV 05/15/2024 : Is now to get shoulder surgery, will see Dr Mendez for cardiac clearance OV 07/04/2024 : Cleared for surgery by Dr Mendez, she will remain a moderate risk OV 01/04/2025 :Does well now Hyperglycemia 79713326 R 73.9 Declines meds againDiet as she has been eating sweetsGet labs Varicose v eins of lower extremity 18190741 I83.891 Venous stasis changes noted in the roberto feetNormal DPs bilaterall yLikely varicose venous changes, will refer to Dr Mendez, who will see next week on Wednesday at 10.00am US roberto LE venous/art erial 03/02/[address] Vanessa Mendez 05/22/2024 , cleared for shoulder surgery Proteinuria 98312845 R80 .9 Dr Baumann and next apt in 6 weeks as per history 01/04/2025 Liver enzy mes level above reference range 905554992 R74.01 US liver: 04/04/2024 : Cirrhosis of liverHepat itis panel: NegReferre d to GI 04/13/2024 , 07/04/[address] Danielle as she does not want to drive to [place], [place] for Dr Nazario Whittington GI 12/28/2024 , next apt 06/28/2025 Headache 41673446 R51.9 MRI brain: 04/04/2024 Referred to neurology 04/13/2024 Small eliana olivera obstruction 624948390 K56.609 S/p d/c from [facility] es well now Postmenopausal state 764 87374 Z78.0 [id number] Health Concerns Section Related Observation LastModified by Organization Detai ls LastModified Time None Recorded Concern Status LastModified by Organization Details LastModified Time None Recorded Advance Directives Directive Y: Payers Insurance Date Sequence Insurance Name Policy Number Policy Joe Covered Member ID Joe Member ID Guarantor Name 12/25/2024 1 [place] Chandler Shaji EncarnacionCatron [id number] Stephanie Shaji Catron 01/15/2025 2 [employer] (MEDICARE SUPPLEMENT) Stephanie Shaji Diop [id number] Chandler Shaji Chikis 12/25/2024 [employer] - DMEPOS ASSIGNED (MEDICARE DME REGION B) Chandler Shaji EncarnacionCatron [id number] Chandler Shaji Catron 08/04/2024 [employer] - DMEPOS ASSIGNED (MEDICARE DME REGION B) Chandler Shaji EncarnacionChikis [id number] Stephanie Shaji Catron 08/04/2024 [employer] - DMEPOS ASSIGNED (MEDICARE DME REGION B) Chandler Shaji Diop [id number] Stephanie Shaji Diop Notes Date Note Type Note Provider Name and Address Organization Details Recorded Time 07/04/2024 text/html OV 02/03/18:Here to establish carePast Hx:HTNHDLUIGERDRevie wed social family and surgical historyShe is doing well, is here to get labsWants to discuss a pain in the wrist, 2 weeks, has a cyst, has seen Dr Peterson in the past, R HDOV 05/17/18:Here for her routine aptShe feels that she is doing well at this timeNo recent labs snce 02/25/18Wants to see Dr Peterson for L knee pain, none todayShe has seen him for her wristOV 07/19/18:Here for her routine aptShe feels well, does have some leg cramps and is taking a MVIShe did do her labs on on 06/23/18OV :Here for her routine aptShe is feeling better, no new labs at this timeHere to discuss her HTN and HLD feels wellOV 03/28/19:Here for her routine aptShe feels very wellShe did see ENTShe did do the labs alsoOV 06/29/2019:Here for her routine aptShe is doing well at this timeShe did do the labsShe did see ENT Dr Hdz is also needing an xray of the LS Spine, she sees a chiropractor who has asked her for thisNo LBP today, no acute or remore injury, no weakness or N/T in the UE or the LE or any loss of B/B sxShe states that she has been told she has had 'arthritis in the back' by the chiropractor Dr Serena Pinto OV 10/31/2019:Here for her routine aptShe states that she is doing very Sherrie did do the labs and the xray for her backShe has seen Dr Peterson and OCTAVIA for her L knee painShe is here for her MWVOV 03/05/2020:Here for her routine aptShe is doing Sherrie did do the labs and wants to review theseShe has done her mammogram and the DEXA alsoOV 07/16/2020:Here for her routine aptShe feels Sherrie did do the labs on 07/08/2020 OV 11/28/2020:Here for her routine aptShe is doing Sherrie did do the labs 11/25/2020 OV 05/20/2021:Here for her routine aptShe is doing Kenyhe did the labs on 04/23/2021 OV 12/04/2021:Here for her routine apt, she is doing Kenyhe did do the labs on 11/25/2021 OV 02/26/2022:Here for her f/u apt s/p hospitalization, was diagnosed with COVID 19 and low sodium, now does well OV 06/04/2022:Here for her routine apt, she is doing well today, she did do the labs on 05/27/2022 OV 10/27/2022: Here for her f/u apt, she is doing very well today, she is s/p R shoulder surgery, now states that she has no more apts with Dr Peterson, she did do the labs OV 04/27/2023: Here for her routine apt, she is doing well today, she did do the labs on 04/20/2023, she has seen a new ortho for her R shoulder and is now to get R shoulder replacement with Dr Rodriguez on 06/14/2023 as per her history OV 08/24/2023: Here for her f/u apt, she is also here for her BP log, is doing very well OV 12/07/2023: Here for her f/u apt, she feels well OV 01/27/2024: Here for her f/u and ACV, has noted roberto feet discoloration, no pain, has noted that the feet are more purplish, it has gotten much better today OV 03/28/2024: Here for her f/u apt, she is doing well, does have occasional headaches, feels her BP increases with the headaches, it was 164/80 today in am with the headaches, no dizziness no LOC, no chest pain or SOB, no palpitations, no N/V OV 05/15/2024: Here for her post ER apt, she is doing well today, seen in the ER for elevated BP OV 07/04/2024: Here for her post hosp apt, she is s/p d/c for SBO s/p NG tube, now doing very well, no N/V or constipation, no blood in stool, no abdominal pain, normal appetite now Reinier Luis MD [address] [facility], [facility] [address], [place], [address], [facility] [employer] 07/04/2024 14:43:10 08/10/2024 text/html patient is seen 1st time in the office patient is here because she had an ultrasound done in March 2024 that showed cirrhosis of the liver. Patient also has history of intestinal obstruction for which she was admitted in the hospital and treated conservatively currently patient denies any nausea vomiting patient did have a CT scan with contrast done on June 2024 that showed a 5 mm cyst in the liver also showed 2 cysts in the pancreas and had a small bowel obstruction at that time. Although on the CT scan the spleen and gallbladder were normal patient denies any nausea vomiting according to her she is going for shoulder surgery in September where she has been waiting for it it has been canceled twice before and does not want to miss the shoulder surgery. Casimiro Whittington MD [address] [place] [address] [address], [address], [place], [address], [place] [facility] 08/10/2024 16:04:23 08/31/2024 text/html OV 02/03/18:Here to establish carePast Hx:HTNHDLUIGERDRevie wed social family and surgical historyShe is doing well, is here to get labsWants to discuss a pain in the wrist, 2 weeks, has a cyst, has seen Dr Peterson in the past, R HDOV 05/17/18:Here for her routine aptShe feels that she is doing well at this timeNo recent labs snce 02/25/18Wants to see Dr Peterson for L knee pain, none todayShe has seen him for her wristOV 07/19/18:Here for her routine aptShe feels well, does have some leg cramps and is taking a MVIShe did do her labs on on 06/23/18OV :Here for her routine aptShe is feeling better, no new labs at this timeHere to discuss her HTN and HLD feels wellOV 03/28/19:Here for her routine aptShe feels very wellShe did see ENTArmaane did do the labs alsoOV 06/29/2019:Here for her routine aptShe is doing well at this timeShe did do the labsShe did see ENT Dr Hdz is also needing an xray of the LS Spine, she sees a chiropractor who has asked her for thisNo LBP today, no acute or remore injury, no weakness or N/T in the UE or the LE or any loss of B/B sxShe states that she has been told she has had 'arthritis in the back' by the chiropractor Dr Serena Pinto OV 10/31/2019:Here for her routine aptShe states that she is doing very wellShe did do the labs and the xray for her backShe has seen Dr Peterson and [facility] for her L knee painShe is here for her MWVOV 03/05/2020:Here for her routine aptShe is doing wellShe did do the labs and wants to review theseShe has done her mammogram and the DEXA alsoOV 07/16/2020:Here for her routine aptShe feels Sherrie did do the labs on 07/08/2020 OV 11/28/2020:Here for her routine aptShe is doing wellShe did do the labs 11/25/2020 OV 05/20/2021:Here for her routine aptShe is doing wellShe did the labs on 04/23/2021 OV 12/04/2021:Here for her routine apt, she is doing wellShe did do the labs on 11/25/2021 OV 02/26/2022:Here for her f/u apt s/p hospitalization, was diagnosed with COVID 19 and low sodium, now does well OV 06/04/2022:Here for her routine apt, she is doing well today, she did do the labs on 05/27/2022 OV 10/27/2022: Here for her f/u apt, she is doing very well today, she is s/p R shoulder surgery, now states that she has no more apts with Dr Peterson, she did do the labs OV 04/27/2023: Here for her routine apt, she is doing well today, she did do the labs on 04/20/2023, she has seen a new ortho for her R shoulder and is now to get R shoulder replacement with Dr Rodriguez on 06/14/2023 as per her history OV 08/24/2023: Here for her f/u apt, she is also here for her BP log, is doing very well OV 12/07/2023: Here for her f/u apt, she feels well OV 01/27/2024: Here for her f/u and ACV, has noted roberto feet discoloration, no pain, has noted that the feet are more purplish, it has gotten much better today OV 03/28/2024: Here for her f/u apt, she is doing well, does have occasional headaches, feels her BP increases with the headaches, it was 164/80 today in am with the headaches, no dizziness no LOC, no chest pain or SOB, no palpitations, no N/V OV 05/15/2024: Here for her post ER apt, she is doing well today, seen in the ER for elevated BP OV 07/04/2024: Here for her post hosp apt, she is s/p d/c for SBO s/p NG tube, now doing very well, no N/V or constipation, no blood in stool, no abdominal pain, normal appetite now OV 08/31/2024: Here for her f/u apt, she is doing well today, she did see Dr Whittington and has done her labsNow is eager to get her shoulder surgery Reinier Luis MD [address] [facility], [address], [place], [address], [facility] 08/31/2024 17:07:41 12/28/2024 text/html Patient came for follow up patient is doing well denies any nausea vomiting abdominal pain patient is originally being seen for cirrhosis of the liver patient had a ultrasound done a year ago that showed cirrhosis then she had a CT scan done in July 11 patient had extensive workup for the liver disease liver fibrosis test is F0 F1 disease. Patient also has history of pancreatic cyst currently denies any GI symptoms according to her she used to get colonoscopies on regular basis because her brother had colon cancer according to her the last colonoscopy was 2- 3 years ago and then she was recommended not to proceed with further colonoscopies because of her age I do not have the records of it Casimiro Whittington MD [address], [address], [place], [address], [facility] 12/28/2024 14:34:02 01/04/2025 text/html OV 02/03/18:Here to establish carePast Hx:HTNHDLUIGERDRevie wed social family and surgical historyShe is doing well, is here to get labsWants to discuss a pain in the wrist, 2 weeks, has a cyst, has seen Dr Peterson in the past, R HDOV 05/17/18:Here for her routine aptShe feels that she is doing well at this timeNo recent labs snce 02/25/18Wants to see Dr Peterson for L knee pain, none todayShe has seen him for her wristOV 07/19/18:Here for her routine aptShe feels well, does have some leg cramps and is taking a MVIShe did do her labs on on 06/23/18OV :Here for her routine aptShe is feeling better, no new labs at this timeHere to discuss her HTN and HLD feels wellOV 03/28/19:Here for her routine aptShe feels very wellShe did see ENTShe did do the labs alsoOV 06/29/2019:Here for her routine aptShe is doing well at this timeShe did do the labsShe did see ENT Dr Hdz is also needing an xray of the LS Spine, she sees a chiropractor who has asked her for thisNo LBP today, no acute or remore injury, no weakness or N/T in the UE or the LE or any loss of B/B sxShe states that she has been told she has had 'arthritis in the back' by the chiropractor Dr Serena Pinto OV 10/31/2019:Here for her routine aptShe states that she is doing very wellShe did do the labs and the xray for her backShe has seen Dr Peterson and APG for her L knee painShe is here for her MWVOV 03/05/2020:Here for her routine aptShe is doing wellShe did do the labs and wants to review theseShe has done her mammogram and the DEXA alsoOV 07/16/2020:Here for her routine aptShe feels wellShe did do the labs on 07/08/2020 OV 11/28/2020:Here for her routine aptShe is doing wellShe did do the labs 11/25/2020 OV 05/20/2021:Here for her routine aptShe is doing wellShe did the labs on 04/23/2021 OV 12/04/2021:Here for her routine apt, she is doing wellShe did do the labs on 11/25/2021 OV 02/26/2022:Here for her f/u apt s/p hospitalization, was diagnosed with COVID 19 and low sodium, now does well OV 06/04/2022:Here for her routine apt, she is doing well today, she did do the labs on 05/27/2022 OV 10/27/2022: Here for her f/u apt, she is doing very well today, she is s/p R shoulder surgery, now states that she has no more apts with Dr Peterson, she did do the labs OV 04/27/2023: Here for her routine apt, she is doing well today, she did do the labs on 04/20/2023, she has seen a new ortho for her R shoulder and is now to get R shoulder replacement with Dr Rodriguez on 06/14/2023 as per her history OV 08/24/2023: Here for her f/u apt, she is also here for her BP log, is doing very well OV 12/07/2023: Here for her f/u apt, she feels well OV 01/27/2024: Here for her f/u and ACV, has noted roberto feet discoloration, no pain, has noted that the feet are more purplish, it has gotten much better today OV 03/28/2024: Here for her f/u apt, she is doing well, does have occasional headaches, feels her BP increases with the headaches, it was 164/80 today in am with the headaches, no dizziness no LOC, no chest pain or SOB, no palpitations, no N/V OV 05/15/2024: Here for her post ER apt, she is doing well today, seen in the ER for elevated BP OV 07/04/2024: Here for her post hosp apt, she is s/p d/c for SBO s/p NG tube, now doing very well, no N/V or constipation, no blood in stool, no abdominal pain, normal appetite now OV 08/31/2024: Here for her f/u apt, she is doing well today, she did see Dr Whittington and has done her labsNow is eager to get her shoulder surgery OV 01/04/2025: Here for her f/u apt, she did do the labsShe feels well Reinier Luis MD [address] [facility], [facility] [address], [place], [address], [place] - [facility] [employer] [facility] 01/14/2025 15:37:31 OBGyn Episode No OBEpisode recorded.
--- OUTSIDE RECORDS SUMMARY | 2025-02-26 00:22 | XMS_ITS | Encounter Summary ---
Author Organization [facility] Address [address] [facility] [address] Care Team Providers Care Validation Specialist Name Role Phone Unavailable Primary Care Provider Unavailabl e Encounter Details Date Type Department Care Team (Late st Contact Info) Description 09/24/2023 Lab Requisition [facility] - DermPath Lab [address] [place] [phone] Rosendo Yu MD [address] [place] [address] Social History Tobacco Use Types Packs/Day Years Used Date Smoking Tobacco: Never Assessed Comments Unknown Sex and Gender Information Value Date Recorded Sex Assigned at Not on file Legal 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 Gender Identity Not on file Sexual Orientation Not on file documented as of this encounter Plan of Treatment Not on file documented as of this encounter Procedures Procedure Name Priority Date/Time Associated Diagnosis Comments DERMATOPATHOLOGY Routine 09/22/2023 3:33 AM CDT documented in this encounter Results * DERMATOPATHOLOGY (09/22/2023 3:33 AM CDT) Case Report Dermatopathology Report Case: [id number] Authorizing Provider: Rosendo Yu MD Collected: 09/22/2023 03:33 AM Ordering Location: [facility] Physician [facility] - Received: 09/27/2023 07:31 AM DermPath Lab Pathologist: Mary Campos MD Specimen: Skin, right superior pretibia 12:56 PM CDT DERMATOPATHOLOGY LABORATORY Final Diagnosis Specimen A. SKIN, right superior pretibia: HYPERPLASTIC (HYPERTROPHIC) ACTINIC KERATOSIS, LICHENOID (L57.0) (see microscopic description) 12:56 PM CDT DERMATOPATHOLOGY LABORATORY at 1256 CDT Clinical History R/o ISK vs trauma vs AK vs BCC 4 12:56 PM CDT DERMATOPATHOLOGY LABORATORY Gross Description Specimen A: Received is one formalin filled container labeled with the patient's name and designated right superior pretibia. The specimen consists of a shave biopsy measuring 39m52t5 mm. Jar 0. 4 12:56 PM CDT DERMATOPATHOLOGY LABORATORY Microscopic Description Specimen A. SKIN, right superior pretibia: There is hyperkeratosis alternating with parakeratosis. There is epidermal hyperplasia with disorderly maturation of keratinocytes with nuclear pleomorphism confined to the lower half of the epidermis. The dermis shows a band-like, chronic inflammatory infiltrate with occasional apoptotic keratinocytes and some basal vacuolar alteration. 12:56 PM CDT DERMATOPATHOLOGY LABORATORY Disclaimer An external and internal positive and negative controls are appropriate for the histochemical, immunohistochemical and immunofluorescence stain(s) in this case (if any), except where stated explicitly. The performance characteristics of the stain(s) cited in this report were developed and its performance characteristic determined by the Dermatopathology Laboratory at [facility], directed by Dr. Justyn Ryan. These tests need not be, and therefore are not, approved by the [place] Food and Drug Administration. The tests are used for clinical purposes. Billing Codes Specimen Charges Stain Charges 58350 1 4 12:56 PM CDT DERMATOPATHOLOGY LABORATORY Embedded Images 4 12:56 PM CDT DERMATOPATHOLOGY LABORATORY Pathology/Cytolo gy TISSUE SPECIMEN FROM SKIN / Unknown 09/22/2023 3:33 AM CDT 09/27/2023 7:31 AM CDT us Rosendo Yu MD LAB - PATHOLOGY/CYTOLOGY ORD ERABLES Final Result DERMATOPATHOLOGY LABORATORY [facility] - Department of Dermatology [address] [place] [address], [facility] [phone] documented in this encounter Visit Diagnoses Not on filedocumented in this encounter
--- OUTSIDE RECORDS SUMMARY | 2025-02-26 00:22 | XMS_ITS | Encounter Summary ---
Author Organization [facility] Address [address] [facility] [place] [address] Care Team Providers Care Title Assistant Name Role Phone Unavailable Primary Care Provider Unavailabl e Encounter Details Date Type Department Care Team (Late st Contact Info) Description 03/24/2023 Lab Requisition [facility] - DermPath Lab [address] [place] [phone] Rosendo Yu MD [address] [place] [address] Social History Tobacco Use Types Packs/Day Years Used Date Smoking Tobacco: Never Assessed Comments Unknown Sex and Gender Information Value Date Recorded Sex Assigned at Not on file 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 Gender Identity Not on file Sexual Orientation Not on file documented as of this encounter Plan of Treatment Not on file documented as of this encounter Procedures Procedure Name Priority Date/Time Associated Diagnosis Comments DERMATOPATHOLOGY Routine 03/23/2023 12:0 0 AM SENIOR MAINTENANCE MACHINIST documented in this encounter Results * DERMATOPATHOLOGY (03/23/2023 12:00 AM SENIOR MAINTENANCE MACHINIST) Case Report Dermatopathology Report [id number]: [id number] Authorizing Provider: Rosendo Yu MD Collected: 03/23/2023 12:00 AM Ordering Location: [facility] DermPath Lab Received: 03/24/2023 02:19 PM Pathologist: Nicole Campos MD Specimen: Skin, left of midline above tip of tongue 3 4:12 PM SENIOR MAINTENANCE MACHINIST DERMATOPATHOLOGY LABORATORY Final Diagnosis Specimen A. 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 The specimen consists of a shave biopsy measuring 6x4x1 mm. Jar 0. 3 4:12 PM [facility] DERMATOPATHOLOGY LABORATORY Microscopic Description Specimen A. [...] of a larger lesion. 3 4:12 PM [facility] DERMATOPATHOLOGY LABORATORY Disclaimer An external and internal positive and negative controls are appropriate for the histochemical, immunohistochemical and immunofluorescence stain(s) in this case (if any), except where stated explicitly. The performance characteristics of the stain(s) cited in this report were developed and its performance characteristic determined by the Dermatopathology Laboratory at [facility], directed by Dr. Justyn Ryan. These tests need not be, and therefore are not, approved by the [place] Food and Drug Administration. The tests are used for clinical purposes. Billing Codes Specimen Charges Stain Charges 13463 1 3 4:12 PM SENIOR MAINTENANCE MACHINIST DERMATOPATHOLOGY LABORATORY Embedded Images 3 4:12 PM [facility] DERMATOPATHOLOGY LABORATORY Pathology/Cytolog y TISSUE SPECIMEN FROM SKIN / Unknown 03/23/2023 03/24/2023 2:19 PM SENIOR MAINTENANCE MACHINIST us Rosendo Yu MD LAB - PATHOLOGY/CYTOLOGY ORD ERABLES Final Result DERMATOPATHOLOGY LABORATORY [facility] - Department of Dermatology [address] [phone] documented in this encounter Visit Diagnoses Not on filedocumented in this encounter
--- OUTSIDE RECORDS SUMMARY | 2025-02-26 00:22 | XMS_ITS | Encounter Summary ---
Author Organization [facility] Address [address] [facility] [place] [address] Care Team Providers Care Delivery Man Name Role Phone Unavailable Primary Care Provider Unavailabl e Encounter Details Date Type Department Care Team (Late st Contact Info) Description 05/12/2023 Lab Requisition [facility] - DermPath Lab [address] [place] [phone] Rosendo Yu MD [address] [address] Social History Tobacco Use Types Packs/Day Years Used Date Smoking Tobacco: Never Assessed Comments Unknown Sex and Gender Information Value Date Recorded Sex Assigned at Not on file 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 Gender Identity Not on file Sexual Orientation Not on file documented as of this encounter Plan of Treatment Not on file documented as of this encounter Procedures Procedure Name Priority Date/Time Associated Diagnosis Comments DERMATOPATHOLOGY Routine 05/11/2023 12:0 0 AM INSTALLATION ENGINEER documented in this encounter Results * DERMATOPATHOLOGY (05/11/2023 12:00 AM INSTALLATION ENGINEER) Case Report Dermatopathology Report [id number]: [id number] Authorizing Provider: Rosendo Yu MD Collected: 05/11/2023 12:00 AM Ordering Location: [facility] DermPath Lab Received: 05/13/2023 06:26 AM Pathologist: Nicole Campos MD Specimen: Skin, right lower lateral leg 5:36 PM INSTALLATION ENGINEER DERMATOPATHOLOGY LABORATORY Final Diagnosis Specimen A. 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 The specimen consists of a shave biopsy measuring 9x6x1 mm. Jar 0. 4 5:36 PM [facility] DERMATOPATHOLOGY LABORATORY Microscopic Description Specimen A. SKIN, right lower lateral leg: Sections reveal parakeratosis, acanthosis and keratinocyte dysmaturation which is most prominent in the lower epidermis. Focal nests are present in the dermis, which also contains a sparse, perivascular lymphocytic infiltrate surrounding dilated, thick-walled vessels, which are increased in number. 4 5:36 PM [facility] DERMATOPATHOLOGY LABORATORY Disclaimer An external and internal positive and negative controls are appropriate for the histochemical, immunohistochemical and immunofluorescence stain(s) in this case (if any), except where stated explicitly. The performance characteristics of the stain(s) cited in this report were developed and its performance characteristic determined by the Dermatopathology Laboratory at [facility], directed by Dr. Justyn Ryan. These tests need not be, and therefore are not, approved by the [place] Food and Drug Administration. The tests are used for clinical purposes. Billing Codes Specimen Charges Stain Charges 97425 1 4 5:36 PM [facility] DERMATOPATHOLOGY LABORATORY Embedded Images 4 5:36 PM [facility] DERMATOPATHOLOGY LABORATORY Pathology/Cytolog y TISSUE SPECIMEN FROM SKIN / Unknown 05/11/2023 05/13/2023 6:26 AM [facility] us Rosendo Yu MD LAB - PATHOLOGY/CYTOLOGY ORD ERABLES Final Result DERMATOPATHOLOGY LABORATORY [facility] - Department of Dermatology [address] [place] [address], [facility] [phone] documented in this encounter Visit Diagnoses Not on filedocumented in this encounter
--- OUTSIDE RECORDS SUMMARY | 2025-02-26 00:22 | XMS_ITS | Clinical Summary ---
Author Organization [facility] Address [address] [place] [address] Care Team Providers Care Med Spec Name Role Phone Unavailable Primary Care Provider Unavailabl e Source Comments [facility],non-owned Affiliates and Associated Physician Practices is amultiple site organization consisting of ambulatory clinics and hospital sitesin [place], [place], [place] and [place]. This disclosure is being madepursuant to the Care Everywhere program and may not contain all information available regarding this patient. 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 Gender Identity Not on file Sexual Orientation [...] yrs (1 - 1-dose 75+ series) 07/30/2014 DEPRESSION SCREENING 04/19/2024 COVID-19 VACCINE (3 - 2024- season) 2024 08/13/2021, 02/20/2021 INFLUENZA VACCINE (#1) 2024 , 01/14/2019, 01/20/2018, Additional history exists HEPATITIS B VACCINE Aged Out No longe r eligible based on patient's age to complete this topic HIB VACCINE Aged Out No longer eligi ble based on patient's age to complete this topic HPV VACCINE Aged Out No longer eligi ble based on patient's age to complete this topic MENINGOCOCCAL (Group B) VACCINE SHARED DECISION-MAKING Aged Out No longer eligible based on patient's age to complete this topic MENINGOCOCCAL GROUPS A/C/Y/W VACCINE Aged Out No longer eligible based on patient's age to complete this topic Insurance [address] [place] [id number] MEDICARE [facility] [address] [place] [id number] MEDICARE [employer]
--- NOTE | 2025-02-26 10:22 | WPDANESEPPF ---
Anes - Initial Pre Proc Eval Procedure: Operation Date: 02/26/25 11:45 Proposed Procedures p Esophagogastroduodenoscopy EGD - Calvin Miranda MD Date/Time: 02/26/25 10:22 Surgeon: Calvin Miranda MD Pre Op Diagnosis: Elevation of levels of liver transaminase levels Patient Data Age: 84 Gender: F Height: 1.6 m Weight: 62 kg Allergies Allergy/AdvReac Type Severity Reaction Status Date / Time No Known Allergies Allergy Verified 02/26/25 10:21 Home Medications ?Medication ?Instructions ?Recorded ?Confirmed ?Type aspirin 81 mg tablet 81 mg PO DAILY 08/25/21 02/26/25 History atorvastatin 20 mg tablet 20 mg PO QHS 08/25/21 02/26/25 History levothyroxine 50 mcg capsule 50 mcg PO QAM 08/25/21 02/26/25 History lisinopril 10 mg tablet 10 mg PO DAILY 08/25/21 02/26/25 History melatonin 3 mg capsule 3 mg PO QHS PRN Insomnia 08/25/21 02/12/25 History calcium carbonate (Calcium 600) 600 mg PO DAILY 03/17/22 02/26/25 History carboxymethylcellulose sodium 0.5 1 drp EACH EYE BID 03/17/22 02/26/25 History % eye drops (Refresh Tears) cholecalciferol (vitamin D3) 25 25 mcg PO DAILY 03/17/22 02/26/25 History mcg (1,000 unit) capsule vitamins A,C,L-yado-ynlsfx 4,296 1 cap PO BID 03/17/22 02/26/25 History mcg-226 mg-90 mg capsule (PreserVision AREDS) coenzyme Q10 75 mg capsule (Ultra 100 mg PO DAILY 06/11/22 02/26/25 History CoQ10) acetaminophen 650 mg 650 mg PO Q12H PRN Pain 09/23/22 02/12/25 History tablet,extended release multivitamin,min-ferrous fumarate 1 tablet PO BID 09/23/22 02/26/25 History 3.3 mg-folic 25 mcg-herb tablet (Hair, Skin and Nails Advanced) tinrjmmh-aod-dgmyd ac 400 1 tablet PO DAILY 12/16/22 02/26/25 History mcg-calcium carb 500 mg-vit K1 20 mcg tablet (Women's 50 Plus Multivitamin) b12 500 mcg PO DAILY 06/20/24 02/26/25 History bzenufn-kkrclsndl-lokg 333 mg-133 1 tablet PO DAILY 06/20/24 02/26/25 History mg-5 mg tablet magnesium 250 mg tablet 250 mg PO BID 06/20/24 02/12/25 History psyllium husk 3.4 gram/5.4 gram 1 tbsp PO DAILY 06/20/24 02/12/25 History oral powder (Metamucil) amlodipine 10 mg tablet (Norvasc) 10 mg PO HS 06/22/24 02/12/25 History amlodipine 10 mg tablet 10 mg PO DAILY #30 tabs 06/23/24 02/12/25 Rx polyethylene glycol 3350 17 gram 17 g PO DAILY 02/12/25 02/26/25 History oral powder packet (Miralax) Patient hx anesthesia problems: none Family hx anesthesia problems: none Results Review: All pre-operative results and documents have been reviewed as part of the pre-operative evaluation. 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 Hyperlipidemia Hypothyroidism Scoliosis of cervical spine GI bleed from diverticulitis around 2021 Cervical migraine syndrome Stomach ulcer High cholesterol Heartburn Hypertension Cancer of skin Surgical History Surgical History History of bilateral salpingo-oophorectomy Laparoscopic History of arthroscopy of right shoulder right shoulder scope debridement October 06, 2022 Status post surgical removal of malignant neoplasm of skin S/P right rotator cuff repair 2013 H/O meniscectomy of right knee 2011 H/O vaginal hysterectomy Family History Family History Sibling Diabetes mellitus Cancer Family hx-arthritis Heart disease Mother Family hx-arthritis Sibling Family hx-arthritis Cancer Grandparent Cancer Family hx-arthritis Grandparent Family history of malignant neoplasm of breast Father Heart disease Cardiovascular sclerosis with arteriosclerosis Social History Social History Social History: Patient currently lives by herself. She had 4 children 1 of them is at this time. She denies having any pets and wishes to be a full code. Her daughter Elizabeth is her surrogate. Patient also stated she has living will. 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, 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 Gender identity (if verbalized by the patient): Female Sexual Orientation (if Verbalized by the Patient): Straight or Heterosexual Spiritual care concerns: No Agree to blood products: Yes Anes - Eval Final PreProcedure Day of Procedure 02/26/25 10:22 Patient weight: overweight Heart: regular rate and rhythm Lungs: clear to auscultation Airway: Mallampati scale class II Neurological: alert and oriented Last oral intake: >/= 8 hours ASA classification: III Emergent: no Anesthetic plan: proceed Anesthesia type and monitoring: general GIVS and standard monitoring Results Review: All pre-operative results and documents have been reviewed as part of the pre-operative evaluation. Informed Consent: The patient's anesthetic plan and its attendant risks and benefits were discussed with the patient/family/POA. Questions were solicited and answers provided to the satisfaction of the patient/family/POA.
[2025-02-26 10:23] VITALS: BP 166/76; PULSE 75; RESP 18; TEMP 36.6; O2SAT 98; BMI 24.3
[2025-02-26] MEDS: LACTATED RINGERS 1,000 ML 150 ML IV CONT (10:28)
--- NOTE | 2025-02-26 10:34 | PM.HPGS ---
History of Present Illness History of Present Illness Consent: Risks, benefits, and alternatives have been discussed and questions answered. Patient agrees to proceed with procedure. 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 Hyperlipidemia Hypothyroidism Scoliosis of cervical spine GI bleed from diverticulitis around 2021 Cervical migraine syndrome Stomach ulcer High cholesterol Heartburn Hypertension Cancer of skin Surgical History Surgical History History of bilateral salpingo-oophorectomy Laparoscopic History of arthroscopy of right shoulder right shoulder scope debridement October 06, 2022 Status post surgical removal of malignant neoplasm of skin S/P right rotator cuff repair 2013 H/O meniscectomy of right knee 2011 H/O vaginal hysterectomy Family History Family History Sibling Diabetes mellitus Cancer Family hx-arthritis Heart disease Mother Family hx-arthritis Sibling Family hx-arthritis Cancer Grandparent Cancer Family hx-arthritis Grandparent Family history of malignant neoplasm of breast Father Heart disease Cardiovascular sclerosis with arteriosclerosis Social History Social History Social History: Patient currently lives by herself. She had 4 children 1 of them is at this time. She denies having any pets and wishes to be a full code. Her daughter Elizabeth is her surrogate. Patient also stated she has living will. Smoking status: Never smoker Second hand tobacco smoke exposure: No Alcohol intake: never Alcohol use details: [facility] [place] [facility] Substance use: never Substance use type: does not use Do You Feel Safe in your Home?: Yes Lack of Transportation: No Lack of Food: Never True Current Housing: I Have Housing Concerned About Future Housing: No Difficulty Paying Gas/Electric Bills: No Difficulty Paying for Meds: No Currently Unemployed: No Education: High School Diploma/GED Difficulty w/ Childcare or Family Care: No Living arrangements: alone Occupation/Education: retired Additional occupation/education comments: [employer] Gender identity (if verbalized by the patient): Female Sexual Orientation (if Verbalized by the Patient): Straight or Heterosexual Spiritual care concerns: No Agree to blood products: Yes Meds Home Medications and Allergies Home Medications ?Medication ?Instructions ?Recorded ?Confirmed ?Type aspirin 81 mg tablet 81 mg PO DAILY 08/25/21 02/26/25 History atorvastatin 20 mg tablet 20 mg PO QHS 08/25/21 02/26/25 History levothyroxine 50 mcg capsule 50 mcg PO QAM 08/25/21 02/26/25 History lisinopril 10 mg tablet 10 mg PO DAILY 08/25/21 02/26/25 History melatonin 3 mg capsule 3 mg PO QHS PRN Insomnia 08/25/21 02/12/25 History calcium carbonate (Calcium 600) 600 mg PO DAILY 03/17/22 02/26/25 History carboxymethylcellulose sodium 0.5 1 drp EACH EYE BID 03/17/22 02/26/25 History % eye drops (Refresh Tears) cholecalciferol (vitamin D3) 25 25 mcg PO DAILY 03/17/22 02/26/25 History mcg (1,000 unit) capsule vitamins A,C,X-mvtu-aumgyh 4,296 1 cap PO BID 03/17/22 02/26/25 History mcg-226 mg-90 mg capsule (PreserVision AREDS) coenzyme Q10 75 mg capsule (Ultra 100 mg PO DAILY 06/11/22 02/26/25 History CoQ10) acetaminophen 650 mg 650 mg PO Q12H PRN Pain 09/23/22 02/12/25 History tablet,extended release multivitamin,min-ferrous fumarate 1 tablet PO BID 09/23/22 02/26/25 History 3.3 mg-folic 25 mcg-herb tablet (Hair, Skin and Nails Advanced) pcegjqus-gln-zidez ac 400 1 tablet PO DAILY 12/16/22 02/26/25 History mcg-calcium carb 500 mg-vit K1 20 mcg tablet (Women's 50 Plus Multivitamin) b12 500 mcg PO DAILY 06/20/24 02/26/25 History okipfvg-pjhtqhqwo-kwqp 333 mg-133 1 tablet PO DAILY 06/20/24 02/26/25 History mg-5 mg tablet magnesium 250 mg tablet 250 mg PO BID 06/20/24 02/12/25 History psyllium husk 3.4 gram/5.4 gram 1 tbsp PO DAILY 06/20/24 02/12/25 History oral powder (Metamucil) amlodipine 10 mg tablet (Norvasc) 10 mg PO HS 06/22/24 02/12/25 History amlodipine 10 mg tablet 10 mg PO DAILY #30 tabs 06/23/24 02/12/25 Rx polyethylene glycol 3350 17 gram 17 g PO DAILY 02/12/25 02/26/25 History oral powder packet (Miralax) Allergies Allergy/AdvReac Type Severity Reaction Status Date / Time No Known Allergies Allergy Verified 02/26/25 10:21 Vital Signs Vital Signs - 24 hr 02/26/25 10:23 Temperature 97.9 F Pulse Rate 75 Respiratory Rate 18 Blood Pressure 166/76 H Pulse Oximetry 98 Oxygen Delivery Room Air Exam Const: General: comfortable and no acute distress HENMT: Face/Nose/Sinus: Normal nares present Eyes: General: appearance normal, both eyes and all related structures Resp: Auscultation: clear to auscultation bilaterally Cardio: Rate: regular rate Rhythm: regular rhythm GI: Inspection: non-distended GI Palp: Yes Soft to palpation Skin: General skin exam: normal color Extrem: General: normal to inspection Psych: Mental Status: mental status grossly normal Assessment and Plan Assessment and plan (1) Dyspepsia: Code(s): R10.13 - Epigastric pain Status: Acute Assessment and Plan: egd with bx
--- NOTE | 2025-02-26 10:38 | S_PTH ---
PATIENT: Stephanie Diop LOC: [facility]#:[id number] AGE/SX: 84/F ROOM: RE02/26/[address]: Calvin Miranda MD : 1940 BED: DIS: 02/26/2025 SPEC #: [id number] RECD: 02/26/25 11:56 STATUS: PAMELA REChucho #: [id number] IRA: 02/26/25 10:[address]: Calvin Miranda DEPT: [facility] Surgical RECD BY: Caty Parker ENTERED: 02/26/25 11:56 SP TYPE: Surgical OTHR DR: Missy LuisMD Tissues: A - Gastric Biopsy Procedures: Hematoxylin and Eosin Stain Gross and Microscopic Level 4
[2025-02-26 10:41] VITALS: BP 160/77; PULSE 83; RESP 22; O2SAT 98
[2025-02-26 10:51] VITALS: BP 141/66; PULSE 65; RESP 18; O2SAT 99
[2025-02-26 11:01] VITALS: BP 163/71; PULSE 60; RESP 20; O2SAT 100
== END 2025-02-26 11:17 | disposition home or self-care (01) ==
PROVIDERS: PCP Internal Medicine; Referring Provider Internal Medicine; Visit Provider Internal Medicine Gastroenterology
PROC: 0DJ08ZZ Inspection of Upper Intestinal Tract, Via Natural or Artificial Opening Endoscopic (ICD-10-PCS; CPT 43239; principal; 2025-02-26 11:45)
DX: K21.9 Gastro-esophageal reflux disease without esophagitis (principal); K29.70 Gastritis, unspecified, without bleeding; K44.9 Diaphragmatic hernia without obstruction or gangrene; I10 Essential (primary) hypertension; E03.9 Hypothyroidism, unspecified; E78.00 Pure hypercholesterolemia, unspecified; I44.0 Atrioventricular block, first degree; M41.82 Other forms of scoliosis, cervical region; Z79.82 Long term (current) use of aspirin; Z98.890 Other specified postprocedural states; Z87.11 Personal history of peptic ulcer disease; Z85.828 Personal history of other malignant neoplasm of skin; Z80.3 Family history of malignant neoplasm of breast; Z82.49 Family history of ischemic heart disease and other diseases of the circulatory system
CPT/HCPCS: 43239; 88305; J2704; J7120